=== PATIENT | male | born 1960 | race African-American/Black ===

== ENCOUNTER 2020-03-15 12:33 | Outpatient (REF) | payer MEDICARE, MEDICAID, SELFPAY ==
[2020-03-15 14:01] LABS: MANUAL DIFF FLAG NO
[2020-03-15 14:07] LABS: Basophils Percent Auto 0.8 % (0-2); Eosinophils Absolute Auto 0.1 X10*3/uL (0.0-0.4); Eosinophils Percent Auto 1.4 % (0-4); Hematocrit 38.9 % (42-52); Hemoglobin 12.8 g/dl (14.0-18.0); Lymphocytes Absolute Auto 2.2 X10*3/uL (1.2-4.9); Lymphocytes Percent Auto 43.3 % (20-40); Mean Corpuscular HGB Conc 32.9 g/dl (31.0-36.0); Mean Corpuscular Hemoglobin 31.9 pg (27.0-33.0); Mean Platelet Volume 11.4 fL (9.4-12.4); Monocytes Absolute Auto 0.6 X10*3/uL (0.1-1.2); Monocytes Percent Auto 11.4 % (2-11); Neutrophils Absolute Auto 2.2 X10*3/uL (2.0-8.3); Neutrophils Percent Auto 43.1 % (45-73); Platelet Count 235 X10*3/uL (160-400); Red Blood Count 4.01 X10*6/uL (4.60-5.80); Red Cell Distribution Width 13.7 % (11.0-16.0); White Blood Count 5.2 X10*3/uL (4.8-10.8)
[2020-03-15 14:49] LABS: Albumin Level 4.2 g/dL (3.5-5.0); Anion Gap 14 (12-20); Blood Urea Nitrogen 17 mg/dL (9-16); Calcium 8.8 mg/dL (8.4-10.2); Carbon Dioxide 27 mmol/L (22-29); Chloride 104 mmol/L (96-108); Estimated Glomerular Filt Rate > 60; Magnesium 1.9 mg/dL (1.6-2.6); Potassium 4.7 mmol/l (3.3-5.1); Sodium 140 mmol/L (135-145)
[2020-03-16 17:51] LABS: Calcium (PTHI) 9.7 mg/dL (8.6-10.3); PTHI 115 pg/mL (14-64)
== END 2020-03-15 12:34 | disposition home or self-care (01) ==
LOC: HO.HMGCLDS 12:33
PROVIDERS: PCP Internal Medicine; Visit Provider Internal Medicine Hypertension Specialist
DX: I12.9 Hypertensive chronic kidney disease with stage 1 through stage 4 chronic kidney disease, or unspecified chronic kidney disease (principal); N18.9 Chronic kidney disease, unspecified; E87.5 Hyperkalemia
CPT/HCPCS: 36415; 80051; 82040; 82310; 82565; 83735; 83970; 84100; 84520; 85025

== ENCOUNTER → 2020-03-16 10:02 | Outpatient (BNVA) | payer MEDICARE, MEDICAID, SELFPAY | PROVIDERS: PCP Internal Medicine; Referring Provider Internal Medicine; Visit Provider Internal Medicine Cardiovascular Disease | DX: I48.92 Unspecified atrial flutter (principal); Z86.79 Personal history of other diseases of the circulatory system; Z79.01 Long term (current) use of anticoagulants; Z79.899 Other long term (current) drug therapy | CPT/HCPCS: 93005; 99212 ==

== ENCOUNTER → 2020-04-12 08:36 | Outpatient (BNVA) | payer MEDICARE, MEDICAID, SELFPAY | PROVIDERS: PCP Internal Medicine; Visit Provider Physician Assistant | DX: Z01.818 Encounter for other preprocedural examination (principal) | CPT/HCPCS: Q3014 ==

== ENCOUNTER → 2020-07-03 13:46 | Outpatient (BNVA) | payer MEDICARE, MEDICAID, SELFPAY | PROVIDERS: PCP Internal Medicine; Visit Provider Physician Assistant | DX: Z76.89 Persons encountering health services in other specified circumstances (principal) | CPT/HCPCS: Q3014 ==

== ENCOUNTER 2020-07-05 10:02 | Outpatient (REF) | payer MEDICARE, MEDICAID, SELFPAY ==
[2020-07-05 10:49] LABS: MANUAL DIFF FLAG NO
[2020-07-05 10:54] LABS: Basophils Absolute Auto 0.1 X10*3/uL (0.0-0.2); Eosinophils Absolute Auto 0.1 X10*3/uL (0.0-0.4); Eosinophils Percent Auto 2.5 % (0-4); Hematocrit 38.5 % (42-52); Hemoglobin 12.6 g/dl (14.0-18.0); Imm Gran Abs Auto 0.01 X10*3/uL (0.00-0.03); Imm Gran Pct Auto 0.2 % (0.0-0.4); Lymphocytes Absolute Auto 2.4 X10*3/uL (1.2-4.9); Lymphocytes Percent Auto 46.9 % (20-40); Mean Corpuscular HGB Conc 32.7 g/dl (31.0-36.0); Mean Corpuscular Hemoglobin 31.8 pg (27.0-33.0); Mean Corpuscular Volume 97.2 fL (80-98); Mean Platelet Volume 11.1 fL (9.4-12.4); Monocytes Absolute Auto 0.6 X10*3/uL (0.1-1.2); Monocytes Percent Auto 12.3 % (2-11); Neutrophils Absolute Auto 1.9 X10*3/uL (2.0-8.3); Neutrophils Percent Auto 37.1 % (45-73); Platelet Count 256 X10*3/uL (160-400); Red Blood Count 3.96 X10*6/uL (4.60-5.80); Red Cell Distribution Width 13.7 % (11.0-16.0); White Blood Count 5.1 X10*3/uL (4.8-10.8)
[2020-07-05 11:05] LABS: Glucose Urine UA NEG (NEG); Leukocyte Esterase Urine NEG (NEG); Nitrite Urine NEG (NEG); PH 7.5 (5.0-8.0); Specific Gravity - Urine 1.015 (1.005-1.025); Urine Blood NEG (NEG); Urine Ketones NEG (NEG); Urine Protein NEG (NEG-TRACE)
[2020-07-05 11:06] LABS: Appearance Urine CLEAR; Color Urine YELLOW
[2020-07-05 11:26] LABS: Alanine Aminotransferase 11 U/L (0-40); Alkaline Phosphatase 61 U/L (39-117); Anion Gap 12 (12-20); Aspartate Amino Transferase 15 U/L (5-37); Bilirubin Total 0.5 mg/dL (0.0-1.0); Blood Urea Nitrogen 12 mg/dL (9-16); Calcium 9.4 mg/dL (8.4-10.2); Carbon Dioxide 30 mmol/L (22-29); Chloride 101 mmol/L (96-108); Cholesterol 169 mg/dL; Estimated Glomerular Filt Rate 59; Glucose Fasting 95 mg/dL (60-99); HDL Cholesterol 52 mg/dL; LDL Cholesterol Calculated 101 mg/dl; Potassium 5.4 mmol/L (3.3-5.1); Sodium 138 mmol/L (135-145); Total Protein 7.7 g/dL (6.5-8.0); Triglycerides 83 mg/dL
[2020-07-05 11:48] LABS: TSH reflex Free T4 2.58 uIU/mL (0.32-4.0)
== END 2020-07-05 10:03 | disposition home or self-care (01) ==
LOC: HO.LAB 10:02
PROVIDERS: PCP Internal Medicine; Visit Provider Internal Medicine
DX: I10 Essential (primary) hypertension (principal); E78.00 Pure hypercholesterolemia, unspecified; M51.36 Other intervertebral disc degeneration, lumbar region; Z86.79 Personal history of other diseases of the circulatory system
CPT/HCPCS: 36415; 80053; 80061; 81003; 84443; 85025

== ENCOUNTER 2020-08-10 11:29 | Outpatient (REF) | payer MEDICARE, MEDICAID, SELFPAY ==
[2020-08-10 14:12] LABS: Alanine Aminotransferase 14 U/L (0-40); Albumin Level 3.9 g/dL (3.5-5.0); Alkaline Phosphatase 57 U/L (39-117); Anion Gap 11 (12-20); Aspartate Amino Transferase 20 U/L (5-37); Bilirubin Total 0.5 mg/dL (0.0-1.0); Blood Urea Nitrogen 13 mg/dL (9-16); Calcium 8.8 mg/dL (8.4-10.2); Carbon Dioxide 29 mmol/L (22-29); Chloride 104 mmol/L (96-108); Estimated Glomerular Filt Rate > 60; Glucose Fasting 88 mg/dL (60-99); Potassium 4.7 mmol/L (3.3-5.1); Sodium 139 mmol/L (135-145); Total Protein 7.5 g/dL (6.5-8.0); Valproate 69.1 mcg/mL (50.0-100.0)
== END 2020-08-10 11:30 | disposition home or self-care (01) ==
LOC: HO.10HDL 11:29
PROVIDERS: Visit Provider Clinical Nurse Specialist Psychiatric/Mental Health, Adult
DX: Z79.899 Other long term (current) drug therapy (principal)
CPT/HCPCS: 36415; 80053; 80164

== ENCOUNTER → 2020-09-11 13:53 | Outpatient (REF) | payer MEDICARE, MEDICAID, SELFPAY ==
--- NOTE | 2020-09-11 13:57 | CA_ITS ---
Transthoracic Echocardiogram Patient (Last, First, Middle): Pool Perez F Gender: Male Date of : 1960 Age: 60 Procedure Date: 09/11/2020 Procedure Type: Transthoracic Echocardiogram Location: OP Height: 180.34 cm Weight: 126.1 kg BSA: 2.43 m2 Heart Rate: bpm BP: 120 / 80 mmHg Sulky Driver: WILY Referring MD: John Bautista MD Symptoms: I48.92 - Unspecified atrial flutter Study Quality: Fair ECG Rhythm: Sinus Conclusions: - The left ventricular systolic function is normal. The visually estimated ejection fraction is between 55-60%. - Mildly increased right ventricular cavity size. - The left atrium is moderately dilated. - There is mild mitral valve regurgitation. - There is mild tricuspid valve regurgitation. Findings Left Ventricle Normal left ventricular cavity size. There is mildly increased left ventricular wall thickness. The left ventricular systolic function is normal. The visually estimated ejection fraction is between 55-60%. There is no evidence of regional wall motion abnormalities. Diastolic function is normal for age. Right Ventricle Mildly increased right ventricular cavity size. There is normal right ventricular systolic function. Atria The left atrium is moderately dilated. The right atrium is normal in size. Aortic Valve There is a normal trileaflet aortic valve. There is no aortic valve stenosis. There is no aortic valve regurgitation. Mitral Valve The mitral valve appears normal. There is mild mitral valve regurgitation. There is no mitral valve stenosis. Pulmonic Valve The pulmonic valve was not well visualized. Tricuspid Valve Normal tricuspid valve structure. There is mild tricuspid valve regurgitation. The pulmonary artery systolic pressure is normal. Great Vessels The asc aorta is normal in size. Venous The inferior vena cava is normal in size and collapses greater than 50% with inspiration. Pericardium/Pleural There is no evidence of pericardial effusion. Prior Study Comparison No significant change compared to prior study dated: 09/28/2019. Measurements 2D Linear Measurements IVSd: 1.22 0.6-0.9/0.6-1.0 cm LVIDd: 4.55 3.9-5.3/4.2-5.9 cm LVIDd Index: 1.87 2.4-3.2/2.2-3.1 cm/m2 LVIDs: 2.95 2.0-3.6 cm LVPWd: 1.21 0.7-1.1 cm Ao Root: 4.20 2.1-3.5 cm LA Diam: 3.20 2.7-3.8/3.0-4.0 cm LAIDs Index: 1.32 1.5-2.3 cm/m2 LV Mass: 255.71 67-162/88-224 g LV Mass Index: 105.23 43-95/49-115 g/m2 LVOT Diam: 2.40 3.0+(-)1.3 cm 2D Systolic Function EF 4C: 54.60 >55% EF 2C: 54.20 >55% EF BiP: 53.90 >55% Mitral Valve MV Pk E: 0.87 MV PK A: 0.54 MV Decel Time: 257.00 E/A: 1.60 E'Lateral: 11.70 E'Medial: 9.96 E/E' Med: 8.70 E/E' Lat: 7.40 PHT: 75.00 MVA PHT: 2.93 Decel [place]: 3.37 Aortic Valve AoV Pk Ganga: 1.61 AoV Mn Ganga: 1.16 AoV VTI: 0.36 AoV Pk Grad: 10.00 Aov Mn Grad: 6.00 IMAN Cont.VTI: 2.67 LVOT LVOT Pk Ganga: 0.93 LVOT Mn Ganga: 0.62 LVOT VTI: 0.21 LVOT Pk Grad: 3.00 LVOT Mn Grad: 2.00 LVOT Diam: 2.40 LVOT Area: 4.52 Diastolic Function MV Pk E: 0.87 MV Pk A: 0.54 E/A: 1.60 E'Medial: 9.96 E/E' Med: 8.70 E' Laterial: 11.70 E/E' Lat: 7.40 Tricuspid Valve TR Pk Ganga: 2.64 TR Pk Grad: 28.00 RA Press: 3.00 RVSP: 31.00 Great Vessels Aorta Ao Root-2D: 4.20 2.0-3.7 cm Ao Asc: 3.70 2.1-3.4 cm Ao Arch: 3.50 Updated in Other Vendor System with Status of Final Luca Jarrett MD electronically signed on 09/12/2020 4:35:03 PM with status of Final
== END ==
LOC: HO.CARD 13:53
PROVIDERS: PCP Internal Medicine; Visit Provider Internal Medicine Cardiovascular Disease
DX: I10 Essential (primary) hypertension (principal); I48.92 Unspecified atrial flutter; Z86.79 Personal history of other diseases of the circulatory system
CPT/HCPCS: 93306

== ENCOUNTER → 2020-09-12 13:50 | Outpatient (REF) | payer MEDICARE, MEDICAID, SELFPAY ==
--- NOTE | 2020-09-12 14:05 | ECG_ITS ---
Hook-up date: 2020-09-12 14:04:00 Duration: 25:22:00 Test Indications: UNSPEC. ATRIAL FLUTTER Medications: 83327 QRS complexes 1 Ventricular ectopics which represent <1 % of total QRS comp. 28 Supraventricular ectopics which represent <1 % of total QRS comp. * Paced QRS complexs which represent % of total QRS comp. VENTRICULAR ECTOPY 1 Isolated 0 Bigeminal Cycles 0 Couplets 0 Runs 0 Beats in Runs * Beats LONGEST at * BPM at :: -- * Beats FASTEST at * BPM at :: -- SUPRAVENTRICULAR ECTOPY 12 Isolated 1 Couplets 3 Runs 14 Beats in Runs 6 Beats LONGEST at 122 BPM at 23:37:24 2020-09-12 3 Beats FASTEST at 147 BPM at 10:11:25 2020-09-13 HEART RATES 45 MIN at 00:36:34 2020-09-13 68 AVG 111 MAX at 08:32:15 2020-09-13 LONGEST RR 1.4240 secs at 00:36:29 2020-09-13 S-T LEVELS Channel 1 - 128 mm at 14:04:00 2020-09-12 - 128 mm at 14:04:00 2020-09-12 Channel 2 - 128 mm at 14:04:00 2020-09-12 - 128 mm at 14:04:00 2020-09-12 Channel 3 - 128 mm at 03:32:31 -- - 128 mm at 03:32:31 Underlying rhythm is probably sinus but P waves are difficult to see; Average ventricular rate 68/min; Rare supraventricular ectopy; No sustained arrhythmias; Symptoms of chest pain, heart racing, correlate with sinus rhythm. Referred By: John Bautista Overread By: GLENN DAILEY
== END ==
LOC: HO.CARD 13:50
PROVIDERS: PCP Internal Medicine; Visit Provider Internal Medicine Cardiovascular Disease
DX: I48.92 Unspecified atrial flutter (principal)
CPT/HCPCS: 93226

== ENCOUNTER → 2020-11-02 12:29 | Outpatient (BNVA) | payer MEDICARE, MEDICAID, SELFPAY | PROVIDERS: PCP Internal Medicine; Referring Provider Internal Medicine; Visit Provider Internal Medicine Cardiovascular Disease | DX: I48.92 Unspecified atrial flutter (principal); I10 Essential (primary) hypertension; I50.9 Heart failure, unspecified; E87.5 Hyperkalemia; E78.00 Pure hypercholesterolemia, unspecified; E66.9 Obesity, unspecified; M16.0 Bilateral primary osteoarthritis of hip; F17.210 Nicotine dependence, cigarettes, uncomplicated; Z68.34 Body mass index [BMI] 34.0-34.9, adult; Z86.79 Personal history of other diseases of the circulatory system; Z88.0 Allergy status to penicillin; Z88.8 Allergy status to other drugs, medicaments and biological substances; Z79.01 Long term (current) use of anticoagulants; Z79.899 Other long term (current) drug therapy | CPT/HCPCS: 93005; 99212 ==

== ENCOUNTER 2021-02-28 09:49 | Outpatient (REF) | payer MEDICARE, MEDICAID, SELFPAY ==
[2021-02-28 10:05] LABS: MANUAL DIFF FLAG NO
[2021-02-28 10:45] LABS: Basophils Percent Auto 0.7 % (0-2); Eosinophils Absolute Auto 0.1 X10*3/uL (0.0-0.4); Eosinophils Percent Auto 2.2 % (0-4); Hematocrit 37.8 % (42-52); Hemoglobin 12.8 g/dl (14.0-18.0); Imm Gran Abs Auto 0.01 X10*3/uL (0.00-0.03); Imm Gran Pct Auto 0.2 % (0.0-0.4); Lymphocytes Absolute Auto 1.9 X10*3/uL (1.2-4.9); Lymphocytes Percent Auto 42.4 % (20-40); Mean Corpuscular HGB Conc 33.9 g/dl (31.0-36.0); Mean Corpuscular Hemoglobin 32.2 pg (27.0-33.0); Mean Corpuscular Volume 95.2 fL (80-98); Mean Platelet Volume 10.9 fL (9.4-12.4); Monocytes Absolute Auto 0.6 X10*3/uL (0.1-1.2); Monocytes Percent Auto 12.4 % (2-11); Neutrophils Absolute Auto 1.9 X10*3/uL (2.0-8.3); Neutrophils Percent Auto 42.1 % (45-73); Platelet Count 206 X10*3/uL (160-400); Red Blood Count 3.97 X10*6/uL (4.60-5.80); Red Cell Distribution Width 13.3 % (11.0-16.0); White Blood Count 4.6 X10*3/uL (4.8-10.8)
[2021-02-28 10:58] LABS: Alanine Aminotransferase 13 U/L (0-40); Albumin Level 4.1 g/dL (3.5-5.0); Alkaline Phosphatase 58 U/L (39-117); Anion Gap 14 (12-20); Aspartate Amino Transferase 20 U/L (5-37); Blood Urea Nitrogen 14 mg/dL (9-16); Calcium 9.4 mg/dL (8.4-10.2); Carbon Dioxide 24 mmol/L (22-29); Chloride 102 mmol/L (96-108); Cholesterol 177 mg/dL; Estimated Glomerular Filt Rate > 60; Glucose Fasting 96 mg/dL (60-99); HDL Cholesterol 49 mg/dL; LDL Cholesterol Calculated 114 mg/dl; Potassium 4.6 mmol/L (3.3-5.1); Sodium 135 mmol/L (135-145); Total Protein 7.7 g/dL (6.5-8.0); Triglycerides 72 mg/dL
[2021-02-28 11:11] LABS: Valproate 82.7 mcg/mL (50.0-100.0)
== END 2021-02-28 09:50 | disposition home or self-care (01) ==
LOC: HO.LAB 09:49
PROVIDERS: Absent Provider Clinical Nurse Specialist Psychiatric/Mental Health, Adult; PCP Internal Medicine; Visit Provider Nurse Practitioner Family
DX: Z79.899 Other long term (current) drug therapy (principal); E66.9 Obesity, unspecified; E78.00 Pure hypercholesterolemia, unspecified; I10 Essential (primary) hypertension
CPT/HCPCS: 36415; 80053; 80061; 80164; 85025

== ENCOUNTER → 2021-06-20 10:30 | Outpatient (BNVA) | payer MEDICARE, MEDICAID, SELFPAY | PROVIDERS: PCP Internal Medicine; Referring Provider Internal Medicine; Visit Provider Internal Medicine Cardiovascular Disease | DX: I48.92 Unspecified atrial flutter (principal); Z86.79 Personal history of other diseases of the circulatory system | CPT/HCPCS: 93005; 99212 ==

== ENCOUNTER 2021-08-28 09:57 | Outpatient (REF) | payer MEDICARE, MEDICAID, SELFPAY ==
[2021-08-28 10:18] LABS: MANUAL DIFF FLAG NO
[2021-08-28 10:55] LABS: Basophils Percent Auto 0.7 % (0-2); Eosinophils Absolute Auto 0.2 X10*3/uL (0.0-0.4); Eosinophils Percent Auto 3.5 % (0-4); Hematocrit 39.4 % (42.0-52.0); Hemoglobin 12.8 g/dl (14.0-18.0); Lymphocytes Absolute Auto 2.1 X10*3/uL (1.2-4.9); Lymphocytes Percent Auto 49.8 % (20-40); Mean Corpuscular HGB Conc 32.5 g/dl (31.0-36.0); Mean Corpuscular Hemoglobin 31.8 pg (27.0-33.0); Mean Platelet Volume 10.5 fL (9.4-12.4); Monocytes Absolute Auto 0.5 X10*3/uL (0.1-1.2); Monocytes Percent Auto 12.6 % (2-11); Neutrophils Absolute Auto 1.4 x10*3/uL (2.0-8.3); Neutrophils Percent Auto 33.4 % (45-73); Platelet Count 224 X10*3/uL (160-400); Red Blood Count 4.02 X10*6/uL (4.60-5.80); Red Cell Distribution Width 13.2 % (11.0-16.0); White Blood Count 4.3 X10*3/uL (4.8-10.8)
[2021-08-28 11:30] LABS: Alanine Aminotransferase 12 U/L (0-40); Albumin Level 3.8 g/dL (3.5-5.0); Alkaline Phosphatase 51 U/L (39-117); Anion Gap 10 (12-20); Aspartate Amino Transferase 16 U/L (5-37); Bilirubin Total 0.9 mg/dL (0.0-1.0); Blood Urea Nitrogen 11 mg/dL (9-16); Calcium 9.6 mg/dL (8.4-10.2); Carbon Dioxide 28 mmol/L (22-29); Chloride 103 mmol/L (96-108); Cholesterol 163 mg/dL; Estimated Glomerular Filt Rate > 60; Glucose Fasting 81 mg/dL (60-99); HDL Cholesterol 47 mg/dL; LDL Cholesterol Calculated 104 mg/dl; Potassium 5.2 mmol/L (3.3-5.1); Sodium 136 mmol/L (135-145); Total Protein 7.3 g/dL (6.5-8.0); Triglycerides 62 mg/dL
[2021-08-28 11:38] LABS: TSH reflex Free T4 0.85 uIU/mL (0.32-4.0); Vitamin D 25-OH Total 35.8 ng/mL (>30)
[2021-08-28 12:11] LABS: Appearance Urine CLEAR; Color Urine YELLOW; Glucose Urine UA NEG (NEG); Leukocyte Esterase Urine NEG (NEG); Nitrite Urine NEG (NEG); Specific Gravity - Urine <= 1.005 (1.005-1.025); Urine Blood NEG (NEG); Urine Ketones NEG (NEG); Urine Protein NEG (NEG-TRACE)
== END 2021-08-28 09:58 | disposition home or self-care (01) ==
LOC: HO.LAB 09:57
PROVIDERS: PCP Internal Medicine; Visit Provider Internal Medicine
DX: I10 Essential (primary) hypertension (principal); E78.00 Pure hypercholesterolemia, unspecified; E55.9 Vitamin D deficiency, unspecified
CPT/HCPCS: 36415; 80053; 80061; 81003; 82306; 84443; 85025

== ENCOUNTER → 2021-09-03 11:05 | Outpatient (REF) | payer MEDICARE, MEDICAID, SELFPAY ==
--- NOTE | ~2021-09-03 | NM_ITS ---
TC-PYP Cardiac Study INDICATION: Evaluation for Cardiac Amyloidosis CLINICAL HISTORY: 61 years old Male with atrial flutter to evaluate for cardiac amyloidosis TECHNIQUE: 25 mCi of Tc-99m pyrophosphate was injected intravenously. Planar images of the chest were obtained in the anterior and left lateral views at 3 hours.. SPECT-CT images of the chest were also obtained. Total DLP 111 mGy-cm. COMPARISON: None FINDINGS: 1. Image Quality: Good 2. Semi-quantitative visual scoring of the cardiac uptake is performed as follows: 0 = absent cardiac uptake and intense bone uptake 3. H-CL Ratio if Applicable: Not applicable 4. Ancillary Finds: NM/NM TC PYP cardiac amyloidosis IMPRESSION: 1. This study is negative for ATTR type cardiac amyloidosis 2. Please note that the Tc 99m PYP is more sensitive in detecting transthyretin-related cardiac amyloidosis than that of light-chain cardiac amyloidosis.
== END ==
LOC: HO.NUCMED 11:05
PROVIDERS: PCP Internal Medicine; Visit Provider Internal Medicine Cardiovascular Disease
DX: I48.92 Unspecified atrial flutter (principal); Z86.79 Personal history of other diseases of the circulatory system
CPT/HCPCS: 78803; A9538

== ENCOUNTER 2021-11-15 21:16 | Emergency (ER) | payer MEDICARE, MEDICAID, SELFPAY ==
--- NOTE | ~2021-11-15 | XR_ITS ---
EXAMINATION: XR HIP, LEFT CLINICAL INFORMATION: Fall with hip pain COMPARISON: 02/21/2012 TECHNIQUE: Single view pelvis with 2 additional views left hip of the left hip. FINDINGS: Severe degenerative changes are present in the right with complete loss of joint space with sclerosis and osteophytes. A left total hip prosthesis is present. The prosthesis appears intact without evidence of loosening or associated fracture. Distal aspect of the intramedullary component is not included on the radiograph. XR/XR hip LT w PEL1V IMPRESSION: No hip fracture is seen. Severe degenerative changes right hip with intact prosthesis left hip
--- NOTE | ~2021-11-15 | CT_ITS ---
EXAMINATION: CT SOFT TISSUE NECK WITHOUT CONTRAST CLINICAL INFORMATION: Trauma pain in the throat. COMPARISON: None TECHNIQUE: Helical imaging was performed in the axial plane with generation of coronal and sagittal reformatted images. This CT examination was performed using dose optimization techniques as appropriate, variously including the following: *Automated exposure control *Adjustment of mA and/or kV according to patient size (this includes techniques or standardized protocols for targeted exams where dose is matched to indication/reason for exam; i.e. extremities or head) *Use of iterative reconstruction technique DLP: 999.99 mGy-cm FINDINGS: No fluid collections. No edema. The laryngeal structures are normal. The parapharyngeal fat is preserved. No extra mucosal soft tissue mass or fluid collection is seen. No retropharyngeal fluid collection is seen. No cervical adenopathy is identified. The parotid glands are homogeneous in attenuation. The submandibular glands are normal. Thyroid is mildly heterogeneous. The superior mediastinum is unremarkable. The lung apices are clear. The mastoid air cells and visualized portions of the paranasal sinuses are well-aerated. The temporomandibular joints are normal. No acute osseous abnormality. Multilevel degenerative spondylosis of the cervical. The imaged portions of the brain parenchyma are unremarkable. CT/CT soft tissue neck wo con IMPRESSION: No acute abnormality CT of the neck.
--- NOTE | ~2021-11-15 | CT_ITS ---
EXAMINATION: CT HEAD WITHOUT CONTRAST CT CERVICAL SPINE WITHOUT CONTRAST CLINICAL INFORMATION: Fall. On Xarelto COMPARISON: None. TECHNIQUE: Imaging was performed from the skull base to vertex without intravenous administration of contrast. In addition, helical noncontrast CT imaging was acquired through the cervical spine and source images were reviewed along with axial reconstructions and sagittal and coronal MPRs. [This CT examination was performed using dose optimization techniques as appropriate, variously including the following: *Automated exposure control *Adjustment of mA and/or kV according to patient size (this includes techniques or standardized protocols for targeted exams where dose is matched to indication/reason for exam; i.e. extremities or head) *Use of iterative reconstruction technique] DLP: 10.25+8.7826+727.06 mGy-cm FINDINGS: HEAD: No intracranial mass, hemorrhage, or midline shift is visualized. The ventricles and sulci are proportional. No extra-axial collections are identified. The paranasal sinuses and mastoid air cells are well aerated. CERVICAL SPINE: There is no evidence of acute cervical spine fracture. Vertebral bodies remain normal in height. Cervical vertebrae have normal alignment. There is multilevel degenerative spondylosis of the cervical spine with disc height narrowing and endplate spurs and facet joint arthrosis No pre- or paravertebral soft tissue abnormality is identified. Limited assessment of the lung apices is unremarkable. CT/CT head/brain wo con IMPRESSION: 1. No acute intracranial pathology. 2. No CT evidence of acute cervical spine fracture or traumatic subluxation
--- NOTE | ~2021-11-15 | CT_ITS ---
EXAMINATION: CT HEAD WITHOUT CONTRAST CT CERVICAL SPINE WITHOUT CONTRAST CLINICAL INFORMATION: Fall. On Xarelto COMPARISON: None. TECHNIQUE: Imaging was performed from the skull base to vertex without intravenous administration of contrast. In addition, helical noncontrast CT imaging was acquired through the cervical spine and source images were reviewed along with axial reconstructions and sagittal and coronal MPRs. [This CT examination was performed using dose optimization techniques as appropriate, variously including the following: *Automated exposure control *Adjustment of mA and/or kV according to patient size (this includes techniques or standardized protocols for targeted exams where dose is matched to indication/reason for exam; i.e. extremities or head) *Use of iterative reconstruction technique] DLP: 10.25+8.7826+727.06 mGy-cm FINDINGS: HEAD: No intracranial mass, hemorrhage, or midline shift is visualized. The ventricles and sulci are proportional. No extra-axial collections are identified. The paranasal sinuses and mastoid air cells are well aerated. CERVICAL SPINE: There is no evidence of acute cervical spine fracture. Vertebral bodies remain normal in height. Cervical vertebrae have normal alignment. There is multilevel degenerative spondylosis of the cervical spine with disc height narrowing and endplate spurs and facet joint arthrosis No pre- or paravertebral soft tissue abnormality is identified. Limited assessment of the lung apices is unremarkable. CT/CT cervical spine wo con IMPRESSION: 1. No acute intracranial pathology. 2. No CT evidence of acute cervical spine fracture or traumatic subluxation
--- NOTE | 2021-11-15 21:27 | ECG_ITS ---
Test Reason : FALL Blood Pressure : / mmHG Vent. Rate : 070 BPM Atrial Rate : 070 BPM P-R Int : 148 ms QRS Dur : 092 ms QT Int : 408 ms P-R-T Axes : 051 045 033 degrees QTc Int : 440 ms Normal sinus rhythm Nonspecific T wave abnormality Abnormal ECG When compared with ECG of 12-AUG-2019 12:01, Nonspecific T wave abnormality, improved in Inferior leads T wave inversion no longer evident in Lateral leads Referred By: Clover Peterson Electronically Signed By:Puneet Boland
[2021-11-15 21:30] VITALS: BP 122/69; BP 140/84; PULSE 75; PULSE 78; RESP 16; TEMP 36.7; O2SAT 96; O2SAT 97; BMI 35.5
--- NOTE | 2021-11-15 21:56 | ED_ITS ---
HPI - Fall General Chief Complaint: Fall Stated Complaint: fall Time Seen by Provider: 11/15/21 21:27 Source: patient and EMS Mode of arrival: EMS History of Present Illness HPI Narrative: 61-year-old male with history schizoaffective disorder, who states that he lives at home by himself and has a history of hypertension, lower leg swelling and he denies being on any diuretics for this as well as stating that he has atrial flutter and is currently on Xarelto. Patient states that he was walking up stairs when he lost his footing on the approximate 4/5 stair and states that he fell backwards while trying to catch himself with his left arm and then states that he hit the left forehead as well as his throat, denies loss of consciousn ess but states that he is worried about his left hip. He denies any recent fever, chills, shortness of breath or chest pain/palpitations. Related Data Home Medications Medication Instructions Recorded Confirmed ascorbic acid (vitamin C) 500 mg 500 mg PO DAILY 03/13/20 08/31/21 capsule benztropine 0.5 mg tablet 0.5 mg PO BID 03/13/20 08/31/21 divalproex 500 mg tablet,extended 1,500 mg PO BEDTIME 03/13/20 08/31/21 release 24 hr (Depakote ER) fluphenazine decanoate 25 mg/mL 37.5 mg IM Q2W 03/13/20 08/31/21 injection solution loratadine 10 mg tablet (Allergy 10 mg PO DAILY 03/13/20 08/31/21 Relief (loratadine)) lorazepam 0.5 mg tablet 0.5 mg PO BID PRN 03/13/20 08/31/21 cholecalciferol (vitamin D3) 25 25 mcg PO DAILY 03/16/20 08/31/21 mcg (1,000 unit) capsule furosemide 40 mg tablet 40 mg PO QAM 10/17/20 08/31/21 olanzapine 20 mg tablet 20 mg PO BEDTIME 11/06/20 08/31/21 olanzapine 5 mg tablet 5 mg PO BEDTIME 11/06/20 08/31/21 Previous Rx's Medication Instructions Recorded amiodarone 100 mg tablet 100 mg PO DAILY #30 tabs 05/15/21 metoprolol succinate 25 mg 25 mg PO DAILY #30 tabs 06/13/21 tablet,extended release 24 hr docusate sodium 100 mg capsule 100 mg PO BID PRN for constipation 06/28/21 (DOK) #60 caps miscellaneous medical supply 1 ea miscellaneous DAILY #1 ea 07/19/21 albuterol sulfate 90 mcg/actuation 2 puff PO QID PRN shortness of 08/31/21 aerosol inhaler (Ventolin HFA) breath or wheezing #18 grams fluticasone propionate 50 1 spray intranasal DAILY PRN 08/31/21 mcg/actuation nasal allergy symptoms 30 days #16 grams spray,suspension nicotine 7 mg/24 hr daily 1 patch transdermal Q24H 28 days 08/31/21 transdermal patch #28 ea ergocalciferol (vitamin D2) 1,250 1,250 mcg PO QWEEK #4 caps 09/07/21 mcg (50,000 unit) capsule rivaroxaban 20 mg tablet (Xarelto) 20 mg PO QPM 90 days #90 tabs 09/21/21 acetaminophen 500 mg tablet 500 mg PO Q8H PRN for pain #90 tabs 10/30/21 melatonin 5 mg capsule 5 mg PO .QHS PRN insomnia 30 days 10/30/21 #30 caps omeprazole 20 mg capsule,delayed 20 mg PO DAILY #30 caps 11/08/21 release tamsulosin 0.4 mg capsule 0.4 mg PO DAILY #30 caps 11/15/21 Allergies Allergy/AdvReac Type Severity Reaction Status Date / Time Penicillins [PENICILLINS] Allergy Intermediate RASH Verified 11/15/21 21:30 haloperidol [Haldol] Allergy Unknown Unknown Verified 11/15/21 21:30 mirtazapine [Remeron] Allergy Unknown Unknown Verified 11/15/21 21:30 trazodone Allergy Unknown Unknown Verified 11/15/21 21:30 verapamil [Verelan] Allergy Unknown Unknown Verified 11/15/21 21:30 risperidone [From RISPERDAL] AdvReac Severe SEIZURE Verified 11/15/21 21:30 lithium [LITHIUM] AdvReac Intermediate LETHARGY, Verified 11/15/21 21:30 AKATHISIA, TD Review of Systems Review of Systems: Pertinent positives and negatives as stated in HPI 10 point review of systems is otherwise negative. [facility] Past Medical History Source: nursing notes reviewed Medical History Allergic rhinitis Anal irritation Benign essential hypertension Cardiomyopathy History of acute heart failure History of atrial flutter History of cardiomyopathy History of congestive heart failure HTN (hypertension) Hyperkalemia Insomnia Lumbar degenerative disc disease Obesity (BMI 30-39.9) Osteoarthritis of hips, bilateral Paroxysmal atrial flutter Pure hypercholesterolemia Schizoaffective disorder, bipolar type Smoker Substance abuse in remission Surgical History History of total hip replacement Family History Family History Father Hypertension CVD (cardiovascular disease) Mother Hypertension Diabetes Brother Mental health disorder Social History Social History Household Members: None Housing: Apartment Alcohol intake: former Patient Tobacco Use Status: Current everyday Tobacco user Tobacco use type: Cigarette Cigarettes Per Day: 6 Second Hand Smoke Exposure: Yes Use of substances other than those prescribed or required for medical reasons: No Substance Use Type: Former Substance User Advance Directives: No Advance Directives Information Provided: Yes service: No Current occupational status: retired Cognitive needs: No Hearing needs: No Vision needs: Yes Physical Exam Vital Signs: Vital Signs: Last Vital Signs Temp 98.0 F 11/15/21 21:30 Pulse 82 11/16/21 00:35 Resp 16 11/16/21 00:35 BP 122/69 11/15/21 21:30 Pulse Ox 97 11/15/21 21:30 O2 Del Method 11/15/21 21:30 BMI result Body Mass Index 35.5 VITAL SIGNS: Reviewed. GENERAL: Well developed, well nourished, in no acute distress. HEAD: Normocephalic/atraumatic EYES: PERRLA, EOMI EARS: Ext canals without abnormality NOSE: Nares patent bilateral OROPHARYNX: no oral lesions noted, posterior pharynx clear and non-erythematous without noted tonsillar enlargement/erythema/exudates NECK: Supple, no adenopathy, no midline cervical spine tenderness, no tracheal deviation, minimal pain on palpation over anterior neck/trachea LUNGS: Normal breath sounds. No adventitious sounds or accessory muscle use. SpO2<97> CARDIOVASCULAR: Regular rate and rhythm without noted murmurs, no JVD but 2 to 3+ bilateral pitting edema PELVIS: Stable, nontender ABDOMEN: Soft, non-tender, non-distended with bowel sounds. MUSCULOSKELETAL: No tenderness, deformities, or effusions noted on gross inspection. EXTREMITIES: No cyanosis, clubbing or edema; RIGHT KNEE: Minor, superficial abrasion to the lateral aspect otherwise no erythema/ deformity/induration/swelling. SKIN: Inspection of the skin reveals no rashes, ulcerations, jaundice, pallor, or petechiae. NEUROLOGIC: Alert and oriented x 4. Strength and sensation to light touch were grossly intact x 4, cranial nerves 2-12 are grossly intact.. Course Course Course Narrative: 61-year-old male with history and clinical presentation consistent with mechanical fall but will rule out infection or cardiac etiology. In addition, due to patient being on anticoagulation will evaluate for possible head/cervical spine/tracheal injury as well as evaluating pelvis due to patient's concern about the pain that he reports that his left hip. Review of all investigations negative for acute findings to suggest fracture, dislocation, infection, arrhythmia. Patient on re-evaluation is otherwise feeling better and he is stable for discharge to home. MDM - Fall Lab Data Result diagrams: 11/15/21 22:52 11/15/21 22:52 Labs: Lab Results 11/15/21 11/15/21 11/15/21 Range/Units 22:52 22:52 22:52 WBC 4.5 L (4.8-10.8) X10*3/uL RBC 3.42 L (4.60-5.80) X10*6/uL Hgb 10.8 L (14.0-18.0) g/dl Hct 32.9 L (42.0-52.0) % MCV 96.2 (80.0-98.0) fL MCH 31.6 (27.0-33.0) pg MCHC 32.8 (31.0-36.0) g/dl RDW 12.9 (11.0-16.0) % Plt Count 220 (160-400) X10*3/uL MPV 10.1 (9.4-12.4) fL Immature Gran % (Auto) 0.0 (0.0-0.4) % Neut % (Auto) 31.8 L (45-73) % Lymph % (Auto) 51.7 H (20-40) % [place] % (Auto) 13.1 H (2-11) % Eos % (Auto) 2.7 (0-4) % Baso % (Auto) 0.7 (0-2) % Lymph # (Auto) 2.3 (1.2-4.9) X10*3/uL [place] # (Auto) 0.6 (0.1-1.2) X10*3/uL Eos # (Auto) 0.1 (0.0-0.4) X10*3/uL Baso # (Auto) 0.0 (0.0-0.2) X10*3/uL Abs Immat Gran (auto) 0.00 (0.00-0.03) X10*3/uL Absolute Neuts (auto) 1.4 L (2.0-8.3) x10*3/uL Absolute Nucleated RBC 0.000 (0.0-0.012) X10*3/uL Nucleated RBC % (auto) 0.0 (0.0-0.2) /100WBC PT 13.0 (10.0-13.1) SEC INR 1.1 (0.9-1.1) APTT 35.0 (24.1-38.0) SEC Sodium 137 (135-145) mmol/L Potassium 4.6 (3.3-5.1) mmol/L Chloride 103 (96-108) mmol/L Carbon Dioxide 29 (22-29) mmol/L Anion Gap 10 L (12-20) BUN 12 (9-16) mg/dL Creatinine 0.94 (0.5-1.4) mg/dL Estim Creat Clear Calc 104.0 Estimated GFR > 60 Random Glucose 82 (60-115) mg/dL Calcium 8.8 D (8.4-10.2) mg/dL Total Bilirubin 0.5 (0.0-1.0) mg/dL AST 15 (5-37) U/L ALT 11 (0-40) U/L Alkaline Phosphatase 56 (39-117) U/L Troponin I High Sens (<3.5-35.0) ng/L B-Natriuretic Peptide (<100) pg/mL Total Protein 6.6 (6.5-8.0) g/dL Albumin 3.5 (3.5-5.0) g/dL Urine Color Urine Appearance Urine pH (5.0-8.0) Ur Specific [place] (1.005-1.025) Urine Protein (NEG-TRACE) MG/DL Urine Glucose (UA) (NEG) MG/DL Urine Ketones (NEG) MG/DL Urine Blood (NEG) Urine Nitrite (NEG) Ur Leukocyte Esterase (NEG) 11/15/21 11/15/21 11/16/21 Range/Units 22:52 22:52 00:32 WBC (4.8-10.8) X10*3/uL RBC (4.60-5.80) X10*6/uL Hgb (14.0-18.0) g/dl Hct (42.0-52.0) % MCV (80.0-98.0) fL MCH (27.0-33.0) pg MCHC (31.0-36.0) g/dl RDW (11.0-16.0) % Plt Count (160-400) X10*3/uL MPV (9.4-12.4) fL Immature Gran % (Auto) (0.0-0.4) % Neut % (Auto) (45-73) % Lymph % (Auto) (20-40) % [place] % (Auto) (2-11) % Eos % (Auto) (0-4) % Baso % (Auto) (0-2) % Lymph # (Auto) (1.2-4.9) X10*3/uL [place] # (Auto) (0.1-1.2) X10*3/uL Eos # (Auto) (0.0-0.4) X10*3/uL Baso # (Auto) (0.0-0.2) X10*3/uL Abs Immat Gran (auto) (0.00-0.03) X10*3/uL Absolute Neuts (auto) (2.0-8.3) x10*3/uL Absolute Nucleated RBC (0.0-0.012) X10*3/uL Nucleated RBC % (auto) (0.0-0.2) /100WBC PT (10.0-13.1) SEC INR (0.9-1.1) APTT (24.1-38.0) SEC Sodium (135-145) mmol/L Potassium (3.3-5.1) mmol/L Chloride (96-108) mmol/L Carbon Dioxide (22-29) mmol/L Anion Gap (12-20) BUN (9-16) mg/dL Creatinine (0.5-1.4) mg/dL Estim Creat Clear Calc Estimated GFR Random Glucose (60-115) mg/dL Calcium (8.4-10.2) mg/dL Total Bilirubin (0.0-1.0) mg/dL AST (5-37) U/L ALT (0-40) U/L Alkaline Phosphatase (39-117) U/L Troponin I High Sens 9.1 (<3.5-35.0) ng/L B-Natriuretic Peptide 11 (<100) pg/mL Total Protein (6.5-8.0) g/dL Albumin (3.5-5.0) g/dL Urine Color YELLOW Urine Appearance CLEAR Urine pH 7.5 (5.0-8.0) Ur Specific [place] 1.010 (1.005-1.025) Urine Protein NEG (NEG-TRACE) MG/DL Urine Glucose (UA) NEG (NEG) MG/DL Urine Ketones NEG (NEG) MG/DL Urine Blood NEG (NEG) Urine Nitrite NEG (NEG) Ur Leukocyte Esterase NEG (NEG) ECG Data Attestation: I personally reviewed and interpreted this ECG as follows: Prior ECG tracings: available for review Interpretation: Normal sinus rhythm, HR-70, no STEMI, KS/QRS/QTC are within normal limits. Discharge Plan Discharge Clinical Impression: Accident due to mechanical fall without injury, Osteoarthritis of hips, bilateral, Schizoaffective disorder, bipolar type, Paroxysmal atrial flutter, History of cardiomyopathy Patient Disposition: Home, Self-Care Instructions: Fall Prevention for Older Adults (ED) Additional Instructions: 1. Resume all home medications as prescribed. 2. Recommend follow-up with your primary care provider by calling the office in the morning and setting up an appointment for re-evaluation. Return to the ER for worsening symptoms. Prescriptions: No Action amiodarone 100 mg tablet 100 mg PO DAILY Qty: 30 5RF metoprolol succinate 25 mg tablet extended release 24 hr 25 mg PO DAILY Qty: 30 5RF docusate sodium [DOK] 100 mg capsule 100 mg PO BID PRN (Reason: for constipation) Qty: 60 6RF miscellaneous medical supply Misc 1 ea miscellaneous DAILY Qty: 1 0RF Rx Instructions: [facility] ergocalciferol (vitamin D2) 1,250 mcg (50,000 unit) capsule 1,250 mcg PO QWEEK Qty: 4 2RF Xarelto 20 mg tablet 20 mg PO QPM 90 Days Qty: 90 3RF Rx Instructions: must administer with evening meal acetaminophen 500 mg tablet 500 mg PO Q8H PRN (Reason: for pain) Qty: 90 2RF omeprazole 20 mg capsule,delayed release(DR/EC) 20 mg PO DAILY Qty: 30 0RF tamsulosin 0.4 mg capsule 0.4 mg PO DAILY Qty: 30 2RF loratadine [Allergy Relief (loratadine)] 10 mg tablet 10 mg PO DAILY lorazepam 0.5 mg tablet 0.5 mg PO BID PRN ascorbic acid (vitamin C) 500 mg capsule 500 mg PO DAILY benztropine 0.5 mg tablet 0.5 mg PO BID Rx Instructions: Cogentin divalproex [Depakote ER] 500 mg tablet extended release 24 hr 1,500 mg PO BEDTIME Rx Instructions: mood stabilizer fluphenazine decanoate 25 mg/mL solution 37.5 mg IM Q2W Rx Instructions: for thought disorder olanzapine 20 mg tablet 20 mg PO BEDTIME Rx Instructions: thought disorders olanzapine 5 mg tablet 5 mg PO BEDTIME Rx Instructions: thought disorders furosemide 40 mg tablet 40 mg PO QAM melatonin 5 mg capsule 5 mg PO .QHS PRN (Reason: insomnia) 30 Days Qty: 30 3RF albuterol sulfate [Ventolin HFA] 90 mcg/actuation HFA aerosol inhaler 2 puff PO QID PRN (Reason: shortness of breath or wheezing) Qty: 18 1RF fluticasone propionate 50 mcg/actuation spray,suspension 1 spray intranasal DAILY PRN (Reason: allergy symptoms) 30 Days Qty: 16 5RF Rx Instructions: administer into each nostril nicotine 7 mg/24 hr patch 24 hour 1 patch transdermal Q24H 28 Days Qty: 28 5RF cholecalciferol (vitamin D3) 25 mcg (1,000 unit) capsule 25 mcg PO DAILY
[2021-11-15 22:57] LABS: MANUAL DIFF FLAG NO
[2021-11-15 22:59] LABS: Basophils Percent Auto 0.7 % (0-2); Eosinophils Absolute Auto 0.1 X10*3/uL (0.0-0.4); Eosinophils Percent Auto 2.7 % (0-4); Hematocrit 32.9 % (42.0-52.0); Hemoglobin 10.8 g/dl (14.0-18.0); Lymphocytes Absolute Auto 2.3 X10*3/uL (1.2-4.9); Lymphocytes Percent Auto 51.7 % (20-40); Mean Corpuscular HGB Conc 32.8 g/dl (31.0-36.0); Mean Corpuscular Hemoglobin 31.6 pg (27.0-33.0); Mean Corpuscular Volume 96.2 fL (80.0-98.0); Mean Platelet Volume 10.1 fL (9.4-12.4); Monocytes Absolute Auto 0.6 X10*3/uL (0.1-1.2); Monocytes Percent Auto 13.1 % (2-11); Neutrophils Absolute Auto 1.4 x10*3/uL (2.0-8.3); Neutrophils Percent Auto 31.8 % (45-73); Platelet Count 220 X10*3/uL (160-400); Red Blood Count 3.42 X10*6/uL (4.60-5.80); Red Cell Distribution Width 12.9 % (11.0-16.0); White Blood Count 4.5 X10*3/uL (4.8-10.8)
[2021-11-15 23:05] LABS: INTERNATIONAL NORM RATIO 1.1 (0.9-1.1)
[2021-11-15 23:14] LABS: Alanine Aminotransferase 11 U/L (0-40); Albumin Level 3.5 g/dL (3.5-5.0); Alkaline Phosphatase 56 U/L (39-117); Anion Gap 10 (12-20); Aspartate Amino Transferase 15 U/L (5-37); Bilirubin Total 0.5 mg/dL (0.0-1.0); Blood Urea Nitrogen 12 mg/dL (9-16); Calcium 8.8 mg/dL (8.4-10.2); Carbon Dioxide 29 mmol/L (22-29); Chloride 103 mmol/L (96-108); Estimated Glomerular Filt Rate > 60; Glucose Random 82 mg/dL (60-115); Potassium 4.6 mmol/L (3.3-5.1); Sodium 137 mmol/L (135-145); Total Protein 6.6 g/dL (6.5-8.0)
[2021-11-15 23:20] LABS: B Type Natriuretic Peptide 11 pg/mL (<100); Troponin-I High Sensitivity 9.1 ng/L (<3.5-35.0)
[2021-11-15 23:52] VITALS: PULSE 74; RESP 16
[2021-11-16 00:35] VITALS: PULSE 82; RESP 16
[2021-11-16 00:38] LABS: Appearance Urine CLEAR; Color Urine YELLOW; Glucose Urine UA NEG (NEG); Leukocyte Esterase Urine NEG (NEG); Nitrite Urine NEG (NEG); PH 7.5 (5.0-8.0); Urine Blood NEG (NEG); Urine Ketones NEG (NEG); Urine Protein NEG (NEG-TRACE)
--- NOTE | 2021-11-16 01:44 | PC.NURSE ---
pt given sandwich, gingerale and crackers. pt states that he does not have a ride but doesnt want to wait in hospital room as it was offered. pt waiting in [facility] at this time. DC
== END 2021-11-16 01:44 | disposition home or self-care (01) ==
PROVIDERS: Emergency Provider Student in an Organized Health Care Education/Training Program
DX: M16.0 Bilateral primary osteoarthritis of hip (principal); I48.92 Unspecified atrial flutter; M54.2 Cervicalgia; F20.9 Schizophrenia, unspecified; R51.9 Headache, unspecified; R06.02 Shortness of breath; F31.9 Bipolar disorder, unspecified; F17.210 Nicotine dependence, cigarettes, uncomplicated; Z71.3 Dietary counseling and surveillance; Z79.899 Other long term (current) drug therapy
CPT/HCPCS: 36415; 70450; 70490; 72125; 73502; 80053; 81003; 83880; 84484; 85025; 85610; 85730; 93005; 99284

== ENCOUNTER → 2021-12-11 13:10 | Outpatient (REF) | payer MEDICARE, MEDICAID, SELFPAY ==
--- NOTE | 2021-12-11 13:13 | CA_ITS ---
Transthoracic Echocardiogram Patient (Last, First, Middle): Pool Perez F Gender: Male Date of : 1960 Age: 61 Procedure Date: 12/11/2021 Procedure Type: Transthoracic Echocardiogram Location: OP Height: 180.34 cm Weight: 117.48 kg BSA: 2.35 m2 Heart Rate: bpm BP: 122 / 70 mmHg Pens And Pencils Dipper: CHEMO Referring MD: John Bautista MD Ob Scrub Tech: John Bautista MD Symptoms: I48.92 - Unspecified atrial flutter Study Quality: Adequate ECG Rhythm: Sinus Conclusions: - 1. Normal LV systolic function with mild LVH 2. Moderately dilated left atrium next 3. Mild mitral regurgitation 4. Normal RV systolic pressure 5. Mildly dilated ascending aorta at 4 cm 6. No pericardial effusion Findings Left Ventricle Normal left ventricular size and systolic function. There is mildly increased left ventricular wall thickness. The visually estimated ejection fraction is between 60-65%. Spectral Doppler is indicative of a normal filling pattern. Right Ventricle Normal right ventricular cavity size and systolic function. Atria The left atrium is moderately dilated. There is lipomatous hypertrophy of the interatrial septum. There is no evidence of interatrial shunt. The right atrium is likely dilated. Aortic Valve The aortic valve structure and function is likely normal. There is no aortic valve stenosis. There is no aortic valve regurgitation. Mitral Valve The mitral valve was not well visualized. There is mild mitral valve regurgitation. There is no mitral valve stenosis. Pulmonic Valve The pulmonic valve was not well visualized. Tricuspid Valve There is mild tricuspid valve regurgitation. Normal right atrial pressure. There is no evidence of pulmonary hypertension. Great Vessels The pulmonary artery was not well visualized. There is mild dilatation of the ascending aorta measuring 4.00 cm. Venous The inferior vena cava is mildly dilated and collapses greater than 50% with inspiration. Pericardium/Pleural There is no evidence of pericardial effusion. Prior Study Comparison Changes noted compared to prior study dated: 09/11/2020. ascending aorta is mildly dilated Measurements 2D Linear Measurements IVSd: 1.20 0.6-0.9/0.6-1.0 cm LVIDd: 4.82 3.9-5.3/4.2-5.9 cm LVIDd Index: 2.05 2.4-3.2/2.2-3.1 cm/m2 LVIDs: 3.18 2.0-3.6 cm LVPWd: 1.16 0.7-1.1 cm LA Diam: 3.30 2.7-3.8/3.0-4.0 cm LAIDs Index: 1.40 1.5-2.3 cm/m2 LV Mass: 268.49 67-162/88-224 g LV Mass Index: 114.25 43-95/49-115 g/m2 LVOT Diam: 2.40 3.0+(-)1.3 cm 2D Systolic Function EF 4C: 62.20 >55% EF 2C: 60.30 >55% EF BiP: 62.80 >55% Mitral Valve MV Pk E: 0.80 MV PK A: 0.54 MV Decel Time: 239.00 E/A: 1.50 E'Lateral: 11.00 E'Medial: 9.36 E/E' Med: 8.50 E/E' Lat: 7.20 PHT: 70.00 MVA PHT: 3.14 Decel [place]: 3.33 Aortic Valve AoV Pk Ganga: 1.71 AoV Mn Ganga: 1.34 AoV VTI: 0.33 AoV Pk Grad: 12.00 Aov Mn Grad: 8.00 IMAN Cont.VTI: 3.33 LVOT LVOT Pk Ganga: 1.33 LVOT Mn Ganga: 0.84 LVOT VTI: 0.24 LVOT Pk Grad: 7.00 LVOT Mn Grad: 3.00 LVOT Diam: 2.40 LVOT Area: 4.52 Diastolic Function MV Pk E: 0.80 MV Pk A: 0.54 E/A: 1.50 E'Medial: 9.36 E/E' Med: 8.50 E' Laterial: 11.00 E/E' Lat: 7.20 Right Ventricle TAPSE (mm): 22.60 TVS' Ganga: 14.00 Tricuspid Valve TR Pk Ganga: 2.86 TR Pk Grad: 33.00 RA Press: 3.00 RVSP: 36.00 Great Vessels Aorta Sinus of Valsalva: 4.06 2.0-3.[address] [place]: 3.22 1.7-3.4 cm Ao Asc: 4.00 2.1-3.4 cm Updated in Other Vendor System with Status of Final John Bautista MD electronically signed on 12/12/2021 3:35:53 PM with status of Final
== END ==
LOC: HO.CARD 13:10
PROVIDERS: Visit Provider Internal Medicine Cardiovascular Disease
DX: I48.92 Unspecified atrial flutter (principal)
CPT/HCPCS: 93306

== ENCOUNTER 2022-01-03 12:53 | Emergency (ER) | payer MEDICARE, MEDICAID, SELFPAY ==
--- NOTE | ~2022-01-03 | XR_ITS ---
EXAMINATION: XR CHEST CLINICAL INFORMATION: Question CHF COMPARISON: 08/09/2019 TECHNIQUE: Frontal view of the chest was obtained. FINDINGS: Lung volumes are symmetric. No focal consolidation is seen. No evidence of pneumothorax, significant pleural effusion, or overt pulmonary edema. The cardiomediastinal contour is unremarkable. No acute osseous findings are seen. XR/XR chest 1V IMPRESSION: No overt pulmonary edema or other acute findings.
--- NOTE | ~2022-01-03 | US_ITS ---
EXAMINATION: US VENOUS ULTRASOUND WITH DOPPLER LOWER EXTREMITY, BILATERAL CLINICAL INFORMATION: Leg swelling COMPARISON: None TECHNIQUE: Ultrasound of the deep veins is performed from the hip to the calf with compression sonography and color and pulse Doppler assessment. Spectral analysis with color-flow imaging is performed. FINDINGS: RIGHT: There is normal venous compression and respiratory variation and augmented flow. The visualized common femoral vein, superficial femoral vein, profunda femoral vein, popliteal vein, and the trifurcation region shows no evidence of deep venous thrombosis. Bilateral popliteal veins and peroneal veins not seen due to edema. There is no significant popliteal fossa cyst. LEFT: There is normal venous compression and respiratory variation and augmented flow. The visualized common femoral vein, superficial femoral vein, profunda femoral vein, popliteal vein, and the trifurcation region shows no evidence of deep venous thrombosis. There is no significant popliteal fossa cyst. If the patient's symptoms persist, followup ultrasound in 5 days 7 days might be of value to exclude proximal propagation from a non-visualized calf vein. US/US venous duplex LE BI IMPRESSION: No DVT demonstrated in the bilateral lower extremity.
[2022-01-03 13:27] VITALS: BMI 34.9
--- NOTE | 2022-01-03 13:34 | ECG_ITS ---
Test Reason : dizziness Blood Pressure : / mmHG Vent. Rate : 077 BPM Atrial Rate : 077 BPM P-R Int : 132 ms QRS Dur : 090 ms QT Int : 378 ms P-R-T Axes : 077 051 021 degrees QTc Int : 427 ms Normal sinus rhythm Minimal voltage criteria for LVH, may be normal variant ( Sokolow-Wells ) Borderline ECG When compared with ECG of 15-NOV-2021 21:50, No significant change was found Referred By: Generic ED Physician Electronically Signed By:DELFINO POSADAS
[2022-01-03 14:00] LABS: MANUAL DIFF FLAG NO
[2022-01-03 14:05] LABS: Basophils Percent Auto 0.3 % (0-2); Eosinophils Absolute Auto 0.1 X10*3/uL (0.0-0.4); Eosinophils Percent Auto 1.4 % (0-4); Hematocrit 30.4 % (42.0-52.0); Hemoglobin 9.9 g/dl (14.0-18.0); Imm Gran Abs Auto 0.01 X10*3/uL (0.00-0.03); Imm Gran Pct Auto 0.3 % (0.0-0.4); Lymphocytes Absolute Auto 1.5 X10*3/uL (1.2-4.9); Mean Corpuscular HGB Conc 32.6 g/dl (31.0-36.0); Mean Corpuscular Volume 95.3 fL (80.0-98.0); Mean Platelet Volume 10.7 fL (9.4-12.4); Monocytes Absolute Auto 0.7 X10*3/uL (0.1-1.2); Monocytes Percent Auto 18.2 % (2-11); Neutrophils Absolute Auto 1.4 x10*3/uL (2.0-8.3); Neutrophils Percent Auto 38.8 % (45-73); Platelet Count 211 X10*3/uL (160-400); Red Blood Count 3.19 X10*6/uL (4.60-5.80); Red Cell Distribution Width 12.1 % (11.0-16.0); White Blood Count 3.6 X10*3/uL (4.8-10.8)
[2022-01-03 14:18] LABS: Anion Gap 12 (12-20); Blood Urea Nitrogen 17 mg/dL (9-16); Calcium 9.2 mg/dL (8.4-10.2); Carbon Dioxide 28 mmol/L (22-29); Chloride 107 mmol/L (96-108); Creatinine Clr Calc Pharmacy 111.4; Estimated Glomerular Filt Rate > 60; Glucose Random 97 mg/dL (60-115); Potassium 4.3 mmol/L (3.3-5.1); Sodium 143 mmol/L (135-145)
[2022-01-03 14:21] LABS: COVID-19 Test Negative (Negative)
[2022-01-03 18:29] VITALS: BP 167/82; PULSE 80; RESP 18; O2SAT 99
--- NOTE | 2022-01-03 21:49 | ED.GENADULT ---
HPI - General Adult General Chief complaint: General Medical Stated complaint: both legs swelling pain Time Seen by Provider: 01/03/22 21:49 Source: patient Limitations: no limitations History of Present Illness HPI narrative: Patient is 61 years old with history of schizoaffective bipolar disorder, cardiomyopathy, CHF, hypertension, paroxysmal atrial flutter on Xarelto comes here for increased leg swelling for last few months. Patient used to be on furosemide 40 mg daily which was stopped 3 months ago by his PCP since then noticed increased swelling of the legs patient denies any chest pain or shortness of breath. Was the patient complaining of calf pain bilateral sent by PCP to rule out DVT Related Data Home Medications Medication Instructions Recorded Confirmed ascorbic acid (vitamin C) 500 mg 500 mg PO DAILY 03/13/20 08/31/21 capsule benztropine 0.5 mg tablet 0.5 mg PO BID 03/13/20 08/31/21 divalproex 500 mg tablet,extended 1,500 mg PO BEDTIME 03/13/20 08/31/21 release 24 hr (Depakote ER) fluphenazine decanoate 25 mg/mL 37.5 mg IM Q2W 03/13/20 08/31/21 injection solution loratadine 10 mg tablet (Allergy 10 mg PO DAILY 03/13/20 08/31/21 Relief (loratadine)) lorazepam 0.5 mg tablet 0.5 mg PO BID PRN 03/13/20 08/31/21 cholecalciferol (vitamin D3) 25 25 mcg PO DAILY 03/16/20 08/31/21 mcg (1,000 unit) capsule furosemide 40 mg tablet 40 mg PO QAM 10/17/20 08/31/21 olanzapine 20 mg tablet 20 mg PO BEDTIME 11/06/20 08/31/21 olanzapine 5 mg tablet 5 mg PO BEDTIME 11/06/20 08/31/21 Previous Rx's Medication Instructions Recorded docusate sodium 100 mg capsule 100 mg PO BID PRN for constipation 06/28/21 (DOK) #60 caps miscellaneous medical supply 1 ea miscellaneous DAILY #1 ea 07/19/21 albuterol sulfate 90 mcg/actuation 2 puff PO QID PRN shortness of 08/31/21 aerosol inhaler (Ventolin HFA) breath or wheezing #18 grams fluticasone propionate 50 1 spray intranasal DAILY PRN 08/31/21 mcg/actuation nasal allergy symptoms 30 days #16 grams spray,suspension nicotine 7 mg/24 hr daily 1 patch transdermal Q24H 28 days 08/31/21 transdermal patch #28 ea rivaroxaban 20 mg tablet (Xarelto) 20 mg PO QPM 90 days #90 tabs 09/21/21 acetaminophen 500 mg tablet 500 mg PO Q8H PRN for pain #90 tabs 10/30/21 melatonin 5 mg capsule 5 mg PO .QHS PRN insomnia 30 days 10/30/21 #30 caps tamsulosin 0.4 mg capsule 0.4 mg PO DAILY #30 caps 11/15/21 walker (Ultra-Light Rollator misc) #1 ea 12/03/21 omeprazole 20 mg capsule,delayed 20 mg PO DAILY #30 caps 12/05/21 release ergocalciferol (vitamin D2) 1,250 1,250 mcg PO QWEEK #4 caps 12/12/21 mcg (50,000 unit) capsule amiodarone 100 mg tablet 100 mg PO DAILY #30 tabs 12/25/21 metoprolol succinate 25 mg 25 mg PO DAILY #30 tabs 12/25/21 tablet,extended release 24 hr furosemide 40 mg tablet 40 mg PO QAM #30 tabs 01/03/22 Allergies Allergy/AdvReac Type Severity Reaction Status Date / Time Penicillins [PENICILLINS] Allergy Intermediate RASH Verified 11/15/21 21:30 haloperidol [Haldol] Allergy Unknown Unknown Verified 11/15/21 21:30 mirtazapine [Remeron] Allergy Unknown Unknown Verified 11/15/21 21:30 trazodone Allergy Unknown Unknown Verified 11/15/21 21:30 verapamil [Verelan] Allergy Unknown Unknown Verified 11/15/21 21:30 risperidone [From RISPERDAL] AdvReac Severe SEIZURE Verified 11/15/21 21:30 lithium [LITHIUM] AdvReac Intermediate LETHARGY, Verified 11/15/21 21:30 AKATHISIA, TD Review of Systems Review of Systems: Yes all other systems are reviewed and are negative [facility] Past Medical History Medical History Allergic rhinitis Anal irritation Benign essential hypertension Cardiomyopathy History of acute heart failure History of atrial flutter History of cardiomyopathy History of congestive heart failure HTN (hypertension) Hyperkalemia Insomnia Lumbar degenerative disc disease Obesity (BMI 30-39.9) Osteoarthritis of hips, bilateral Paroxysmal atrial flutter Pure hypercholesterolemia Schizoaffective disorder, bipolar type Smoker Substance abuse in remission Surgical History History of total hip replacement Family History Family History Father Hypertension CVD (cardiovascular disease) Mother Hypertension Diabetes Brother Mental health disorder Social History Social History Household Members: None Housing: Apartment Alcohol intake: former Patient Tobacco Use Status: Current everyday Tobacco user Tobacco use type: Cigarette Cigarettes Per Day: 6 Second Hand Smoke Exposure: Yes Substance Use Type: Former Substance User Advance Directives: No Advance Directives Information Provided: No service: No Current occupational status: retired Cognitive needs: No Hearing needs: No Vision needs: Yes Physical Exam ED Vital Signs: Vital Signs - 24 hr 01/03/22 18:29 01/03/22 21:53 Temperature 98.3 F Pulse Rate 80 87 Respiratory Rate 18 18 Blood Pressure 167/82 H 152/73 H Pulse Oximetry 99 99 Oxygen Delivery Method Room Air Room Air BMI result Body Mass Index 34.9 Appearance: Alert. Oriented X3. No acute distress. Eyes: No pallor or icterus ENT: Pharynx normal. Oral Mucosa moist Neck: Normal inspection. Neck supple. CVS: Normal heart rate and rhythm. Pulses normal. Respiratory: No respiratory distress. Equal air entry bilateral, no wheezing/rales/rhonchi Abdomen: Soft and nontender. Bowel sounds are present, no mass palpable, no CVA tenderness Skin: Skin warm and dry. Normal skin color. Normal skin turgor. Extremities: 4+ lower extremity edema. No calf tenderness Neuro: Oriented X 3. No motor deficit. Medical Decision Making MDM Narrative Medical decision making narrative: Venous Doppler negative for DVT blood workup stable patient has dependent leg edema will discharge patient home on furosemide Lab Data Result diagrams: 01/03/22 13:53 01/03/22 13:53 Labs: Lab Results 01/03/22 01/03/22 01/03/22 Range/Units 13:53 13:53 13:53 WBC 3.6 L (4.8-10.8) X10*3/uL RBC 3.19 L (4.60-5.80) X10*6/uL Hgb 9.9 L (14.0-18.0) g/dl Hct 30.4 L (42.0-52.0) % MCV 95.3 (80.0-98.0) fL MCH 31.0 (27.0-33.0) pg MCHC 32.6 (31.0-36.0) g/dl RDW 12.1 (11.0-16.0) % Plt Count 211 (160-400) X10*3/uL MPV 10.7 (9.4-12.4) fL Immature Gran % (Auto) 0.3 (0.0-0.4) % Neut % (Auto) 38.8 L (45-73) % Lymph % (Auto) 41.0 H (20-40) % [place] % (Auto) 18.2 H (2-11) % Eos % (Auto) 1.4 (0-4) % Baso % (Auto) 0.3 (0-2) % Lymph # (Auto) 1.5 (1.2-4.9) X10*3/uL [place] # (Auto) 0.7 (0.1-1.2) X10*3/uL Eos # (Auto) 0.1 (0.0-0.4) X10*3/uL Baso # (Auto) 0.0 (0.0-0.2) X10*3/uL Abs Immat Gran (auto) 0.01 (0.00-0.03) X10*3/uL Absolute Neuts (auto) 1.4 L (2.0-8.3) x10*3/uL Absolute Nucleated RBC 0.000 (0.0-0.012) X10*3/uL Nucleated RBC % (auto) 0.0 (0.0-0.2) /100WBC PT (10.0-13.1) SEC INR (0.9-1.1) D-Dimer High Sensitivty NG/ML Sodium 143 (135-145) mmol/L Potassium 4.3 (3.3-5.1) mmol/L Chloride 107 (96-108) mmol/L Carbon Dioxide 28 (22-29) mmol/L Anion Gap 12 (12-20) BUN 17 H (9-16) mg/dL Creatinine 0.82 (0.5-1.4) mg/dL Estim Creat Clear Calc 111.4 Estimated GFR > 60 Random Glucose 97 (60-115) mg/dL Calcium 9.2 (8.4-10.2) mg/dL Total Bilirubin (0.0-1.0) mg/dL Direct Bilirubin (0.0-0.5) mg/dL AST (5-37) U/L ALT (0-40) U/L Alkaline Phosphatase (39-117) U/L B-Natriuretic Peptide (<100) pg/mL Total Protein (6.5-8.0) g/dL Albumin (3.5-5.0) g/dL COVID-19 (FAVIAN) Negative (Negative) COVID-19 Clin Com See Note 01/03/22 01/03/22 01/03/22 Range/Units 22:55 22:55 22:55 WBC (4.8-10.8) X10*3/uL RBC (4.60-5.80) X10*6/uL Hgb (14.0-18.0) g/dl Hct (42.0-52.0) % MCV (80.0-98.0) fL MCH (27.0-33.0) pg MCHC (31.0-36.0) g/dl RDW (11.0-16.0) % Plt Count (160-400) X10*3/uL MPV (9.4-12.4) fL Immature Gran % (Auto) (0.0-0.4) % Neut % (Auto) (45-73) % Lymph % (Auto) (20-40) % [place] % (Auto) (2-11) % Eos % (Auto) (0-4) % Baso % (Auto) (0-2) % Lymph # (Auto) (1.2-4.9) X10*3/uL [place] # (Auto) (0.1-1.2) X10*3/uL Eos # (Auto) (0.0-0.4) X10*3/uL Baso # (Auto) (0.0-0.2) X10*3/uL Abs Immat Gran (auto) (0.00-0.03) X10*3/uL Absolute Neuts (auto) (2.0-8.3) x10*3/uL Absolute Nucleated RBC (0.0-0.012) X10*3/uL Nucleated RBC % (auto) (0.0-0.2) /100WBC PT 14.3 H (10.0-13.1) SEC INR 1.2 H (0.9-1.1) D-Dimer High Sensitivty 359 NG/ML Sodium (135-145) mmol/L Potassium (3.3-5.1) mmol/L Chloride (96-108) mmol/L Carbon Dioxide (22-29) mmol/L Anion Gap (12-20) BUN (9-16) mg/dL Creatinine (0.5-1.4) mg/dL Estim Creat Clear Calc Estimated GFR Random Glucose (60-115) mg/dL Calcium (8.4-10.2) mg/dL Total Bilirubin (0.0-1.0) mg/dL Direct Bilirubin (0.0-0.5) mg/dL AST (5-37) U/L ALT (0-40) U/L Alkaline Phosphatase (39-117) U/L B-Natriuretic Peptide 29 (<100) pg/mL Total Protein (6.5-8.0) g/dL Albumin (3.5-5.0) g/dL COVID-19 (FAVIAN) (Negative) COVID-19 Clin Com 01/03/22 Range/Units 22:55 WBC (4.8-10.8) X10*3/uL RBC (4.60-5.80) X10*6/uL Hgb (14.0-18.0) g/dl Hct (42.0-52.0) % MCV (80.0-98.0) fL MCH (27.0-33.0) pg MCHC (31.0-36.0) g/dl RDW (11.0-16.0) % Plt Count (160-400) X10*3/uL MPV (9.4-12.4) fL Immature Gran % (Auto) (0.0-0.4) % Neut % (Auto) (45-73) % Lymph % (Auto) (20-40) % [place] % (Auto) (2-11) % Eos % (Auto) (0-4) % Baso % (Auto) (0-2) % Lymph # (Auto) (1.2-4.9) X10*3/uL [place] # (Auto) (0.1-1.2) X10*3/uL Eos # (Auto) (0.0-0.4) X10*3/uL Baso # (Auto) (0.0-0.2) X10*3/uL Abs Immat Gran (auto) (0.00-0.03) X10*3/uL Absolute Neuts (auto) (2.0-8.3) x10*3/uL Absolute Nucleated RBC (0.0-0.012) X10*3/uL Nucleated RBC % (auto) (0.0-0.2) /100WBC PT (10.0-13.1) SEC INR (0.9-1.1) D-Dimer High Sensitivty NG/ML Sodium (135-145) mmol/L Potassium (3.3-5.1) mmol/L Chloride (96-108) mmol/L Carbon Dioxide (22-29) mmol/L Anion Gap (12-20) BUN (9-16) mg/dL Creatinine (0.5-1.4) mg/dL Estim Creat Clear Calc Estimated GFR Random Glucose (60-115) mg/dL Calcium (8.4-10.2) mg/dL Total Bilirubin 0.5 (0.0-1.0) mg/dL Direct Bilirubin 0.2 (0.0-0.5) mg/dL AST 15 (5-37) U/L ALT 10 (0-40) U/L Alkaline Phosphatase 58 (39-117) U/L B-Natriuretic Peptide (<100) pg/mL Total Protein 6.2 L (6.5-8.0) g/dL Albumin 3.3 L (3.5-5.0) g/dL COVID-19 (FAVIAN) (Negative) COVID-19 Clin Com ECG Data Attestation: I personally reviewed and interpreted this ECG as follows: Interpretation: Normal sinus rhythm with heart rate 70 beats per LVH no acute ST wave changes no acute ischemia Discharge Plan Discharge Clinical Impression: Leg edema Patient Disposition: Home, Self-Care Instructions: Leg Edema (ED) Additional Instructions: Keep your leg elevated Take water pill as prescribed daily in the morning Check your weight And follow with PCP Prescriptions: New furosemide 40 mg tablet 40 mg PO QAM Qty: 30 1RF No Action docusate sodium [DOK] 100 mg capsule 100 mg PO BID PRN (Reason: for constipation) Qty: 60 6RF miscellaneous medical supply Misc 1 ea miscellaneous DAILY Qty: 1 0RF Rx Instructions: [facility] Bed Mattress Xarelto 20 mg tablet 20 mg PO QPM 90 Days Qty: 90 3RF Rx Instructions: must administer with evening meal acetaminophen 500 mg tablet 500 mg PO Q8H PRN (Reason: for pain) Qty: 90 2RF tamsulosin 0.4 mg capsule 0.4 mg PO DAILY Qty: 30 2RF (DME) Ultra-Light Rollator Misc See Rx Instructions .Route Qty: 1 0RF Rx Instructions: As directed omeprazole 20 mg capsule,delayed release(DR/EC) 20 mg PO DAILY Qty: 30 0RF ergocalciferol (vitamin D2) 1,250 mcg (50,000 unit) capsule 1,250 mcg PO QWEEK Qty: 4 2RF metoprolol succinate 25 mg tablet extended release 24 hr 25 mg PO DAILY Qty: 30 5RF amiodarone 100 mg tablet 100 mg PO DAILY Qty: 30 5RF loratadine [Allergy Relief (loratadine)] 10 mg tablet 10 mg PO DAILY lorazepam 0.5 mg tablet 0.5 mg PO BID PRN ascorbic acid (vitamin C) 500 mg capsule 500 mg PO DAILY benztropine 0.5 mg tablet 0.5 mg PO BID Rx Instructions: Cogentin divalproex [Depakote ER] 500 mg tablet extended release 24 hr 1,500 mg PO BEDTIME Rx Instructions: mood stabilizer fluphenazine decanoate 25 mg/mL solution 37.5 mg IM Q2W Rx Instructions: for thought disorder olanzapine 20 mg tablet 20 mg PO BEDTIME Rx Instructions: thought disorders olanzapine 5 mg tablet 5 mg PO BEDTIME Rx Instructions: thought disorders furosemide 40 mg tablet 40 mg PO QAM melatonin 5 mg capsule 5 mg PO .QHS PRN (Reason: insomnia) 30 Days Qty: 30 3RF albuterol sulfate [Ventolin HFA] 90 mcg/actuation HFA aerosol inhaler 2 puff PO QID PRN (Reason: shortness of breath or wheezing) Qty: 18 1RF fluticasone propionate 50 mcg/actuation spray,suspension 1 spray intranasal DAILY PRN (Reason: allergy symptoms) 30 Days Qty: 16 5RF Rx Instructions: administer into each nostril nicotine 7 mg/24 hr patch 24 hour 1 patch transdermal Q24H 28 Days Qty: 28 5RF cholecalciferol (vitamin D3) 25 mcg (1,000 unit) capsule 25 mcg PO DAILY
[2022-01-03 21:53] VITALS: BP 152/73; PULSE 87; RESP 18; TEMP 36.8; O2SAT 99
[2022-01-03 23:08] LABS: INTERNATIONAL NORM RATIO 1.2 (0.9-1.1); Prothrombin Time 14.3 SEC (10.0-13.1)
[2022-01-03 23:10] LABS: D Dimer High Sensitivity 359 NG/ML
[2022-01-03 23:19] LABS: Alanine Aminotransferase 10 U/L (0-40); Albumin Level 3.3 g/dL (3.5-5.0); Alkaline Phosphatase 58 U/L (39-117); Aspartate Amino Transferase 15 U/L (5-37); Bilirubin Direct 0.2 mg/dL (0.0-0.5); Bilirubin Total 0.5 mg/dL (0.0-1.0); Total Protein 6.2 g/dL (6.5-8.0)
[2022-01-03 23:22] LABS: B Type Natriuretic Peptide 29 pg/mL (<100)
== END 2022-01-04 00:10 | disposition home or self-care (01) ==
PROVIDERS: Emergency Provider Internal Medicine; PCP Internal Medicine
DX: R60.0 Localized edema (principal); M79.662 Pain in left lower leg; M79.661 Pain in right lower leg; Z20.822 Contact with and (suspected) exposure to COVID-19; I11.0 Hypertensive heart disease with heart failure; I50.9 Heart failure, unspecified; I48.0 Paroxysmal atrial fibrillation; E78.00 Pure hypercholesterolemia, unspecified; E66.9 Obesity, unspecified; Z68.34 Body mass index [BMI] 34.0-34.9, adult; Z79.899 Other long term (current) drug therapy; Z79.01 Long term (current) use of anticoagulants; F17.210 Nicotine dependence, cigarettes, uncomplicated
CPT/HCPCS: 36415; 71045; 80048; 80076; 83880; 85025; 85379; 85610; 87635; 93005; 93970; 99283; 99284

== ENCOUNTER → 2022-01-04 10:54 | Outpatient (BNVA) | payer MEDICARE, MEDICAID, SELFPAY | PROVIDERS: PCP Internal Medicine; Referring Provider Internal Medicine; Visit Provider Internal Medicine Cardiovascular Disease | DX: R60.0 Localized edema (principal); I48.92 Unspecified atrial flutter; I10 Essential (primary) hypertension; Z79.01 Long term (current) use of anticoagulants | CPT/HCPCS: 99212 ==

== ENCOUNTER 2022-01-29 10:05 | Outpatient (REF) | payer MEDICARE, MEDICAID, SELFPAY ==
[2022-01-29 11:02] LABS: MANUAL DIFF FLAG NO
[2022-01-29 11:14] LABS: Basophils Percent Auto 0.2 % (0-2); Eosinophils Absolute Auto 0.1 X10*3/uL (0.0-0.4); Eosinophils Percent Auto 1.9 % (0-4); Hemoglobin 9.8 g/dl (14.0-18.0); Imm Gran Abs Auto 0.01 X10*3/uL (0.00-0.03); Imm Gran Pct Auto 0.2 % (0.0-0.4); Lymphocytes Absolute Auto 1.6 X10*3/uL (1.2-4.9); Lymphocytes Percent Auto 37.6 % (20-40); Mean Corpuscular HGB Conc 32.7 g/dl (31.0-36.0); Mean Corpuscular Hemoglobin 30.5 pg (27.0-33.0); Mean Corpuscular Volume 93.5 fL (80.0-98.0); Mean Platelet Volume 10.8 fL (9.4-12.4); Monocytes Absolute Auto 0.6 X10*3/uL (0.1-1.2); Monocytes Percent Auto 14.9 % (2-11); Neutrophils Absolute Auto 1.9 x10*3/uL (2.0-8.3); Neutrophils Percent Auto 45.2 % (45-73); Platelet Count 224 X10*3/uL (160-400); Red Blood Count 3.21 X10*6/uL (4.60-5.80); Red Cell Distribution Width 12.4 % (11.0-16.0); White Blood Count 4.2 X10*3/uL (4.8-10.8)
[2022-01-29 11:39] LABS: Alanine Aminotransferase 9 U/L (0-40); Albumin Level 3.7 g/dL (3.5-5.0); Alkaline Phosphatase 57 U/L (39-117); Anion Gap 14 (12-20); Aspartate Amino Transferase 15 U/L (5-37); Bilirubin Total 0.7 mg/dL (0.0-1.0); Blood Urea Nitrogen 16 mg/dL (9-16); Calcium 10.1 mg/dL (8.4-10.2); Carbon Dioxide 27 mmol/L (22-29); Chloride 108 mmol/L (96-108); Estimated Glomerular Filt Rate > 60; Glucose Fasting 87 mg/dL (60-99); Potassium 4.9 mmol/L (3.3-5.1); Sodium 144 mmol/L (135-145); Total Protein 6.8 g/dL (6.5-8.0)
[2022-01-29 12:03] LABS: Valproate 57.7 mcg/mL (50.0-100.0)
== END 2022-01-29 10:06 | disposition home or self-care (01) ==
LOC: HO.10HDL 10:05
PROVIDERS: Visit Provider Clinical Nurse Specialist Psychiatric/Mental Health, Adult
DX: Z79.899 Other long term (current) drug therapy (principal)
CPT/HCPCS: 36415; 80053; 80164; 85025

== ENCOUNTER 2022-03-26 14:33 | Outpatient (REF) | payer MEDICARE, MEDICAID, SELFPAY ==
[2022-03-26 16:10] LABS: Anion Gap 13 (12-20); Blood Urea Nitrogen 15 mg/dL (9-16); Calcium 9.5 mg/dL (8.4-10.2); Carbon Dioxide 30 mmol/L (22-29); Chloride 103 mmol/L (96-108); Estimated Glomerular Filt Rate 54; Glucose Random 89 mg/dL (60-115); Potassium 5.1 mmol/L (3.3-5.1); Sodium 141 mmol/L (135-145)
[2022-03-26 16:33] LABS: Prostate Specific Antigen 0.53 ng/mL (<0.05-4.0)
== END 2022-03-26 14:34 | disposition home or self-care (01) ==
LOC: HO.LAB 14:33
PROVIDERS: Nurse Practitioner Family; PCP Internal Medicine; Referring Provider Internal Medicine; Visit Provider Internal Medicine Cardiovascular Disease
DX: I48.92 Unspecified atrial flutter (principal); R60.0 Localized edema; Z79.899 Other long term (current) drug therapy; Z86.79 Personal history of other diseases of the circulatory system; Z12.5 Encounter for screening for malignant neoplasm of prostate
CPT/HCPCS: 36415; 80048; 84153; 93005; 99212

== ENCOUNTER 2022-07-09 10:18 | Outpatient (REF) | payer MEDICARE, MEDICAID, SELFPAY ==
[2022-07-09 10:47] LABS: MANUAL DIFF FLAG NO
[2022-07-09 11:22] LABS: Basophils Percent Auto 0.7 % (0-2); Eosinophils Absolute Auto 0.1 X10*3/uL (0.0-0.4); Eosinophils Percent Auto 2.6 % (0-4); Hematocrit 37.1 % (42.0-52.0); Hemoglobin 12.5 g/dl (14.0-18.0); Imm Gran Abs Auto 0.01 X10*3/uL (0.00-0.03); Imm Gran Pct Auto 0.2 % (0.0-0.4); Lymphocytes Absolute Auto 1.9 X10*3/uL (1.2-4.9); Lymphocytes Percent Auto 44.8 % (20-40); Mean Corpuscular HGB Conc 33.7 g/dl (31.0-36.0); Mean Corpuscular Hemoglobin 31.8 pg (27.0-33.0); Mean Corpuscular Volume 94.4 fL (80.0-98.0); Mean Platelet Volume 10.3 fL (9.4-12.4); Monocytes Absolute Auto 0.5 X10*3/uL (0.1-1.2); Monocytes Percent Auto 12.6 % (2-11); Neutrophils Absolute Auto 1.6 x10*3/uL (2.0-8.3); Neutrophils Percent Auto 39.1 % (45-73); Platelet Count 226 X10*3/uL (160-400); Red Blood Count 3.93 X10*6/uL (4.60-5.80); Red Cell Distribution Width 13.2 % (11.0-16.0); White Blood Count 4.2 X10*3/uL (4.8-10.8)
[2022-07-09 11:24] LABS: Appearance Urine Clear; Color Urine Yellow; Glucose Urine UA Negative (Negative); Leukocyte Esterase Urine Negative (Negative); Nitrite Urine Negative (Negative); Specific Gravity - Urine <= 1.005 (1.005-1.025); Urine Blood Negative (Negative); Urine Ketones Negative (Negative); Urine Protein Negative (Neg-Trace)
[2022-07-09 11:49] LABS: Alanine Aminotransferase 10 U/L (0-40); Albumin Level 3.9 g/dL (3.5-5.0); Alkaline Phosphatase 65 U/L (39-117); Anion Gap 12 (12-20); Aspartate Amino Transferase 21 U/L (5-37); Bilirubin Total 0.8 mg/dL (0.0-1.0); Blood Urea Nitrogen 17 mg/dL (9-16); Calcium 9.3 mg/dL (8.4-10.2); Carbon Dioxide 31 mmol/L (22-29); Chloride 98 mmol/L (96-108); Cholesterol 183 mg/dL; Estimated Glomerular Filt Rate 50; Glucose Fasting 87 mg/dL (60-99); HDL Cholesterol 49 mg/dL; LDL Cholesterol Calculated 123 mg/dl; Potassium 5.3 mmol/L (3.3-5.1); Sodium 136 mmol/L (135-145); Total Protein 7.8 g/dL (6.5-8.0); Triglycerides 56 mg/dL
[2022-07-09 12:06] LABS: TSH reflex Free T4 5.37 uIU/mL (0.32-4.0); Vitamin D 25-OH Total 35.9 ng/mL (>30)
[2022-07-09 12:57] LABS: Free T4 (Free Thyroxine) 1.44 ng/dL (0.71-1.85)
== END 2022-07-09 10:19 | disposition home or self-care (01) ==
LOC: HO.LAB 10:18
PROVIDERS: PCP Internal Medicine; Visit Provider Internal Medicine
DX: I10 Essential (primary) hypertension (principal); E55.9 Vitamin D deficiency, unspecified; R30.0 Dysuria; E78.00 Pure hypercholesterolemia, unspecified
CPT/HCPCS: 36415; 80053; 80061; 81003; 82306; 84439; 84443; 85025

== ENCOUNTER → 2022-10-14 10:10 | Outpatient (BNVA) | payer MEDICARE, MEDICAID, SELFPAY | PROVIDERS: PCP Internal Medicine; Referring Provider Internal Medicine; Visit Provider Internal Medicine Cardiovascular Disease | DX: I48.92 Unspecified atrial flutter (principal); I71.20 Thoracic aortic aneurysm, without rupture, unspecified; Z86.79 Personal history of other diseases of the circulatory system | CPT/HCPCS: 93005; 99212 ==

== ENCOUNTER 2022-11-27 10:39 | Outpatient (REF) | payer MEDICARE, MEDICAID, SELFPAY ==
[2022-11-27 11:00] LABS: MANUAL DIFF FLAG NO
[2022-11-27 11:39] LABS: Basophils Percent Auto 0.9 % (0-2); Eosinophils Absolute Auto 0.1 X10*3/uL (0.0-0.4); Eosinophils Percent Auto 2.9 % (0-4); Hematocrit 34.8 % (42.0-52.0); Hemoglobin 11.9 g/dl (14.0-18.0); Lymphocytes Absolute Auto 1.3 X10*3/uL (1.2-4.9); Lymphocytes Percent Auto 39.1 % (20-40); Mean Corpuscular HGB Conc 34.2 g/dl (31.0-36.0); Mean Corpuscular Hemoglobin 32.1 pg (27.0-33.0); Mean Corpuscular Volume 93.8 fL (80.0-98.0); Mean Platelet Volume 9.9 fL (9.4-12.4); Monocytes Absolute Auto 0.6 X10*3/uL (0.1-1.2); Monocytes Percent Auto 18.7 % (2-11); Neutrophils Absolute Auto 1.3 x10*3/uL (2.0-8.3); Neutrophils Percent Auto 38.4 % (45-73); Platelet Count 253 X10*3/uL (160-400); Red Blood Count 3.71 X10*6/uL (4.60-5.80); Red Cell Distribution Width 12.6 % (11.0-16.0); White Blood Count 3.4 X10*3/uL (4.8-10.8)
[2022-11-27 12:33] LABS: Valproate 87.3 mcg/mL (50.0-100.0)
[2022-11-27 18:22] LABS: Basophils Percent Auto 0.7 % (0-2); Eosinophils Absolute Auto 0.1 X10*3/uL (0.0-0.4); Eosinophils Percent Auto 2.5 % (0-4); Hematocrit 33.8 % (42.0-52.0); Hemoglobin 11.7 g/dl (14.0-18.0); Lymphocytes Absolute Auto 1.9 X10*3/uL (1.2-4.9); Lymphocytes Percent Auto 43.5 % (20-40); MANUAL DIFF FLAG NO; Mean Corpuscular HGB Conc 34.6 g/dl (31.0-36.0); Mean Corpuscular Hemoglobin 32.1 pg (27.0-33.0); Mean Corpuscular Volume 92.9 fL (80.0-98.0); Mean Platelet Volume 10.7 fL (9.4-12.4); Monocytes Absolute Auto 0.7 X10*3/uL (0.1-1.2); Monocytes Percent Auto 16.7 % (2-11); Neutrophils Absolute Auto 1.6 x10*3/uL (2.0-8.3); Neutrophils Percent Auto 36.6 % (45-73); Platelet Count 247 X10*3/uL (160-400); Red Blood Count 3.64 X10*6/uL (4.60-5.80); Red Cell Distribution Width 12.5 % (11.0-16.0); White Blood Count 4.4 X10*3/uL (4.8-10.8)
[2022-11-27 21:54] LABS: Alanine Aminotransferase 7 U/L (0-40); Albumin Level 3.9 g/dL (3.5-5.0); Alkaline Phosphatase 59 U/L (39-117); Anion Gap 12 (12-20); Aspartate Amino Transferase 15 U/L (5-37); Bilirubin Total 0.6 mg/dL (0.0-1.0); Blood Urea Nitrogen 11 mg/dL (9-16); Calcium 9.2 mg/dL (8.4-10.2); Carbon Dioxide 25 mmol/L (22-29); Chloride 91 mmol/L (96-108); Cholesterol 161 mg/dL; Estimated Glomerular Filt Rate > 60; Glucose Fasting 86 mg/dL (60-99); HDL Cholesterol 51 mg/dL; LDL Cholesterol Calculated 97 mg/dl; Potassium 4.4 mmol/L (3.3-5.1); Sodium 124 mmol/L (135-145); Total Protein 7.6 g/dL (6.5-8.0); Triglycerides 68 mg/dL
[2022-11-27 22:10] LABS: TSH reflex Free T4 3.98 uIU/mL (0.32-4.0); Vitamin D 25-OH Total 34.5 ng/mL (>30)
[2022-11-27 22:24] LABS: Anion Gap 14 (12-20); Blood Urea Nitrogen 11 mg/dL (9-16); Calcium 9.3 mg/dL (8.4-10.2); Carbon Dioxide 23 mmol/L (22-29); Chloride 92 mmol/L (96-108); Estimated Glomerular Filt Rate > 60; Glucose Random 83 mg/dL (60-115); Potassium 4.5 mmol/L (3.3-5.1); Sodium 124 mmol/L (135-145)
[2022-11-27 22:25] LABS: Alanine Aminotransferase 7 U/L (0-40); Albumin Level 3.8 g/dL (3.5-5.0); Alkaline Phosphatase 60 U/L (39-117); Anion Gap 14 (12-20); Aspartate Amino Transferase 15 U/L (5-37); Bilirubin Total 0.6 mg/dL (0.0-1.0); Blood Urea Nitrogen 11 mg/dL (9-16); Calcium 9.2 mg/dL (8.4-10.2); Carbon Dioxide 23 mmol/L (22-29); Chloride 93 mmol/L (96-108); Estimated Glomerular Filt Rate > 60; Glucose Random 85 mg/dL (60-115); Potassium 4.5 mmol/L (3.3-5.1); Sodium 125 mmol/L (135-145); Total Protein 7.6 g/dL (6.5-8.0)
[2022-12-01 00:44] LABS: TS Negative Control Passed; TS Panel A 0; TS Panel B 0; TS Positive Control Passed; TSpotTB Negative (Negative)
== END 2022-11-27 10:40 | disposition home or self-care (01) ==
LOC: HO.LAB 10:39
PROVIDERS: Clinical Nurse Specialist Psychiatric/Mental Health, Adult; Absent Provider Internal Medicine; PCP Internal Medicine; Referring Provider Nurse Practitioner Family; Visit Provider Internal Medicine Cardiovascular Disease
DX: E55.9 Vitamin D deficiency, unspecified (principal); I42.9 Cardiomyopathy, unspecified; E78.00 Pure hypercholesterolemia, unspecified; I10 Essential (primary) hypertension; Z11.1 Encounter for screening for respiratory tuberculosis; Z79.899 Other long term (current) drug therapy
CPT/HCPCS: 36415; 80048; 80053; 80061; 80164; 82306; 84443; 85025; 86481

== ENCOUNTER 2022-11-28 | Outpatient (REF) | payer MEDICARE, MEDICAID, SELFPAY ==
[2022-11-28 12:18] LABS: Appearance Urine Clear; Color Urine Yellow; Glucose Urine UA Negative (Negative); Leukocyte Esterase Urine Negative (Negative); Nitrite Urine Negative (Negative); Specific Gravity - Urine <= 1.005 (1.005-1.025); Urine Blood Negative (Negative); Urine Ketones Negative (Negative); Urine Protein Negative (Neg-Trace)
== END 2022-11-28 00:01 | disposition home or self-care (01) ==
LOC: HO.LNP
PROVIDERS: Visit Provider Internal Medicine
DX: Z79.899 Other long term (current) drug therapy (principal)
CPT/HCPCS: 81003

== ENCOUNTER 2022-12-05 15:31 | Outpatient (REF) | payer MEDICARE, MEDICAID, SELFPAY ==
[2022-12-05 18:32] LABS: Anion Gap 16 (12-20); Blood Urea Nitrogen 9 mg/dL (9-16); Calcium 9.1 mg/dL (8.4-10.2); Carbon Dioxide 22 mmol/L (22-29); Chloride 96 mmol/L (96-108); Estimated Glomerular Filt Rate > 60; Glucose Random 94 mg/dL (60-115); Potassium 4.4 mmol/L (3.3-5.1); Sodium 130 mmol/L (135-145)
== END 2022-12-05 15:32 | disposition home or self-care (01) ==
LOC: HO.LAB 15:31
PROVIDERS: PCP Internal Medicine; Visit Provider Clinical Nurse Specialist Psychiatric/Mental Health, Adult
DX: Z79.899 Other long term (current) drug therapy (principal)
CPT/HCPCS: 36415; 80048

== ENCOUNTER 2023-02-13 09:24 | Outpatient (REF) | payer MEDICARE, MEDICAID, SELFPAY | END 2023-02-13 09:25 | disposition home or self-care (01) | LOC: HO.LAB 09:24 | PROVIDERS: PCP Internal Medicine; Visit Provider Internal Medicine Hypertension Specialist | DX: N18.2 Chronic kidney disease, stage 2 (mild) (principal) | CPT/HCPCS: 36415; 80048; 85027 ==

== ENCOUNTER 2023-02-18 14:57 | Outpatient (AMB) | payer MEDICARE, MEDICAID, SELFPAY ==
[2023-02-18 15:12] VITALS: BP 140/88; PULSE 69; O2SAT 97; BMI 35.7
--- NOTE | 2023-02-18 15:12 | AM.OFFVISMDC ---
Intake Vital Signs 02/18/23 15:12 Height 5 ft 9 in Weight 242 lb BMI 35.7 BP 140/88 H Blood Pressure Location Lt brachial Position Sitting Pulse 69 Pulse Source Pulse Oximeter Temp Source Skin Pulse Oximetry (%) 97 Oxygen Delivery Method Room Air Intake Visit Reasons: SWV G0439 Discuss ACP Allergies Penicillins [PENICILLINS] Allergy (Intermediate, Verified 02/18/23 15:19) RASH haloperidol [Haldol] Allergy (Unknown, Verified 02/18/23 15:19) Unknown mirtazapine [Remeron] Allergy (Unknown, Verified 02/18/23 15:19) Unknown trazodone Allergy (Unknown, Verified 02/18/23 15:19) Unknown verapamil [Verelan] Allergy (Unknown, Verified 02/18/23 15:19) Unknown risperidone [From RISPERDAL] Adverse Reaction (Severe, Verified 02/18/23 15:19) SEIZURE lithium [LITHIUM] Adverse Reaction (Intermediate, Verified 02/18/23 15:19) LETHARGY, AKATHISIA, TD Medication List - Last Reconciled 02/18/23 by RADHA Alex acetaminophen 500 mg PO Q8H PRN albuterol sulfate 90 mcg/actuation (Ventolin HFA) 2 puffs PO QID PRN amiodarone 100 mg PO DAILY ascorbic acid (vitamin C) 500 mg PO DAILY benztropine 0.5 mg PO BID cholecalciferol (vitamin D3) 25 mcg PO DAILY divalproex ER (Depakote ER) 1,500 mg PO BEDTIME docusate sodium (DOK) 100 mg PO BID PRN ergocalciferol (vitamin D2) 1,250 mcg PO QWEEK 3 months fluphenazine decanoate 37.5 mg IM Q2W fluticasone propionate 50 mcg/actuation 1 spray intranasal DAILY PRN 30 days furosemide 40 mg PO QAM [HOSPITAL BED As directed] loratadine (Allergy Relief (loratadine)) 10 mg PO DAILY PRN 90 days lorazepam 0.5 mg PO BID PRN melatonin 5 mg PO .QHS PRN 30 days metoprolol succinate ER 25 mg PO DAILY miscellaneous medical supply 1 ea miscellaneous DAILY nicotine 1 patch transdermal Q24H 28 days olanzapine 20 mg PO BEDTIME olanzapine 5 mg PO BEDTIME olanzapine (Zyprexa) 5 mg PO BEDTIME olanzapine (Zyprexa) 20 mg PO BEDTIME omeprazole 20 mg PO DAILY rivaroxaban (Xarelto) 20 mg PO QPM 90 days tamsulosin 0.4 mg PO DAILY walker (Ultra-Light Rollator misc) As directed HPI SWV G0439 Discuss ACP HPI Details Patient is a 62-year-old male presents today for subsequent wellness visit. Patient of Dr. Watts. Medical history significant for constipation, smoker, obesity, schizoaffective disorder-followed by Psychiatry, insomnia, hypercholesterolemia, hypertension, and hypertension among others. Today we discussed patient's need for prostate cancer screening and tetanus vaccine. Patient did have a negative Cologuard 05/2020. Patient would like to receive flu vaccine today. [place] of care was reviewed with the patient and he was provided with a screening schedule. Patient reports that he has a healthcare proxy and he was encouraged to bring a healthcare proxy copy at the next office visit. MOLST form is on file. [facility] Medical History (Updated 02/18/23 @ 16:00 by RADHA Alex) Hyperkalemia Screening for malignant neoplasm of colon performed Encounter for screening colonoscopy Screening for tuberculosis Substance abuse in remission Smoker Anal irritation Allergic rhinitis Cardiomyopathy Obesity (BMI 30-39.9) Schizoaffective disorder, bipolar type Insomnia Lumbar degenerative disc disease Osteoarthritis of hips, bilateral Hyperkalemia Pure hypercholesterolemia Benign essential hypertension History of acute heart failure History of atrial flutter History of congestive heart failure History of cardiomyopathy HTN (hypertension) Paroxysmal atrial flutter Surgical History History of total hip replacement Family History Father Hypertension CVD (cardiovascular disease) Mother Hypertension Diabetes Brother Mental health disorder Social History Household Members: None Housing: Apartment Alcohol intake: former Patient Tobacco Use Status: Current everyday Tobacco user Tobacco use type: Cigarette Cigarettes Per Day: 6 e-Cigarette/Vaping Use: Never Used Second Hand Smoke Exposure: Yes Substance Use Type: Former Substance User service: No Current occupational status: retired Cognitive needs: No Hearing needs: No Vision needs: Yes Questionnaire Medicare Wellness Checkup What [age] your age?: 65-69 (61) What gender do you identify with?: male During the past 4 weeks, how much have you been bothered by emotional problems such as feeling anxious, depressed, irritable, sad or downhearted, and blue?: moderately During the past 4 weeks, has your physical & emotional health limited your social activities with family, friends, neighbors, or groups?: not at all During the past 4 weeks, how much bodily pain have you generally had?: very mild pain During the past 4 weeks, was someone available to help you if you needed & wanted help?: no, not at all During the past 4 weeks, what was the hardest physical activity you could do for at least 2 minutes?: moderate Can you get to places out of walking distance without help? (For eg., can you travel alone on buses, taxis or drive your car?): No Can you go shopping for groceries or clothes without someone's help?: Yes Can you prepare your own meals?: Yes Can you do your housework without help?: Yes Because of any health problems, do you need the help of another person with your personal care needs such as eating, bathing, dressing or getting around the house?: No Can you handle your own money without help?: No During the past 4 weeks, how would you rate your health in general?: good During the past 4 weeks how have things been going for you?: good & bad parts about equal Are you having difficulties driving your car?: no Do you always fasten your seat belt when you are in a car?: yes, usually During past 4 weeks, have you been bothered by the following: never: Falling or dizzy when standing up, Sexual problems?, Trouble eating well?, Teeth or denture problems? and Problems using the telephone? and seldom: Tiredness or fatigue? Have you fallen 2 or more times in the past year?: Yes Are you afraid of falling?: No Are you a smoker?: yes, but I'm not ready to quit During the past 4 weeks, how many drinks of wine, beer, or other alcoholic beverages did you have?: no alcohol at all Do you exercise for about 20 minutes 3 or more times a week?: yes, most of the time Have you been given information to help with the following?: no: Hazards in your house that might hurt you? and no: Keeping track of your medications? How often do you have trouble taking medicines the way you have been told to take them?: I always take medicine as prescribed How confident are you that you can control & manage most of your health problems?: somewhat confident What is your race?: or origin or descent Mini Mental State Exam (MMSE) Orientation What is the (year) (season) (date) (day) (month)?: year, season, date, day and month Score Score: 5 Activity of Daily Living Bathing - sponge bath, tub bath or shower: receives no assistance (gets in/out by self, if usual bathing means Dressing - getting clothes from closets & drawers, including inner/outer garments & fasteners.: gets clothes & gets completely dressed without help Toileting - going to the 'toilet room' for urine/bowel elimination & cleaning self/arranging clothes: goes to toilet room, cleans self, arranges clothes without help Transfer: moves in & out of bed and chair without help (may use support object) Continence: controls urination/bowel movements completely by self Feeding: feeds self without help Total Score: 0 Information obtained from: patient Using telephone: independent Traveling: dependent Shopping: needs assistance Preparing meals: needs assistance Housework: needs assistance Taking medicine: needs assistance Managing money: dependent PHQ-9 Over the last 2 weeks, how often have you been bothered by any of the following problems? 1. Little interest or pleasure in doing things: nearly every day 2. Feeling down, depressed, or hopeless: not at all 3. Trouble falling or staying asleep, or sleeping too much: not at all 4. Feeling tired or having little energy: not at all 5. Poor appetite or overeating: not at all 6. Feeling bad about yourself - or that you are a failure or have let yourself or your family down: more than half the days 7. Trouble concentrating on things, such as reading the newspaper or watching television: not at all 8. Moving or speaking so slowly that other people could have noticed. Or the opposite - being so fidgety or restless that you have been moving around a lot more than usual: more than half the days 9. Thoughts that you would be better off or of hurting yourself in some way: not at all Total score: 7 Depression Screening Interpretation: Negative Depression Screening Done: Yes [id number] - PHQ-9 Billing: Yes Source: Developed by Drs. Bimal Barrow, Melvi Padilla, Alexys Walls and colleagues, with an educational lynda from [employer]. Physical Exam Vital Signs: Last Vital Signs Pulse 69 02/18/23 15:12 BP 140/88 H 02/18/23 15:12 Pulse Ox 97 02/18/23 15:12 Oxygen Delivery Method Room Air 02/18/23 15:12 BMI result Body Mass Index 35.7 Const General: cooperative and no acute distress Orientation/consciousness: patient oriented x3 HEENT Other: Whisper test: pass Neuro Other: Balance: Normal - pt ambulates with a cane Get up and walk: unable to Romberg: negative Tandem gait: unable to General: patient oriented x3 Office Procedures Flu Questionnaire Does the patient have a severe egg allergy?: No Does the patient have severe life threatening allergies?: No Does the patient have a fever or illness today?: No Has the patient ever had Guillain-[place] Syndrome?: No Has the patient ever had any past reaction to a flu shot?: No Immunizations flu vacc [id number] 6mos up(PF) 60 mcg(15 mcgx4)/0.5 mL IM syringe Performing Provider: RADHA Alex Performing Location: [facility] Administered by: JULIETA Ortega on 02/18/23 15:26 Dose Route Admin Location Dispensed Lot Number Expiration Date [facility] Psychological Examiner 0.5 mL IM Left Deltoid 0.5 mL [id number] 11/09/23 26527-330-20 [employer] VIS Given Date VIS Provided VIS Publication Date 02/18/23 Single Vaccine 20 Eligibility Eligibility Date Funding Source Not [facility] Eligible 02/18/23 Private tetanus-diphtheria toxoids-Td 2 Lf unit-2 Lf unit/0.5 mL IM suspension Performing Provider: RADHA Alex Performing Location: [facility] Administered by: JULIETA Ortega on 02/18/23 15:30 Dose Route Admin Location Dispensed Lot Number Expiration Date [facility] Psychological Examiner 0.5 mL IM Right Deltoid 0.5 mL [id number] 09/15/23 [address]-2 [employer] VIS Given Date VIS Provided VIS Publication Date 02/18/23 Single Vaccine 20 Eligibility Eligibility Date Funding Source Not [facility] Eligible 02/18/23 State funds Assessment & Plan Assessment & Plan (1) Screening for prostate cancer: Code(s): Z12.5 - Encounter for screening for malignant neoplasm of prostate (2) Obesity (BMI 30-39.9): Code(s): E66.9 - Obesity, unspecified Plan: Healthy food choices and exercise as tolerated (3) Schizoaffective disorder, bipolar type: Code(s): F25.0 - Schizoaffective disorder, bipolar type Plan: Continue to follow-up with psychiatry Dr. Herzog (4) Insomnia: Code(s): G47.00 - Insomnia, unspecified Qualifiers: Insomnia type: unspecified Qualified Code(s): G47.00 - Insomnia, unspecified Plan: Continue to follow-up with psychiatry (5) Pure hypercholesterolemia: Code(s): E78.00 - Pure hypercholesterolemia, unspecified Plan: Low-cholesterol diet (6) Benign essential hypertension: Code(s): I10 - Essential (primary) hypertension Plan: Continue current treatment Low-sodium diet Goal BP equal or less than 140/90 Continue to follow-up with [place] [facility] (7) Adult general medical exam: Code(s): Z00.00 - Encounter for general adult medical examination without abnormal findings (8) Thoracic aortic aneurysm: Code(s): I71.20 - Thoracic aortic aneurysm, without rupture, unspecified Plan: Continue to follow-up with cardiology Dr. Bautista (9) Smoker: Code(s): F17.200 - Nicotine dependence, unspecified, uncomplicated Plan: Encouraged smoking cessation (10) Paroxysmal atrial flutter: Code(s): I48.92 - Unspecified atrial flutter Plan: Continue Xarelto Continue to follow-up with Dr. Bautista Orders: Orders Td State Immunization Today Z23 - Encounter for immunization Influenza [id number] Immunization Today Z23 - Encounter for immunization Prostate Specific Antigen Today Z12.5 - Encounter for screening for malignant neoplasm of prostate Quality Reporting (2019) Depression/Bipolar (159/160/161/177) PHQ-9: Total score: 7 Coding Level of Care Code Medicare Subsequent (G0439) Diagnoses Screening for prostate cancer Z12.5 Obesity (BMI 30-39.9) E66.9 Schizoaffective disorder, bipolar type F25.0 Insomnia, unspecified type G47.00 Insomnia type: unspecified Pure hypercholesterolemia E78.00 Benign essential hypertension I10 Adult general medical exam Z00.00 Thoracic aortic aneurysm I71.20 Smoker F17.200 Paroxysmal atrial flutter I48.92 CPT Codes Advance Care Planning - Advance Care Planning discussion: On file, no changes ([id number]) Advance Care Planning - Time spent: 1-15 minutes, on File ([id number]) Advance Care Planning Advance Care Planning discussion: On file, no changes Date of discussion: 02/18/23 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
== END 2023-02-18 15:45 | disposition home or self-care (01) ==
PROVIDERS: Visit Provider Nurse Practitioner Family
DX: Z00.00 Encounter for general adult medical examination without abnormal findings (principal); F25.0 Schizoaffective disorder, bipolar type; I71.20 Thoracic aortic aneurysm, without rupture, unspecified; I48.92 Unspecified atrial flutter; Z23 Encounter for immunization; Z12.5 Encounter for screening for malignant neoplasm of prostate; E66.9 Obesity, unspecified; G47.00 Insomnia, unspecified; E78.00 Pure hypercholesterolemia, unspecified; I10 Essential (primary) hypertension; F17.210 Nicotine dependence, cigarettes, uncomplicated
CPT/HCPCS: 1123F; 90471; 90686; 90714; G0439

== ENCOUNTER → 2023-04-21 09:48 | Outpatient (REF) | payer MEDICARE, MEDICAID, SELFPAY ==
--- NOTE | 2023-04-21 09:57 | HM_ITS ---
Conclusion: 1. Patient was monitored for total period of 3 days 2. Baseline was normal sinus rhythm with average heart of 78 beats per minute 3. No significant pauses noted 4. Frequent PACs noted with total burden of 8% 5. Frequent episodes of short runs of SVT with longest episode lasting 9 beats and the fastest 178 beats per minute 6. Patient reported 3 events that correlated with PACs MTDD
--- NOTE | 2023-04-21 09:57 | CA_ITS ---
Transthoracic Echocardiogram Patient (Last, First, Middle): Pool Perez F Gender: Male Date of : 1960 Age: 62 Procedure Date: 04/21/2023 Procedure Type: Transthoracic Echocardiogram Location: OP Height: 180.34 cm Weight: 107.05 kg BSA: 2.26 m2 Heart Rate: bpm BP: 110 / 50 mmHg Liquor Tester: CHEMO Referring MD: John Bautista MD Symptoms: I71.20 - Thoracic aortic aneurysm, without rupture, unspecified Study Quality: Fair ECG Rhythm: Sinus Conclusions: - The calculated ejection fraction is 54% by biplane method. There is no evidence of regional wall motion abnormalities. - There is mildly decreased right ventricular systolic function. - No obvious valvular pathology seen on this study. - There is mild dilatation of the sinuses of Valsalva measuring 4.27 cm and mild dilatation of the ascending aorta measuring 3.90 cm. Findings Left Ventricle Normal left ventricular cavity size. The left ventricular systolic function is low normal. The calculated ejection fraction is 54% by biplane method. There is no evidence of regional wall motion abnormalities. Diastolic function is normal for age. There is mild septal asymmetric hypertrophy. Right Ventricle Normal right ventricular cavity size. There is mildly decreased right ventricular systolic function. Atria The left atrium is mildly dilated. The right atrium is normal in size. Aortic Valve There is a normal trileaflet aortic valve. There is no aortic valve stenosis. There is no aortic valve regurgitation. Mitral Valve The mitral valve appears normal. There is trace mitral valve regurgitation. There is no mitral valve stenosis. Pulmonic Valve The pulmonic valve is likely normal. Tricuspid Valve There is mild tricuspid valve regurgitation. There is no evidence of pulmonary hypertension. Great Vessels There is mild dilatation of the sinuses of Valsalva measuring 4.27 cm and mild dilatation of the ascending aorta measuring 3.90 cm. Venous The inferior vena cava is normal in size and collapses greater than 50% with inspiration. Pericardium/Pleural There is a trivial pericardial effusion. Prior Study Comparison Changes noted compared to prior study dated: 12/11/2021. RV TAPSE and annular doppler reduced. Recommendations, Care & Conclusions No obvious valvular pathology seen on this study. Measurements 2D Linear Measurements IVSd: 1.06 0.6-0.9/0.6-1.0 cm LVIDd: 4.37 3.9-5.3/4.2-5.9 cm LVIDd Index: 1.93 2.4-3.2/2.2-3.1 cm/m2 LVIDs: 2.81 2.0-3.6 cm LVPWd: 0.94 0.7-1.1 cm LA Diam: 3.10 2.7-3.8/3.0-4.0 cm LAIDs Index: 1.37 1.5-2.3 cm/m2 LV Mass: 181.39 67-162/88-224 g LV Mass Index: 80.26 43-95/49-115 g/m2 LVOT Diam: 2.30 3.0+(-)1.3 cm 2D Systolic Function EF 4C: 51.10 >55% EF 2C: 55.80 >55% EF BiP: 53.90 >55% Mitral Valve MV Pk E: 0.59 MV PK A: 0.51 MV Decel Time: 336.00 E/A: 1.20 E'Lateral: 9.36 E'Medial: 7.07 E/E' Med: 8.30 E/E' Lat: 6.30 PHT: 98.00 MVA PHT: 2.24 Decel Wetzel: 1.75 Aortic Valve AoV Pk Ganga: 1.17 AoV Mn Ganga: 0.81 AoV VTI: 0.25 AoV Pk Grad: 5.00 Aov Mn Grad: 3.00 IMAN Cont.VTI: 3.06 LVOT LVOT Pk Ganga: 0.85 LVOT Mn Ganga: 0.56 LVOT VTI: 0.19 LVOT Pk Grad: 3.00 LVOT Mn Grad: 2.00 LVOT Diam: 2.30 LVOT Area: 4.15 Diastolic Function MV Pk E: 0.59 MV Pk A: 0.51 E/A: 1.20 E'Medial: 7.07 E/E' Med: 8.30 E' Laterial: 9.36 E/E' Lat: 6.30 Right Ventricle TAPSE (mm): 17.90 TVS' Ganga: 9.68 Tricuspid Valve TR Pk Ganga: 2.23 TR Pk Grad: 20.00 RA Press: 3.00 RVSP: 23.00 Great Vessels Aorta Sinus of Valsalva: 4.27 2.0-3.[address] [place]: 3.02 1.7-3.4 cm Ao Asc: 3.90 2.1-3.4 cm Updated in Other Vendor System with Status of Final Luca Jarrett MD electronically signed on 04/21/2023 11:37:35 AM with status of Final
== END ==
LOC: HO.CARD 09:48
PROVIDERS: PCP Internal Medicine; Visit Provider Internal Medicine Cardiovascular Disease
DX: I71.20 Thoracic aortic aneurysm, without rupture, unspecified (principal); I48.92 Unspecified atrial flutter
CPT/HCPCS: 93242; 93306

== ENCOUNTER → 2023-04-21 09:57 | Outpatient (BNV) | payer MEDICARE, MEDICAID, SELFPAY | PROVIDERS: PCP Internal Medicine; Visit Provider Internal Medicine | DX: I47.10 Supraventricular tachycardia, unspecified (principal) | CPT/HCPCS: 93244; 93306 ==

== ENCOUNTER 2023-06-25 14:07 | Outpatient (AMB) | payer MEDICARE, MEDICAID, SELFPAY ==
[2023-06-25 14:10] VITALS: BP 124/82; PULSE 82; O2SAT 97; BMI 34.2
--- NOTE | 2023-06-25 14:10 | A.OFFPC_ITS ---
Vital Signs 06/25/23 14:10 Height 5 ft 9 in Weight 231 lb 8 oz BMI 34.2 BP 124/82 Blood Pressure Location Lt brachial Position Sitting Pulse 82 Pulse Source Pulse Oximeter Pulse Oximetry (%) 97 Oxygen Delivery Method Room Air Intake Visit Reasons: HTN Allergies Penicillins [PENICILLINS] Allergy (Intermediate, Verified 06/25/23 14:41) RASH haloperidol [Haldol] Allergy (Unknown, Verified 06/25/23 14:41) Unknown mirtazapine [Remeron] Allergy (Unknown, Verified 06/25/23 14:41) Unknown trazodone Allergy (Unknown, Verified 06/25/23 14:41) Unknown verapamil [Verelan] Allergy (Unknown, Verified 06/25/23 14:41) Unknown risperidone [From RISPERDAL] Adverse Reaction (Severe, Verified 06/25/23 14:41) SEIZURE lithium [LITHIUM] Adverse Reaction (Intermediate, Verified 06/25/23 14:41) LETHARGY, AKATHISIA, TD Medication List - Last Reconciled 06/25/23 by Rajesh Watts MD acetaminophen 500 mg PO Q8H PRN albuterol sulfate 90 mcg/actuation (Ventolin HFA) 2 puffs PO QID PRN amiodarone 100 mg PO DAILY ascorbic acid (vitamin C) 500 mg PO DAILY benztropine 0.5 mg PO BID cholecalciferol (vitamin D3) 25 mcg PO DAILY divalproex ER (Depakote ER) 1,500 mg PO BEDTIME docusate sodium (DOK) 100 mg PO BID PRN ergocalciferol (vitamin D2) 1,250 mcg PO QWEEK 3 months fluphenazine decanoate 37.5 mg IM Q2W fluticasone propionate 50 mcg/actuation 1 spray intranasal DAILY PRN 30 days furosemide 40 mg PO QAM [HOSPITAL BED As directed] loratadine (Allergy Relief (loratadine)) 10 mg PO DAILY PRN 90 days lorazepam 0.5 mg PO BID PRN melatonin 5 mg PO .QHS PRN 30 days metoprolol succinate ER 25 mg PO DAILY miscellaneous medical supply 1 ea miscellaneous DAILY nicotine 1 patch transdermal Q24H 28 days olanzapine 20 mg PO BEDTIME olanzapine 5 mg PO BEDTIME olanzapine (Zyprexa) 5 mg PO BEDTIME olanzapine (Zyprexa) 20 mg PO BEDTIME omeprazole 20 mg PO DAILY rivaroxaban (Xarelto) 20 mg PO QPM 90 days tamsulosin 0.4 mg PO DAILY walker (Ultra-Light Rollator misc) As directed Tobacco use date assessed: 06/25/23 Fall risk assessment: No Falls in past year Last assessed Fall Risk: 06/25/23 Dental Screening Dental Screen Date: 06/25/23 Did you have a dental visit in the last 12 months?: Yes Did you have a dental problem in the last 6 months where you did not have access to dental care?: No Was dental information given to patient?: Patient has dentist HPI HTN HPI Details Patient comes in today for his follow up visit States that he feels okay He denies any headaches or dizziness Denies any chest pains, no SOB No nausea/vomiting, no abdominal pain No change in bowel habits noted Patient tested positive on his Cologuard recently and a referral was made out to GI for him a couple of weeks ago for a regular colonoscopy but patient states that he has not been seen or contacted by GI yet [facility] Medical History Hyperkalemia Screening for malignant neoplasm of colon performed Encounter for screening colonoscopy Screening for tuberculosis Substance abuse in remission Smoker Anal irritation Allergic rhinitis Cardiomyopathy Obesity (BMI 30-39.9) Schizoaffective disorder, bipolar type Insomnia Lumbar degenerative disc disease Osteoarthritis of hips, bilateral Hyperkalemia Pure hypercholesterolemia Benign essential hypertension History of acute heart failure History of atrial flutter History of congestive heart failure History of cardiomyopathy HTN (hypertension) Paroxysmal atrial flutter Surgical History History of total hip replacement Family History Father Hypertension CVD (cardiovascular disease) Mother Hypertension Diabetes Brother Mental health disorder Social History Household Members: None Housing: Apartment Alcohol intake: former Patient Tobacco Use Status: Current everyday Tobacco user Tobacco use type: Cigarette Cigarettes Per Day: 6 e-Cigarette/Vaping Use: Never Used Second Hand Smoke Exposure: Yes Substance Use Type: Former Substance User service: No Current occupational status: retired Cognitive needs: No Hearing needs: No Vision needs: Yes Questionnaire PHQ-9 Over the last 2 weeks, how often have you been bothered by any of the following problems? 1. Little interest or pleasure in doing things: nearly every day 2. Feeling down, depressed, or hopeless: not at all 3. Trouble falling or staying asleep, or sleeping too much: not at all 4. Feeling tired or having little energy: not at all 5. Poor appetite or overeating: not at all 6. Feeling bad about yourself - or that you are a failure or have let yourself or your family down: more than half the days 7. Trouble concentrating on things, such as reading the newspaper or watching television: not at all 8. Moving or speaking so slowly that other people could have noticed. Or the opposite - being so fidgety or restless that you have been moving around a lot more than usual: more than half the days 9. Thoughts that you would be better off or of hurting yourself in some way: not at all Total score: 7 Depression Screening Interpretation: Positive Depression Screening Follow-up: Existing condition and In treatment Depression Screening Done: Yes 53052 - PHQ-9 Billing: Yes Source: Developed by Drs. Bimal Barrow, Melvi Padilla, Alexys Walls and colleagues, with an educational lynda from [employer]. Thrive Questionnaire Date Thrive assessed: 06/25/23 I am a: Patient What is your living situation today?: I have a steady place to live Within the past 12 months, did the food you bought not last and you didn't have the money to get more?: Never true Within the past 12 months, did you worry whether your food would run out before you got money to buy more?: Never true Do you have trouble paying for medicines?: No Do you have trouble getting transportation to medical appointments?: No Do you have trouble paying your heating and electricity bill?: No Do you have trouble taking care of your child, family member or friend?: No Do you have trouble with day-to-day activities such as bathing, preparing meals, shopping, managing finances, etc.?: No Are you currently unemployed and looking for a job?: No Are you interested in more education?: No Please select the resources that you would like help with: None Currently or been in a relationship where the following occur: no concerns reported THRIVE Score: 0 AUDIT C Alcohol Use Questionnaire (AUDIT-C) 1. How often do you have a drink containing alcohol?: Never 3. How often do you have six or more drinks on one occasion?: Never Total Score: 0 Score Reviewed/Action Taken: Yes IMELDA-7 AMB Questionnaire IMELDA-7 Date IMELDA - 7 assessed: 06/25/23 Feeling nervous, anxious, or on edge: 0 = Not at all Not being able to stop or control worryin = Not at all Worrying too much about different things: 0 = Not at all Trouble relaxin = Not at all Being so restless that it is hard to sit still: 0 = Not at all Becoming easily annoyed or irritable: 0 = Not at all Feeling afraid as if something awful might happen: 0 = Not at all Total IMELDA-7 score (0-4 normal; 5-9 mild; 10-14 moderate; 15-21 severe): 0 Source: Developed by Drs. Bimal Barrow, Melvi Padilla, Alexys Walls and colleagues, with an educational lynda from [employer]. Review of Systems Const Denies chills, Reports fatigue, Denies fever(s) and Denies headache(s) ENT Denies dysphagia, Denies dizziness, Denies otalgia, Denies headache(s), Denies neck pain, Denies odynophagia and Denies sore throat Card Denies chest pain, Denies palpitations and Denies dyspnea Resp Denies cough and Denies dyspnea GI Denies abdominal pain, Denies constipation, Denies dysphagia, Denies heartburn, Denies diarrhea, Denies nausea, Denies odynophagia and Denies vomiting Denies dysuria, Denies nocturia and Denies urinary frequency Musc Reports back pain (over the lower back), Reports arthralgias (right hip) and Denies neck pain Skin/Breast Denies rash Neuro Denies dizziness and Denies headache(s) Psych Reports anxiety and Reports depression Endo Reports fatigue and Denies palpitations Physical exam (Primary Care) Vital Signs: Last Vital Signs Pulse 82 06/25/23 14:10 BP 124/82 06/25/23 14:10 Pulse Ox 97 02/14/24 14:10 Oxygen Delivery Method Room Air 06/25/23 14:10 BMI result Body Mass Index 34.2 Tobacco/Smoking Status: Tobacco use Status Tobacco use date assessed 06/25/23 06/25/23 14:13 Patient Tobacco Use Status Current everyday Tobacco 06/25/23 14:13 Tobacco use type Cigarette 06/25/23 14:13 e-Cigarette/Vaping Use Never Used 06/25/23 14:13 PHQ-9: PHQ-9 Score PHQ-9: Total score 7 06/25/23 14:26 Depression Screening Interpretation: Positive Depression Screening Follow-up: Existing condition and In treatment Thrive Assessment: Date of Thrive Assessment Date Thrive assessed 06/25/23 06/25/23 14:13 Currently or been in a relationship where the following occur: no concerns reported Const General: no acute distress and alert HENMT Ears: TM's normal bilaterally and EAC's normal Throat: Yes posterior oropharynx normal and Yes tonsils normal (no TP congestion noted) Neck Neck: Yes no lymphadenopathy and Yes supple Resp Auscultation: clear to auscultation bilaterally, no rales and no wheezes Cardio Rate: regular rate Rhythm: regular rhythm Heart sounds: no murmurs GI Palpation (GI): Soft to palpation and nontender Auscultation: normal bowel sounds Back/Spine/Pelvis Thoracic/Lumbar Spine: lumbar spinal tenderness Extrem General: Yes no clubbing, cyanosis or edema Right lower extremity: hip/thigh Details: tenderness Location: of the hip Assessment and Plan Assessment & Plan (1) Pure hypercholesterolemia: Code(s): E78.00 - Pure hypercholesterolemia, unspecified Plan: Patient has not had any follow up labs done or ordered recently; advised that his cholesterol levels back in November 2022 (when they were last checked) were all okay Reinforced low cholesterol diet Will recheck his labs and fasting lipids in 3 months for follow up (2) Benign essential hypertension: Code(s): I10 - Essential (primary) hypertension Plan: Reinforced low sodium diet - goal is systolic BP of at least 120 to 130 mm or less Continue Metoprolol ER 25 mg QD (3) History of cardiomyopathy: Comment: LVEF of 25% time of presentation with heart failure and atrial flutter, suspected to be tachycardia mediated. Normalized after maintaining sinus rhythm to 55-60% Code(s): Z86.79 - Personal history of other diseases of the circulatory system Plan: Resolved Follow up echocardiogram showed a near normal EF of 55 to 60%; most recent echo done on 12/11/21 revealed (+) normal LV systolic function with mild LVH, moderately dilated left atrium, mild mitral regurgitation, normal RV systolic pressure, mildly dilated ascending aorta at 4 cm and no pericardial effusion noted Follow up with cardiology as scheduled - was just seen last week and will have repeat echo and Holter done every 6 months (4) History of atrial flutter: Comment: S/P DC cardioversion Code(s): Z86.79 - Personal history of other diseases of the circulatory system Plan: S/P DC cardioversion; is currently maintained on Amiodarone 100 mg QD Continue Xarelto 20 mg QD for thromboembolism prophylaxis Patient states that he's had no recurrence of symptoms over the past few months Follow-up with cardiology as scheduled (5) Hyperkalemia: Code(s): E87.5 - Hyperkalemia Plan: Resolved - his serum potassium was normal at 4.5 on his most recent labs done back in February 2023 Reinforced again to avoid foods high in potassium content Will continue to monitor his serum potassium level regularly (6) Renal function impairment: Code(s): N28.9 - Disorder of kidney and ureter, unspecified Plan: Advised that his renal function appears to have declined on his labs early last year, with serum creatinine rising to 1.42 and GFR dropping to 50, although his numbers appear to have corrected and improved when they were last checked in February 2023 Have encouraged patient to increase his oral fluid intake regularly He was seen by nephrology back in February 2023 and was reassured that his renal function was stable and will see him again in 1 year for follow up (7) Osteoarthritis of hips, bilateral: Comment: S/P total left hip arthroplasty in 2016 Code(s): M16.0 - Bilateral primary osteoarthritis of hip Qualifiers: Osteoarthritis type: primary Qualified Code(s): M16.0 - Bilateral primary osteoarthritis of hip Plan: S/P total left hip arthroplasty in 2016 with (+) significant improvement of his hip pain States that his right hip pain has been progressively getting worse lately and he is now considering having a right hip arthroplasty done soon S/P physical therapy with some relief of his symptoms Follow-up with Orthopedics (Dr. Banda) as scheduled Continue Acetaminophen 500 mg every 8 hours as needed for pain (8) Lumbar degenerative disc disease: Code(s): M51.36 - Other intervertebral disc degeneration, lumbar region Plan: Reinforced and weight lifting restrictions to help minimize the risks of aggravating his back symptoms (9) Insomnia: Code(s): G47.00 - Insomnia, unspecified Qualifiers: Insomnia type: unspecified Qualified Code(s): G47.00 - Insomnia, unspecified Plan: Sleep hygiene reinforced Continue OTC Melatonin 5 mg once a day at bedtime as needed (10) Schizoaffective disorder, bipolar type: Code(s): F25.0 - Schizoaffective disorder, bipolar type Plan: Continue Depakote ER 500 mg 3 tablets once a day at bedtime (mood stabilizer), ? Fluphenazine Decanoate solution (Prolixin) 25 milligram/mL? 1.5 mL (37.5 mg) IM injection every 2 weeks (thought disorder), ? Olanzapine tablet (Zyprexa) 10 mg 2.5 tablets (25 mg) once a day at bedtime (thought disorder), ? Benztropine Mesylate? (Cogentin) 0.5 mg? 1 tablet twice a day, and ? Lorazepam 0.5 mg 1 tablet twice a day as needed Follow up with psychiatry as scheduled (11) Smoker: Code(s): F17.200 - Nicotine dependence, unspecified, uncomplicated Plan: Counseled again on smoking cessation Continue Nicotine 7 mg patches QD (12) Obesity (BMI 30-39.9): Code(s): E66.9 - Obesity, unspecified Plan: Reinforced diet/exercise as tolearted/lose weight (13) Positive colorectal cancer screening using Cologuard test: Code(s): R19.5 - Other fecal abnormalities Plan: Patient recently tested positive on his Cologuard exam and has been referred to GI for colonoscopy for further evaluation Is presently still waiting for GI to schedule and see him Plan Follow up in 3 months Orders: Orders Complete Blood Count Auto Diff 3 Months D64.9 - Anemia, unspecified Comprehensive [place]. Panel Fast 3 Months E78.00 - Pure hypercholesterolemia, unspecified UA CC w/rflx Micro + Cult 3 Months R30.0 - Dysuria Vitamin D 25-OH Total 3 Months E55.9 - Vitamin D deficiency, unspecified Lipid Panel 3 Months E78.00 - Pure hypercholesterolemia, unspecified TSH reflex Free T4 3 Months E78.00 - Pure hypercholesterolemia, unspecified Coding Level of Care Code Est Pt Level 4 (22485) Diagnoses Pure hypercholesterolemia E78.00 Benign essential hypertension I10 History of cardiomyopathy Z86.79 History of atrial flutter Z86.79 Hyperkalemia E87.5 Renal function impairment N28.9 Primary osteoarthritis of both hips M16.0 Osteoarthritis type: primary Lumbar degenerative disc disease M51.36 Insomnia, unspecified type G47.00 Insomnia type: unspecified Schizoaffective disorder, bipolar type F25.0 Smoker F17.200 Obesity (BMI 30-39.9) E66.9 Positive colorectal cancer screening using Cologuard test R19.5
== END 2023-06-25 15:06 | disposition home or self-care (01) ==
PROVIDERS: PCP Internal Medicine; Visit Provider Internal Medicine
DX: E78.00 Pure hypercholesterolemia, unspecified (principal); I10 Essential (primary) hypertension; Z86.79 Personal history of other diseases of the circulatory system; F25.0 Schizoaffective disorder, bipolar type; E87.5 Hyperkalemia; N28.9 Disorder of kidney and ureter, unspecified; M16.0 Bilateral primary osteoarthritis of hip; M51.36 Other intervertebral disc degeneration, lumbar region; G47.00 Insomnia, unspecified; F17.200 Nicotine dependence, unspecified, uncomplicated; E66.9 Obesity, unspecified; R19.5 Other fecal abnormalities
CPT/HCPCS: 99214

== ENCOUNTER 2023-07-30 10:54 | Outpatient (AMB) | payer MEDICARE, MEDICAID, SELFPAY ==
--- NOTE | 2023-07-30 11:12 | MHC.OFFVIS ---
Intake Vital Signs 07/30/23 11:16 Height 5 ft 9 in Weight 231 lb BMI 34.1 BP 99/60 Blood Pressure Location Lt brachial Position Sitting Pulse 101 H Intake Visit Reasons: Colonoscopy Screening Intake Note: Patient new consult for 3rd Colonoscopy screening. Patient cc: hemorrhoids on and off, denies any other GI issues. 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 Required: No Accompanied by: Employee Allergies Penicillins [PENICILLINS] Allergy (Intermediate, Verified 07/30/23 11:12) RASH haloperidol [Haldol] Allergy (Unknown, Verified 07/30/23 11:12) Unknown mirtazapine [Remeron] Allergy (Unknown, Verified 07/30/23 11:12) Unknown trazodone Allergy (Unknown, Verified 07/30/23 11:12) Unknown verapamil [Verelan] Allergy (Unknown, Verified 07/30/23 11:12) Unknown risperidone [From RISPERDAL] Adverse Reaction (Severe, Verified 07/30/23 11:12) SEIZURE lithium [LITHIUM] Adverse Reaction (Intermediate, Verified 07/30/23 11:12) LETHARGY, AKATHISIA, TD Medication List - Last Reconciled 07/30/23 by Maggie Aclaraz PA-C acetaminophen 500 mg PO Q8H PRN albuterol sulfate 90 mcg/actuation (Ventolin HFA) 2 puffs PO QID PRN amiodarone 100 mg PO DAILY ascorbic acid (vitamin C) 500 mg PO DAILY benztropine 0.5 mg PO BID cholecalciferol (vitamin D3) 25 mcg PO DAILY divalproex ER (Depakote ER) 1,500 mg PO BEDTIME docusate sodium (DOK) 100 mg PO BID PRN ergocalciferol (vitamin D2) 1,250 mcg PO QWEEK 3 months fluphenazine decanoate 37.5 mg IM Q2W fluticasone propionate 50 mcg/actuation 1 spray intranasal DAILY PRN 30 days furosemide 40 mg PO QAM [HOSPITAL BED As directed] loratadine (Allergy Relief (loratadine)) 10 mg PO DAILY PRN 90 days lorazepam 0.5 mg PO BID PRN melatonin 5 mg PO .QHS PRN 30 days metoprolol succinate ER 25 mg PO DAILY miscellaneous medical supply 1 ea miscellaneous DAILY nicotine 1 patch transdermal Q24H 28 days olanzapine 20 mg PO BEDTIME olanzapine 5 mg PO BEDTIME olanzapine (Zyprexa) 5 mg PO BEDTIME olanzapine (Zyprexa) 20 mg PO BEDTIME omeprazole 20 mg PO DAILY rivaroxaban (Xarelto) 20 mg PO QPM 90 days tamsulosin 0.4 mg PO DAILY walker (Ultra-Light Rollator misc) As directed HPI HPI Comments History of Present Illness Details Here with patient had- 62-year-old male anticoagulation, history of hemorrhoid referred for screening colon-after positive Cologuard-he expresses concerns He apparently had issue with his hemorrhoids that seemed to have bowel cleared up and resolved He has no GI complaint Appetite is good bowels are normal-hemorrhoids flare every once in awhile- He is awaiting right hip surgery he ambulates with a cane He lives independently He is able to recite lengthy medication list No nausea, vomiting hematemesis, hematochezia fever chills PFSH Medical History Hyperkalemia Screening for malignant neoplasm of colon performed Encounter for screening colonoscopy Screening for tuberculosis Substance abuse in remission Smoker Anal irritation Allergic rhinitis Cardiomyopathy Obesity (BMI 30-39.9) Schizoaffective disorder, bipolar type Insomnia Lumbar degenerative disc disease Osteoarthritis of hips, bilateral Hyperkalemia Pure hypercholesterolemia Benign essential hypertension History of acute heart failure History of atrial flutter History of congestive heart failure History of cardiomyopathy HTN (hypertension) Paroxysmal atrial flutter Surgical History History of total hip replacement Family History Father Hypertension CVD (cardiovascular disease) Mother Hypertension Diabetes Brother Mental health disorder Social History Household Members: None Housing: Apartment Alcohol intake: former Patient Tobacco Use Status: Current everyday Tobacco user Tobacco use type: Cigarette Cigarettes Per Day: 6 e-Cigarette/Vaping Use: Never Used Second Hand Smoke Exposure: Yes Substance Use Type: Former Substance User service: No Current occupational status: retired Cognitive needs: No Hearing needs: No Vision needs: Yes Review of Systems Const All systems reviewed & are unremarkable except as noted in HPI and below Card Denies chest pain and Denies dyspnea Resp Denies dyspnea GI Denies abdominal pain, Denies hematochezia, Denies change in bowel habits, Denies nausea and Denies vomiting Musc Reports abnormal gait Neuro Reports abnormal gait Psych Reports anxiety Physical Exam Vital Signs: Last Vital Signs Pulse 101 H 07/30/23 11:16 BP 99/60 07/30/23 11:16 BMI result Body Mass Index 34.1 Const General: healthy appearing, comfortable and no acute distress Nutritional Appearance: overweight Limitations: ambulation with cane Resp Effort & Inspection: normal respiratory effort and able to speak in complete sentences Auscultation: no rales, rhonchi (clears with cough) and no wheezes Cardio Rate: regular rate (Aug) Rhythm: regular rhythm Heart sounds: S1 normal heart sound present and S2 normal heart sound present GI Palpation (GI): Soft to palpation and nontender Auscultation: normal bowel sounds Skin General skin exam: no rashes or lesions noted Extrem Other: ankle / leg edema bilat-cane Right lower extremity: lower leg Assessment & Plan Assessment & Plan (1) Positive colorectal cancer screening using Cologuard test: Comment: History hemorrhoids Code(s): R19.5 - Other fecal abnormalities Plan: colonoscopy recommended-needs anesthes /cardiac clearance- (2) Hemorrhoids: Code(s): K64.9 - Unspecified hemorrhoids Plan: Hemorrhoids Avoid straining High-fiber diet Plan Colonoscopy MG prep Xarelto- d/c x 2 days-if authorized- need cardiac clearance- last seen 10/2022 anesthesia consult Orders: Orders Colonoscopy - GI Use Only Today K64.9 - Unspecified hemorrhoids, R19.5 - Other fecal abnormalities Medications: New bisacodyl (Dulcolax (bisacodyl)) Day before procedure @ 12 noon Take 4 tablets by mouth followed by large glass of water 20 mg (4 x 5 mg) PO ONCE 1 day PRN 4 tabs 0RF colonoscopy prep Z12.11 - Encounter for screening for malignant neoplasm of colon polyethylene glycol 3350 (Miralax) Take as directed by mouth the day before your procedure. 238 grams PO ONCE 1 day PRN 238 grams 0RF laxative effect hydrocortisone 2.5% (Proctosol HC) 1 appl [place] BEDTIME PRN 30 grams 3RF hemorrhoids Patient Instructions: 62-year-old male multiple comorbidities, positive Cologuard Recommend colonoscopy for further eval if cleared cardiology and anesthesia Discussed medications changes with patient and advocate-hold Xarelto for 2 days if authorized by prescribed Patient opportunity for questions, he asked many answered to his satisfaction Discussed procedure, rare risks need for escort Discussed prep in detail, review and literature given Coding Level of Care Code Est Pt Level 3 (73711) Diagnoses Positive colorectal cancer screening using Cologuard test R19.5 Hemorrhoids K64.9 Time Spent (min) 30 Comment pt advocate present
[2023-07-30 11:16] VITALS: BP 99/60; PULSE 101; BMI 34.1
== END 2023-07-30 12:22 | disposition home or self-care (01) ==
PROVIDERS: PCP Internal Medicine; Visit Provider Physician Assistant
DX: R19.5 Other fecal abnormalities (principal); K64.9 Unspecified hemorrhoids
CPT/HCPCS: 99213

== ENCOUNTER → 2023-07-30 10:54 | Outpatient (BNVA) | payer MEDICARE, MEDICAID, SELFPAY | PROVIDERS: PCP Internal Medicine; Visit Provider Physician Assistant | DX: R19.5 Other fecal abnormalities (principal); K64.9 Unspecified hemorrhoids | CPT/HCPCS: 99212 ==

== ENCOUNTER 2023-09-23 14:20 | Outpatient (AMB) | payer MEDICARE, MEDICAID, SELFPAY ==
--- NOTE | 2023-09-23 14:23 | MHC.PC.OV ---
Vital Signs 09/23/23 14:24 Height 5 ft 9 in Weight 226 lb BMI 33.4 BP 138/82 Blood Pressure Location Lt brachial Position Sitting Pulse 80 Pulse Source Pulse Oximeter Pulse Oximetry (%) 98 Oxygen Delivery Method Room Air Intake Visit Reasons: 3mth f/u Collection Support Specialist Required: No Detail Maker And Fitter: Not Required per policy Accompanied by: Self / Same As Patient Allergies Penicillins [PENICILLINS] Allergy (Intermediate, Verified 01/28/24 23:17) RASH haloperidol [Haldol] Allergy (Unknown, Verified 01/28/24 23:17) Unknown mirtazapine [Remeron] Allergy (Unknown, Verified 01/28/24 23:17) Unknown trazodone Allergy (Unknown, Verified 01/28/24 23:17) Unknown verapamil [Verelan] Allergy (Unknown, Verified 01/28/24 23:17) Unknown risperidone [From RISPERDAL] Adverse Reaction (Severe, Verified 01/28/24 23:17) SEIZURE lithium [LITHIUM] Adverse Reaction (Intermediate, Verified 01/28/24 23:17) LETHARGY, AKATHISIA, TD Medication List - Last Reconciled 09/23/23 by Rajesh Watts MD acetaminophen 500 mg PO Q8H PRN albuterol sulfate 90 mcg/actuation (Ventolin HFA) 2 puffs PO QID PRN amiodarone 100 mg PO DAILY ascorbic acid (vitamin C) 500 mg PO DAILY benztropine 0.5 mg PO BID bisacodyl (Dulcolax (bisacodyl)) 20 mg (4 x 5 mg) PO ONCE PRN 1 day cholecalciferol (vitamin D3) 25 mcg PO DAILY divalproex ER (Depakote ER) 1,500 mg PO BEDTIME docusate sodium (DOK) 100 mg PO BID PRN ergocalciferol (vitamin D2) 1,250 mcg PO QWEEK 3 months fluphenazine decanoate 37.5 mg IM Q2W fluticasone propionate 50 mcg/actuation 1 spray intranasal DAILY PRN 30 days furosemide 40 mg PO QAM [HOSPITAL BED As directed] hydrocortisone 2.5% (Proctosol HC) 1 appl [place] BEDTIME PRN loratadine (Allergy Relief (loratadine)) 10 mg PO DAILY PRN 90 days lorazepam 0.5 mg PO BID PRN melatonin 5 mg PO .QHS PRN 30 days metoprolol succinate ER 25 mg PO DAILY miscellaneous medical supply 1 ea miscellaneous DAILY nicotine 1 patch transdermal Q24H 28 days olanzapine 20 mg PO BEDTIME olanzapine 5 mg PO BEDTIME olanzapine (Zyprexa) 5 mg PO BEDTIME olanzapine (Zyprexa) 20 mg PO BEDTIME omeprazole 20 mg PO DAILY polyethylene glycol 3350 (Miralax) 238 grams PO ONCE PRN 1 day rivaroxaban (Xarelto) 20 mg PO QPM 90 days tamsulosin 0.4 mg PO DAILY walker (Ultra-Light Rollator [facility] [place]) As directed Tobacco use date assessed: 06/25/23 Fall risk assessment: No Falls in past year Last assessed Fall Risk: 09/23/23 Dental Screening Dental Screen Date: 06/25/23 HPI 3mth f/u HPI Details Patient comes in today for his follow up visit States that he feels okay He denies any headaches or dizziness Denies any chest pains, no SOB No nausea/vomiting, no abdominal pain No change in bowel habits noted Patient;s Cologuard test came back positive recently and he was referred promptly to GI for colonoscopy for further evaluation He is now tentatively scheduled for his colonoscopy on 11/25/2023 He needs a couple of his Rx refilled today He has not yet been able to get his follow up labs done recently [facility] Medical History Hyperkalemia Screening for malignant neoplasm of colon performed Encounter for screening colonoscopy Screening for tuberculosis Substance abuse in remission Smoker Anal irritation Allergic rhinitis Cardiomyopathy Obesity (BMI 30-39.9) Schizoaffective disorder, bipolar type Insomnia Lumbar degenerative disc disease Osteoarthritis of hips, bilateral Hyperkalemia Pure hypercholesterolemia Benign essential hypertension History of acute heart failure History of atrial flutter History of congestive heart failure History of cardiomyopathy HTN (hypertension) Paroxysmal atrial flutter Surgical History History of total hip replacement Family History Father Hypertension CVD (cardiovascular disease) Mother Hypertension Diabetes Brother Mental health disorder Social History Household Members: None Housing: Apartment Alcohol intake: former Patient Tobacco Use Status: Current everyday Tobacco user Tobacco use type: Cigarette Cigarettes Per Day: 6 e-Cigarette/Vaping Use: Never Used Second Hand Smoke Exposure: Yes Substance Use Type: Former Substance User service: No Current occupational status: retired Cognitive needs: Yes (cane) Hearing needs: No Vision needs: Yes Questionnaire Thrive Questionnaire Date Thrive assessed: 06/25/23 IMELDA-7 AMB Questionnaire IMELDA-7 Date IMELDA - 7 assessed: 06/25/23 Feeling nervous, anxious, or on edge: 0 = Not at all Source: Developed by Drs. Bimal Barrow, Melvi Padilla, Alexys Walls and colleagues, with an educational lynda from [employer]. Review of Systems Const Denies chills, Denies fatigue, Denies fever(s) and Denies headache(s) ENT Denies dysphagia, Denies dizziness, Denies otalgia, Denies headache(s), Denies neck pain, Denies odynophagia and Denies sore throat Card Denies chest pain, Denies palpitations and Denies dyspnea Resp Denies chest congestion, Denies cough and Denies dyspnea GI Denies abdominal pain, Denies constipation, Denies dysphagia, Denies heartburn, Denies diarrhea, Denies nausea, Denies odynophagia and Denies vomiting Denies dysuria, Denies nocturia and Denies urinary frequency Musc Reports back pain (over the lower back), Reports arthralgias (right hip) and Denies neck pain Skin/Breast Denies rash Neuro Denies dizziness and Denies headache(s) Psych Reports anxiety and Reports depression Endo Denies fatigue and Denies palpitations Physical exam (Primary Care) Vital Signs: Last Vital Signs Pulse 80 09/23/23 14:24 BP 138/82 09/23/23 14:24 Pulse Ox 98 09/23/23 14:24 Oxygen Delivery Method Room Air 09/23/23 14:24 BMI result Body Mass Index 33.4 Tobacco/Smoking Status: Tobacco use Status Tobacco use date assessed 06/25/23 09/23/23 14:25 Patient Tobacco Use Status Current everyday Tobacco 09/23/23 14:25 Tobacco use type Cigarette 09/23/23 14:25 e-Cigarette/Vaping Use Never Used 09/23/23 14:25 Thrive Assessment: Date of Thrive Assessment Date Thrive assessed 06/25/23 09/23/23 14:25 Const General: no acute distress and alert HENMT Ears: TM's normal bilaterally and EAC's normal Throat: Yes posterior oropharynx normal and Yes tonsils normal (no TP congestion noted) Neck Neck: Yes no lymphadenopathy and Yes supple Thyroid: Thyroid normal Resp Auscultation: clear to auscultation bilaterally, no rales and no wheezes Cardio Rate: regular rate Rhythm: regular rhythm Heart sounds: no murmurs GI Palpation (GI): Soft to palpation and nontender Auscultation: normal bowel sounds Back/Spine/Pelvis Thoracic/Lumbar Spine: lumbar spinal tenderness Extrem General: Yes no clubbing, cyanosis or edema Right lower extremity: hip/thigh Details: tenderness Location: of the hip Assessment and Plan Assessment & Plan (1) Pure hypercholesterolemia: Code(s): E78.00 - Pure hypercholesterolemia, unspecified Plan: Patient was not able to get his follow up labs done prior to his appointment today and will try to get these done KG Reinforced low cholesterol diet (2) Benign essential hypertension: Code(s): I10 - Essential (primary) hypertension Plan: Reinforced low sodium diet - goal is systolic BP of at least 120 to 130 mm or less Continue Metoprolol ER 25 mg QD (3) History of cardiomyopathy: Comment: LVEF of 25% time of presentation with heart failure and atrial flutter, suspected to be tachycardia mediated. Normalized after maintaining sinus rhythm to 55-60% Code(s): Z86.79 - Personal history of other diseases of the circulatory system Plan: Echocardiogram in 09/2020 showed a near normal EF of 55 to 60%; repeat echo done on 12/11/21 revealed (+) normal LV systolic function with mild LVH, moderately dilated left atrium, mild mitral regurgitation, normal RV systolic pressure, mildly dilated ascending aorta at 4 cm and no pericardial effusion noted His most recent echocardiogram in April 2023 revealed that the calculated ejection fraction is 54% by biplane method, with no evidence of regional wall motion abnormalities. There is mildly decreased right ventricular systolic function but no obvious valvular pathology is seen on this study. There is mild dilatation of the sinuses of Valsalva measuring 4.27 cm and mild dilatation of the ascending aorta measuring 3.90 cm Follow up with cardiology as scheduled (4) History of atrial flutter: Comment: S/P DC cardioversion Code(s): Z86.79 - Personal history of other diseases of the circulatory system Plan: S/P DC cardioversion; he is currently still maintained on Amiodarone 100 mg QD Continue Xarelto 20 mg QD for thromboembolism prophylaxis Patient states that he's had no recurrence of symptoms since his cardioversion Follow-up with cardiology as scheduled (5) Hyperkalemia: Code(s): E87.5 - Hyperkalemia Plan: Resolved - his serum potassium was normal when most recently checked a few months ago Reinforced again to patient to avoid foods high in potassium content Will continue to monitor his serum potassium level regularly (6) Renal function impairment: Code(s): N28.9 - Disorder of kidney and ureter, unspecified Plan: This was likely due to some transient renal insufficiency Patient's renal function appeared to have declined on his labs early last year, with serum creatinine rising to 1.42 and GFR dropping to 50, although his numbers appear to have corrected and improved when they were rechecked in February 2023 His GFR and serum creatinine levels were normal when last checked a few months ago Have encouraged patient to continue to increase his oral fluid intake regularly He was seen by nephrology back in February 2023 and was reassured that his renal function was stable and will see him again in 1 year for follow up (7) Osteoarthritis of hips, bilateral: Comment: S/P total left hip arthroplasty in 2016 Code(s): M16.0 - Bilateral primary osteoarthritis of hip Qualifiers: Osteoarthritis type: primary Qualified Code(s): M16.0 - Bilateral primary osteoarthritis of hip Plan: S/P total left hip arthroplasty in 2016 with (+) significant improvement of his hip pain States that his right hip pain has been progressively getting worse lately and he is now considering having a right hip arthroplasty done soon S/P physical therapy with some relief of his symptoms Follow-up with Orthopedics (Dr. Banda) as scheduled Continue Acetaminophen 500 mg every 8 hours as needed for pain (8) Lumbar degenerative disc disease: Code(s): M51.36 - Other intervertebral disc degeneration, lumbar region Plan: Reinforced and weight lifting restrictions to help minimize the risks of aggravating his back symptoms (9) Insomnia: Code(s): G47.00 - Insomnia, unspecified Qualifiers: Insomnia type: unspecified Qualified Code(s): G47.00 - Insomnia, unspecified Plan: Sleep hygiene reinforced Continue OTC Melatonin 5 mg once a day at bedtime as needed (10) Schizoaffective disorder, bipolar type: Code(s): F25.0 - Schizoaffective disorder, bipolar type Plan: Continue Depakote ER 500 mg 3 tablets once a day at bedtime (mood stabilizer), ? Fluphenazine Decanoate solution (Prolixin) 25 milligram/mL? 1.5 mL (37.5 mg) IM injection every 2 weeks (thought disorder), ? Olanzapine tablet (Zyprexa) 10 mg 2.5 tablets (25 mg) once a day at bedtime (thought disorder), ? Benztropine Mesylate? (Cogentin) 0.5 mg? 1 tablet twice a day, and ? Lorazepam 0.5 mg 1 tablet twice a day as needed Follow up with psychiatry as scheduled (11) Smoker: Code(s): F17.200 - Nicotine dependence, unspecified, uncomplicated Plan: Counseled again on smoking cessation Continue Nicotine 7 mg patches QD (12) Obesity (BMI 30-39.9): Code(s): E66.9 - Obesity, unspecified Plan: Reinforced diet/exercise as tolearted/lose weight (13) Positive colorectal cancer screening using Cologuard test: Comment: History hemorrhoids Code(s): R19.5 - Other fecal abnormalities Plan: Patient tested positive on his Cologuard exam a few months ago and was referred to GI for colonoscopy for further evaluation He is presently scheduled for his colonoscopy for further evaluation in November 2023 Plan Follow up in 3 to 4 months Medications: Changed From albuterol sulfate 90 mcg/actuation 2 puffs PO QID PRN 18 grams 1RF shortness of breath or wheezing To Ventolin HFA 90 mcg/actuation (albuterol sulfate) 2 puffs PO QID PRN 18 grams 3RF shortness of breath or wheezing NS Refilled fluticasone propionate 50 mcg/actuation administer into each nostril 1 spray intranasal DAILY PRN 16 grams 11RF allergy symptoms 30 days Coding Level of Care Code Est Pt Level 4 (68828) Diagnoses Pure hypercholesterolemia E78.00 Benign essential hypertension I10 History of cardiomyopathy Z86.79 History of atrial flutter Z86.79 Hyperkalemia E87.5 Renal function impairment N28.9 Primary osteoarthritis of both hips M16.0 Osteoarthritis type: primary Lumbar degenerative disc disease M51.36 Insomnia, unspecified type G47.00 Insomnia type: unspecified Schizoaffective disorder, bipolar type F25.0 Smoker F17.200 Obesity (BMI 30-39.9) E66.9 Positive colorectal cancer screening using Cologuard test R19.5
[2023-09-23 14:24] VITALS: BP 138/82; PULSE 80; O2SAT 98; BMI 33.4
== END 2023-09-23 15:18 | disposition home or self-care (01) ==
PROVIDERS: PCP Internal Medicine; Visit Provider Internal Medicine
DX: E78.00 Pure hypercholesterolemia, unspecified (principal); I10 Essential (primary) hypertension; Z86.79 Personal history of other diseases of the circulatory system; E87.5 Hyperkalemia; N28.9 Disorder of kidney and ureter, unspecified; M16.0 Bilateral primary osteoarthritis of hip; M51.36 Other intervertebral disc degeneration, lumbar region; G47.00 Insomnia, unspecified; F17.200 Nicotine dependence, unspecified, uncomplicated; R19.5 Other fecal abnormalities
CPT/HCPCS: 99214

== ENCOUNTER 2023-09-23 15:28 | Outpatient (REF) | payer MEDICARE, MEDICAID, SELFPAY ==
[2023-09-23 15:45] LABS: MANUAL DIFF FLAG NO
[2023-09-23 16:14] LABS: Basophils Percent Auto 0.8 % (0-2); Eosinophils Absolute Auto 0.1 X10*3/uL (0.0-0.4); Eosinophils Percent Auto 1.1 % (0-4); Hematocrit 38.6 % (42.0-52.0); Hemoglobin 12.9 g/dl (14.0-18.0); Imm Gran Abs Auto 0.01 X10*3/uL (0.00-0.03); Imm Gran Pct Auto 0.2 % (0.0-0.4); Lymphocytes Absolute Auto 2.5 X10*3/uL (1.2-4.9); Lymphocytes Percent Auto 47.5 % (20-40); Mean Corpuscular HGB Conc 33.4 g/dl (31.0-36.0); Mean Corpuscular Hemoglobin 32.3 pg (27.0-33.0); Mean Corpuscular Volume 96.7 fL (80.0-98.0); Mean Platelet Volume 10.5 fL (9.4-12.4); Monocytes Absolute Auto 0.6 X10*3/uL (0.1-1.2); Monocytes Percent Auto 11.2 % (2-11); Neutrophils Absolute Auto 2.1 x10*3/uL (2.0-8.3); Neutrophils Percent Auto 39.2 % (45-73); Platelet Count 246 X10*3/uL (160-400); Red Blood Count 3.99 X10*6/uL (4.60-5.80); Red Cell Distribution Width 13.2 % (11.0-16.0); White Blood Count 5.3 X10*3/uL (4.8-10.8)
[2023-09-23 16:40] LABS: Alanine Aminotransferase 7 U/L (0-40); Albumin Level 3.9 g/dL (3.5-5.0); Alkaline Phosphatase 59 U/L (39-117); Anion Gap 15 (12-20); Aspartate Amino Transferase 15 U/L (5-37); Bilirubin Total 0.5 mg/dL (0.0-1.0); Blood Urea Nitrogen 12 mg/dL (9-16); Calcium 9.4 mg/dL (8.4-10.2); Carbon Dioxide 28 mmol/L (22-29); Chloride 104 mmol/L (96-108); Cholesterol 181 mg/dL (<200); Estimated Glomerular Filt Rate > 60; Glucose Fasting 94 mg/dL (60-99); HDL Cholesterol 48 mg/dL (>40); LDL Cholesterol Calculated 116 mg/dL (<100); Potassium 4.5 mmol/L (3.3-5.1); Sodium 142 mmol/L (135-145); Triglycerides 87 mg/dL (<150)
[2023-09-23 16:57] LABS: TSH reflex Free T4 1.55 uIU/mL (0.32-4.0); Vitamin D 25-OH Total 32.6 ng/mL (>30)
[2023-09-23 17:31] LABS: Appearance Urine Clear; Color Urine Yellow; Glucose Urine UA Negative (Negative); Leukocyte Esterase Urine Negative (Negative); Nitrite Urine Negative (Negative); Urine Blood Negative (Negative); Urine Ketones Negative (Negative); Urine Protein Negative (Neg-Trace)
== END 2023-09-23 15:29 | disposition home or self-care (01) ==
LOC: HO.LAB 15:28
PROVIDERS: PCP Internal Medicine; Visit Provider Internal Medicine
DX: D64.9 Anemia, unspecified (principal); E78.00 Pure hypercholesterolemia, unspecified; R30.0 Dysuria; E55.9 Vitamin D deficiency, unspecified
CPT/HCPCS: 36415; 80053; 80061; 81003; 82306; 84443; 85025

== ENCOUNTER 2023-11-12 15:26 | Outpatient (AMB) | payer MEDICARE, MEDICAID, SELFPAY ==
[2023-11-12 15:30] VITALS: BP 120/78; PULSE 79; BMI 34.1
--- NOTE | 2023-11-12 15:30 | A.OFFVIS_ITS ---
Vital Signs 11/12/23 15:30 Height 5 ft 9 in Weight 231 lb 0.711 oz BMI 34.1 BP 120/78 Blood Pressure Location Lt brachial Position Sitting Pulse 79 Intake Visit Reasons: Pre-op colonoscopy 11/24 Intake Note: Preop colonoscopy 11/24. Pt feeling is good. Marking Devices Assembler Required: No Accompanied by: Self / Same As Patient Allergies Penicillins [PENICILLINS] Allergy (Intermediate, Verified 09/23/23 15:10) RASH haloperidol [Haldol] Allergy (Unknown, Verified 09/23/23 15:10) Unknown mirtazapine [Remeron] Allergy (Unknown, Verified 09/23/23 15:10) Unknown trazodone Allergy (Unknown, Verified 09/23/23 15:10) Unknown verapamil [Verelan] Allergy (Unknown, Verified 09/23/23 15:10) Unknown risperidone [From RISPERDAL] Adverse Reaction (Severe, Verified 09/23/23 15:10) SEIZURE lithium [LITHIUM] Adverse Reaction (Intermediate, Verified 09/23/23 15:10) LETHARGY, AKATHISIA, TD HPI Comments Details: 63-year-old male presents today for a pre-operative clearance for a colonoscopy. He reports he is doing well without any chest pain. shortness of breath, or palpitations. He does Tramaine and tolerates it well. He reports he has been without his lasix. [facility] Medical History Hyperkalemia Screening for malignant neoplasm of colon performed Encounter for screening colonoscopy Screening for tuberculosis Substance abuse in remission Smoker Anal irritation Allergic rhinitis Cardiomyopathy Obesity (BMI 30-39.9) Schizoaffective disorder, bipolar type Insomnia Lumbar degenerative disc disease Osteoarthritis of hips, bilateral Hyperkalemia Pure hypercholesterolemia Benign essential hypertension History of acute heart failure History of atrial flutter History of congestive heart failure History of cardiomyopathy HTN (hypertension) Paroxysmal atrial flutter Surgical History History of total hip replacement Family History Father Hypertension CVD (cardiovascular disease) Mother Hypertension Diabetes Brother Mental health disorder Social History Household Members: None Housing: Apartment Alcohol intake: former Patient Tobacco Use Status: Current everyday Tobacco user Tobacco use type: Cigarette Cigarettes Per Day: 6 e-Cigarette/Vaping Use: Never Used Second Hand Smoke Exposure: Yes Substance Use Type: Former Substance User service: No Current occupational status: retired Cognitive needs: Yes (cane) Hearing needs: No Vision needs: Yes Review of Systems Const Denies chills, Denies fatigue, Denies fever(s), Denies weight gain and Denies weight loss Card Denies chest pain, Denies leg edema, Denies lightheadedness, Denies palpitations, Denies dyspnea on exertion and Denies orthopnea Resp Denies cough and Denies dyspnea on exertion GI Reports melena, Denies hematochezia and Denies change in stool character Musc Denies muscle weakness and Denies radiating pain into limb Endo Denies fatigue and Denies palpitations Physical Exam Vital Signs: Last Vital Signs Pulse 79 11/12/23 15:30 BP 120/78 11/12/23 15:30 BMI result Body Mass Index 34.1 Const General: healthy appearing and no acute distress Orientation/consciousness: patient oriented x3 HEENT Head: Yes normal to inspection Eyes General: appearance normal, both eyes and all related structures Neck Neck: Yes normal visual inspection Chest Chest palpation & inspection: normal inspection of the chest Resp Effort & Inspection: normal respiratory effort Auscultation: clear to auscultation bilaterally Cardio Jugular venous distension: no JVD Palpation: normal PMI Rate: regular rate Rhythm: regular rhythm Heart sounds: S1 normal heart sound present, S2 normal heart sound present, no click, no gallops, no murmurs and no rubs GI Inspection: Yes normal to inspection Palpation (GI): Soft to palpation Skin General skin exam: no rashes or lesions noted Neuro General: patient oriented x3 Extrem General: Yes normal to inspection Right lower extremity: edema Details: 2+ Left lower extremity: edema Details: 2+ Psych Appearance: grossly normal Office Procedures EKG Details: EKG today. Normal sinus rhythm with sinus arhtyhmia. Non specific ST and T wave abnormality. Rate 79 ms. QRS 84ms. QTc 415 ms. [id number], Complete Assessment & Plan Assessment & Plan (1) History of cardiomyopathy: Comment: LVEF of 25% time of presentation with heart failure and atrial flutter, suspe cted to be tachycardia mediated. Normalized after maintaining sinus rhythm to 55-60% Code(s): Z86.79 - Personal history of other diseases of the circulatory system Category: Medical (2) History of acute heart failure: Comment: Echocardiogram done on 08/06/2019 showed normal LV size with moderately diminished systolic function that was most likely due to atrial flutter and rapid ventricular rate at the time; previous echo back in 2016 (done at [facility]) was normal with EF of around 55 to 60% Code(s): Z86.79 - Personal history of other diseases of the circulatory system Category: Medical (3) History of atrial flutter: Comment: S/P DC cardioversion Code(s): Z86.79 - Personal history of other diseases of the circulatory system Category: Medical (4) Preoperative clearance: Code(s): Z01.818 - Encounter for other preprocedural examination Category: Medical Plan Currently in sinus rhythm per EKG. Will order stress test and echocardiogram to assess structure and for ischemia. Will send for lab work today. Swelling bilateral in legs which has been chronic. Orders: Orders Basic Metabolic Panel 11/12/23 Z86.79 - Personal history of other diseases of the circulatory system NM cardiolite stress test 1 Week I48.92 - Unspecified atrial flutter B Type Natriuretic Peptide 5 Days Z86.79 - Personal history of other diseases of the circulatory system CA echo transthoracic complete 11/12/23 Z86.79 - Personal history of other diseases of the circulatory system B Type Natriuretic Peptide 11/12/23 Z86.79 - Personal history of other diseases of the circulatory system CA lexiscan stress w aleida 1 Week Z01.818 - Encounter for other preprocedural examination, Z86.79 - Personal history of other diseases of the circulatory system Basic Metabolic Panel 5 Days Z86.79 - Personal history of other diseases of the circulatory system Medications: Changed From furosemide Overdue for appointment; Call [phone] to schedule appt so we can continue refilling this medication. 40 mg PO QAM 30 tabs 5RF To furosemide 40 mg PO QAM 30 tabs 5RF Coding Level of Care Code Est Pt Level 3 (26087) Diagnoses History of cardiomyopathy Z86.79 History of acute heart failure Z86.79 History of atrial flutter Z86.79 Preoperative clearance Z01.81 CPT Codes EKG - CPT: 63421-[id number], Complete ([id number])
== END 2023-11-12 16:18 | disposition home or self-care (01) ==
PROVIDERS: PCP Internal Medicine; Visit Provider Nurse Practitioner
DX: I48.92 Unspecified atrial flutter (principal)
CPT/HCPCS: 93010; 99213

== ENCOUNTER 2023-11-12 15:26 | Outpatient (REF) | payer MEDICARE, MEDICAID, SELFPAY ==
[2023-11-12 17:27] LABS: Anion Gap 12 (12-20); Blood Urea Nitrogen 12 mg/dL (9-16); Calcium 9.3 mg/dL (8.4-10.2); Carbon Dioxide 30 mmol/L (22-29); Chloride 99 mmol/L (96-108); Estimated Glomerular Filt Rate > 60; Glucose Random 82 mg/dL (60-115); Potassium 4.8 mmol/L (3.3-5.1); Sodium 136 mmol/L (135-145)
[2023-11-12 17:37] LABS: B Type Natriuretic Peptide < 10 pg/mL (<100)
== END 2023-11-12 15:27 | disposition home or self-care (01) ==
LOC: HO.LAB 15:26
PROVIDERS: PCP Internal Medicine; Visit Provider Nurse Practitioner
DX: Z01.818 Encounter for other preprocedural examination (principal); Z86.79 Personal history of other diseases of the circulatory system
CPT/HCPCS: 36415; 80048; 83880; 93005; 99212

== ENCOUNTER 2023-11-18 15:30 | Outpatient (REF) | payer MEDICARE, MEDICAID, SELFPAY ==
[2023-11-18 16:33] LABS: Anion Gap 11 (12-20); Blood Urea Nitrogen 12 mg/dL (9-16); Calcium 9.1 mg/dL (8.4-10.2); Carbon Dioxide 30 mmol/L (22-29); Chloride 100 mmol/L (96-108); Estimated Glomerular Filt Rate > 60; Glucose Random 91 mg/dL (60-115); Potassium 4.7 mmol/L (3.3-5.1); Sodium 136 mmol/L (135-145)
[2023-11-18 16:41] LABS: B Type Natriuretic Peptide < 10 pg/mL (<100)
== END 2023-11-18 15:31 | disposition home or self-care (01) ==
LOC: HO.LAB 15:30
PROVIDERS: PCP Internal Medicine; Visit Provider Nurse Practitioner
DX: Z86.79 Personal history of other diseases of the circulatory system (principal)
CPT/HCPCS: 36415; 80048; 83880

== ENCOUNTER → 2024-01-20 23:59 | Outpatient (BNV) | payer MEDICARE, MEDICAID, SELFPAY | PROVIDERS: PCP Internal Medicine; Visit Provider Internal Medicine | DX: F31.9 Bipolar disorder, unspecified (principal); I10 Essential (primary) hypertension | CPT/HCPCS: G0179 ==

== ENCOUNTER 2024-01-28 15:53 | Outpatient (AMB) | payer MEDICARE, MEDICAID, SELFPAY ==
[2024-01-28 15:54] VITALS: BP 134/80; PULSE 84; O2SAT 95; BMI 33.2
--- NOTE | 2024-01-28 15:54 | A.OFFPC_ITS ---
Vital Signs 01/28/24 15:54 Height 5 ft 9 in Weight 225 lb 2 oz BMI 33.2 BP 134/80 Blood Pressure Location Lt brachial Position Sitting Pulse 84 Pulse Source Pulse Oximeter Pulse Oximetry (%) 95 Oxygen Delivery Method Room Air Intake Visit Reasons: 4 month f/u Collator Operator Required: No Accompanied by: Self / Same As Patient Allergies Penicillins [PENICILLINS] Allergy (Intermediate, Verified 01/28/24 23:17) RASH haloperidol [Haldol] Allergy (Unknown, Verified 01/28/24 23:17) Unknown mirtazapine [Remeron] Allergy (Unknown, Verified 01/28/24 23:17) Unknown trazodone Allergy (Unknown, Verified 01/28/24 23:17) Unknown verapamil [Verelan] Allergy (Unknown, Verified 01/28/24 23:17) Unknown risperidone [From RISPERDAL] Adverse Reaction (Severe, Verified 01/28/24 23:17) SEIZURE lithium [LITHIUM] Adverse Reaction (Intermediate, Verified 01/28/24 23:17) LETHARGY, AKATHISIA, TD Medication List - Last Reconciled 01/28/24 by Rajesh Watts MD acetaminophen 500 mg PO Q8H PRN amiodarone 100 mg PO DAILY ascorbic acid (vitamin C) 500 mg PO DAILY benztropine 0.5 mg PO BID bisacodyl (Dulcolax (bisacodyl)) 20 mg (4 x 5 mg) PO ONCE PRN 1 day cholecalciferol (vitamin D3) 25 mcg PO DAILY divalproex ER (Depakote ER) 1,500 mg PO BEDTIME docusate sodium 100 mg PO BID PRN ergocalciferol (vitamin D2) 1,250 mcg PO QWEEK 3 months fluphenazine decanoate 37.5 mg IM Q2W fluticasone propionate 50 mcg/actuation 1 spray intranasal DAILY PRN 30 days furosemide 40 mg PO QAM [HOSPITAL BED As directed] hydrocortisone 2.5% (Proctosol HC) 1 appl MS BEDTIME PRN loratadine (Allergy Relief (loratadine)) 10 mg PO DAILY PRN 90 days lorazepam 0.5 mg PO BID PRN melatonin 5 mg PO .QHS PRN 30 days metoprolol succinate ER 25 mg PO DAILY miscellaneous medical supply 1 ea miscellaneous DAILY olanzapine (Zyprexa) 5 mg PO BEDTIME olanzapine (Zyprexa) 20 mg PO BEDTIME omeprazole 20 mg PO DAILY polyethylene glycol 3350 (Miralax) 238 grams PO ONCE PRN 1 day rivaroxaban (Xarelto) 20 mg PO QPM 90 days tamsulosin 0.4 mg PO DAILY Ventolin HFA 90 mcg/actuation (albuterol sulfate) 2 puffs PO QID PRN NS walker (Ultra-Light Rollator misc) As directed Tobacco use date assessed: 01/28/24 Fall risk assessment: No Falls in past year Last assessed Fall Risk: 01/28/24 Dental Screening Dental Screen Date: 01/28/24 Did you have a dental visit in the last 12 months?: Yes Did you have a dental problem in the last 6 months where you did not have access to dental care?: No Was dental information given to patient?: Patient has dentist HPI 4 month f/u HPI Details Patient comes in today for his follow up visit He is currently awaiting scheduling for nuclear stress testing in order for cardiology to clear him for a colonoscopy, which needs to be done to further evaluate patient's Cologuard test that came back positive earlier this year Patient admits to feeling somewhat nervous about this but states that he feels okay overall He denies any headaches or dizziness Denies any chest pains, no SOB No nausea/vomiting, no abdominal pain No change in bowel habits noted He has no follow up labs done recently COUNTS INCLUDE 234 BEDS AT [facility] Medical History Hyperkalemia Screening for malignant neoplasm of colon performed Encounter for screening colonoscopy Screening for tuberculosis Substance abuse in remission Smoker Anal irritation Allergic rhinitis Cardiomyopathy Obesity (BMI 30-39.9) Schizoaffective disorder, bipolar type Insomnia Lumbar degenerative disc disease Osteoarthritis of hips, bilateral Hyperkalemia Pure hypercholesterolemia Benign essential hypertension History of acute heart failure History of atrial flutter History of congestive heart failure History of cardiomyopathy HTN (hypertension) Paroxysmal atrial flutter Surgical History History of total hip replacement Family History Father Hypertension CVD (cardiovascular disease) Mother Hypertension Diabetes Brother Mental health disorder Social History Household Members: None Housing: Apartment Alcohol intake: former Patient Tobacco Use Status: Current everyday Tobacco user Tobacco use type: Cigarette Cigarettes Per Day: 6 e-Cigarette/Vaping Use: Never Used Second Hand Smoke Exposure: Yes Substance Use Type: Former Substance User service: No Current occupational status: retired Cognitive needs: Yes (cane) Hearing needs: No Vision needs: Yes Questionnaire PHQ-9 Over the last 2 weeks, how often have you been bothered by any of the following problems? 1. Little interest or pleasure in doing things: nearly every day 2. Feeling down, depressed, or hopeless: not at all 3. Trouble falling or staying asleep, or sleeping too much: not at all 4. Feeling tired or having little energy: not at all 5. Poor appetite or overeating: not at all 6. Feeling bad about yourself - or that you are a failure or have let yourself or your family down: more than half the days 7. Trouble concentrating on things, such as reading the newspaper or watching television: not at all 8. Moving or speaking so slowly that other people could have noticed. Or the opposite - being so fidgety or restless that you have been moving around a lot more than usual: more than half the days 9. Thoughts that you would be better off or of hurting yourself in some way: not at all Total score: 7 Depression Screening Interpretation: Positive Depression Screening Follow-up: Existing condition and In treatment Depression Screening Done: Yes 77142 - PHQ-9 Billing: Yes Source: Developed by Drs. Bimal Barrow, Melvi Padilla, Alexys Walls and colleagues, with an educational lynda from [employer]. Thrive Questionnaire Date Thrive assessed: 01/28/24 I am a: Patient What is your living situation today?: I have a steady place to live Within the past 12 months, did the food you bought not last and you didn't have the money to get more?: Never true Within the past 12 months, did you worry whether your food would run out before you got money to buy more?: Never true Do you have trouble paying for medicines?: No Do you have trouble getting transportation to medical appointments?: No Do you have trouble paying your heating and electricity bill?: No Do you have trouble taking care of your child, family member or friend?: No Do you have trouble with day-to-day activities such as bathing, preparing meals, shopping, managing finances, etc.?: No Are you currently unemployed and looking for a job?: I choose not to answer this question Are you interested in more education?: No Please select the resources that you would like help with: None Currently or been in a relationship where the following occur: No concerns reported THRIVE Score: 0 AUDIT C Alcohol Use Questionnaire (AUDIT-C) 1. How often do you have a drink containing alcohol?: Never 3. How often do you have six or more drinks on one occasion?: Never Total Score: 0 Score Reviewed/Action Taken: Yes IMELDA-7 AMB Questionnaire IMELDA-7 Date IMELDA - 7 assessed: 01/28/24 Feeling nervous, anxious, or on edge: 0 = Not at all Not being able to stop or control worryin = Not at all Worrying too much about different things: 0 = Not at all Trouble relaxin = Not at all Being so restless that it is hard to sit still: 0 = Not at all Becoming easily annoyed or irritable: 0 = Not at all Feeling afraid as if something awful might happen: 0 = Not at all Total IMELDA-7 score (0-4 normal; 5-9 mild; 10-14 moderate; 15-21 severe): 0 Source: Developed by Drs. Bimal Barrow, Melvi Padilla, Alexys Walls and colleagues, with an educational lynda from [employer]. Review of Systems Const Denies chills, Denies fatigue, Denies fever(s) and Denies headache(s) ENT Denies dysphagia, Denies dizziness, Denies otalgia, Denies headache(s), Denies neck pain, Denies odynophagia and Denies sore throat Card Denies chest pain, Denies palpitations and Denies dyspnea Resp Denies chest congestion, Denies cough and Denies dyspnea GI Denies abdominal pain, Denies constipation, Denies dysphagia, Denies heartburn, Denies diarrhea, Denies nausea, Denies odynophagia and Denies vomiting Denies dysuria, Denies nocturia and Denies urinary frequency Musc Reports back pain (over the lower back), Reports arthralgias (right hip) and Denies neck pain Skin/Breast Denies rash Neuro Denies dizziness and Denies headache(s) Psych Reports anxiety and Reports depression Endo Denies fatigue and Denies palpitations Physical exam (Primary Care) Vital Signs: Last Vital Signs Pulse 84 01/28/24 15:54 BP 134/80 01/28/24 15:54 Pulse Ox 95 01/28/24 15:54 Oxygen Delivery Method Room Air 01/28/24 15:54 BMI result Body Mass Index 33.2 Tobacco/Smoking Status: Tobacco use Status Tobacco use date assessed 01/28/24 01/28/24 16:01 Patient Tobacco Use Status Current everyday Tobacco 01/28/24 16:01 Tobacco use type Cigarette 01/28/24 16:01 e-Cigarette/Vaping Use Never Used 01/28/24 16:01 PHQ-9: PHQ-9 Score PHQ-9: Total score 7 01/28/24 23:38 Depression Screening Interpretation: Positive Depression Screening Follow-up: Existing condition and In treatment Thrive Assessment: Date of Thrive Assessment Date Thrive assessed 01/28/24 01/28/24 16:01 Currently or been in a relationship where the following occur: No concerns reported Const General: no acute distress and alert HENMT Ears: TM's normal bilaterally and EAC's normal Throat: Yes posterior oropharynx normal and Yes tonsils normal (no TP congestion noted) Neck Neck: Yes no lymphadenopathy and Yes supple Thyroid: Thyroid normal Resp Auscultation: clear to auscultation bilaterally, no rales and no wheezes Cardio Rate: regular rate Rhythm: regular rhythm Heart sounds: no murmurs GI Palpation (GI): Soft to palpation and nontender Auscultation: normal bowel sounds Back/Spine/Pelvis Thoracic/Lumbar Spine: lumbar spinal tenderness Extrem General: Yes no clubbing, cyanosis or edema Right lower extremity: hip/thigh Details: tenderness Location: of the hip Assessment and Plan Assessment & Plan (1) Pure hypercholesterolemia: Code(s): E78.00 - Pure hypercholesterolemia, unspecified Plan: Patient has not had any follow up labs done or ordered recently His total cholesterol level was at 181 mg/dl and LDL cholesterol was at 116 mg/dl when they were last checked back in September 2023 Reinforced low cholesterol diet Will recheck his labs and fasting lipids in 3 months for follow up (2) Benign essential hypertension: Code(s): I10 - Essential (primary) hypertension Plan: Reinforced low sodium diet - goal is systolic BP of at least 120 to 130 mm or less Continue Metoprolol ER 25 mg QD (3) History of cardiomyopathy: Comment: LVEF of 25% time of presentation with heart failure and atrial flutter, suspected to be tachycardia mediated. Normalized after maintaining sinus rhythm to 55-60% Code(s): Z86.79 - Personal history of other diseases of the circulatory system Plan: Echocardiogram in 09/2020 showed a near normal EF of 55 to 60%; repeat echo done on 12/11/21 revealed (+) normal LV systolic function with mild LVH, moderately d ilated left atrium, mild mitral regurgitation, normal RV systolic pressure, mildly dilated ascending aorta at 4 cm and no pericardial effusion noted His most recent echocardiogram in April 2023 revealed that the calculated ejection fraction is 54% by biplane method, with no evidence of regional wall motion abnormalities. There is mildly decreased right ventricular systolic function but no obvious valvular pathology is seen on this study. There is mild dilatation of the sinuses of Valsalva measuring 4.27 cm and mild dilatation of the ascending aorta measuring 3.90 cm Follow up with cardiology as scheduled (4) History of atrial flutter: Comment: S/P DC cardioversion Code(s): Z86.79 - Personal history of other diseases of the circulatory system Plan: S/P DC cardioversion; he is currently still maintained on Amiodarone 100 mg QD Continue Xarelto 20 mg QD for thromboembolism prophylaxis Patient states that he's had no recurrence of symptoms since his cardioversion Follow-up with cardiology as scheduled (5) Hyperkalemia: Code(s): E87.5 - Hyperkalemia Plan: Resolved - his serum potassium was normal at 4.7 on his most recent labs done back in November 2023 Reinforced again to avoid foods high in potassium content Will continue to monitor his serum potassium level regularly (6) Renal function impairment: Code(s): N28.9 - Disorder of kidney and ureter, unspecified Plan: This was likely due to some transient renal insufficiency Patient's renal function appeared to have declined on his labs early last year, with serum creatinine rising to 1.42 and GFR dropping to 50, although his numbers appear to have corrected and improved when they were rechecked in February 2023 His last GFR and serum creatinine levels in November 2023 were normal Have encouraged patient to continue to increase his oral fluid intake regularly He was seen by nephrology back in February 2023 and was reassured that his renal function was stable and will see him again in 1 year for follow up (7) Osteoarthritis of hips, bilateral: Comment: S/P total left hip arthroplasty in 2016 Code(s): M16.0 - Bilateral primary osteoarthritis of hip Qualifiers: Osteoarthritis type: primary Qualified Code(s): M16.0 - Bilateral primary osteoarthritis of hip Plan: S/P total left hip arthroplasty in 2016 with (+) significant improvement of his hip pain States that his right hip pain has been progressively getting worse lately and he is now considering having a right hip arthroplasty done soon S/P physical therapy with some relief of his symptoms Follow-up with Orthopedics (Dr. Banda) as scheduled Continue Acetaminophen 500 mg every 8 hours as needed for pain (8) Lumbar degenerative disc disease: Code(s): M51.36 - Other intervertebral disc degeneration, lumbar region Plan: Reinforced and weight lifting restrictions to help minimize the risks of aggr avating his back symptoms (9) Insomnia: Code(s): G47.00 - Insomnia, unspecified Qualifiers: Insomnia type: unspecified Qualified Code(s): G47.00 - Insomnia, unspecified Plan: Sleep hygiene reinforced Continue OTC Melatonin 5 mg once a day at bedtime as needed (10) Schizoaffective disorder, bipolar type: Code(s): F25.0 - Schizoaffective disorder, bipolar type Plan: Continue Depakote ER 500 mg 3 tablets once a day at bedtime (mood stabilizer), ? Fluphenazine Decanoate solution (Prolixin) 25 milligram/mL? 1.5 mL (37.5 mg) IM injection every 2 weeks (thought disorder), ? Olanzapine tablet (Zyprexa) 10 mg 2.5 tablets (25 mg) once a day at bedtime (thought disorder), ? Benztropine Mesylate? (Cogentin) 0.5 mg? 1 tablet twice a day, and ? Lorazepam 0.5 mg 1 tablet twice a day as needed Follow up with psychiatry as scheduled (11) Smoker: Code(s): F17.200 - Nicotine dependence, unspecified, uncomplicated Plan: Counseled again on smoking cessation Continue Nicotine 7 mg patches QD (12) Obesity (BMI 30-39.9): Code(s): E66.9 - Obesity, unspecified Plan: Reinforced diet/exercise as tolearted/lose weight (13) Positive colorectal cancer screening using Cologuard test: Comment: History hemorrhoids Code(s): R19.5 - Other fecal abnormalities Plan: Patient recently tested positive on his Cologuard exam and was referred to GI for colonoscopy for further evaluation Due to his cardiac history, he was advised to get cardiology clearance first He is presently awaiting scheduling for stress testing so he can be cleared by cardiology to undergo colonoscopy Plan Follow up in 3 months Orders: Orders B Type Natriuretic Peptide 3 Months I50.9 - Heart failure, unspecified Complete Blood Count Auto Diff 3 Months D64.9 - Anemia, unspecified Comprehensive [place]. Panel Fast 3 Months E78.00 - Pure hypercholesterolemia, unspecified Lipid Panel 3 Months E78.00 - Pure hypercholesterolemia, unspecified TSH reflex Free T4 3 Months E78.00 - Pure hypercholesterolemia, unspecified UA CC w/rflx Micro + Cult 3 Months R30.0 - Dysuria Vitamin D 25-OH Total 3 Months E55.9 - Vitamin D deficiency, unspecified Coding Level of Care Code Est Pt Level 4 (16091) Diagnoses Pure hypercholesterolemia E78.00 Benign essential hypertension I10 History of cardiomyopathy Z86.79 History of atrial flutter Z86.79 Hyperkalemia E87.5 Renal function impairment N28.9 Primary osteoarthritis of both hips M16.0 Osteoarthritis type: primary Lumbar degenerative disc disease M51.36 Insomnia, unspecified type G47.00 Insomnia type: unspecified Schizoaffective disorder, bipolar type F25.0 Smoker F17.200 Obesity (BMI 30-39.9) E66.9 Positive colorectal cancer screening using Cologuard test R19.5
== END 2024-01-28 16:31 | disposition home or self-care (01) ==
PROVIDERS: PCP Internal Medicine; Visit Provider Internal Medicine
DX: E78.00 Pure hypercholesterolemia, unspecified (principal); F25.0 Schizoaffective disorder, bipolar type; I10 Essential (primary) hypertension; Z86.79 Personal history of other diseases of the circulatory system; E87.5 Hyperkalemia; N28.9 Disorder of kidney and ureter, unspecified; M16.0 Bilateral primary osteoarthritis of hip; M51.36 Other intervertebral disc degeneration, lumbar region; G47.00 Insomnia, unspecified; F17.200 Nicotine dependence, unspecified, uncomplicated; E66.9 Obesity, unspecified; R19.5 Other fecal abnormalities

== ENCOUNTER → 2024-01-28 15:53 | Outpatient (BNVA) | payer MEDICARE, MEDICAID, SELFPAY | PROVIDERS: PCP Internal Medicine; Visit Provider Internal Medicine | DX: E78.00 Pure hypercholesterolemia, unspecified (principal); I10 Essential (primary) hypertension; E87.5 Hyperkalemia; N28.9 Disorder of kidney and ureter, unspecified; M16.0 Bilateral primary osteoarthritis of hip; M51.36 Other intervertebral disc degeneration, lumbar region; F25.0 Schizoaffective disorder, bipolar type; E66.9 Obesity, unspecified; R19.5 Other fecal abnormalities; F17.200 Nicotine dependence, unspecified, uncomplicated; Z71.6 Tobacco abuse counseling | CPT/HCPCS: 99212 ==

== ENCOUNTER 2024-02-26 11:11 | Outpatient (AMB) | payer MEDICARE, MEDICAID, SELFPAY ==
[2024-02-26 11:25] VITALS: BP 110/68; PULSE 71; O2SAT 98; BMI 33.2
--- NOTE | 2024-02-26 11:25 | A.OFFVIS_ITS ---
Intake Vital Signs 02/26/24 11:25 Height 5 ft 9 in Weight 225 lb 2 oz BMI 33.2 BP 110/68 Blood Pressure Location Lt brachial Position Sitting Pulse 71 Pulse Source Pulse Oximeter Pulse Oximetry (%) 98 Oxygen Delivery Method Room Air Intake Visit Reasons: SWV G0439 Top Flavor Attendant Required: No Accompanied by: Self / Same As Patient Allergies Penicillins [PENICILLINS] Allergy (Intermediate, Verified 02/26/24 19:36) RASH haloperidol [Haldol] Allergy (Unknown, Verified 02/26/24 19:36) Unknown mirtazapine [Remeron] Allergy (Unknown, Verified 02/26/24 19:36) Unknown trazodone Allergy (Unknown, Verified 02/26/24 19:36) Unknown verapamil [Verelan] Allergy (Unknown, Verified 02/26/24 19:36) Unknown risperidone [From RISPERDAL] Adverse Reaction (Severe, Verified 02/26/24 19:36) SEIZURE lithium [LITHIUM] Adverse Reaction (Intermediate, Verified 02/26/24 19:36) LETHARGY, AKATHISIA, TD Medication List - Last Reconciled 02/26/24 by Rajesh Watts MD acetaminophen 500 mg PO Q8H PRN amiodarone 100 mg PO DAILY ascorbic acid (vitamin C) 500 mg PO DAILY benztropine 0.5 mg PO BID bisacodyl (Dulcolax (bisacodyl)) 20 mg (4 x 5 mg) PO ONCE PRN 1 day cholecalciferol (vitamin D3) 25 mcg PO DAILY divalproex ER (Depakote ER) 1,500 mg PO BEDTIME docusate sodium 100 mg PO BID PRN ergocalciferol (vitamin D2) 1,250 mcg PO QWEEK 3 months fluphenazine decanoate 37.5 mg IM Q2W fluticasone propionate 50 mcg/actuation 1 spray intranasal DAILY PRN 30 days furosemide 40 mg PO QAM [HOSPITAL BED As directed] hydrocortisone 2.5% (Proctosol HC) 1 appl NH BEDTIME PRN loratadine (Allergy Relief (loratadine)) 10 mg PO DAILY PRN 90 days lorazepam 0.5 mg PO BID PRN melatonin 5 mg PO .QHS PRN 30 days metoprolol succinate ER 25 mg PO DAILY miscellaneous medical supply 1 ea miscellaneous DAILY olanzapine (Zyprexa) 5 mg PO BEDTIME olanzapine (Zyprexa) 20 mg PO BEDTIME omeprazole 20 mg PO DAILY polyethylene glycol 3350 (Miralax) 238 grams PO ONCE PRN 1 day rivaroxaban (Xarelto) 20 mg PO QPM 90 days tamsulosin 0.4 mg PO DAILY Ventolin HFA 90 mcg/actuation (albuterol sulfate) 2 puffs PO QID PRN NS walker (Ultra-Light Rollator misc) As directed Do you need a note to return to daycare/school/sports/work: No HPI SWV G0439 HPI Details Patient comes in today for his Annual Medicare Wellness Exam States that he is currently still experiencing some pain and discomfort in his groin area He is being scheduled for colonoscopy due to a positive Cologuard test but is waiting for cardiology to clear him for the procedure He is currently scheduled for echocardiogram, stress testing and myocardial perfusion scan next month Patient states that he feels okay otherwise He denies headaches or dizziness Denies any chest pains, no increased shortness of breath No nausea/vomiting, no abdominal pain No change in bowel habits noted He would also like to get his flu shot today [place] of care was reviewed and updated today Patient has a healthcare proxy in place and on file IPPE/AWV: c/o of Annual Wellness Visit, subsequent visit. Medical / Social History Reviewed Past Medical History Yes . [place] of Care / Care Team list updated Yes . Surgical/Hospitalization History Yes . Current Medications (including OTC and supplements) Yes . Family History Yes . Tobacco Control form Yes . AUDIT-C (Alcohol use) form Yes . Illicit drug use in Social History Yes . Current diagnosis of depression? No Appropriate PHQ2/PHQ9 completed Yes . Data entered by Senior Mobile Solutions Architect and reviewed by provider Home Safety Throw rugs? No Grab bars? No Raised toilet seats? No Working smoke detectors? Yes Working carbon monoxide detectors? Yes Data entered by Senior Mobile Solutions Architect and reviewed by provider Activities of Daily Living (ADLs) Difficulty bathing or showering? No Difficulty dressing? No Difficulty using the toilet? No Difficulty getting in and out of bed? No Difficulty walking? No Receives help from another person with any of the above tasks? No Instrumental Activities of Daily Living (IADLs) Uses the telephone without help Gets to places out of walking distance without help Goes shopping for groceries with help Prepares own meals with help Does own minor home maintenance with help Does own laundry with help Does own housework with help Manages own money with help Currently takes medications? Yes Takes medication with help End-of-Life Planning Discussed advance directive Yes Advance directive on file Discussed wishes expressed in advance directive agreed to following patient's wishes Fall Risk: Fall History Have you had any falls with injury in the past year? No . Have you had two or more falls in the past year? No . Fall Risk Assessment: No falls in the past year . HRA filled out by the patient, reviewed by Provider and scanned. [facility] Medical History Hyperkalemia Screening for malignant neoplasm of colon performed Encounter for screening colonoscopy Screening for tuberculosis Substance abuse in remission Smoker Anal irritation Allergic rhinitis Cardiomyopathy Obesity (BMI 30-39.9) Schizoaffective disorder, bipolar type Insomnia Lumbar degenerative disc disease Osteoarthritis of hips, bilateral Hyperkalemia Pure hypercholesterolemia Benign essential hypertension History of acute heart failure History of atrial flutter History of congestive heart failure History of cardiomyopathy HTN (hypertension) Paroxysmal atrial flutter Surgical History History of total hip replacement Family History Father Hypertension CVD (cardiovascular disease) Mother Hypertension Diabetes Brother Mental health disorder Social History Household Members: None Housing: Apartment Alcohol intake: former Patient Tobacco Use Status: Current everyday Tobacco user Tobacco use type: Cigarette Cigarettes Per Day: 6 e-Cigarette/Vaping Use: Never Used Second Hand Smoke Exposure: Yes Substance Use Type: Former Substance User service: No Current occupational status: retired Cognitive needs: Yes (cane) Hearing needs: No Vision needs: Yes Questionnaire Medicare Wellness Checkup What [age] What gender do you identify with?: male During the past 4 weeks, how much have you been bothered by emotional problems such as feeling anxious, depressed, irritable, sad or downhearted, and blue?: moderately During the past 4 weeks, has your physical & emotional health limited your social activities with family, friends, neighbors, or groups?: slightly During the past 4 weeks, how much bodily pain have you generally had?: moderate pain During the past 4 weeks, was someone available to help you if you needed & wanted help?: no, not at all During the past 4 weeks, what was the hardest physical activity you could do for at least 2 minutes?: very light Can you get to places out of walking distance without help? (For eg., can you travel alone on buses, taxis or drive your car?): No Can you go shopping for groceries or clothes without someone's help?: No Can you prepare your own meals?: Yes Can you do your housework without help?: No Because of any health problems, do you need the help of another person with your personal care needs such as eating, bathing, dressing or getting around the house?: No Can you handle your own money without help?: Yes During the past 4 weeks, how would you rate your health in general?: fair During the past 4 weeks how have things been going for you?: good & bad parts about equal Are you having difficulties driving your car?: not applicable, I don't use a car Do you always fasten your seat belt when you are in a car?: yes, usually During past 4 weeks, have you been bothered by the following: never: Sexual problems?, Trouble eating well?, Teeth or denture problems? and Problems using the telephone? and seldom: Falling or dizzy when standing up and Tiredness or fatigue? Have you fallen 2 or more times in the past year?: No Are you afraid of falling?: Yes Are you a smoker?: yes, but I'm not ready to quit During the past 4 weeks, how many drinks of wine, beer, or other alcoholic beverages did you have?: no alcohol at all Do you exercise for about 20 minutes 3 or more times a week?: yes, most of the time Have you been given information to help with the following?: yes: Hazards in your house that might hurt you? and yes: Keeping track of your medications? How often do you have trouble taking medicines the way you have been told to take them?: I always take medicine as prescribed How confident are you that you can control & manage most of your health problems?: somewhat confident What is your race?: or origin or descent Mini Mental State Exam (MMSE) Orientation What is the (year) (season) (date) (day) (month)?: year, season, date, day and month Where are we (state) (county) (town or city) (hospital) (floor)?: state, county, town or city, hospital/clinic and floor Score Score: 10 Activity of Daily Living Bathing - sponge bath, tub bath or shower: receives no assistance (gets in/out by self, if usual bathing means Dressing - getting clothes from closets & drawers, including inner/outer garments & fasteners.: gets clothes & gets completely dressed without help Toileting - going to the 'toilet room' for urine/bowel elimination & cleaning self/arranging clothes: goes to toilet room, cleans self, arranges clothes without help Transfer: moves in & out of bed and chair without help (may use support object) Continence: controls urination/bowel movements completely by self Feeding: feeds self without help Total Score: 0 Information obtained from: patient Using telephone: independent Traveling: dependent Shopping: needs assistance Preparing meals: needs assistance Housework: needs assistance Taking medicine: needs assistance Managing money: dependent PHQ-9 Over the last 2 weeks, how often have you been bothered by any of the following problems? 1. Little interest or pleasure in doing things: not at all 2. Feeling down, depressed, or hopeless: not at all 4. Feeling tired or having little energy: not at all 5. Poor appetite or overeating: several days 6. Feeling bad about yourself - or that you are a failure or have let yourself or your family down: several days 7. Trouble concentrating on things, such as reading the newspaper or watching television: not at all 8. Moving or speaking so slowly that other people could have noticed. Or the opposite - being so fidgety or restless that you have been moving around a lot more than usual: not at all 9. Thoughts that you would be better off or of hurting yourself in some way: not at all Depression Screening Interpretation: Positive Depression Screening Follow-up: E xisting condition and In treatment Depression Screening Done: Yes 07459 - PHQ-9 Billing: Yes Source: Developed by Drs. Bimal Barrow, Melvi Padilla, Alexys Walls and colleagues, with an educational lynda from [employer] ([employer]). PHQ-2/PHQ-9 PHQ-2 Over the last 2 weeks, how often have you been bothered by any of the following problems? 1. Little interest or pleasure in doing things: not at all 2. Feeling down, depressed, or hopeless: not at all Total score: 0 If score is 3 or greater, continue 4. Feeling tired or having little energy: not at all 5. Poor appetite or overeating: several days 6. Feeling bad about yourself - or that you are a failure or have let yourself or your family down: several days 7. Trouble concentrating on things, such as reading the newspaper or watching television: not at all 8. Moving or speaking so slowly that other people could have noticed. Or the opposite - being so fidgety or restless that you have been moving around a lot more than usual: not at all 9. Thoughts that you would be better off or of hurting yourself in some way: not at all 0-4 None-Minimal, 5-9 Mild, 10-14 Moderate, 15-19 Moderately Severe, 20-27 Severe Source: Developed by Drs. Bimal Barrow, Melvi Padilla, Alexys Walls and colleagues, with an educational lynda from [employer] ([employer]). Thrive Questionnaire Date Thrive assessed: 02/26/24 I am a: Patient What is your living situation today?: I have a steady place to live Within the past 12 months, did the food you bought not last and you didn't have the money to get more?: Never true Within the past 12 months, did you worry whether your food would run out before you got money to buy more?: Never true Do you have trouble paying for medicines?: No Do you have trouble getting transportation to medical appointments?: No Do you have trouble paying your heating and electricity bill?: No Do you have trouble taking care of your child, family member or friend?: No Do you have trouble with day-to-day activities such as bathing, preparing meals, shopping, managing finances, etc.?: No Are you currently unemployed and looking for a job?: I choose not to answer this question Are you interested in more education?: No Please select the resources that you would like help with: None Currently or been in a relationship where the following occur: No concerns reported THRIVE Score: 0 IMELDA-7 AMB Questionnaire IMELDA-7 Date IMELDA - 7 assessed: 02/26/24 Feeling nervous, anxious, or on edge: 0 = Not at all Not being able to stop or control worryin = Not at all Worrying too much about different things: 0 = Not at all Trouble relaxin = Not at all Being so restless that it is hard to sit still: 0 = Not at all Becoming easily annoyed or irritable: 0 = Not at all Feeling afraid as if something awful might happen: 0 = Not at all Total IMELDA-7 score (0-4 normal; 5-9 mild; 10-14 moderate; 15-21 severe): 0 Source: Developed by Drs. Bimal Barrow, Melvi Padilla, Alexys Walls and colleagues, with an educational lynda from [employer] ([employer]). Review of Systems Const Denies chills, Denies fatigue, Denies fever(s) and Denies headache(s) ENT Denies dysphagia, Denies dizziness, Denies otalgia, Denies headache(s), Denies neck pain, Denies odynophagia and Denies sore throat Card Denies chest pain, Denies palpitations and Denies dyspnea Resp Denies chest congestion, Denies cough and Denies dyspnea GI Denies abdominal pain, Denies constipation, Denies dysphagia, Denies heartburn, Denies diarrhea, Denies nausea, Denies odynophagia and Denies vomiting Denies dysuria, Denies nocturia and Denies urinary frequency Musc Reports back pain (over the lower back), Reports arthralgias (right hip) and Denies neck pain Skin/Breast Denies rash Neuro Denies dizziness and Denies headache(s) Psych Reports anxiety and Reports depression Endo Denies fatigue and Denies palpitations Physical Exam Vital Signs: Last Vital Signs Pulse 71 02/26/24 11:25 BP 110/68 02/26/24 11:25 Pulse Ox 98 02/26/24 11:25 Oxygen Delivery Method Room Air 02/26/24 11:25 BMI result Body Mass Index 33.2 IPPE/AWV: Balance Romberg Yes . Tandem walk Yes . Walk and Turn Yes . Rise from sit to stand Yes . Vision Corrective lens No Vision screen pass Hearing Whisper test pass . Urinary incont. no. EKG Not clinically necessary. Office Procedures Flu Questionnaire Does the patient have a severe egg allergy?: No Does the patient have severe life threatening allergies?: No Does the patient have a fever or illness today?: No Has the patient ever had Guillain-[place] Syndrome?: No Has the patient ever had any past reaction to a flu shot?: No Immunizations Fluarix Triv [id number] (PF) 45 mcg (15 mcg x 3)/0.5 mL IM syringe Performing Provider: Rajesh Watts MD Per[facility] Administered by: JULIETA Roman on 02/26/24 12:39 Dose Route Admin Location Dispensed Lot Number Expiration Date [facility] Autom[employer] Radiator 0.5 mL IM Left Deltoid 0.5 mL [id number] 11/08/24 63611-220-60 [employer] VIS Given Date VIS Provided VIS Publication Date 02/26/24 Single Vaccine 20 Eligibility Eligibility Date Funding Source Not [facility] Eligible 02/26/24 Private Assessment & Plan Assessment & Plan (1) Medicare annual wellness visit, subsequent: Code(s): Z00.00 - Encounter for general adult medical examination without abnormal findings Plan: HRA form discussed and completed with patient; form will be scanned into patient's chart (2) Positive colorectal cancer screening using Cologuard test: Comment: History hemorrhoids Code(s): R19.5 - Other fecal abnormalities Plan: He is being scheduled for colonoscopy due to a positive Cologuard test done earlier this year but is waiting for cardiology to clear him for the procedure He is currently scheduled for echocardiogram, stress testing and myocardial perfusion scan next month (3) Paroxysmal atrial flutter: Code(s): I48.92 - Unspecified atrial flutter Plan: S/P DC cardioversion; he is currently still maintained on Amiodarone 100 mg QD Continue Xarelto 20 mg QD for thromboembolism prophylaxis Patient states that he's had no recurrence of symptoms since his cardioversion Follow-up with cardiology as scheduled (4) History of cardiomyopathy: Comment: LVEF of 25% time of presentation with heart failure and atrial flutter, suspected to be tachycardia mediated. Normalized after maintaining sinus rhythm to 55-60% Code(s): Z86.79 - Personal history of other diseases of the circulatory system Plan: Echocardiogram in 09/2020 showed a near normal EF of 55 to 60%; repeat echo done on 12/11/21 revealed (+) normal LV systolic function with mild LVH, moderately dilated left atrium, mild mitral regurgitation, normal RV systolic pressure, mildly dilated ascending aorta at 4 cm and no pericardial effusion noted His most recent echocardiogram in April 2023 revealed that the calculated ejection fraction is 54% by biplane method, with no evidence of regional wall motion abnormalities. There is mildly decreased right ventricular systolic function but no obvious valvular pathology is seen on this study. There is mild dilatation of the sinuses of Valsalva measuring 4.27 cm and mild dilatation of the ascending aorta measuring 3.90 cm He is scheduled to have echocardiogram repeated next month Follow up with cardiology as scheduled Plan As requested, flu vaccine given to patient today Follow-up as scheduled in April 2024 Orders: Orders Influenza [id number] Immunization Today Z23 - Encounter for immunization Coding Level of Care Code Medicare Subsequent (G0439) Est Pt Level 3 (65721) Diagnoses Medicare annual wellness visit, subsequent Z00.00 Positive colorectal cancer screening using Cologuard test R19.5 Paroxysmal atrial flutter I48.92 History of cardiomyopathy Z86.79
== END 2024-02-26 13:25 | disposition home or self-care (01) ==
PROVIDERS: PCP Internal Medicine; Visit Provider Internal Medicine
DX: Z00.00 Encounter for general adult medical examination without abnormal findings (principal); R19.5 Other fecal abnormalities; I48.92 Unspecified atrial flutter; Z86.79 Personal history of other diseases of the circulatory system

== ENCOUNTER → 2024-02-26 11:11 | Outpatient (BNVA) | payer MEDICARE, MEDICAID, SELFPAY | PROVIDERS: PCP Internal Medicine; Visit Provider Internal Medicine | DX: Z00.00 Encounter for general adult medical examination without abnormal findings (principal); R19.5 Other fecal abnormalities; I48.92 Unspecified atrial flutter; Z79.01 Long term (current) use of anticoagulants; Z86.79 Personal history of other diseases of the circulatory system; Z23 Encounter for immunization | CPT/HCPCS: 90471; 90656; 96127 ==

== ENCOUNTER → 2024-04-05 08:36 | Outpatient (REF) | payer MEDICARE, MEDICAID, SELFPAY ==
--- NOTE | ~2024-04-05 | NM_ITS ---
Lexiscan Myocardial perfusion study Indication: Preoperative cardiac evaluation Technique: The patient was brought in for a Lexiscan perfusion study on 04/05/2024 and was injected 0.4 mg of Lexiscan intravenously. Within a minute of this injection 35 mCi of sestamibi was given intravenously. Images were obtained using the SPECT gamma camera interlaced with the gating device. Images were obtained in supine position. Resting perfusion study was performed on 04/07/2024. Patient was administered 35 mCi of sestamibi intravenously at rest. Images were then obtained in supine position. Total DLP 110 mGy-cm. Images were processed with the software and compared side to side in short axis, horizontal long axis and vertical long axis views. Findings: Raw aquisition reviewed. The stress perfusion study showed mildly reduced tracer uptake in the inferior wall. With CT attenuation correction, there is improved tracer uptake suggestive of diaphragmatic attenuation artifact. The gated study shows normal LV systolic function with calculated LVEF of 63%. LV cavity is normal in size. The gated study shows normal wall thickening and contraction of segments. Resting study shows mild increased tracer uptake in the basal part of inferior wall. There is improved uptake with CT attenuation correction suggestive of diaphragmatic attenuation artifact. Gating at rest reveals normal wall motion with ejection fraction at 58%. The findings are consistent with fixed appearing basal inferior defect improving with CT attenuation correction. No reversible defects. NM/NM cardiolite stress test Impression: 1. Myocardial perfusion imaging study shows probably normal myocardial perfusion. 2. Gated LVEF is 63% during stress and 58% during rest. 3. Transient ischemic dilatation not present. EKG component of the test reported separately. Electronically signed by: Luca Jarrett MD 04/10/2024 12:52 PM [facility]
--- NOTE | 2024-04-05 08:40 | CA_ITS ---
Acquisition Time: 2024-04-05 09:48:23 Total Exercise Time: 00:02:00 Test Indications: PRE-OP COLONSCOPY Medications: SEE H Protocol: LEXISCAN Max HR: 082 BPM 52% of Pred: 155 BPM Max BP: 130/068 mmHG Max Work Load: 1.0 METS Pharmacologic Stress Test with Lexiscan with pt kicking his legs and marching in chair, with mild lightheadedness, with no chest discomfort, with isolated PACs, BP dropped to 104/[address] at baseline, non diagnostic EKG post injection. In recovery, pt treated with Aminophylline 75mg IVP to reverse Lexiscan. 100cc IVF infused. Nuclear images pending. BP back to normal. Test reviewed with Dr. Jarrett. Referred By: Nisa Healy Overread By: JENNY BLACK
--- NOTE | 2024-04-05 08:40 | CA_ITS ---
Transthoracic Echocardiogram Patient (Last, First, Middle): Pool Perez F Gender: Male Date of : 1960 Age: 63 Procedure Date: 04/05/2024 Procedure Type: Transthoracic Echocardiogram Location: OP Height: 175.26 cm Weight: 102.06 kg BSA: 2.17 m2 Heart Rate: 63 bpm BP: 110 / 68 mmHg Retail Manager: SB Referring MD: Nisa Healy FREIGHT CAR INSPECTOR Symptoms: Z86.79 - Personal history of other diseases of the circulatory system Study Quality: Adequate ECG Rhythm: Sinus Conclusions: - The left ventricular systolic function is normal. The visually estimated ejection fraction is between 55-60%. - No obvious valvular pathology seen on this study. - There is mild dilatation of the sinuses of Valsalva measuring 4.10 cm and mild dilatation of the ascending aorta measuring 3.80 cm. Findings Left Ventricle Normal left ventricular cavity size. The left ventricular systolic function is normal. The visually estimated ejection fraction is between 55-60%. There is no evidence of regional wall motion abnormalities. Diastolic function is normal for age. There is moderate septal asymmetric hypertrophy. Right Ventricle Normal right ventricular cavity size and systolic function. Atria Both atria are normal in size. Aortic Valve There is a normal trileaflet aortic valve. There is no aortic valve stenosis. There is no aortic valve regurgitation. Mitral Valve The mitral valve appears normal. There is trace mitral valve regurgitation. There is no mitral valve stenosis. Pulmonic Valve The pulmonic valve is likely normal. Tricuspid Valve There is trace tricuspid valve regurgitation. There is no evidence of pulmonary hypertension. Great Vessels There is mild dilatation of the sinuses of Valsalva measuring 4.10 cm and mild dilatation of the ascending aorta measuring 3.80 cm. Venous The inferior vena cava is normal in size and collapses greater than 50% with inspiration. Pericardium/Pleural There is no evidence of pericardial effusion. Prior Study Comparison No significant change compared to prior study dated: 04/21/2023. Recommendations, Care & Conclusions No obvious valvular pathology seen on this study. Measurements 2D Linear Measurements IVSd: 1.32 0.6-0.9/0.6-1.0 cm LVIDd: 4.19 3.9-5.3/4.2-5.9 cm LVIDd Index: 1.93 2.4-3.2/2.2-3.1 cm/m2 LVIDs: 2.66 2.0-3.6 cm LVPWd: 0.86 0.7-1.1 cm LA Diam: 3.70 2.7-3.8/3.0-4.0 cm LAIDs Index: 1.71 1.5-2.3 cm/m2 LV Mass: 192.06 67-162/88-224 g LV Mass Index: 88.51 43-95/49-115 g/m2 LVOT Diam: 2.20 3.0+(-)1.3 cm 2D Systolic Function EF 4C: 61.80 >55% EF 2C: 57.90 >55% EF BiP: 60.00 >55% Mitral Valve MV Pk E: 0.69 MV PK A: 0.56 MV Decel Time: 130.00 E/A: 1.20 E'Lateral: 10.70 E'Medial: 7.83 E/E' Med: 8.90 E/E' Lat: 6.50 PHT: 38.00 MVA PHT: 5.79 Decel Sequoyah: 5.33 Aortic Valve AoV Pk Ganga: 0.79 AoV Pk Grad: 2.00 IMAN: 4.19 LVOT LVOT Pk Ganga: 0.87 LVOT Mn Ganga: 0.57 LVOT VTI: 0.19 LVOT Pk Grad: 3.00 LVOT Mn Grad: 2.00 LVOT Diam: 2.20 LVOT Area: 3.80 Diastolic Function MV Pk E: 0.69 MV Pk A: 0.56 E/A: 1.20 E'Medial: 7.83 E/E' Med: 8.90 E' Laterial: 10.70 E/E' Lat: 6.50 Right Ventricle TAPSE (mm): 19.40 TVS' Ganga: 12.80 Tricuspid Valve TR Pk Ganga: 2.07 TR Pk Grad: 17.00 RA Press: 8.00 RVSP: 25.00 Great Vessels Aorta Sinus of Valsalva: 4.10 2.0-3.5 cm Ao Asc: 3.80 2.1-3.4 cm Pulmonary Valve PV Pk Ganga: 0.89 Peak PV Grad: 3.00 Updated in Other Vendor System with Status of Final Luca Jarrett MD electronically signed on 04/05/2024 9:48:43 AM with status of Final
== END ==
LOC: HO.CARD 08:36
PROVIDERS: PCP Internal Medicine; Visit Provider Nurse Practitioner
DX: Z01.818 Encounter for other preprocedural examination (principal); I48.92 Unspecified atrial flutter; Z86.79 Personal history of other diseases of the circulatory system
CPT/HCPCS: 78452; 93017; 93306; A9500; J0280; J2785

== ENCOUNTER → 2024-04-05 08:40 | Outpatient (BNV) | payer MEDICARE, MEDICAID, SELFPAY | PROVIDERS: PCP Internal Medicine; Visit Provider Internal Medicine | DX: I42.2 Other hypertrophic cardiomyopathy (principal); I49.1 Atrial premature depolarization | CPT/HCPCS: 78452; 93016; 93018; 93320; 93325; 93350 ==

== ENCOUNTER 2024-04-19 13:25 | Outpatient (REF) | payer MEDICARE, MEDICAID, SELFPAY ==
[2024-04-19 13:50] LABS: MANUAL DIFF FLAG NO
[2024-04-19 14:30] LABS: Basophils Percent Auto 0.4 % (0-2); Eosinophils Absolute Auto 0.1 X10*3/uL (0.0-0.4); Eosinophils Percent Auto 1.6 % (0-4); Hematocrit 36.3 % (42.0-52.0); Hemoglobin 12.1 g/dl (14.0-18.0); Imm Gran Abs Auto 0.02 X10*3/uL (0.00-0.03); Imm Gran Pct Auto 0.3 % (0.0-0.4); Lymphocytes Absolute Auto 2.6 X10*3/uL (1.2-4.9); Mean Corpuscular HGB Conc 33.3 g/dl (31.0-36.0); Mean Corpuscular Hemoglobin 31.8 pg (27.0-33.0); Mean Corpuscular Volume 95.5 fL (80.0-98.0); Monocytes Absolute Auto 0.8 X10*3/uL (0.1-1.2); Monocytes Percent Auto 10.7 % (2-11); Neutrophils Absolute Auto 3.8 x10*3/uL (2.0-8.3); Platelet Count 247 X10*3/uL (160-400); Red Cell Distribution Width 13.1 % (11.0-16.0); White Blood Count 7.4 X10*3/uL (4.8-10.8)
[2024-04-19 14:40] LABS: Appearance Urine Clear; Color Urine Yellow; Glucose Urine UA Negative (Negative); Leukocyte Esterase Urine Negative (Negative); Nitrite Urine Negative (Negative); PH 8.5 (5.0-9.0); Specific Gravity - Urine <= 1.005 (1.005-1.025); Urine Blood Negative (Negative); Urine Ketones Negative (Negative); Urine Protein Negative (Neg-Trace)
[2024-04-19 15:03] LABS: B Type Natriuretic Peptide 22 pg/mL (<100)
[2024-04-19 15:16] LABS: Alanine Aminotransferase 7 U/L (0-40); Albumin Level 3.8 g/dL (3.5-5.0); Alkaline Phosphatase 62 U/L (39-117); Anion Gap 11 (12-20); Aspartate Amino Transferase 18 U/L (5-37); Bilirubin Total 0.5 mg/dL (0.0-1.0); Blood Urea Nitrogen 8 mg/dL (9-16); Carbon Dioxide 29 mmol/L (22-29); Chloride 99 mmol/L (96-108); Cholesterol 166 mg/dL (<200); Estimated Glomerular Filt Rate > 60; Glucose Fasting 91 mg/dL (60-99); HDL Cholesterol 47 mg/dL (>40); LDL Cholesterol Calculated 107 mg/dL (<100); Potassium 4.8 mmol/L (3.3-5.1); Sodium 134 mmol/L (135-145); Total Protein 7.7 g/dL (6.5-8.0); Triglycerides 62 mg/dL (<150)
[2024-04-19 15:46] LABS: TSH reflex Free T4 1.96 uIU/mL (0.32-4.0); Vitamin D 25-OH Total 37.1 ng/mL (>30)
== END 2024-04-19 13:26 | disposition home or self-care (01) ==
LOC: HO.LAB 13:25
PROVIDERS: PCP Internal Medicine; Visit Provider Internal Medicine
DX: I50.9 Heart failure, unspecified (principal); D64.9 Anemia, unspecified; E78.00 Pure hypercholesterolemia, unspecified; R30.0 Dysuria; E55.9 Vitamin D deficiency, unspecified
CPT/HCPCS: 36415; 80053; 80061; 81003; 82306; 83880; 84443; 85025

== ENCOUNTER 2024-04-27 15:31 | Outpatient (AMB) | payer MEDICARE, MEDICAID, SELFPAY ==
[2024-04-27 15:32] VITALS: BP 120/84; PULSE 81; O2SAT 96; BMI 34.8
--- NOTE | 2024-04-27 15:32 | A.OFFPC_ITS ---
Vital Signs 04/27/24 15:32 Height 5 ft 9 in Weight 236 lb BMI 34.8 BP 120/84 Blood Pressure Location Lt brachial Position Sitting Pulse 81 Pulse Source Pulse Oximeter Pulse Oximetry (%) 96 Oxygen Delivery Method Room Air Intake Visit Reasons: 3 Months F/U Siphon Operator Required: No Accompanied by: Self / Same As Patient Allergies Penicillins [PENICILLINS] Allergy (Intermediate, Verified 04/27/24 15:53) RASH haloperidol [Haldol] Allergy (Unknown, Verified 04/27/24 15:53) Unknown mirtazapine [Remeron] Allergy (Unknown, Verified 04/27/24 15:53) Unknown trazodone Allergy (Unknown, Verified 04/27/24 15:53) Unknown verapamil [Verelan] Allergy (Unknown, Verified 04/27/24 15:53) Unknown risperidone [From RISPERDAL] Adverse Reaction (Severe, Verified 04/27/24 15:53) SEIZURE lithium [LITHIUM] Adverse Reaction (Intermediate, Verified 04/27/24 15:53) LETHARGY, AKATHISIA, TD Medication List - Last Reconciled 04/27/24 by Rajesh Watts MD acetaminophen 500 mg PO Q8H PRN amiodarone 100 mg PO DAILY ascorbic acid (vitamin C) 500 mg PO DAILY benztropine 0.5 mg PO BID bisacodyl (Dulcolax (bisacodyl)) 20 mg (4 x 5 mg) PO ONCE PRN 1 day cholecalciferol (vitamin D3) 25 mcg PO DAILY divalproex ER (Depakote ER) 1,500 mg PO BEDTIME docusate sodium 100 mg PO BID PRN ergocalciferol (vitamin D2) 1,250 mcg PO QWEEK 3 months fluphenazine decanoate 37.5 mg IM Q2W fluticasone propionate 50 mcg/actuation 1 spray intranasal DAILY PRN 30 days furosemide 40 mg PO QAM [HOSPITAL BED As directed] hydrocortisone 2.5% (Proctosol HC) 1 appl ME BEDTIME PRN loratadine (Allergy Relief (loratadine)) 10 mg PO DAILY PRN 90 days lorazepam 0.5 mg PO BID PRN melatonin 5 mg PO .QHS PRN 30 days metoprolol succinate ER 25 mg PO DAILY 90 days miscellaneous medical supply 1 ea miscellaneous DAILY olanzapine (Zyprexa) 5 mg PO BEDTIME olanzapine (Zyprexa) 20 mg PO BEDTIME omeprazole 20 mg PO DAILY polyethylene glycol 3350 (Miralax) 238 grams PO ONCE PRN 1 day rivaroxaban (Xarelto) 20 mg PO QPM 90 days tamsulosin 0.4 mg PO DAILY Ventolin HFA 90 mcg/actuation (albuterol sulfate) 2 puffs PO QID PRN NS walker (Ultra-Light Rollator misc) As directed Tobacco use date assessed: 04/27/24 Fall risk assessment: No Falls in past year Last assessed Fall Risk: 04/27/24 Dental Screening Dental Screen Date: 04/27/24 Did you have a dental visit in the last 12 months?: Yes Did you have a dental problem in the last 6 months where you did not have access to dental care?: No Was dental information given to patient?: Patient has dentist HPI 3 Months F/U HPI Details Patient comes in today for his follow-up visit States that he currently feels okay Relates that he had a bout of severe headache recently which he describes as similar to a migraine headache and thinks that it was triggered by an unrecalled antibiotic that he was recently prescribed for respiratory tract infection States that his symptoms have all cleared up completely with treatment and he currently has no symptoms of fever, sore throat, cough or congestion States that his headaches have also resolved and have not recurred recently He also reports experiencing some diarrhea a few weeks ago from excessive drinking of green tea, which was doing to detox himself from nicotine - diarrhea has also resolved with cessation of green tea intake and he continues to use his Nicotine patches to help keep him from going back to smoking He denies any nausea or vomiting, no abdominal pain States that he still has urinary frequency often despite his Flomax Rx, which he takes everyday and plans to discuss this with urology at his next appointment with them; he denies any dysuria He also reports experiencing some recurrent pain in his left arm that feels worse with exertion or when he uses his arm for any strenuous activity - states that he lifts weights at times when he works out and thinks that he may have strained his arm while working out recently He relates also (+) weight gain and his ongoing struggle with his weight - states that he has a tendency to binge-eat when he is feeling depressed or anxious He is taking all of his psychiatric meds as prescribed and states that there have been no changes to these since his last visit He also relates using finger tapping (ERT) to help manage his stress and mood swings Dermatologically, he notes (+) recurrent sores on his scalp after he showers - states that he often uses some exfoliating soap when he showers and has been advised that this may be too harsh on his skin, especially with everyday use He is now finally scheduled for colonoscopy on 06/22/2024 - he needs to have a colonoscopy done as he tested positive on his Cologuard test earlier this year He had his follow-up labs done last week - to discuss his results [facility] Medical History Hyperkalemia Screening for malignant neoplasm of colon performed Encounter for screening colonoscopy Screening for tuberculosis Substance abuse in remission Smoker Anal irritation Allergic rhinitis Cardiomyopathy Obesity (BMI 30-39.9) Schizoaffective disorder, bipolar type Insomnia Lumbar degenerative disc disease Osteoarthritis of hips, bilateral Hyperkalemia Pure hypercholesterolemia Benign essential hypertension History of acute heart failure History of atrial flutter History of congestive heart failure History of cardiomyopathy HTN (hypertension) Paroxysmal atrial flutter Surgical History History of total hip replacement Family History Father Hypertension CVD (cardiovascular disease) Mother Hypertension Diabetes Brother Mental health disorder Social History Household Members: None Housing: Apartment Alcohol intake: former Patient Tobacco Use Status: Current everyday Tobacco user Tobacco use type: Cigarette Cigarettes Per Day: 6 e-Cigarette/Vaping Use: Never Used Second Hand Smoke Exposure: Yes Substance Use Type: Former Substance User service: No Current occupational status: retired Cognitive needs: Yes (cane) Hearing needs: No Vision needs: Yes Questionnaire PHQ-9 Over the last 2 weeks, how often have you been bothered by any of the following problems? 1. Little interest or pleasure in doing things: not at all 2. Feeling down, depressed, or hopeless: not at all 4. Feeling tired or having little energy: not at all 5. Poor appetite or overeating: several days 6. Feeling bad about yourself - or that you are a failure or have let yourself or your family down: several days 7. Trouble concentrating on things, such as reading the newspaper or watching television: not at all 8. Moving or speaking so slowly that other people could have noticed. Or the opposite - being so fidgety or restless that you have been moving around a lot more than usual: not at all 9. Thoughts that you would be better off or of hurting yourself in some way: not at all Depression Screening Interpretation: Positive Depression Screening Follow-up: Existing condition and In treatment Depression Screening Done: Yes 60967 - PHQ-9 Billing: Yes Source: Developed by Drs. Bimal Barrow, Melvi Padilla, Alexys Walls and colleagues, with an educational lynda from [employer]. Thrive Questionnaire Date Thrive assessed: 04/27/24 I am a: Patient What is your living situation today?: I have a steady place to live Within the past 12 months, did the food you bought not last and you didn't have the money to get more?: Never true Within the past 12 months, did you worry whether your food would run out before you got money to buy more?: Never true Do you have trouble paying for medicines?: No Do you have trouble getting transportation to medical appointments?: No Do you have trouble paying your heating and electricity bill?: No Do you have trouble taking care of your child, family member or friend?: No Do you have trouble with day-to-day activities such as bathing, preparing meals, shopping, managing finances, etc.?: No Are you currently unemployed and looking for a job?: I choose not to answer this question Are you interested in more education?: No Please select the resources that you would like help with: None Currently or been in a relationship where the following occur: No concerns repor demetris THRIVE Score: 0 AUDIT C Alcohol Use Questionnaire (AUDIT-C) 1. How often do you have a drink containing alcohol?: Never 3. How often do you have six or more drinks on one occasion?: Never Total Score: 0 Score Reviewed/Action Taken: Yes IMELDA-7 AMB Questionnaire IMELDA-7 Date IMELDA - 7 assessed: 04/27/24 Feeling nervous, anxious, or on edge: 0 = Not at all Not being able to stop or control worryin = Not at all Worrying too much about different things: 0 = Not at all Trouble relaxin = Not at all Being so restless that it is hard to sit still: 0 = Not at all Becoming easily annoyed or irritable: 0 = Not at all Feeling afraid as if something awful might happen: 0 = Not at all Total IMELDA-7 score (0-4 normal; 5-9 mild; 10-14 moderate; 15-21 severe): 0 Source: Developed by Drs. Bimal Barrow, Melvi Padilla, Alexys Walls and colleagues, with an educational lynda from [employer]. Review of Systems Const Denies chills, Denies fatigue, Denies fever(s), Denies headache(s) and Reports weight gain ENT Denies dysphagia, Denies dizziness, Denies otalgia, Denies headache(s), Denies neck pain, Denies odynophagia and Denies sore throat Card Denies chest pain, Denies palpitations and Denies dyspnea Resp Denies chest congestion, Denies cough and Denies dyspnea GI Denies abdominal pain, Denies constipation, Denies dysphagia, Denies heartburn, Denies diarrhea, Denies nausea, Denies odynophagia and Denies vomiting Denies dysuria, Reports nocturia and Reports urinary frequency Musc Details: (+) pain in left arm recently, worse with exertional or strenuous activities Reports back pain (over the lower back), Reports arthralgias (right hip) and Denies neck pain Skin/Breast Denies rash Neuro Denies dizziness and Denies headache(s) Psych Reports anxiety and Reports depression Endo Denies fatigue and Denies palpitations Physical exam (Primary Care) Vital Signs: Last Vital Signs Pulse 81 04/27/24 15:32 BP 120/84 04/27/24 15:32 Pulse Ox 96 04/27/24 15:32 Oxygen Delivery Method Room Air 04/27/24 15:32 BMI result Body Mass Index 34.8 Tobacco/Smoking Status: Tobacco use Status Tobacco use date assessed 04/27/24 04/27/24 15:41 Patient Tobacco Use Status Current everyday Tobacco 04/27/24 15:41 Tobacco use type Cigarette 04/27/24 15:41 e-Cigarette/Vaping Use Never Used 04/27/24 15:41 Depression Screening Interpretation: Positive Depression Screening Follow-up: Existing condition and In treatment Thrive Assessment: Date of Thrive Assessment Date Thrive assessed 04/27/24 04/27/24 15:41 Currently or been in a relationship where the following occur: No concerns reported Const General: no acute distress and alert HENMT Ears: TM's normal bilaterally and EAC's normal Throat: Yes posterior oropharynx normal and Yes tonsils normal (no TP congestion noted) Neck Neck: Yes supple and No lymphadenopathy Thyroid: Thyroid normal Resp Auscultation: clear to auscultation bilaterally, no rales and no wheezes Cardio Rate: regular rate Rhythm: regular rhythm Heart sounds: no murmurs GI Palpation (GI): Soft to palpation and nontender Auscultation: normal bowel sounds General: Yes no CVA tenderness Back/Spine/Pelvis Back: no CVA tenderness Thoracic/Lumbar Spine: lumbar spinal tenderness Extrem General: Yes no clubbing, cyanosis or edema Left upper extremity: elbow/forearm Details: tenderness Location: of the proximal forearm Right lower extremity: hip/thigh Details: tenderness Location: of the hip Results Reviewed Results Reviewed: Laboratory Tests 09/23/23 11/18/23 04/19/24 15:43 15:42 13:41 WBC Hgb Hct Plt Count Sodium 136 Potassium 4.7 Creatinine 1.11 Estimated GFR > 60 Random Glucose 91 Fasting Glucose Calcium 9.1 AST 15 ALT 7 Triglycerides Cholesterol LDL Cholesterol, Calc HDL Cholesterol 25-OH Vitamin D Total TSH Ur Specific Grant <= 1.005 Urine Protein Negative Urine Glucose (UA) Negative Urine Blood Negative Urine Nitrite Negative Ur Leukocyte Esterase Negative 04/19/24 13:49 WBC 7.4 Hgb 12.1 L Hct 36.3 L Plt Count 247 Sodium 134 L Potassium 4.8 Creatinine 0.77 Estimated GFR > 60 Random Glucose Fasting Glucose 91 Calcium 9.0 AST 18 ALT 7 Triglycerides 62 Cholesterol 166 LDL Cholesterol, Calc 107 H HDL Cholesterol 47 25-OH Vitamin D Total 37.1 TSH 1.96 Ur Specific Grant Urine Protein Urine Glucose (UA) Urine Blood Urine Nitrite Ur Leukocyte Esterase Coding Level of Care Code Est Pt Level 4 (68397) Diagnoses Paroxysmal atrial flutter I48.92 History of cardiomyopathy Z86.79 Pure hypercholesterolemia E78.00 Benign essential hypertension I10 Primary osteoarthritis of both hips M16.0 Osteoarthritis type: primary Degeneration of intervertebral disc of lumbar region with discogenic back pain M51.360 Disc-related pain type: discogenic back pain only Hyperkalemia E87.5 Positive colorectal cancer screening using Cologuard test R19.5 Insomnia, unspecified type G47.00 Insomnia type: unspecified Schizoaffective disorder, bipolar type F25.0 Obesity (BMI 30-39.9) E66.9 Additional Codes PHQ-9 - 08370 - PHQ-9 Billing: Yes ([id number]) Assessment & Plan Assessment & Plan (1) Paroxysmal atrial flutter: Code(s): I48.92 - Unspecified atrial flutter Category: Medical Plan: S/P DC cardioversion; he is currently still maintained on Amiodarone 100 mg QD Continue Xarelto 20 mg QD for thromboembolism prophylaxis Patient states that he's had no recurrence of symptoms since his cardioversion Follow-up with cardiology as scheduled (2) History of cardiomyopathy: Comment: LVEF of 25% time of presentation with heart failure and atrial flutter, suspected to be tachycardia mediated. Normalized after maintaining sinus rhythm to 55-60% Code(s): Z86.79 - Personal history of other diseases of the circulatory system Category: Medical Plan: Echocardiogram in 09/2020 showed a near normal EF of 55 to 60%; repeat echo done on 12/11/21 revealed (+) normal LV systolic function with mild LVH, moderately dilated left atrium, mild mitral regurgitation, normal RV systolic pressure, mildly dilated ascending aorta at 4 cm and no pericardial effusion noted His most recent echocardiogram in April 2023 revealed that the calculated ejection fraction is 54% by biplane method, with no evidence of regional wall motion abnormalities. There is mildly decreased right ventricular systolic funct ion but no obvious valvular pathology is seen on this study. There is mild dilatation of the sinuses of Valsalva measuring 4.27 cm and mild dilatation of the ascending aorta measuring 3.90 cm Repeat echocardiogram last month (March 2024) revealed no changes from his previous echo - the left ventricular systolic function is normal. The visually estimated ejection fraction is between 55-60%. There are no obvious valvular pathology seen on this study. There is mild dilatation of the sinuses of Valsalva measuring 4.10 cm and mild dilatation of the ascending aorta measuring 3.80 cm Follow up with cardiology as scheduled (3) Pure hypercholesterolemia: Code(s): E78.00 - Pure hypercholesterolemia, unspecified Category: Medical Plan: Results of his labs done last week reviewed and discussed with patient Reinforced low-cholesterol diet Will recheck his labs and fasting lipids in 3 months for follow-up (4) Benign essential hypertension: Code(s): I10 - Essential (primary) hypertension Category: Medical Plan: Reinforced low sodium diet - goal is systolic BP of at least 120 to 130 mm or le ss Continue Metoprolol ER 25 mg QD (5) Osteoarthritis of hips, bilateral: Comment: S/P total left hip arthroplasty in 2016 Code(s): M16.0 - Bilateral primary osteoarthritis of hip Category: Medical Qualifiers: Osteoarthritis type: primary Qualified Code(s): M16.0 - Bilateral primary osteoarthritis of hip Plan: S/P total left hip arthroplasty in 2016 with (+) significant improvement of his hip pain States that his right hip pain has been progressively getting worse lately and he is now considering having a right hip arthroplasty done soon S/P physical therapy with some relief of his symptoms Follow-up with Orthopedics (Dr. Banda) as scheduled Continue Acetaminophen 500 mg every 8 hours as needed for pain (6) Lumbar degenerative disc disease: Code(s): M51.36 - Other intervertebral disc degeneration, lumbar region Category: Medical Qualifiers: Disc-related pain type: discogenic back pain only Qualified Code(s): M51.360 - Other intervertebral disc degeneration, lumbar region with discogenic back pain only Plan: Reinforced activity and weight lifting restrictions to help minimize the risks of aggravating his back symptoms (7) Hyperkalemia: Code(s): E87.5 - Hyperkalemia Category: Medical Plan: His potassium level is normal at 4.7 on his recent labs Reinforced again to avoid foods high in potassium content Will continue to monitor his serum potassium level regularly (8) Positive colorectal cancer screening using Cologuard test: Comment: History hemorrhoids Code(s): R19.5 - Other fecal abnormalities Category: Medical Plan: He is being scheduled for colonoscopy due to a positive Cologuard test done earlier this year but is waiting for cardiology to clear him for the procedure He is currently scheduled for echocardiogram, stress testing and myocardial perfusion scan next month (9) Insomnia: Code(s): G47.00 - Insomnia, unspecified Category: Medical Qualifiers: Insomnia type: unspecified Qualified Code(s): G47.00 - Insomnia, unspecified Plan: Sleep hygiene reinforced Continue OTC Melatonin 5 mg once a day at bedtime as needed (10) Schizoaffective disorder, bipolar type: Code(s): F25.0 - Schizoaffective disorder, bipolar type Category: Medical Plan: Continue Depakote ER 500 mg 3 tablets once a day at bedtime (mood stabilizer), ? Fluphenazine Decanoate solution (Prolixin) 25 milligram/mL? 1.5 mL (37.5 mg) IM injection every 2 weeks (thought disorder), ? Olanzapine tablet (Zyprexa) 10 mg 2.5 tablets (25 mg) once a day at bedtime (thought disorder), ? Benztropine Mesylate? (Cogentin) 0.5 mg? 1 tablet twice a day, and ? Lorazepam 0.5 mg 1 tablet twice a day as needed Follow up with psychiatry as scheduled (11) Obesity (BMI 30-39.9): Code(s): E66.9 - Obesity, unspecified Category: Medical Plan: Reinforced diet/exercise as tolerated/lose weight Plan Follow up in 3 months Orders: Orders Complete Blood Count Auto Diff 3 Months D64.9 - Anemia, unspecified TSH reflex Free T4 3 Months E78.00 - Pure hypercholesterolemia, unspecified Vitamin D 25-OH Total 3 Months E55.9 - Vitamin D deficiency, unspecified Lipid Panel 3 Months E78.00 - Pure hypercholesterolemia, unspecified Comprehensive [place]. Panel Fast 3 Months E78.00 - Pure hypercholesterolemia, unspecified UA CC w/rflx Micro + Cult 3 Months R30.0 - Dysuria
--- OUTSIDE RECORDS SUMMARY | 2024-04-27 15:34 | XMS_ITS | Clinical Summary ---
Author Organization Unknown Care Team Providers Care Manager Ct Name Role Phone ALAN COBIAN, BEVERLY Unavailable Unavailable BALWINDER FLANAGAN, SIMI Unavailable Unavailable SHERI FLANAGAN, SANJANA Unavailable Unavailable Payers Payer Name Policy Type Policy Number Effective Date Expira tion Date [place] [id number] ON DEMAND MEDICARE - [facility] BILLING - ABN [id number] Problems Condition Name Condition Details Condition Category [...] 10-04 00:00: 00 03-27 23:59 :00 No [id number] 200 mg DAILY 200 mg DAILY (route: oral) Alternate Route: By mouth. Med Classific ation: Cardiovas cular Therapy Agents benztropine 0.5 mg tablet 06-27 00:00: 00 Yes [id number] 0.5 mg TWICE A DAY 0.5 mg TWICE A DAY (route: oral) Alternate Route: BY MOUTH. Med Classific ation: Central Nervous System Agents Colace 100 mg capsule 08-13 00:00: 00 Yes [id number] 100 mg 2 TIMES DAILY 100 mg 2 TIMES DAILY (route: oral) Med Classific ation: Gastroint estinal Therapy Agents divalproex ER 500 mg tablet,exte nded release 24 hr 06-27 00:00: 00 Yes [id number] 500 mg AT BEDTIME 500 mg A T BEDTIME (route: oral) Med Classific ation: Central Nervous System Agents fluphenazin e decanoate 25 mg/mL injection solution 06-18 00:00: 00 Yes [id number] 25 mg 375 MG (15 ML) INTRAMUSCU LARLY ONCE EVERY 25 mg 375 MG (15 ML) INTRAMUSCU LARLY ONCE EVERY (route: injection) Med Classific ation: Central Nervous System Agents furosemide 40 mg tablet 08-13 00:00: 00 12-27 23:59 :00 No [id number] 40 mg DAILY 40 mg DAILY (route: oral) Med Classific ation: Cardiovas cular Therapy Agents loratadine 10 mg capsule 06-30 00:00: 00 Yes [id number] 10 mg ONCE A DAY 10 mg ON CE A DAY (route: oral) Alternate Route: BY MOUTH. Med Classific ation: Respirato ry Therapy Agents lorazepam 0.5 mg tablet 06-23 00:00: 00 Yes [id number] 0.5 mg TWICE A DAY EVERY DAY NEEDED NEEDED 0.5 mg TWICE A DAY EVERY DAY NEEDED NEEDED (route: oral) Alternate Route: BY MOUTH. Med Classific ation: Central Nervous System Agents melatonin 5 mg tablet 06-30 00:00: 00 Yes [id number] FOR INSOMNIA 5 mg AT BEDTIME WITH FOOD NEEDED 5 mg AT BEDTIME WITH FOOD NEEDED (route: oral) Alternate Route: BY MOUTH. Med Classific ation: Central Nervous System Agents metoprolol tartrate 25 mg tablet 08-13 00:00: 00 Yes [id number] 25 mg DAILY 25 mg DAILY (route: oral) Med Classific ation: Cardiovas cular Therapy Agents nicotine 7 mg/24 hr daily transdermal patch 06-30 00:00: 00 02-20 23:59 :00 No [id number] 7 mg EVERY DAY DIRECTED 7 mg EVERY DAY DIRECTED (route: transderma l) Med Classific ation: Chemical Dependenc y, Agents to Treat olanzapine 20 mg tablet 2-09 00:00: 00 Yes [id number] 20 mg EVERYDAY AT BEDTIME 20 mg EVERYDAY AT BEDTIME (route: oral) Alternate Route: BY MOUTH. Med Classific ation: Central Nervous System Agents olanzapine 5 mg tablet 7-31 00:00: 00 Yes [id number] 5 mg BEDTIME 5 mg BEDTIME (route: oral) Med Classific ation: Central Nervous System Agents omeprazole 20 mg capsule,del ayed release 207 00:00: 00 Yes [id number] 20 capsule EVERY DAY 20 capsule EVERY DAY (route: oral) Alternate Route: BY MOUTH. Med Classific ation: Gastroint estinal Therapy Agents tamsulosin 0.4 mg capsule 08-13 00:00: 00 Yes [id number] 0.4 capsule DAILY 0.4 capsule DAILY (route: oral) Med Classific ation: Genitouri nary Therapy ergocalcife rol (vitamin D2) 1,250 mcg (50,000 unit) capsule 205 00:00: 00 Yes [id number] 1250 mcg ONCE A WEEK 1250 mcg ONCE A WEEK (route: oral) Alternate Route: BY MOUTH. Med Classific ation: Electroly te Balance-N utritiona l Products Xarelto 15 mg tablet 08-13 00:00: 11-14 10:17 :57.2 27 No [id number] 15 mg DAILY 15 mg DAILY (route: oral) Med Classific ation: Hematolog ical Agents sulfamethox azole 400 mg-trimetho prim 80 mg tablet 8-16 00:00: 00 02-20 23:59 :00 No [id number] 400 mg 2 TIMES DAILY 400 mg 2 TIMES DAILY (route: oral) Med Classific ation: Anti-Infe ctive Agents amiodarone 100 mg tablet 2019-05 1-22 00:00: 00 05-15 23:59 :00 No [id number] 100 mg DAILY 100 mg DAILY (route: oral) Med Classific ation: Cardiovas cular Therapy Agents Xarelto 20 mg tablet 7-06 00:00: 00 Yes [id number] 20 mg DAILY 20 mg DAILY (route: oral) Med Classific ation: Hematolog ical Agents Lasix 40 mg tablet 8- 00:00: 00 Yes [id number] 40 mg DAILY 40 mg DAILY (route: oral) Med Classific ation: Cardiovas cular Therapy Agents Immunizations Ordered Immunization Name Filled Immunization Name Date Status Comments Refusal Reason INFLUENZA, TIV (INACTIVATED) 2018-08-13 00:00:00 INFLUENZA, TIV (INACTIVATED) 2018-01-28 00:00:00 Vital Signs Vital Name Observation Time Observation Value Commen ts Temperature 2024-04-22 12:02:00.000 97.8 [degF] Temperature 2024-04-10 08:38:00.000 97.7 [degF] Temperature 2024-04-01 11:55:00.000 97.5 [degF] Temperature 2024-03-25 09:47:00.000 97.3 [degF] Temperature 2024-03-18 10:09:00.000 97.6 [degF] Pulse 2024-04-22 12:02:00.000 76 /min Pulse 2024-04-10 08:38:00.000 81 /min Pulse 2024-04-01 11:55:00.000 83 /min Pulse 2024-03-25 09:47:00.000 83 /min Pulse 2024-03-18 10:09:00.000 76 /min Respirations 2024-04-22 12:02:00.000 16 /min Respirations 2024-04-10 08:38:00.000 16 /min Respirations 2024-04-01 11:55:00.000 16 /min Respirations 2024-03-25 09:47:00.000 16 /min Respirations 2024-03-18 10:09:00.000 16 /min Systolic Blood Pressure 2024-04-22 12:02:00.000 127 mm [Hg] Systolic Blood Pressure 2024-04-10 08:38:00.000 119 mm [Hg] Systolic Blood Pressure 2024-04-01 11:55:00.000 106 mm [Hg] Systolic Blood Pressure 2024-03-25 09:47:00.000 127 mm [Hg] Systolic Blood Pressure 2024-03-18 10:09:00.000 116 mm [Hg] Diastolic Blood Pressure 2024-04-22 12:02:00.000 81 mm [Hg] Diastolic Blood Pressure 2024-04-10 08:38:00.000 [...] AWARENESS FOR SAFETY AND WILL NOTIFY CLINICAL GROCERY WORKER AND PHYSICIAN/PROVIDER WITH ANY CHANGE IN CONDITION. [code = SKILLED NURSE WILL MAINTAIN SITUATIONAL AWARENESS FOR SAFETY AND WILL NOTIFY CLINICAL GROCERY WORKER AND PHYSICIAN/PROVIDER WITH ANY CHANGE IN CONDITION.] [...] HELP Goal 2019-02-04 Patient Goal - P ATIENTS COALITION TRANSITION FROM HIS [employer] TO A [employer] [facility] Goal 2019-04-06 Patient Goal - WORKING [...] CARE WILL BE ESTABLISHED THAT MEETS PATIENT'S LONG-TERM NEEDS AND INCLUDES PATIENT GOAL FOR HOME [...] End Date/Time Encounter Type Admission Type Attending Clinicians Care Facility Care Department Encounter ID Discharge Date Discharge Status Discharge Condition Discharge Reason Percent Goals Met 2016-02-23 00:00:00 2024-05-10 00:00:00 Outpatient RECERTIFIC ATION SANJANA WADE [facility] [id number] 32.35
--- OUTSIDE RECORDS SUMMARY | 2024-04-27 15:34 | XMS_ITS ---
Author Organization [facility] Address [address] [place] [address] Care Team Providers Care Oxidation Operator Name Role Phone Mac COBIAN, Center Line Primary Care Provider Maggie Deleon Unavailable [phone] David Maciel Unavailable [phone] Allergies No Known Allergies REASON FOR VISIT Painful nail(s) aggrevated by shoes and causing difficulty standing/walking., Heel pain Medications Medication SIG (Take, Route, Frequency, Duration) Notes Start Date End Date Status OLANZapine 10 MG as directed Intramuscular Active Metoprolol Succinate 25 MG 1 capsule Orally Once a day Active MiraLax Active Nicotine 7 MG/24HR 1 patch to skin Transdermal Once a day Not-Takin g PriLOSEC 20 MG Orally once daily Active Depakote ER Active Flomax Active Flonase Active Lasix Active Melatonin 5 MG 1 tablet at bedtime as needed Orally Active Claritin 10 MG Orally Once a day Active Colace Adult Active Ativan Active Amiodarone HCl 200 MG 1 tablet Orally On ce a day for 30 day(s) Active Ciclopirox Olamine 0.77 % 1 application to affected area Externally Twice a day to effected areas on feet for 30 days 02/09/2020 Active Compression Stockings 20-30mm Hg as directed Active Voltaren 1 % as directed Externally Active Ammonium Lactate 12 % 1 application to affected area Externally Twice a day to dry areas of skin on feet for 30 days Active Adderall Active Orthopedic Extra Depth Shoes With Custom Heat Molded Multidensity Innersoles 1 Pair shoes with 3 Pair custom heat molded innersoles Wear Daily for 365 days 10/01/2023 Active Tylenol Active Ventolin HFA 2 puffs as needed Active Vitamin C 500 MG Orally Once a day Active Vitamin D 50 MCG (2000 UT) Orally Once a week Active ZyPREXA Active Social History Tobacco Use: Social History Observation Description Date Details (start date - stop date) Current Smoker NA - NA Tobacco Use/Smoking Question Answer Notes Are you a: current smoker How often do you smoke cigarettes? every day How many cigarettes a day do you smoke? 6-10 Alcohol Screen Question Answer Notes Did you have a drink containing alcohol in the p ast year? No Points 0 Interpretation Negative Tobacco use other than smoking: Question Answer Notes Are you an other tobacco user? No Vital Signs Height 5ft 11in in 02/02/2024 Weight 225 lbs 02/02/2024 BMI 31.38 kg/m2 02/02/2024 Encounters Encounter Location Date Provider Diagnosis [facility] [address] [place] [address] 02/02/2024 David Maciel Tinea unguium B35.1 ; Pain in left foot M79.672 ; Pain in right foot M79.671 ; Localized edema R60.0 ; Tinea pedis B35.3 ; Pain in right toe(s) M79.674 ; Pain in left toe(s) M79.675 ; Xerosis cutis L85.3 and Plantar fascial fibromatosis M72.2 Assessments Encounter Date Diagnosis (ICD Code) Assessment Notes Treatment Notes Treatment Clinical Notes Section Notes 02/02/2024 Tinea unguium (ICD-10 - B35.1) 02/02/2024 Pain in left foot (ICD-10 - M79.672) 02/02/2024 Pain in right foot (ICD-10 - M79.671) 02/02/2024 Localized edema (ICD-10 - R60.0) 02/02/2024 Tinea pedis (ICD-10 - B35.3) 02/02/2024 Pain in right toe(s) (ICD-10 - M79.674) 02/02/2024 Pain in left toe(s) (ICD-10 - M79.675) 02/02/2024 Xerosis cutis (ICD-10 - L85.3) 02/02/2024 Plantar fascial fibromatosis (ICD-10 - M72.2) Plan Of Treatment Medication Medication Name Sig Start Date Stop Date Notes Compression Stockings 20-30mm Hg as directed Voltaren 1 % as directed Externally Next Appt Details Follow Up: 4 Months, Reason: Provider Name:Maggie putnam, 06/03/2024 10:15:00 AM, [address] [place], [address], Procedure Notes * Category Sub-Category Detail Notes Debride Nail 6-10 Nail debridement Nail debridem ent performed extensively to reduce/remove overall nail length and girth, subungual debris, and necrotic tissue, by manual and electrical means with use of a nail nipper and/or dremel, to more viable healthy nail plate or bed tissue 6-10. Silver nitrate used for any petechial bleeding as necessary. Patient chooses, no pharmaceutical tx (13401) Progress Notes * JEAN MARIE Pool [birth year]OB:[birth year] (63 yo M)Acc No.[id number]:02/02/2024 Progress Note Patient:?Pool Perez Provider:?David Maciel DPM :1960???Age:63 Y???Sex:Male Allen e:02/02/2024 Address:[address] [place], [place] [id number] Pcp:Rajesh Watts MD Subjective: * Chief Complaints: * ??? Painful nail(s) aggrevat ed by shoes and causing difficulty standing/walking.Heel pain * HPI: ???Skin problems:?Nature:?dryness, discolored, scaling.?Location:?B/L , Forefoot, Heel/Rearfoot.?Duration:?several months.?Foot Pain:?Nature:?swelling, tenderness.?Location?B/L legs.?Duration:?several years.?Onset/Cause:?unknown.?Course:?unchanged.?Aggrevated:?shoes.?Painful Nails:?Pt States Last PCP Visit:?Date:?01/28/2024 ???Heel pain:?Nature:?tenderness , aching--feels like its broken.?Location:?plantar , Arch , LEFT.?Aggravated:?walking first thing in the morning/after rest.?Treatments:?rest/alter normal daily activity.? * ROS:?General/Constitutional:?Nausea?denies.?Vomiting?denies.?Hunger Thirst?denies.?Loss appetite?denies.?Chills?denies.?Fatigue?denies.?Fever?denies.?Night Sweats?denies.?Unexplained weight loss?denies.?Unexplained weight gain?denies.?HEENTM:?Dentures?denies.?Dizziness?denies.?Glasses/contacts?admits.?Retinopathy?de nies.?Blurred/double vision?denies.?TMJ?denies.?Discharge/drainage?denies.?Implants?denies.?Sore throat?denies.?Dental implants?denies.?Hard of hearing ?denies.?Difficulty chewing/swallowing/speaking?denies.?Nose bleeds?denies.?Sore mouth?denies.?Respiratory:?On Oxygen?denies.?Pneumonia/pleurisy?denies.?Bronchitis?denies.?Emphysema?denies.?C oughing?denies.?Cough blood?denies.?Shortness of breath?denies.?Wheezing?denies.?Cardiovascular:?Pacemaker?denies.?MVP?denies.?WPW?denies.?CHF?denies.?Heart attack?denies.?Septal defect?denies.?Rapid beat?denies.?Chest pain ?denies.?Atrial Fib.?admits.?Murmur/Palpitations?denies.?Gastrointestinal:?Hemorrhoids?denies.?Stomach/Abdominal pain?denies.?Dark blood stool?denies.?Irritable bowel ?denies.?Constipation?denies.?Diarrhea?denies.?Hematology:?Swelling?admits.?Clots?denies.?Varicose Veins?denies.?Bruising?denies.?Bleeding problem?denies.?Genitourinary:?Blood urine?denies.?Frequent/Painfu/urination/bladder control?denies.?Kidney stones?denies.?Infection (UTI)?denies.?Nephropathy?denies.?sex trans dis (STD)?denies.?Prostate?admits.?Musculoskeletal:?Hammertoes?admits.?Bunions?denies.?Back Pain?denies.?Muscle Cramps/ Resting?denies.?Muscle cramps / walking?denies.?Generalized aches and pains?admits.?Weakness?denies.?Integ.:?[place]?denies.?Scars?denies.?Corns/calluses?denies.?Ingrown nails?denies.?Painful nails?denies.?Open Sores?denies.?Rashes?denies.?Neurologic:?Difficulty sleeping?admits.?Brain disorder?denies.?Numbness?denies.?Balance trouble?denies.?Confusion?denies.?Fainting/blackouts?denies.?Tingling?denies.?Tr emors?denies.? * Medical History:? * Surgical History:?hip replac ement 2019 * Hospitalization/Major Diagno stic Procedure:?Paitent fee- no injury * Family History:?Mother: dece ased, diagnosed with Family history of arthritis, Diabetic - NIDDM, Unspecified essential hypertension, Other specified conditions influencing health status.?Father: .? Niece- Stroke. * Social History:?Tobacco Use:?Tobacco Use/Smoking?Are you a:?current smoker ?How often do you smoke cigarettes??every day ?How many cigarettes a day do you smoke??6-10 ?Tobacco use other than smoking?Are you an other tobacco user??No ???Drugs/Alcohol:?Drugs?Have you used drugs other than those for medical reasons in the past 12 months??No ?Alcohol Screen?Did you have a drink containing alcohol in the past year??No ?Points?0 ?Interpretation?Negative ???Miscellaneous:?Caffeine: yes, frequency:, 2 cups per day. ?no Children. ?Exercise: yes, art,piano., gabbie chi , reading, walking. ?Marital status: single. 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 * Medications:?TakingAmmonium Lactate 12 % Cream 1 application to affected area Externally Twice a day to dry areas of skin on feetAdderall Ativan Amiodarone HCl 200 MG Tablet 1 tablet Orally Once a dayCiclopirox Olamine 0.77 % Cream 1 application to affected area Externally Twice a day to effected areas on feetClaritin 10 MG Tablet Orally Once a dayColace Adult Depakote ER Flomax Flonase Lasix Melatonin 5 MG Tablet 1 tablet at bedtime as needed Orally Metoprolol Succinate 25 MG Capsule ER 24 Hour Sprinkle 1 capsule Orally Once a dayMiraLax PriLOSEC 20 MG Packet Orally once dailyOLANZapine 10 MG Solution Reconstituted as directed Intramuscular Tylenol Ventolin HFA 2 puffs as needed Vitamin C 500 MG Tablet Orally Once a dayVitamin D 50 MCG (2000 UT) Capsule Orally Once a weekZyPREXA Compression Stockings 20-30mm Hg closed toe- knee high as directed Voltaren 1 % Gel as directed Externally Orthopedic Extra Depth Shoes With Custom Heat Molded Multidensity Innersoles 1 Pair shoes with 3 Pair custom heat molded innersoles Wear DailyTaking Ammonium Lactate 12 % Cream 1 application to affected area Externally Twice a day to dry areas of skin on feetTaking Adderall Taking Ativan Taking Amiodarone HCl 200 MG Tablet 1 tablet Orally Once a dayTaking Ciclopirox Olamine 0.77 % Cream 1 application to affected area Externally Twice a day to effected areas on feetTaking Claritin 10 MG Tablet Orally Once a dayTaking Colace Adult Taking Depakote ER Taking Flomax Taking Flonase Taking Lasix Taking Melatonin 5 MG Tablet 1 tablet at bedtime as needed Orally Taking Metoprolol Succinate 25 MG Capsule ER 24 Hour Sprinkle 1 capsule Orally Once a dayTaking MiraLax Taking PriLOSEC 20 MG Packet Orally once dailyTaking OLANZapine 10 MG Solution Reconstituted as directed Intramuscular Taking Tylenol Taking Ventolin HFA 2 puffs as needed Taking Vitamin C 500 MG Tablet Orally Once a dayTaking Vitamin D 50 MCG (1999 UT) Capsule Orally Once a weekTaking ZyPREXA Taking Compression Stockings 20-30mm Hg closed toe- knee high as directed Taking Voltaren 1 % Gel as directed Externally Taking Orthopedic Extra Depth Shoes With Custom Heat Molded Multidensity Innersoles 1 Pair shoes with 3 Pair custom heat molded innersoles Wear DailyNot-Taking/PRNNicotine 7 MG/24HR Patch 24 Hour 1 patch to skin Transdermal Once a dayMedication List reviewed and reconciled with the patientNot-Taking/PRN Nicotine 7 MG/24HR Patch 24 Hour 1 patch to skin Transdermal Once a dayMedication List reviewed and reconciled with the patient * Allergies:?N.K.D.A.yes[Aller gies Verified] Objective: * Vitals:?Ht: 5ft 11in, Wt:225 , BMI:31.38, Shoe size: 13-15, BS: not taken, Ht-cm: 180.34 cm, Wt-k.06 kg. * Examination: ???General Examination: ?GENERAL APPEARANCE:?pleasant, alert, well nourished, well developed, well hydrated, with good attention to hygene/body habitus, and in no acute distress.?ORIENTED:?person,place, and time.?Neurological: ?SENSORY:?Neurological exam is normal, pain sensation normal, vibration sensation intact, pinprick sensation is normal in the lower extremities, denies, tingling, burning, anesthesia, paresthesia, hyperesthesia, B/L.?TINEL'S COMPRESSION:?Negative tarsal tunnel, ambreen pedis, and medial calcaneal nerves B/L.?BABINSKI REFLEX:?absent.?Neuroma Pain: ?PALPATION:?No interspace pain noted on palpation.?Vascular: ?DP PULSES(B):? /, B/L.?PT PULSES(B):? 05/15, B/L.?CAPILLARY FILL TIME:?3 secs. per digit, B/L.?TEMPERTURE GRADIENT(C):?warm to cool, proximal to distal, B/L.?EDEMA(C):? /4, B/L, Leg(s), Ankle(s).?Dermatologic: ?SKIN FINDINGS:? Skin exam reveals Keratotic lesion(s) located at, Plantar, Heel(s), Skin shows sign(s) of, dryness, scaling, in a stocking fashion, no fissure(s) present, B/L.?Orthopedic: ?MUSCLE STRENGTH:?5/5 all groups in a symmetrical fashion , B/L.?GAIT ABNORMALITY:?pronated, abducted, B/L.?Nails: ?NAILS are:? Elongated, overgrown, dystrophic, lytic, greater than 3mm thick, discolored and friable with crumbly malodorous subungual debris, with pain on palpation, 1-5 Left foot, T5, T7, T9.?Ophthalmology Referral: ?DIABETES EYE EXAM? Assessment: * Assessment: 1.?Tinea unguium - B35.1 (Pr imary)?2.?Pain in left foot - M79.672?3.?Pain in right foot - M79.671?4.?Localized edema - R60.0?5.?Tinea pedis - B35.3?6.?Pain in right toe(s) - M79.674?7.?Pain in left toe(s) - M79.675?8.?Xerosis cutis - L85.3?9.?Plantar fascial fibromatosis - M72.2? Plan: * Treatment: 2.?Localized edema? Start Compression Stockings closed toe- knee high, 20-30mm Hg, as directed, 1 pair.?? * Procedures:?Debride Nail 6-10:?Nail debridement?Nail debridement performed extensively to reduce/remove overall nail length and girth, subungual debris, and necrotic tissue, by manual and electrical means with use of a nail nipper and/or dremel, to more viable healthy nail plate or bed tissue 6-10. Silver nitrate used for any petechial bleeding as necessary. Patient chooses, no pharmaceutical tx (26375).? * Procedure Codes:?30070 DEBRI DE NAIL, 6 OR MORE, Modifiers: XS * Follow Up:?4 Months * Images: * Sign off status: Completed true * Provider:?David Maciel DPM Date:? 024 Generated for Sedrick krause/Asia/Suman on:?04/27/2024 03:33 PM EST History and Physical Notes * HPI (History of Present Illness) Category Sub-Category Detail Notes Category Not es Heel pain Nature: tenderness , aching--feels l jazzmine its broken Location: plantar , Arch , LEF T Aggravated: walking first thing in the morning/after rest Treatments: rest/alter normal da tomás activity Painful Nails Pt States Last PCP Visit: Date:: 01/28/2024 Skin problems Nature: dryness, discolored, scalin g Location: B/L , Forefoot, Heel /Rearfoot Duration: several months Foot Pain Aggrevated: shoes Onset/Cause: unknown Course: unchanged Duration: several years Nature: swelling, tenderness Location B/L legs Examination Category Sub-Category Detail Notes Category Not es Neuroma Pain PALPATION: No interspace pain noted on palpation Neurological SENSORY: Neurological exa m is normal, pain sensation normal, vibration sensation intact, pinprick sensation is normal in the lower extremities, denies, tingling, burning, anesthesia, paresthesia, hyperesthesia, B/L BABINSKI REFLEX: absent TINEL'S COMPRESSION: Negative tarsal elvis kayla, ambreen pedis, and medial calcaneal nerves B/L Dermatologic SKIN FINDINGS: Skin exam reveal s Keratotic lesion(s) located at, Plantar, Heel(s), Skin shows sign(s) of, dryness, scaling, in a stocking fashion, no fissure(s) present, B/L Orthopedic GAIT ABNORMALITY: pronated, abducted, B/L MUSCLE STRENGTH: 5/5 all groups in a symmetrical fashion , B/L General Examination GENERAL APPEARANCE: pleasant , alert, well nourished, well developed, well hydrated, with good attention to hygene/body habitus, and in no acute distress ORIENTED: person,place, and ti me Ophthalmology Referral DIABETES EYE EXAM Diabetic Retinopa thy Screening:: No Findings of Diabetic Eye Exam:: no retin opathy Vascular DP PULSES(B): 1/4, B/L PT PULSES(B): 1/4, B/L CAPILLARY FILL TIME: 3 secs. per digit, B/L TEMPERTURE GRADIENT(C): warm to cool, pr oximal to distal, B/L EDEMA(C): 3/4, B/L, Leg(s), An kle(s) Nails NAILS are: Elongated, overg rown, dystrophic, lytic, greater than 3mm thick, discolored and friable with crumbly malodorous subungual debris, with pain on palpation, 1-5 Left foot, T5, T7, T9
--- OUTSIDE RECORDS SUMMARY | 2024-04-27 15:34 | XMS_ITS ---
Author Organization [facility] Address [address] [place] [address] Care Team Providers Care Diaper Folder Name Role Phone Mac COBIAN, Rajesh Primary Care Provider Unava Maggie Khan Unavailable [phone] David Maciel [phone] Nguyen Encounters Encounter Location Date Provider Diagnosis [address] [address] 09/18/2023 David Maciel Plan Of Treatment Next Appt Details Provider Name:Maggiesonja putnam, 06/03/2024 10:15:00 AM, [address] [place] [address], [phone], Progress Notes * JEAN MARIE Pool FDOB:[birth year] (63 yo M)Acc No.[id number]:09/18/2023 Progress Note Patient:?Jeovany AJio Domingo Provider:?David Maciel DPM :1960???Age:63 Y???Sex:Male Allen e:09/18/2023 Address:[address] [place] [address] [address], [place] Pcp:Rajesh Watts MD Subjective: * Chief Complaints: * ???1. Dr Nguyen. * Medical History:? Objective: * Vitals:? Assessment: Plan: * Treatment: * Images: * The named appointment provid er may or may not be the originator of this progress note, and it is not deemed complete until electronically signed by the appointment provider. Sign off status: Pending * Provider:Sylvia Maciel DPM Date:? 024 Generated for Sedrick krause/Asia/Suman on:?04/27/2024 03:33 PM EST
--- OUTSIDE RECORDS SUMMARY | 2024-04-27 15:34 | XMS_ITS ---
Author Organization [facility] Address [address] [place] [address] Care Team Providers Care Chemical Weigher Name Role Phone Mac COBIAN, Farson Primary Care Provider UnaMaggie Marr Unavailable [phone] David Maciel Unavailable [phone] Allergies No Known Allergies REASON FOR VISIT Painful nail(s) aggrevated by shoes and causing difficulty standing/walking., Heel pain Medications Medication SIG (Take, Route, Frequency, Duration) Notes Start Date End Date Status Tylenol Active Vitamin C 500 MG Orally Once a day Active Ventolin HFA 2 puffs as needed Active ZyPREXA Active Vitamin D 50 MCG (1999) Orally Once a week Active Nicotine 7 MG/24HR 1 patch to skin Transdermal Once a day Active MiraLax Active PriLOSEC 20 MG Orally once daily Active Orthopedic Extra Depth Shoes With Custom Heat Molded Multidensity Innersoles 1 Pair shoes with 3 Pair custom heat molded innersoles Wear Daily for 365 days 10/01/2023 Active OLANZapine 10 MG as directed Intramuscular Active Metoprolol Succinate 25 MG 1 capsule Ora lly Once a day Active Melatonin 5 MG 1 tablet at bedtime as needed Orally Active Flomax Active Lasix Active Flonase Active Ciclopirox Olamine 0.77 % 1 application to affected area Externally Twice a day to effected areas on feet for 30 days 02/09/2020 Active Colace Adult Active Claritin 10 MG Orally Once a day Active Voltaren 1 % as directed Externally Active Depakote ER Active Adderall Active Ammonium Lactate 12 % 1 application to a ffected area Externally Twice a day to dry areas of skin on feet for 30 days Active Amiodarone HCl 200 MG 1 tablet Orally On ce a day for 30 day(s) Active Ativan Active Compression Stockings 20-30mm Hg as directed Active Social History Tobacco Use: Social History [...] No Vital Signs Height 5ft 11in in 10/01/2023 Weight 225 lbs 10/01/2023 BMI 31.38 kg/m2 10/01/2023 Encounters Encounter Location Date Provider Diagnosis [facility] [address] [place] [address] 10/01/2023 David Maciel Tinea unguium B35.1 ; Pain in left foot M79.672 ; Pain in right foot M79.671 ; Localized edema R60.0 ; Tinea pedis B35.3 ; Pain in right toe(s) M79.674 ; Pain in left toe(s) M79.675 ; Xerosis cutis L85.3 and Plantar fascial fibromatosis M72.2 Assessments Encounter Date Diagnosis (ICD Code) Assessment Notes Treatment Notes Treatment Clinical Notes Section Notes 10/01/2023 Tinea unguium (ICD-10 - B35.1) 10/01/2023 Pain in left foot (ICD-10 - M79.672) 10/01/2023 Pain in right foot (ICD-10 - M79.671) 10/01/2023 Localized edema (ICD-10 - R60.0) 10/01/2023 Tinea pedis (ICD-10 - B35.3) 10/01/2023 Pain in right toe(s) (ICD-10 - M79.674) 10/01/2023 Pain in left toe(s) (ICD-10 - M79.675) 10/01/2023 Xerosis cutis (ICD-10 - L85.3) 10/01/2023 Plantar fascial fibromatosis (ICD-10 - M72.2) Plan Of Treatment Medication Medication Name Sig Start Date Stop Date Notes Orthopedic Extra Depth Shoes With Custom Heat Molded Multidensity Innersoles 1 Pair shoes with 3 Pair custom heat molded innersoles Wear Daily for 365 days 10/01/2023 Voltaren 1 % as directed Externally Compression Stockings 20-30m m Hg as directed Next Appt Details Follow Up: 4 Months, Reason: Provider Name:Maggie Venegas indy, 06/03/2024 10:15:00 AM, [address] [place], [address], Procedure Notes * Category Sub-Category Detail Notes [...] as necessary. Patient chooses, no pharmaceutical tx (97149) Progress Notes * Pool AJ FDOB:[birth year] (63 yo M)Acc No.[id number]:10/01/2023 Progress Note Patient:?Pool Aj Provider:?David Maciel DPM :1960???Age:63 Y???Sex:Male Allen e:10/01/2023 Address:[address] [place], [place] [id number] Pcp:Rajesh Watts MD Subjective: * Chief Complaints: * ??? Painful nail(s) aggrevat ed by shoes and causing difficulty standing/walking.Heel pain * HPI: ???Skin problems:?Nature:?dryness, discolored, scaling.?Location:?B/L , Forefoot, Heel/Rearfoot.?Duration:?several months.?Treatments:?nc with cream.?Foot Pain:?Nature:?swelling, tenderness.?Location?B/L legs.?Duration:?several years.?Onset/Cause:?unknown.?Course:?unchanged.?Aggrevated:?shoes.?Painful Nails:?Pt States Last PCP Visit:?Date:?09/23/2023 ???Heel pain:?Nature:?tenderness , aching--feels like its broken.?Location:?plantar , Arch , LEFT.?Onset/Cause:?dancing in Dec at function.?Course:?improved.?Aggrevated:?walking first thing in the morning/after rest.?Treatments:?rest/alter normal daily activity.? * ROS:?General/Constitutional:?Nausea?denies, denies, denies.?Vomiting?denies, denies, denies.?Hunger Thirst?denies, denies, denies.?Loss appetite?denies, denies, denies.?Chills?denies, denies, denies.?Fatigue?denies, denies, denies.?Fever?denies, denies, denies.?Night Sweats?denies, denies, denies.?Unexplained weight loss?denies, denies, denies.?Unexplained weight gain?denies.?Ophthalmologic:?Blurred vision?denies, denies.?Red eye?denies, denies.?HEENTM:?Dentures?denies, denies, denies.?Dizziness?denies, denies, denies.?Glasses/contacts?admits, denies, denies.?Retinopathy?denies, denies, denies.?Blurred/double vision?denies, denies, denies.?TMJ?denies, denies, denies.?Discharge/drainage?denies, denies, denies.?Implants?denies, denies, denies.?Sore throat?denies.?Dental implants?denies.?Hard of hearing ?denies, denies, denies.?Difficulty chewing/swallowing/speaking?denies, denies, denies.?Nose bleeds?denies, denies, denies.?Sore mouth?denies, denies, denies.?Swollen glands?denies, denies.?Respiratory:?On Oxygen?denies, denies, denies.?Pneumonia/pleurisy?denies, denies, denies.?Bronchitis?denies, denies, denies.?Emphysema?denies, denies, denies.?Coughing?denies, denies, denies.?Cough blood?denies, denies, denies.?Shortness of breath?admits, denies, denies.?Wheezing?denies, denies, denies.?Cardiovascular:?Pacemaker?denies, denies, denies.?MVP?denies, denies, denies.?WPW?denies, denies, denies.?CHF?denies, denies, denies.?Heart attack?denies, denies, denies.?Septal defect?denies, denies, denies.?Rapid beat denies, denies, denies.?Chest pain ?denies, denies, denies.?Atrial Fib.?admits, denies.?Murmur/Palpitations?denies, denies, denies.?Gastrointestinal:?Hemorrhoids?denies, denies, denies.?Stomach/Abdominal pain?denies, denies, denies.?Dark blood stool?denies, denies, denies.?Irritable bowel ?denies, denies, denies.?Constipation?denies, denies, denies.?Diarrhea denies, denies, denies.?Vomiting?denies, denies.?Hematology:?Swelling?admits, denies, denies.?Clots?denies.?Varicose Veins?denies.?Bruising?denies, denies, denies.?Bleeding problem?denies, denies, denies.?Genitourinary:?Blood urine?denies, denies, denies.?Frequent/Painfu/urination/bladder control?denies, denies, denies.?Kidney stones?denies, denies, denies.?Infection (UTI)?denies, denies, denies.?Nephropathy?denies, denies, denies. sex trans dis (STD)?denies.?Prostate?admits.?Musculoskeletal:?Hammertoes?admits, denies, denies.?Bunions?denies, denies, denies.?Scoliosis/kyphosis?denies, denies.?Back Pain?admits.?Muscle Cramps/ Resting?denies.?Muscle cramps / walking?denies, denies, denies.?Generalized aches and pains?admits, denies, denies.?Weakness?denies, denies, denies.?Integ.:?[place]?denies, denies, denies.?Scars?denies, denies, denies.?Corns/calluses?denies, denies, denies.?Ingrown nails?denies, denies, denies.?Painful nails?admits, denies, denies.?Open Sores?denies.?Rashes?denies, denies, denies.?Neurologic:?Difficulty sleeping?admits, denies, denies.?Bipolar?denies, denies.?Brain disorder?denies, denies, denies.?Numbness?denies.?Balance trouble?denies, denies, denies.?Confusion?denies, denies, denies.?Fainting/blackouts?denies, denies, denies.?Headache?denies, denies.?Tingling?denies.?Tremors?denies, denies, denies.? * Medical History:? * Surgical History:?hip replac [...] ???Miscellaneous:?Caffeine: yes, frequency:, 2 cups per day. ?Exercise: yes, art,piano., gabbie chi , reading. ?Marital status: single. 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 * Medications:?TakingCompressi on Stockings 20-30mm Hg closed toe- knee high as directed Ammonium Lactate 12 % Cream 1 application [...] Sprinkle 1 capsule Orally Once a dayMiraLax Nicotine 7 MG/24HR Patch 24 Hour 1 patch to skin Transdermal Once a dayPriLOSEC 20 MG Packet Orally once dailyOLANZapine 10 MG Solution Reconstituted as directed Intramuscular Tylenol Ventolin HFA 2 puffs as needed Vitamin C 500 MG Tablet Orally Once a dayVitamin D 50 MCG (1999 [place]) Capsule Orally Once a weekZyPREXA Voltaren 1 % Gel as directed Externally Medication List reviewed and reconciled with the patientTaking Compression Stockings 20-30mm Hg closed toe- knee high as directed Taking Ammonium Lactate 12 % Cream 1 application [...] capsule Orally Once a dayTaking MiraLax Taking Nicotine 7 MG/24HR Patch 24 Hour 1 patch to skin Transdermal Once a dayTaking PriLOSEC 20 MG Packet Orally once dailyTaking OLANZapine 10 MG Solution Reconstituted as directed Intramuscular Taking Tylenol Taking Ventolin HFA 2 puffs as needed Taking Vitamin C 500 MG Tablet Orally Once a dayTaking Vitamin D 50 MCG (1999 [place]) Capsule Orally Once a weekTaking ZyPREXA Taking Voltaren 1 % Gel as directed Externally Medication List reviewed and reconciled with the patient * Allergies:?N.K.D.A.yes[Aller gies Verified] Objective: * Vitals:?Ht: 5ft 11in, Wt:225 , BMI:31.38, Shoe size: 11, Ht-cm: 180.34 cm, Wt-k.06 kg. * Examination: [...] ?PALPATION:?No interspace pain noted on palpation.?Vascular: ?DP PULSES:? 05/15, B/L.?PT PULSES:? 05/15, B/L.?CAPILLARY FILL TIME:?3 secs. per digit, B/L.?SKIN TEMPERTURE GRADIENT OF THE LOWER EXTERMITIES:?warm to cool, proximal to distal, B/L.?EDEMA:? /4, B/L, Leg(s), Ankle(s).?Dermatologic: ?SKIN FINDINGS:? Skin [...] high, 20-30mm Hg, as directed, 1 pair.?? 3.?Plantar fascial fibromato sis? Start Orthopedic Extra Depth Shoes, With Custom Heat Molded Multidensity Innersoles, 1 Pair shoes with 3 Pair custom heat molded innersoles, Wear, Daily, 365 days, 2, Refills 0.?? * Procedures:?Debride Nail 6-10:?Nail debridement?Nail debridement performed extensively to reduce/remove overall nail length and girth, subungual debris, and necrotic tissue, by manual and electrical means with use of a nail nipper and/or dremel, to more viable healthy nail plate or bed tissue 6-10. Silver nitrate used for any petechial bleeding as necessary. Patient chooses, no pharmaceutical tx (08291).? * Procedure Codes:?90768 DEBRI DE NAIL, 6 OR MORE, Modifiers: XS * Preventive Medicine:? ??Counseling:?Discussion:?-14: Office or other outpatient visit for the evaluation and management of an established patient, which required a medically appropriate history and/or examination and MODERATE level of DECISION MAKING for: 1 OR MORE CHRONIC PROBLEM(S) THATS WORSENING, 2 STABLE CHRONIC PROBLEMS, A NEWLY DIAGNOSED PROBLEM WITH UNCERTAIN PROGNOSIS, AN ACUTE COMPLICATED INJURY WITH MULTIPLE TREATMENT OPTIONS, OR AN ACUTE PROBLEM WITH ACCOMPANYING SYSTEMIC SYMPTOMS, THAT POSE(S) A MODERATE RISK OF MORBIDITY. THIS CONDITION MAY ALSO INCLUDE RX DRUG MANAGEMENT, OR A DECISON FOR MINOR SURGERY. The visit on the day of the encounter encompassed interpreting the data and educating the patient as to the nature of their condition, treatment options available according to their individual PMH, meds, allergies, and overall health/living conditions, as well as any potential risks or complications that may occur from a failure to adhere to, and participate in, the recommended course of therapy. The discussion included a complete verbal, and/or written explanation of the examination results, any x-rays taken, the proposed diagnosis, and outline of the treatment plan. A schedule for future care needs was also explained. The patient verbalized an understanding of the instructions at this time and agreed to be an active participant in their treatment. If the patient should think of any questions or concerns after the visit, I have encouraged the patient to call the office.?Heel pain:?FASCIITIS: I explained to the patient the possible etiologies of Plantar Fasciitis including foot type/shoegear/activity level/exercise routine and the risks/benefits of all the different treatment options for heel pain including: No treatment at all, Rest, Ice, NSAIDs(only if well tolerated after meals), New/supportive Shoegear, Strappings and Tapings, Stretching exercises, Deep Tissue Massage, Heel cups/cushions, Arch support/shoe inserts, Custom orthoses, Topical analgesics including Aspercream/Voltaren gel, Night splint AFO for am stiffness, Cortisone injection therapy, Cast boot with crutches/cane/or walker for assisted ambulation, Physical Therapy, EPAT/ESWT, Interfil injection therapy, as well as surgical [place]/Endoscopic Fasciitomy surgical procedures if needed. Recommendations were made to limit barefoot walking, eliminate wearing nonsupportive shoegear (i.e. flip-flops or sandals, or a shoe with an easily bendable, foldable, or twistable sole) and wear shoegear with a good solid sole, a supportive arch, and plenty of room for an insert/orthotic if necessary. If wearing sandals was required by the patient, we recommended orthopedic sandals such as Orthoheel or Birkenstock even while in the home. If the patient wore heels in the past, we recommended they continue, but eliminate the use of flats. The advantages and disadvantages of each option were discussed and the patients questions re: types of shoegear, custom vs prefabricated inserts, activity level, PO vs Topical medications (and their respective potential complications/drug interactions/side effects), and consistency in home treatment regimens for optimal success were answered to their satisfaction. Literature detailing plantar fasciitis and the various treatment options were dispensed and reviewed.?P.R.I.C.E.:?The patient was counseled on the use of P.R.I.C.E. and NSAIDS (if well tolerated) to aid in the recovery from their painful condition.?Shoe Gear Counseling:?The patient and I reviewed the types of shoes they should be wearing. My recommendation included obtaining a well-fitted shoe with a good supportive, non-foldable nor twistable sole, plenty of toe/room for the forefoot, and proper arch support. Based on todays examination, I recommended the patient look for new shoes, by having their feet professionally measured. We discussed that generally the best time of the day for a shoe fitting is the afternoon. Different shoes types and brands to best match the patients occupation and vocation were discussed. Specific brand selection will be up to the patient, their individual foot condition/deformities, and fit. The patient and I reviewed the standard new shoe break in period by wearing them for a few hours a day while checking for redness or sores as wear time is increased. The patient verbally confirmed to understanding the information discussed--pt to get better quality shoes--rec dr. medrano-firm sole shoes with soft arch support.? * Follow Up:?4 Months * Images: * Sign off status: Completed true * Provider:?David Maciel DPM Date:? 024 Generated for Sedrick krause/Asia/Suman on:?04/27/2024 03:33 PM EST History and Physical Notes * HPI (History of Present Illness) Category Sub-Category Detail Notes Category Not es Heel pain Nature: tenderness , aching--feels l jazzmine its broken Location: plantar , Arch , LEF T Onset/Cause: dancing in Dec at fu nction Aggravated: walking first thing in the morning/after rest Course: improved Treatments: rest/alter normal da tomás activity Painful Nails Pt States Last PCP Visit: Date:: 09/23/2023 Skin problems Nature: dryness, discolored, scalin g Location: B/L , Forefoot, Heel /Rearfoot Duration: several months Treatments: nc with cream Foot Pain Aggrevated: shoes Onset/Cause: unknown Course: [...] EYE EXAM Diabetic Retinopa thy Screening:: No Vascular DP PULSES(B): 1/4, B/L PT PULSES(B): [...]
--- OUTSIDE RECORDS SUMMARY | 2024-04-27 15:34 | XMS_ITS | Patient Health Record ---
Author Organization [facility] Address [address] [place] [address] Care Team Providers Care Janitorial Cleaner Name Role Phone Mac COBIAN, Carmichael Primary Care Provider Maggie Deleon Unavailable [phone] David Maciel Unavailable [phone] Allergies No Known Allergies Reason For Referral No Information Medications Medication SIG (Take, Route, Frequency, Duration) Notes Start Date End Date Status OLANZapine 10 MG as directed Intramuscular Active Tylenol Active Ventolin HFA 2 puffs as needed Active Flonase Active Lasix Active Melatonin 5 MG 1 tablet at bedtime as needed Orally Active Metoprolol Succinate 25 MG 1 capsule Orally Once a day Active MiraLax Active Nicotine 7 MG/24HR 1 patch to skin Transdermal Once a day Not-Takallen g PriLOSEC 20 MG Orally once daily Active Compression Stockings 20-30mm Hg as directed Active Voltaren 1 % as directed Externally Active Claritin 10 MG Orally Once a day Active Colace Adult Active Depakote ER Active Flomax Active Vitamin C 500 MG Orally Once a day Active Vitamin D 50 MCG (1999 UT) Orally Once a week Active ZyPREXA Active Ammonium Lactate 12 % 1 application to affected area Externally Twice a day to dry areas of skin on feet for 30 days Active Adderall Active Ativan Active Orthopedic Extra Depth Shoes With Custom Heat Molded Multidensity Innersoles 1 Pair shoes with 3 Pair custom heat molded innersoles Wear Daily for 365 days 10/01/2023 Active Amiodarone HCl 200 MG 1 tablet Orally On ce a day for 30 day(s) Active Ciclopirox Olamine 0.77 % 1 application to affected area Externally Twice a day to effected areas on feet for 30 days 02/09/2020 Active Social History Tobacco Use: Social History [...] 02/02/2024 Encounters Encounter Location Date Provider Diagnosis [address] [address] 05/22/2023 David Maciel Tinea unguium B35.1 ; Pain in left foot M79.672 ; Pain in right foot M79.671 ; Localized edema R60.0 ; Tinea pedis B35.3 ; Pain in right toe(s) M79.674 ; Pain in left toe(s) M79.675 ; Xerosis cutis L85.3 ; Plantar fascial fibromatosis M72.2 and Sprain of left foot, initial encounter S93.602A [address] [address] 10/01/2023 David Maciel Tinea unguium B35.1 ; Pain in left foot M79.672 ; Pain in right foot M79.671 ; Localized edema R60.0 ; Tinea pedis B35.3 ; Pain in right toe(s) M79.674 ; Pain in left toe(s) M79.675 ; Xerosis cutis L85.3 and Plantar fascial fibromatosis M72.[address] [address] 02/02/2024 David Maciel Tinea unguium B35.1 ; Pain in left foot M79.672 ; Pain in right foot M79.671 ; Localized edema R60.0 ; Tinea pedis B35.3 ; Pain in right toe(s) M79.674 ; Pain in left toe(s) M79.675 ; Xerosis cutis L85.3 and Plantar fascial fibromatosis M72.2 Assessments Encounter Date Diagnosis (ICD Code) Assessment Notes Treatment Notes Treatment Clinical Notes Section Notes 05/22/2023 Tinea unguium (ICD-10 - B35.1) 05/22/2023 Pain in left foot (ICD-10 - M79.672) 10/01/2023 Tinea unguium (ICD-10 - B35.1) 10/01/2023 Pain in left foot (ICD-10 - M79.672) 02/02/2024 Tinea unguium (ICD-10 - B35.1) 02/02/2024 Pain in left foot (ICD-10 - M79.672) 10/01/2023 Pain in right foot (ICD-10 - M79.671) 02/02/2024 Pain in right foot (ICD-10 - M79.671) 05/22/2023 Pain in right foot (ICD-10 - M79.671) 05/22/2023 Localized edema (ICD-10 - R60.0) 10/01/2023 Localized edema (ICD-10 - R60.0) 02/02/2024 Localized edema (ICD-10 - R60.0) 10/01/2023 Tinea pedis (ICD-10 - B35.3) 02/02/2024 Tinea pedis (ICD-10 - B35.3) 05/22/2023 Tinea pedis (ICD-10 - B35.3) 05/22/2023 Pain in right toe(s) (ICD-10 - M79.674) 02/02/2024 Pain in right toe(s) (ICD-10 - M79.674) 10/01/2023 Pain in right toe(s) (ICD-10 - M79.674) 10/01/2023 Pain in left toe(s) (ICD-10 - M79.675) 02/02/2024 Pain in left toe(s) (ICD-10 - M79.675) 05/22/2023 Pain in left toe(s) (ICD-10 - M79.675) 05/22/2023 Xerosis cutis (ICD-10 - L85.3) 02/02/2024 Xerosis cutis (ICD-10 - L85.3) 10/01/2023 Xerosis cutis (ICD-10 - L85.3) 02/02/2024 Plantar fascial fibromatosis (ICD-10 - M72.2) 05/22/2023 Plantar fascial fibromatosis (ICD-10 - M72.2) Patient Educated with: HEEL CORD STRETCHES.pdf (HEEL CORD STRETCHES.pdf) Patient Educated with: RICE THERAPY.pdf (RICE THERAPY.pdf) 10/01/2023 Plantar fascial fibromatosis (ICD-10 - M72.2) 05/22/2023 Sprain of left foot, initial encounter (ICD-10 - S93.602A) Plan Of Treatment Pending Test Test Name Order Date X ray : Foot, left 3V 05/22/2023 Next Appt Details Provider Name:Maggie Venegas indy, 06/03/2024 10:15:00 AM, [address] [place] [address], [phone], Insurance Providers Payer Name Payer Address Payer Phone Subscriber Number Group Number Insured Name Patient Relationship to Insured Coverage Start Date Coverage End Date Medicare [employer] [address] [place] [address] [id number] Pool Perez Self - patient is the insured Medical (General) History Medical History History ICD Code Anxiety Back,Hip,and Knee pain Broken bones Cholesterol Depression pre Diabetic type ll Heart disease High blood pressure Osteoporosis Psoriasis/eczema Psychiatric disorder Mumps Bone implants/screws edemia cardio A fib Surgical History Surgery Date(Month/Year) hip replacement 2019 Hospitalization History Reason Date(Month/Year) Paitent fee- no injury
== END 2024-04-27 16:11 | disposition home or self-care (01) ==
PROVIDERS: PCP Internal Medicine; Visit Provider Internal Medicine
DX: I48.92 Unspecified atrial flutter (principal); F25.0 Schizoaffective disorder, bipolar type; Z68.34 Body mass index [BMI] 34.0-34.9, adult; E66.9 Obesity, unspecified; Z86.79 Personal history of other diseases of the circulatory system; E78.00 Pure hypercholesterolemia, unspecified; I10 Essential (primary) hypertension; M16.0 Bilateral primary osteoarthritis of hip; R19.5 Other fecal abnormalities; M51.360 Other intervertebral disc degeneration, lumbar region with discogenic back pain only; E87.5 Hyperkalemia; G47.00 Insomnia, unspecified

== ENCOUNTER → 2024-04-27 15:31 | Outpatient (BNVA) | payer MEDICARE, MEDICAID, SELFPAY | PROVIDERS: PCP Internal Medicine; Visit Provider Internal Medicine | DX: I48.92 Unspecified atrial flutter (principal); E78.00 Pure hypercholesterolemia, unspecified; I10 Essential (primary) hypertension; M16.0 Bilateral primary osteoarthritis of hip; M51.360 Other intervertebral disc degeneration, lumbar region with discogenic back pain only; E87.5 Hyperkalemia; R19.5 Other fecal abnormalities; G47.00 Insomnia, unspecified; F25.0 Schizoaffective disorder, bipolar type; E66.9 Obesity, unspecified; Z86.79 Personal history of other diseases of the circulatory system | CPT/HCPCS: 96127; 99212 ==

== ENCOUNTER → 2024-06-22 09:10 | Outpatient (BNV) | payer MEDICARE, MEDICAID, SELFPAY | PROVIDERS: PCP Internal Medicine; Visit Provider Internal Medicine Gastroenterology | DX: Z12.11 Encounter for screening for malignant neoplasm of colon (principal); D12.3 Benign neoplasm of transverse colon; D12.2 Benign neoplasm of ascending colon; K57.30 Diverticulosis of large intestine without perforation or abscess without bleeding | CPT/HCPCS: 45381; 45385 ==

== ENCOUNTER → 2024-06-22 12:35 | Outpatient (BNV) | payer MEDICARE, MEDICAID, SELFPAY | PROVIDERS: Admitting Provider Internal Medicine; PCP Internal Medicine; Visit Provider Internal Medicine Cardiovascular Disease | DX: I48.91 Unspecified atrial fibrillation (principal) | CPT/HCPCS: 93010 ==

== ENCOUNTER 2024-06-22 14:14 | Inpatient (IN) | payer MEDICARE, MEDICAID, SELFPAY ==
--- OUTSIDE RECORDS SUMMARY | 2024-04-22 14:16 | XMS_ITS | Clinical Summary ---
Author Organization Unknown Care Team Providers Care Business Analyst Ecommerce Name Role Phone ALAN COBIAN, BEVERLY Unavailable Unavailable BALWINDER FLANAGAN, SIMI Unavailable Unavailable SHERI FLANAGAN, SANJANA Unavailable Unavailable Payers Payer Name Policy Type Policy Number Effective Date Expira tion Date [place] [id number] ON DEMAND MEDICARE - [facility] BILLING - ABN [id number] Problems Condition Name Condition Details Condition Category Status Onset Date Resolution Date Last Treatment Date Treating Clinician Comments BIPOLAR DISORDER, UNSPECIFIED Active 12-08 00:00: 00 ESSENTIAL (PRIMARY) HYPERTENSION Active 05-12 00:00: 00 Allergies, Adverse Reactions, Alerts Allergy Name Allergy Type Status Severity Reaction(s) Onset Date Inactive Date Treating Clinician Comments AMOXICILLIN Propensity to adverse reactions Active 08-13 09:44: 48 RISPERDAL Propensity to adverse reactions Active 08-13 09:44: 56 SEROQUEL Propensity to adverse reactions Active 08-13 09:44: 31 LITHIUM Propensity to adverse reactions Active 08-13 09:44: 39 PENICILLIN Propensity to adverse reactions Active 08-13 09:44: 22 Medications Ordered Medication Name Filled Medication Name Start Date Stop Date Current Medication? Ordering Clinician Indication Dosage Frequency Signature (SIG) Comments Components amiodarone 200 mg tablet 10-04 00:00: 00 03-27 23:59 :00 No [id number] 200 mg DAILY 200 mg DAILY (route: oral) Alternate Route: By mouth. Med Classific ation: Cardiovas cular Therapy Agents benztropine 0.5 mg tablet 06-27 00:00: 00 Yes [id number] 0.5 mg TWICE A DAY 0.5 mg TWICE A DAY (route: oral) Alternate Route: BY MOUTH. Med Classific ation: Central Nervous System Agents Colace 100 mg capsule 08-13 00:00: 00 Yes [id number] 100 mg 2 TIMES DAILY 100 mg 2 TIMES DAILY (route: oral) Med Classific ation: Gastroint estinal Therapy Agents divalproex ER 500 mg tablet,exte nded release 24 hr 06-27 00:00: 00 Yes [id number] 500 mg AT BEDTIME 500 mg A T BEDTIME (route: oral) Med Classific ation: Central Nervous System Agents fluphenazin e decanoate 25 mg/mL injection solution 06-18 00:00: 00 Yes [id number] 25 mg 375 MG (15 ML) INTRAMUSCU LARLY ONCE EVERY 25 mg 375 MG (15 ML) INTRAMUSCU LARLY ONCE EVERY (route: injection) Med Classific ation: Central Nervous System Agents furosemide 40 mg tablet 08-13 00:00: 00 12-27 23:59 :00 No [id number] 40 mg DAILY 40 mg DAILY (route: oral) Med Classific ation: Cardiovas cular Therapy Agents loratadine 10 mg capsule 06-30 00:00: 00 Yes [id number] 10 mg ONCE A DAY 10 mg ON CE A DAY (route: oral) Alternate Route: BY MOUTH. Med Classific ation: Respirato ry Therapy Agents lorazepam 0.5 mg tablet 06-23 00:00: 00 Yes [id number] 0.5 mg TWICE A DAY EVERY DAY NEEDED NEEDED 0.5 mg TWICE A DAY EVERY DAY NEEDED NEEDED (route: oral) Alternate Route: BY MOUTH. Med Classific ation: Central Nervous System Agents melatonin 5 mg tablet 06-30 00:00: 00 Yes [id number] FOR INSOMNIA 5 mg AT BEDTIME WITH FOOD NEEDED 5 mg AT BEDTIME WITH FOOD NEEDED (route: oral) Alternate Route: BY MOUTH. Med Classific ation: Central Nervous System Agents metoprolol tartrate 25 mg tablet 08-13 00:00: 00 Yes [id number] 25 mg DAILY 25 mg DAILY (route: oral) Med Classific ation: Cardiovas cular Therapy Agents nicotine 7 mg/24 hr daily transdermal patch 06-30 00:00: 00 02-20 23:59 :00 No [id number] 7 mg EVERY DAY DIRECTED 7 mg EVERY DAY DIRECTED (route: transderma l) Med Classific ation: Chemical Dependenc y, Agents to Treat olanzapine 20 mg tablet 2-09 00:00: 00 Yes [id number] 20 mg EVERYDAY AT BEDTIME 20 mg EVERYDAY AT BEDTIME (route: oral) Alternate Route: BY MOUTH. Med Classific ation: Central Nervous System Agents olanzapine 5 mg tablet 7-31 00:00: 00 Yes [id number] 5 mg BEDTIME 5 mg BEDTIME (route: oral) Med Classific ation: Central Nervous System Agents omeprazole 20 mg capsule,del ayed release 207 00:00: 00 Yes [id number] 20 capsule EVERY DAY 20 capsule EVERY DAY (route: oral) Alternate Route: BY MOUTH. Med Classific ation: Gastroint estinal Therapy Agents tamsulosin 0.4 mg capsule 08-13 00:00: 00 Yes [id number] 0.4 capsule DAILY 0.4 capsule DAILY (route: oral) Med Classific ation: Genitouri nary Therapy ergocalcife rol (vitamin D2) 1,250 mcg (50,000 unit) capsule 205 00:00: 00 Yes [id number] 1250 mcg ONCE A WEEK 1250 mcg ONCE A WEEK (route: oral) Alternate Route: BY MOUTH. Med Classific ation: Electroly te Balance-N utritiona l Products Xarelto 15 mg tablet 08-13 00:00: 11-14 10:17 :57.2 27 No [id number] 15 mg DAILY 15 mg DAILY (route: oral) Med Classific ation: Hematolog ical Agents sulfamethox azole 400 mg-trimetho prim 80 mg tablet 8-16 00:00: 00 02-20 23:59 :00 No [id number] 400 mg 2 TIMES DAILY 400 mg 2 TIMES DAILY (route: oral) Med Classific ation: Anti-Infe ctive Agents amiodarone 100 mg tablet 2019-05 1-22 00:00: 00 05-15 23:59 :00 No [id number] 100 mg DAILY 100 mg DAILY (route: oral) Med Classific ation: Cardiovas cular Therapy Agents Xarelto 20 mg tablet 7-06 00:00: 00 Yes [id number] 20 mg DAILY 20 mg DAILY (route: oral) Med Classific ation: Hematolog ical Agents Lasix 40 mg tablet 8- 00:00: 00 Yes [id number] 40 mg DAILY 40 mg DAILY (route: oral) Med Classific ation: Cardiovas cular Therapy Agents Immunizations Ordered Immunization Name Filled Immunization Name Date Status Comments Refusal Reason INFLUENZA, TIV (INACTIVATED) 2018-08-13 00:00:00 INFLUENZA, TIV (INACTIVATED) 2018-01-28 00:00:00 Vital Signs Vital Name Observation Time Observation Value Commen ts Temperature 2024-04-10 08:38:00.000 97.7 [degF] Temperature 2024-04-01 11:55:00.000 97.5 [degF] Temperature 2024-03-25 09:47:00.000 97.3 [degF] Temperature 2024-03-18 10:09:00.000 97.6 [degF] Pulse 2024-04-10 08:38:00.000 81 /min Pulse 2024-04-01 11:55:00.000 83 /min Pulse 2024-03-25 09:47:00.000 83 /min Pulse 2024-03-18 10:09:00.000 76 /min Respirations 2024-04-10 08:38:00.000 16 /min Respirations 2024-04-01 11:55:00.000 16 /min Respirations 2024-03-25 09:47:00.000 16 /min Respirations 2024-03-18 10:09:00.000 16 /min Systolic Blood Pressure 2024-04-10 08:38:00.000 119 mm [Hg] Systolic Blood Pressure 2024-04-01 11:55:00.000 106 mm [Hg] Systolic Blood Pressure 2024-03-25 09:47:00.000 127 mm [Hg] Systolic Blood Pressure 2024-03-18 10:09:00.000 116 mm [Hg] Diastolic Blood Pressure 2024-04-10 08:38:00.000 74 mm [Hg] Diastolic Blood Pressure 2024-04-01 11:55:00.000 76 mm [Hg] Diastolic Blood Pressure 2024-03-25 09:47:00.000 84 mm [Hg] Diastolic Blood Pressure 2024-03-18 10:09:00.000 79 mm [Hg] Plan of Treatment Planned Activity Planned Date Details Comments Future Scheduled Test SKILLED NU RSE TO EVALUATE PATIENT, IDENTIFY PRIMARY AND CO-MORBID CONDITIONS CODED PER CODING GUIDELINES, AND DEVELOP PATIENT SPECIFIC PLAN OF CARE THAT INCLUDES PATIENT GOAL FOR HOME HEALTH. [code = SKILLED NURSE TO EVALUATE PATIENT, IDENTIFY PRIMARY AND CO-MORBID CONDITIONS CODED PER CODING GUIDELINES, AND DEVELOP PATIENT SPECIFIC PLAN OF CARE THAT INCLUDES PATIENT GOAL FOR HOME HEALTH.] Future Scheduled Test SKILLED NU RSE TO PERFORM HOME SAFETY AND FALL ASSESSMENT AND PROVIDE INSTRUCTION TO IMPLEMENT HOME SAFETY AND FALL PREVENTION STRATEGIES. [code = SKILLED NURSE TO PERFORM HOME SAFETY AND FALL ASSESSMENT AND PROVIDE INSTRUCTION TO IMPLEMENT HOME SAFETY AND FALL PREVENTION STRATEGIES.] Future Scheduled Test SKILLED NU RSE TO O/A OF PATIENTS MENTAL/BEHAVIORAL STATUS, ASSESS VITAL SIGNS WEEKLY ALLOW 2 PRNS FOR MEDICATION MANAGEMENT. [code = SKILLED NURSE TO O/A OF PATIENTS MENTAL/BEHAVIORAL STATUS, ASSESS VITAL SIGNS WEEKLY ALLOW 2 PRNS FOR MEDICATION MANAGEMENT.] Future Scheduled Test SKILLED NU RSE WILL MAINTAIN SITUATIONAL AWARENESS FOR SAFETY AND WILL NOTIFY CLINICAL WIRE BRUSHER AND PHYSICIAN/PROVIDER WITH ANY CHANGE IN CONDITION. [code = SKILLED NURSE WILL MAINTAIN SITUATIONAL AWARENESS FOR SAFETY AND WILL NOTIFY CLINICAL WIRE BRUSHER AND PHYSICIAN/PROVIDER WITH ANY CHANGE IN CONDITION.] Future Scheduled Test SKILLED NU RSE FOR O/A OF GENERAL HEALTH STATUS OF PAIN, CARDIAC, RESPIRATORY, GASTROINTESTINAL, GENITOURINARY, SKIN, NEUROLOGIC, ENDOCRINE SYSTEMS TO IDENTIFY CHANGES ASSOCIATED WITH EXACERBATION FOR EARLY INTERVENTION OF COMPLICATIONS WEEKLY [code = SKILLED NURSE FOR O/A OF GENERAL HEALTH STATUS OF PAIN, CARDIAC, RESPIRATORY, GASTROINTESTINAL, GENITOURINARY, SKIN, NEUROLOGIC, ENDOCRINE SYSTEMS TO IDENTIFY CHANGES ASSOCIATED WITH EXACERBATION FOR EARLY INTERVENTION OF COMPLICATIONS WEEKLY ] Future Scheduled Test SKILLED NU RSE TO REVIEW PATIENT MEDICATIONS. INSTRUCT PATIENT/CAREGIVER ON MONITORING OF EFFECTIVENESS, ADVERSE DRUG REACTIONS, SIDE EFFECTS OF ALL MEDICATIONS (PRESCRIPTION/-OTC), AND HOW AND WHEN TO REPORT PROBLEMS. [code = SKILLED NURSE TO REVIEW PATIENT MEDICATIONS. INSTRUCT PATIENT/CAREGIVER ON MONITORING OF EFFECTIVENESS, ADVERSE DRUG REACTIONS, SIDE EFFECTS OF ALL MEDICATIONS (PRESCRIPTION/-OTC), AND HOW AND WHEN TO REPORT PROBLEMS.] Future Scheduled Test SKILLED NU RSE TO PRE-POUR MEDICATION PER MEDICATION LIST WEEKLY. [code = SKILLED NURSE TO PRE-POUR MEDICATION PER MEDICATION LIST WEEKLY.] Future Scheduled Test SKILLED NU RSE FOR ADMINISTRATION AND TEACHING OF PRESCRIBED INJECTION THERAPY FLUPHENAZINE DECANOATE [code = SKILLED NURSE FOR ADMINISTRATION AND TEACHING OF PRESCRIBED INJECTION THERAPY FLUPHENAZINE DECANOATE ] Future Scheduled Test SKILLED NU RSE FOR O/A AND SKILLED TEACHING RELATED TO MANAGEMENT OF DEPRESSIVE SYMPTOMS AND/OR DEPRESSION. SN TO REPORT SIGNIFICANT CHANGE IN DEPRESSIVE SYMPTOMS TO CLINICAL PROVIDER FOR EARLY INTERVENTION. [code = SKILLED NURSE FOR O/A AND SKILLED TEACHING RELATED TO MANAGEMENT OF DEPRESSIVE SYMPTOMS AND/OR DEPRESSION. SN TO REPORT SIGNIFICANT CHANGE IN DEPRESSIVE SYMPTOMS TO CLINICAL PROVIDER FOR EARLY INTERVENTION.] Future Scheduled Test SKILLED NU RSE FOR O/A AND SKILLED TEACHING OF COPING SKILLS TO MANAGE ANXIETY AND MAINTAIN SAFETY. [code = SKILLED NURSE FOR O/A AND SKILLED TEACHING OF COPING SKILLS TO MANAGE ANXIETY AND MAINTAIN SAFETY.] Future Scheduled Test SKILLED NU RSE FOR O/A OF ALTERED MOOD [code = SKILLED NURSE FOR O/A OF ALTERED MOOD] Future Scheduled Test SKILLED NU RSE TO ASSESS PATIENTS PSYCHOSOCIAL STATUS TO IDENTIFY POTENTIAL ISSUES THAT MAY COMPLICATE THE PROVISION OF THE PLAN OF CARE INCLUDING THE PATIENTS ABILITY TO ACCESS COMMUNITY RESOURCES AND PSYCHOSOCIAL SUPPORT SERVICES. [code = SKILLED NURSE TO ASSESS PATIENTS PSYCHOSOCIAL STATUS TO IDENTIFY POTENTIAL ISSUES THAT MAY COMPLICATE THE PROVISION OF THE PLAN OF CARE INCLUDING THE PATIENTS ABILITY TO ACCESS COMMUNITY RESOURCES AND PSYCHOSOCIAL SUPPORT SERVICES.] Future Scheduled Test SKILLED NU RSE FOR O/A OF CLIENT'S SOCIAL ISOLATION AND PROVIDE ASSISTANCE TO CLIENT IN DEVELOPMENT OF PLANNED ACTIVITIES [code = SKILLED NURSE FOR O/A OF CLIENT'S SOCIAL ISOLATION AND PROVIDE ASSISTANCE TO CLIENT IN DEVELOPMENT OF PLANNED ACTIVITIES] Future Scheduled Test MEDICATION S WILL BE HELD AND STORED IN LOCKBOX [code = MEDICATIONS WILL BE HELD AND STORED IN LOCKBOX] Future Scheduled Test MEDICATION S WILL BE HELD AND STORED IN MEDICATION SAFE. [code = MEDICATIONS WILL BE HELD AND STORED IN MEDICATION SAFE.] Future Scheduled Test SKILLED NU RSE TO PROVIDE TEACHING ON SIGNS AND SYMPTOMS AND MANAGEMENT OF HYPERTENSION. [code = SKILLED NURSE TO PROVIDE TEACHING ON SIGNS AND SYMPTOMS AND MANAGEMENT OF HYPERTENSION.] Goal 2018-12-08 Patient Goal - P ATIENCE GOAL IS TO GO OUT WITH HIS MEN'S GROUP MORE FREQUENTLY AND TO GRADUATE FROM THE GROUP. Goal 2018-10-08 Patient Goal - T AKING MY MEDS WITH NO HELP Goal 2019-02-04 Patient Goal - [facility]ANS[facility] FROM HIS [employer] [facility] TO A [place] [facility] Goal 2019-04-06 Patient Goal - WORKING [place] R WITH OTHERS Goal 2019-06-03 Patient Goal - TAKING MEDS Goal 2019-08-03 Patient Goal - TAKING MEDS Goal 2019-09-30 Patient Goal - TAKING MEDS Goal 2019-11-30 Patient Goal - TAKING MEDS Goal 2020-02-01 Patient Goal - TAKING MEDS Goal 2020-03-28 Patient Goal - TAKING MEDS Goal 2020-05-30 Patient Goal - TAKING MEDS Goal 2020-07-27 Patient Goal - TAKING MEDS Goal 2020-09-26 Patient Goal - TAKING MEDS Goal 2020-11-23 Patient Goal - TAKING MEDS Goal 2021-01-23 Patient Goal - TAKING MEDS Goal 2021-03-23 Patient Goal - TAKING MEDS Goal 2021-05-22 Patient Goal - TAKING MEDS Goal 2021-07-24 Patient Goal - TAKING MEDS Goal 2021-09-20 Patient Goal - TAKING MEDS Goal 2021-11-22 Patient Goal - TAKING MEDS Goal 2022-01-17 Patient Goal - TAKING MEDS Goal 2022-03-21 Patient Goal - TAKING MEDS Goal 2022-05-18 Patient Goal - TAKING MEDS Goal 2022-07-18 Patient Goal - TAKING MEDS Goal 2022-09-14 Patient Goal - TAKING MEDS Goal 2022-11-14 Patient Goal - TAKING MEDS Goal 2023-01-16 Patient Goal - TAKING MEDS Goal 2023-03-13 Patient Goal - TAKING MEDS Goal 2023-05-15 Patient Goal - TAKING MEDS Goal 2023-07-11 Patient Goal - TAKING MEDS Goal 2023-09-11 Patient Goal - TAKING MEDS Goal 2023-11-12 Patient Goal - TAKING MEDS Goal 2024-01-08 Patient Goal - TAKING MEDS Goal 2024-03-11 Patient Goal - TAKING MEDS Goal Patient Goal - TAKING MEDS Goal Provider Goal - A PLAN OF CARE WILL BE ESTABLISHED THAT MEETS PATIENT'S RESIDENTIAL NEEDS AND INCLUDES PATIENT GOAL FOR HOME HEALTH. Goal Provider Goal - PATIENT/CAREGIVER WILL VERBALIZE/DEMONSTRATE EFFECTIVE HOME SAFETY AND FALL PREVENTION STRATEGIES THROUGHOUT CERTIFICATION PERIOD. Goal Provider Goal - ALTERED MENTAL/BEHAVIORAL STATUS WILL BE IDENTIFIED PROMPTLY AND INTERVENTION INITIATED QUICKLY TO MINIMIZE ASSOCIATED RISKS THROUGHOUT CERTIFICATION PERIOD. Goal Provider Goal - PATIENT WILL REMAIN SAFE IN THE COMMUNITY AND WILL BE FREE OF DANGER TO SELF AND OTHERS THROUGHOUT THE CERTIFICATION PERIOD. Goal Provider Goal - CHANGE IN GENERAL HEALTH STATUS WILL BE IDENTIFIED AND REPORTED TO PHYSICIAN FOR PROMPT INTERVENTION TO MINIMIZE ASSOCIATED RISKS THROUGHOUT CERTIFICATION PERIOD. Goal Provider Goal - PATIENT/CAREGIVER WILL VERBALIZE UNDERSTANDING OF EDUCATION PROVIDED ON MEDICATIONS BY THE END OF THE CERTIFICATION PERIOD. Goal Provider Goal - PATIENT WILL COMPLY WITH MEDICATION WHEN SKILLED NURSE PRE-POURS MEDICATION THROUGHOUT CERTIFICATION PERIOD. Goal Provider Goal - PATIENT WILL RECEIVE FLUPHENAZINE DECANOATE ORDERED. PATIENT/CAREGIVER WILL VERBALIZE/DEMONSTRATE KNOWLEDGE OF INJECTION THERAPY BY THE END OF THE CERTIFICATION PERIOD. Goal Provider Goal - PATIENT WILL REMAIN SAFE WITHOUT DECOMPENSATION IN DEPRESSIVE CONDITION, WHILE MAINTAINING OPTIMAL LEVEL OF MENTAL HEALTH AND WELL BEING THROUGHOUT CERTIFICATION PERIOD. Goal Provider Goal - PATIENT WILL BE ABLE TO PERFORM DAILY FUNCTIONS AND HAVE OPTIMAL IMPROVEMENT IN LEVEL OF ANXIETY THROUGHOUT CERTIFICATION PERIOD. Goal Provider Goal - PATIENT WILL BE ABLE TO PERFORM DAILY FUNCTIONS AND HAVE OPTIMAL IMPROVEMENT IN MOOD STABILITY THROUGHOUT CERTIFICATION PERIOD. Goal Provider Goal - PSYCHOSOCIAL NEEDS WILL BE IDENTIFIED AND PLAN IMPLEMENTED TO MINIMIZE RISK THROUGHOUT CERTIFICATION PERIOD. Goal Provider Goal - PATIENT WILL DEMONSTRATE AN INCREASED INTEREST IN SOCIALIZATION AND ACTIVITIES BY THE END OF THE CERTIFICATION PERIOD. Goal Provider Goal - MEDICATION WILL BE STORED IN LOCKBOX FOR SAFETY. Goal Provider Goal - MEDICATIONS WILL BE STORED IN MEDICATION SAFE FOR SAFETY. Goal Provider Goal - PATIENT/CAREGIVER WILL VERBALIZE SIGNS AND SYMPTOMS OF HYPERTENSION AND WILL BE ABLE TO DEMONSTRATE ABILITY TO MANAGE EXACERBATION BY END OF THE EPISODE. Encounters Start Date/Time End Date/Time Encounter Type Admission Type Attending [facility] Care Department Encounter ID Discharge Date Discharge Status Discharge Condition Discharge Reason Percent Goals Met 2016-02-23 00:00:00 2024-05-10 00:00:00 Outpatient RECERTIFIC ATION SANJANA WADE [facility] [id number] 32.35
--- OUTSIDE RECORDS SUMMARY | 2024-04-22 14:16 | XMS_ITS | Clinical Summary ---
Author Organization Unknown Care Team Providers Care Traveling Storekeeper Name Role Phone ALAN COBIAN, BEVERLY Unavailable Unavailable BALWINDER FLANAGAN, SIMI Unavailable Unavailable SHERI FLANAGAN, SANJANA Unavailable Unavailable Payers Payer Name Policy Type Policy Number Effective Date Expira tion Date [place] [id number] ON DEMAND MEDICARE - [facility] BILLING - ABN [id number] Problems Condition Name Condition Details Condition Category [...] 10-04 00:00: 00 03-27 23:59 :00 No [id number] 200 mg DAILY 200 mg DAILY (route: oral) Alternate Route: By mouth. Med Classific ation: Cardiovas cular Therapy Agents benztropine 0.5 mg tablet 06-27 00:00: 00 Yes [id number] 0.5 mg TWICE A DAY 0.5 mg TWICE A DAY (route: oral) Alternate Route: BY MOUTH. Med Classific ation: Central Nervous System Agents Colace 100 mg capsule 08-13 00:00: 00 Yes [id number] 100 mg 2 TIMES DAILY 100 mg 2 TIMES DAILY (route: oral) Med Classific ation: Gastroint estinal Therapy Agents divalproex ER 500 mg tablet,exte nded release 24 hr 06-27 00:00: 00 Yes [id number] 500 mg AT BEDTIME 500 mg A T BEDTIME (route: oral) Med Classific ation: Central Nervous System Agents fluphenazin e decanoate 25 mg/mL injection solution 06-18 00:00: 00 Yes [id number] 25 mg 375 MG (15 ML) INTRAMUSCU LARLY ONCE EVERY 25 mg 375 MG (15 ML) INTRAMUSCU LARLY ONCE EVERY (route: injection) Med Classific ation: Central Nervous System Agents furosemide 40 mg tablet 08-13 00:00: 00 12-27 23:59 :00 No [id number] 40 mg DAILY 40 mg DAILY (route: oral) Med Classific ation: Cardiovas cular Therapy Agents loratadine 10 mg capsule 06-30 00:00: 00 Yes [id number] 10 mg ONCE A DAY 10 mg ON CE A DAY (route: oral) Alternate Route: BY MOUTH. Med Classific ation: Respirato ry Therapy Agents lorazepam 0.5 mg tablet 06-23 00:00: 00 Yes [id number] 0.5 mg TWICE A DAY EVERY DAY NEEDED NEEDED 0.5 mg TWICE A DAY EVERY DAY NEEDED NEEDED (route: oral) Alternate Route: BY MOUTH. Med Classific ation: Central Nervous System Agents melatonin 5 mg tablet 06-30 00:00: 00 Yes [id number] FOR INSOMNIA 5 mg AT BEDTIME WITH FOOD NEEDED 5 mg AT BEDTIME WITH FOOD NEEDED (route: oral) Alternate Route: BY MOUTH. Med Classific ation: Central Nervous System Agents metoprolol tartrate 25 mg tablet 08-13 00:00: 00 Yes [id number] 25 mg DAILY 25 mg DAILY (route: oral) Med Classific ation: Cardiovas cular Therapy Agents nicotine 7 mg/24 hr daily transdermal patch 06-30 00:00: 00 02-20 23:59 :00 No [id number] 7 mg EVERY DAY DIRECTED 7 mg EVERY DAY DIRECTED (route: transderma l) Med Classific ation: Chemical Dependenc y, Agents to Treat olanzapine 20 mg tablet 2-09 00:00: 00 Yes [id number] 20 mg EVERYDAY AT BEDTIME 20 mg EVERYDAY AT BEDTIME (route: oral) Alternate Route: BY MOUTH. Med Classific ation: Central Nervous System Agents olanzapine 5 mg tablet 7-31 00:00: 00 Yes [id number] 5 mg BEDTIME 5 mg BEDTIME (route: oral) Med Classific ation: Central Nervous System Agents omeprazole 20 mg capsule,del ayed release 207 00:00: 00 Yes [id number] 20 capsule EVERY DAY 20 capsule EVERY DAY (route: oral) Alternate Route: BY MOUTH. Med Classific ation: Gastroint estinal Therapy Agents tamsulosin 0.4 mg capsule 08-13 00:00: 00 Yes [id number] 0.4 capsule DAILY 0.4 capsule DAILY (route: oral) Med Classific ation: Genitouri nary Therapy ergocalcife rol (vitamin D2) 1,250 mcg (50,000 unit) capsule 205 00:00: 00 Yes [id number] 1250 mcg ONCE A WEEK 1250 mcg ONCE A WEEK (route: oral) Alternate Route: BY MOUTH. Med Classific ation: Electroly te Balance-N utritiona l Products Xarelto 15 mg tablet 08-13 00:00: 11-14 10:17 :57.2 27 No [id number] 15 mg DAILY 15 mg DAILY (route: oral) Med Classific ation: Hematolog ical Agents sulfamethox azole 400 mg-trimetho prim 80 mg tablet 8-16 00:00: 00 02-20 23:59 :00 No [id number] 400 mg 2 TIMES DAILY 400 mg 2 TIMES DAILY (route: oral) Med Classific ation: Anti-Infe ctive Agents amiodarone 100 mg tablet 2019-05 1-22 00:00: 00 05-15 23:59 :00 No [id number] 100 mg DAILY 100 mg DAILY (route: oral) Med Classific ation: Cardiovas cular Therapy Agents Xarelto 20 mg tablet 7-06 00:00: 00 Yes [id number] 20 mg DAILY 20 mg DAILY (route: oral) Med Classific ation: Hematolog ical Agents Lasix 40 mg tablet 8- 00:00: 00 Yes [id number] 40 mg DAILY 40 mg DAILY (route: [...] AWARENESS FOR SAFETY AND WILL NOTIFY CLINICAL TECHNICIAN'S HELPER AND PHYSICIAN/PROVIDER WITH ANY CHANGE IN CONDITION. [code = SKILLED NURSE WILL MAINTAIN SITUATIONAL AWARENESS FOR SAFETY AND WILL NOTIFY CLINICAL TECHNICIAN'S HELPER AND PHYSICIAN/PROVIDER WITH ANY CHANGE IN CONDITION.] [...] HELP Goal 2019-02-04 [facility] - [facility] [employer] [facility] [place] [facility] Goal 2019-04-06 [...] CARE WILL BE ESTABLISHED THAT MEETS PATIENT'S [facility] NEEDS AND INCLUDES PATIENT GOAL FOR HOME [...] End Date/Time Encounter Type Admission Type Attending [facility] Care Department Encounter ID Discharge Date Discharge Status Discharge Condition Discharge Reason Percent Goals Met 2016-02-23 00:00:00 2024-05-10 00:00:00 Outpatient RECERTIFIC ATION SANJANA WADE [facility] [id number] 32.35
--- NOTE | 2024-06-21 09:40 | P.CONAN_ITS ---
Documented by User: Flakita Ricardo NP 06/21/24 09:42 HPI - Anesthesia Eval Consult details Narrative: 63yo M for Colonoscopy Cardiac optimized. Follows [facility] [place], [place] Cardiology for afib (xarelto), CMP (EF nml) PMFSH Active Problems Active Problems: All Active Problems Medicare annual wellness visit, subsequent (Acute) Preoperative clearance (Acute) Hemorrhoids (Acute) Positive colorectal cancer screening using Cologuard test (Acute) Thoracic aortic aneurysm (Acute) Renal function impairment (Acute) Adult general medical exam (Acute) Screening for prostate cancer (Acute) Constipation (Acute) Smoker (Acute) Anal irritation (Acute) Allergic rhinitis (Acute) Obesity (BMI 30-39.9) (Acute) Schizoaffective disorder, bipolar type (Acute) Insomnia (Acute) Lumbar degenerative disc disease (Acute) Osteoarthritis of hips, bilateral (Acute) Hyperkalemia (Acute) Pure hypercholesterolemia (Acute) Benign essential hypertension (Acute) History of acute heart failure (Acute) History of atrial flutter (Acute) Paroxysmal atrial flutter (Acute) History of cardiomyopathy (Acute) HTN (hypertension) (Acute) Past Medical History Medical History Hyperkalemia Screening for malignant neoplasm of colon performed Encounter for screening colonoscopy Screening for tuberculosis Substance abuse in remission Smoker Anal irritation Allergic rhinitis Cardiomyopathy Obesity (BMI 30-39.9) Schizoaffective disorder, bipolar type Insomnia Lumbar degenerative disc disease Osteoarthritis of hips, bilateral Hyperkalemia Pure hypercholesterolemia Benign essential hypertension History of acute heart failure History of atrial flutter History of congestive heart failure History of cardiomyopathy HTN (hypertension) Paroxysmal atrial flutter Family History Family History Father Hypertension CVD (cardiovascular disease) Mother Hypertension Diabetes Brother Mental health disorder Surgical History Surgical History History of total hip replacement Social History Social History Household Members: None Housing: Apartment Are you a primary wound care physician to a significant other at home: No Do you presently have visiting nurse or other home services: No Alcohol intake: former Patient Tobacco Use Status: Former Tobacco user Tobacco use type: Cigarette Cigarettes Per Day: 6 Smoked in Last 30 Days: Yes e-Cigarette/Vaping Use: Never Used Patient Interested in Nicotine Replacement: No Second Hand Smoke Exposure: Yes Substance Use Type: Former Substance User Have you been hit, kicked, punched, or otherwise hurt by someone within the past year? If so, by whom?: No Are you DNR?: No Advance Directives: No Advance Directives Information Provided: Yes Recently lost weight without trying: No Nutrition Risks: No Nutritional Risk service: No Current occupational status: retired Cognitive needs: Yes (cane) Hearing needs: No Vision needs: Yes Meds Allergies Allergy/AdvReac Type Severity Reaction Status Date / Time Penicillins [PENICILLINS] Allergy Intermediate RASH Verified 04/27/24 15:53 haloperidol [Haldol] Allergy Unknown Unknown Verified 04/27/24 15:53 mirtazapine [Remeron] Allergy Unknown Unknown Verified 04/27/24 15:53 trazodone Allergy Unknown Unknown Verified 04/27/24 15:53 verapamil [Verelan] Allergy Unknown Unknown Verified 04/27/24 15:53 risperidone [From RISPERDAL] AdvReac Severe SEIZURE Verified 04/27/24 15:53 lithium [LITHIUM] AdvReac Intermediate LETHARGY, Verified 04/27/24 15:53 AKATHISIA, TD Home Medications ?Medication ?Instructions ?Recorded ?Confirmed ?Last Taken ?Type ascorbic acid (vitamin C) 500 mg 500 mg PO DAILY 03/13/20 04/27/24 Unknown History capsule benztropine 0.5 mg tablet 0.5 mg PO BID 03/13/20 04/27/24 Unknown History divalproex 500 mg tablet,extended 1,500 mg PO BEDTIME 03/13/20 04/27/24 Unknown History release 24 hr (Depakote ER) lorazepam 0.5 mg tablet 0.5 mg PO BID PRN 03/13/20 04/27/24 Unknown History cholecalciferol (vitamin D3) 25 25 mcg PO DAILY 03/16/20 04/27/24 Unknown History mcg (1,000 unit) capsule olanzapine 20 mg tablet (Zyprexa) 20 mg PO BEDTIME 10/21/22 04/27/24 Unknown History olanzapine 5 mg tablet (Zyprexa) 5 mg PO BEDTIME 10/21/22 04/27/24 Unknown History fluphenazine decanoate 25 mg/mL 37.5 mg IM Q2W 06/25/23 04/27/24 Unknown History injection solution Exam Pertinent Lab Results Pertinent Lab Results: Laboratory Tests 04/19/24 13:49 WBC 7.4 Hgb 12.1 L Hct 36.3 L Plt Count 247 Sodium 134 L Potassium 4.8 Chloride 99 Carbon Dioxide 29 BUN 8 L Creatinine 0.77 Narrative Narrative: EKG 11/14/23 EKG Details: EKG today. Normal sinus rhythm with sinus arhtyhmia. Non specific ST and T wave abnormality. Rate 79 ms. QRS 84ms. QTc 415 ms. Echocardiogram was done 04/05/2024 showing EF 55-60%, no valve abnormalities, no regional wall motion abnormalities. Pharmacological nuclear stress test done 04/05/2024 showing normal myocardial perfusion imaging. Assessment and Plan Assessment Anesthesia Assessment: Chart Reviewed Documented by User: Clover You MD 06/22/24 10:32 PMFSH Past Medical History Medical History Hyperkalemia Screening for malignant neoplasm of colon performed Encounter for screening colonoscopy Screening for tuberculosis Substance abuse in remission Smoker Anal irritation Allergic rhinitis Cardiomyopathy Obesity (BMI 30-39.9) Schizoaffective disorder, bipolar type Insomnia Lumbar degenerative disc disease Osteoarthritis of hips, bilateral Hyperkalemia Pure hypercholesterolemia Benign essential hypertension History of acute heart failure History of atrial flutter History of congestive heart failure History of cardiomyopathy HTN (hypertension) Paroxysmal atrial flutter Family History Family History Father Hypertension CVD (cardiovascular disease) Mother Hypertension Diabetes Brother Mental health disorder Surgical History Surgical History History of total hip replacement History of Problems with Anesthesia: No Social History Social History Household Members: None Housing: Apartment Are you a primary wound care physician to a significant other at home: No Do you presently have visiting nurse or other home services: No Alcohol intake: former Patient Tobacco Use Status: Former Tobacco user Tobacco use type: Cigarette Cigarettes Per Day: 6 Smoked in Last 30 Days: Yes e-Cigarette/Vaping Use: Never Used Patient Interested in Nicotine Replacement: No Second Hand Smoke Exposure: Yes Substance Use Type: Former Substance User Have you been hit, kicked, punched, or otherwise hurt by someone within the past year? If so, by whom?: No Are you DNR?: No Advance Directives: No Advance Directives Information Provided: Yes Recently lost weight without trying: No Nutrition Risks: No Nutritional Risk service: No Current occupational status: retired Cognitive needs: Yes (cane) Hearing needs: No Vision needs: Yes Meds Allergies Allergy/AdvReac Type Severity Reaction Status Date / Time Penicillins [PENICILLINS] Allergy Intermediate RASH Verified 04/27/24 15:53 haloperidol [Haldol] Allergy Unknown Unknown Verified 04/27/24 15:53 mirtazapine [Remeron] Allergy Unknown Unknown Verified 04/27/24 15:53 trazodone Allergy Unknown Unknown Verified 04/27/24 15:53 verapamil [Verelan] Allergy Unknown Unknown Verified 04/27/24 15:53 risperidone [From RISPERDAL] AdvReac Severe SEIZURE Verified 04/27/24 15:53 lithium [LITHIUM] AdvReac Intermediate LETHARGY, Verified 04/27/24 15:53 AKATHISIA, TD Home Medications ?Medication ?Instructions ?Recorded ?Confirmed ?Last Taken ?Type ascorbic acid (vitamin C) 500 mg 500 mg PO DAILY 03/13/20 04/27/24 Unknown History capsule benztropine 0.5 mg tablet 0.5 mg PO BID 03/13/20 04/27/24 Unknown History divalproex 500 mg tablet,extended 1,500 mg PO BEDTIME 03/13/20 04/27/24 Unknown History release 24 hr (Depakote ER) lorazepam 0.5 mg tablet 0.5 mg PO BID PRN 03/13/20 04/27/24 Unknown History cholecalciferol (vitamin D3) 25 25 mcg PO DAILY 03/16/20 04/27/24 Unknown History mcg (1,000 unit) capsule olanzapine 20 mg tablet (Zyprexa) 20 mg PO BEDTIME 10/21/22 04/27/24 Unknown History olanzapine 5 mg tablet (Zyprexa) 5 mg PO BEDTIME 10/21/22 04/27/24 Unknown History fluphenazine decanoate 25 mg/mL 37.5 mg IM Q2W 06/25/23 04/27/24 Unknown History injection solution Exam Airway Mallampati Class: III TM Dist: >3cm Neck ROM: Full Denture: Upper Loose/Missing/Broken Teeth: Yes, Upper and Lower Heart: RRR Lungs: CTA Assessment and Plan Assessment Anesthesia Assessment: Anesthesia Plan Discussed Final Anesthetic Review History of Problems with Anesthesia: No NPO: Yes ASA Class: III Final Preanesthetic Review: Meds/Allgs Chart Reviewed, Consent Obtained/Reviewed and Anes Risks/Benef Reviewed Patient Risk: Intermediate Procedure Risk: Low Anesthetic Plan Anesthetic Plan: MAC: Disposition: Standard PACU
[2024-06-22] VITALS (11 sets, daily range): BP systolic 99–160; BP diastolic 65–90; PULSE 67–131; RESP 16–18; TEMP 36.1–37.1; O2SAT 96–100; BMI 35.4; BMI 35.1
--- NOTE | 2024-06-22 | ECG_ITS ---
Test Reason : Onset Afib Blood Pressure : */* mmHG Vent. Rate : 126 BPM Atrial Rate : * BPM P-R Int : * ms QRS Dur : 96 ms QT Int : 328 ms P-R-T Axes : * 56 241 degrees QTcB Int : 475 ms Atrial fibrillation with rapid ventricular response ST & T wave abnormality, consider inferolateral ischemia Abnormal ECG When compared with ECG of 03-Jan-2022 13:44, Atrial fibrillation has replaced Sinus rhythm Vent. rate has increased by 49 bpm T wave inversion now evident in Inferior leads T wave inversion now evident in Anterolateral leads Referred By: Clover You Electronically Signed By: ROSEMARIE CALDWELL MD
--- NOTE | 2024-06-22 09:40 | P.HPSUR_ITS ---
Pre-Procedural Eval Section A - 24 Hr Update-Section A only Date of Service: 06/22/24 Section B - Complete if H&P > 30 days Chief Complaint: Other fecal abnormalities Details of Present Illness: pos cologuard Relevant Family History (Specify if Yes): No Relevant Social History: None Present Medications: see Short Stay Collaborative assessment Medical History: Significant History ( Hyperkalemia Screening for malignant neoplasm of colon performed Encounter for screening colonoscopy Screening for tuberculosis Substance abuse in remission Smoker Anal irritation Allergic rhinitis Cardiomyopathy Obesity (BMI 30-39.9) Schizoaffective disorder, bipolar type Insomnia Lumbar degenerat) History of Previous Operations: Relevant previous surgery/procedure and date(s) ( History of total hip replacement) Allergies: Allergies Allergy/AdvReac Type Severity Reaction Status Date / Time Penicillins [PENICILLINS] Allergy Intermediate RASH Verified 04/27/24 15:53 haloperidol [Haldol] Allergy Unknown Unknown Verified 04/27/24 15:53 mirtazapine [Remeron] Allergy Unknown Unknown Verified 04/27/24 15:53 trazodone Allergy Unknown Unknown Verified 04/27/24 15:53 verapamil [Verelan] Allergy Unknown Unknown Verified 04/27/24 15:53 risperidone [From RISPERDAL] AdvReac Severe SEIZURE Verified 04/27/24 15:53 lithium [LITHIUM] AdvReac Intermediate LETHARGY, Verified 04/27/24 15:53 AKATHISIA, TD Review of Systems Sugical H&P ROS: Negative: Constitution, Cardiovascular, Respiratory, Neurological, Psychiatric, Hem-Onc, Allergic/Immunologic, Gastrointestinal, Genitourinary, Musculoskeletal, Integumentary, Endocrine and E yes/Ears/Nose/Throat Exam Surgical H&P Exam: Normal: HEENT, Normal: Heart, Normal: Lungs, Normal: Extremities, Normal: Abdomen, Normal: Skin and Normal: Neurological Plan Diagnosis/Plan: Unchanged I have reviewed the history and physical and performed a pertinent physical examination on my patient. No changes have occurred unless specified. hx of pos cologuard Time Spent With Patient Time: Total time managing care of this patient today ____ minutes.
[2024-06-22] MEDS: Lactated Ringers 1,000 ML 100 ML IVCONT ×2 (09:50→20:59)
--- OUTSIDE RECORDS SUMMARY | 2024-06-22 10:18 | XMS_ITS | Clinical Summary ---
Author Organization Unknown Care Team Providers Care Profile Mill Operator Tape Control Name Role Phone ALAN COBIAN, BEVERLY Unavailable Unavailable BALWINDER FLANAGAN, SIMI Unavailable Unavailable SHERI FLANAGAN, SANJANA Unavailable Unavailable Payers Payer Name Policy Type Policy Number Effective Date Expira tion Date [place]N [id number] ON DEMAND MEDICARE - [facility] BILLING - ABN [id number] Problems Condition Name Condition Details Condition Category [...] 10-04 00:00: 00 03-27 23:59 :00 No [id number] 200 mg DAILY 200 mg DAILY (route: oral) Alternate Route: By mouth. Med Classific ation: Cardiovas cular Therapy Agents benztropine 0.5 mg tablet 06-27 00:00: 00 Yes [id number] 0.5 mg TWICE A DAY 0.5 mg TWICE A DAY (route: oral) Alternate Route: BY MOUTH. Med Classific ation: Central Nervous System Agents Colace 100 mg capsule 08-13 00:00: 00 Yes [id number] 100 mg 2 TIMES DAILY 100 mg 2 TIMES DAILY (route: oral) Med Classific ation: Gastroint estinal Therapy Agents divalproex ER 500 mg tablet,exte nded release 24 hr 06-27 00:00: 00 Yes [id number] 500 mg AT BEDTIME 500 mg A T BEDTIME (route: oral) Med Classific ation: Central Nervous System Agents fluphenazin e decanoate 25 mg/mL injection solution 06-18 00:00: 00 Yes [id number] 25 mg 375 MG (15 ML) INTRAMUSCU LARLY ONCE EVERY 25 mg 375 MG (15 ML) INTRAMUSCU LARLY ONCE EVERY (route: injection) Med Classific ation: Central Nervous System Agents furosemide 40 mg tablet 08-13 00:00: 00 12-27 23:59 :00 No [id number] 40 mg DAILY 40 mg DAILY (route: oral) Med Classific ation: Cardiovas cular Therapy Agents loratadine 10 mg capsule 06-30 00:00: 00 Yes [id number] 10 mg ONCE A DAY 10 mg ON CE A DAY (route: oral) Alternate Route: BY MOUTH. Med Classific ation: Respirato ry Therapy Agents lorazepam 0.5 mg tablet 06-23 00:00: 00 Yes [id number] 0.5 mg TWICE A DAY EVERY DAY NEEDED NEEDED 0.5 mg TWICE A DAY EVERY DAY NEEDED NEEDED (route: oral) Alternate Route: BY MOUTH. Med Classific ation: Central Nervous System Agents melatonin 5 mg tablet 06-30 00:00: 00 Yes [id number] FOR INSOMNIA 5 mg AT BEDTIME WITH FOOD NEEDED 5 mg AT BEDTIME WITH FOOD NEEDED (route: oral) Alternate Route: BY MOUTH. Med Classific ation: Central Nervous System Agents metoprolol tartrate 25 mg tablet 08-13 00:00: 00 Yes [id number] 25 mg DAILY 25 mg DAILY (route: oral) Med Classific ation: Cardiovas cular Therapy Agents nicotine 7 mg/24 hr daily transdermal patch 06-30 00:00: 00 02-20 23:59 :00 No [id number] 7 mg EVERY DAY DIRECTED 7 mg EVERY DAY DIRECTED (route: transderma l) Med Classific ation: Chemical Dependenc y, Agents to Treat olanzapine 20 mg tablet 2-09 00:00: 00 Yes [id number] 20 mg EVERYDAY AT BEDTIME 20 mg EVERYDAY AT BEDTIME (route: oral) Alternate Route: BY MOUTH. Med Classific ation: Central Nervous System Agents olanzapine 5 mg tablet 7-31 00:00: 00 Yes [id number] 5 mg BEDTIME 5 mg BEDTIME (route: oral) Med Classific ation: Central Nervous System Agents omeprazole 20 mg capsule,del ayed release 207 00:00: 00 Yes [id number] 20 capsule EVERY DAY 20 capsule EVERY DAY (route: oral) Alternate Route: BY MOUTH. Med Classific ation: Gastroint estinal Therapy Agents tamsulosin 0.4 mg capsule 08-13 00:00: 00 Yes [id number] 0.4 capsule DAILY 0.4 capsule DAILY (route: oral) Med Classific ation: Genitouri nary Therapy ergocalcife rol (vitamin D2) 1,250 mcg (50,000 unit) capsule 205 00:00: 00 Yes [id number] 1250 mcg ONCE A WEEK 1250 mcg ONCE A WEEK (route: oral) Alternate Route: BY MOUTH. Med Classific ation: Electroly te Balance-N utritiona l Products Xarelto 15 mg tablet 08-13 00:00: 11-14 10:17 :57.2 27 No [id number] 15 mg DAILY 15 mg DAILY (route: oral) Med Classific ation: Hematolog ical Agents sulfamethox azole 400 mg-trimetho prim 80 mg tablet 8-16 00:00: 00 02-20 23:59 :00 No [id number] 400 mg 2 TIMES DAILY 400 mg 2 TIMES DAILY (route: oral) Med Classific ation: Anti-Infe ctive Agents amiodarone 100 mg tablet 2019-05 1-22 00:00: 00 05-15 23:59 :00 No [id number] 100 mg DAILY 100 mg DAILY (route: oral) Med Classific ation: Cardiovas cular Therapy Agents Xarelto 20 mg tablet 7- 00:00: 00 Yes [id number] 20 mg DAILY 20 mg DAILY (route: oral) Med Classific ation: Hematolog ical Agents Lasix 40 mg tablet 8- 00:00: 00 Yes [id number] 40 mg DAILY 40 mg DAILY (route: oral) Med Classific ation: Cardiovas cular Therapy Agents Immunizations Ordered Immunization Name Filled Immunization Name Date Status Comments Refusal Reason INFLUENZA, TIV (INACTIVATED) 2018-08-13 00:00:00 INFLUENZA, TIV (INACTIVATED) 2018-01-28 00:00:00 Vital Signs Vital Name Observation Time Observation Value Commen ts Temperature 2024-06-17 11:53:00.000 97.8 [degF] Temperature 2024-06-03 12:50:00.000 97.3 [degF] Temperature 2024-05-27 11:09:00.000 97.8 [degF] Temperature 2024-05-20 10:37:00.000 97.8 [degF] Pulse 2024-06-17 11:53:00.000 76 /min Pulse 2024-06-03 12:50:00.000 82 /min Pulse 2024-05-27 11:09:00.000 76 /min Pulse 2024-05-20 10:37:00.000 86 /min Respirations 2024-06-17 11:53:00.000 16 /min Respirations 2024-06-03 12:50:00.000 16 /min Respirations 2024-05-27 11:09:00.000 16 /min Respirations 2024-05-20 10:37:00.000 16 /min Systolic Blood Pressure 2024-06-17 11:53:00.000 121 mm [Hg] Systolic Blood Pressure 2024-06-03 12:50:00.000 131 mm [Hg] Systolic Blood Pressure 2024-05-27 11:09:00.000 134 mm [Hg] Systolic Blood Pressure 2024-05-20 10:37:00.000 126 mm [Hg] Diastolic Blood Pressure 2024-06-17 11:53:00.000 79 mm [Hg] Diastolic Blood Pressure 2024-06-03 12:50:00.000 78 mm [Hg] Diastolic Blood Pressure 2024-05-27 11:09:00.000 81 mm [Hg] Diastolic Blood Pressure 2024-05-20 10:37:00.000 86 mm [Hg] Plan of Treatment Planned Activity [...] STRATEGIES.] Future Scheduled Test SKILLED NU RSE WILL MAINTAIN SITUATIONAL AWARENESS FOR SAFETY AND WILL NOTIFY CLINICAL VOCAL MUSIC INSTRUCTOR AND PHYSICIAN/PROVIDER WITH ANY CHANGE IN CONDITION. [code = SKILLED NURSE WILL MAINTAIN SITUATIONAL AWARENESS FOR SAFETY AND WILL NOTIFY CLINICAL VOCAL MUSIC INSTRUCTOR AND PHYSICIAN/PROVIDER WITH ANY CHANGE IN CONDITION.] Future Scheduled Test SKILLED NU RSE TO O/A OF PATIENTS MENTAL/BEHAVIORAL STATUS, ASSESS VITAL SIGNS WEEKLY, ALLOW 2 PRNS FOR MEDICATION MANAGEMENT. [code = SKILLED NURSE TO O/A OF PATIENTS MENTAL/BEHAVIORAL STATUS, ASSESS VITAL SIGNS WEEKLY, ALLOW 2 PRNS FOR MEDICATION MANAGEMENT.] Future Scheduled Test SKILLED NU RSE FOR [...] PROBLEMS.] Future Scheduled Test SKILLED NU RSE FOR [...] INTERVENTION.] Future Scheduled Test SKILLED NU RSE TO [...] ANXIETY AND MAINTAIN SAFETY.] Future Scheduled Test MEDICATION S WILL BE HELD AND STORED IN LOCKBOX [code = MEDICATIONS WILL BE HELD AND STORED IN LOCKBOX] Future Scheduled Test SKILLED NU RSE TO PRE-POUR MEDICATION PER MEDICATION LIST WEEKLY. [code = SKILLED NURSE TO PRE-POUR MEDICATION PER MEDICATION LIST WEEKLY.] Future Scheduled Test SKILLED NU RSE TO PROVIDE TEACHING ON SIGNS AND SYMPTOMS AND MANAGEMENT OF HYPERTENSION. [code = SKILLED NURSE TO PROVIDE TEACHING ON SIGNS AND SYMPTOMS AND MANAGEMENT OF HYPERTENSION.] Goal 2018-12-08 [facility] WITH HIS MEN'S GROUP MORE FREQUENTLY AND TO GRADUATE FROM THE GROUP. Goal 2018-10-08 Patient Goal - T AKING MY MEDS WITH NO HELP Goal 2019-02-04 [facility] HIS [employer] GROUP TO A [email or web address] GROUP Goal 2019-04-06 Patient Goal - WORKING [...] 2024-03-11 Patient Goal - TAKING MEDS Goal 2024-05-06 Patient Goal - TAKING MEDS Goal Patient Goal - TAKING MEDS Goal Provider Goal - A PLAN OF CARE WILL BE ESTABLISHED THAT MEETS PATIENT'S SENIOR CARE NEEDS AND INCLUDES PATIENT GOAL FOR HOME HEALTH. Goal Provider Goal - PATIENT/CAREGIVER WILL VERBALIZE/DEMONSTRATE EFFECTIVE HOME SAFETY AND FALL PREVENTION STRATEGIES THROUGHOUT CERTIFICATION PERIOD. Goal Provider Goal - PATIENT WILL REMAIN SAFE IN THE COMMUNITY AND WILL BE FREE OF DANGER TO SELF AND OTHERS THROUGHOUT THE CERTIFICATION PERIOD. Goal Provider Goal - ALTERED MENTAL/BEHAVIORAL STATUS WILL BE IDENTIFIED PROMPTLY AND INTERVENTION INITIATED QUICKLY TO MINIMIZE ASSOCIATED RISKS THROUGHOUT CERTIFICATION PERIOD. Goal Provider Goal - CHANGE [...] THROUGHOUT CERTIFICATION PERIOD. Goal Provider Goal - MEDICATION WILL BE STORED IN LOCKBOX FOR SAFETY. Goal Provider Goal - PATIENT WILL COMPLY WITH MEDICATION WHEN SKILLED NURSE PRE-POURS MEDICATION THROUGHOUT CERTIFICATION PERIOD. Goal Provider Goal - PATIENT/CAREGIVER WILL VERBALIZE SIGNS AND SYMPTOMS OF HYPERTENSION AND WILL BE ABLE TO DEMONSTRATE ABILITY TO MANAGE EXACERBATION BY END OF THE EPISODE. Encounters Start Date/Time End Date/Time Encounter Type Admission Type Attending [facility] Facility Care Department Encounter ID Discharge Date Discharge Status Discharge Condition Discharge Reason Percent Goals Met 2016-02-23 00:00:00 2024-07-09 00:00:00 Outpatient RECERTIFIC ATSANJANA PAREDES [facility] [id number] 36.00
--- OUTSIDE RECORDS SUMMARY | 2024-06-22 10:18 | XMS_ITS | Clinical Summary ---
Author Organization [facility] Facility Address [address] [place] [id number] Care Team Providers Care Gear Coding Machine Operator Name Role Phone Rajesh Watts MD Primary Care Provider [phone] Allergies Active Allergy Reactions Criticality Noted Date Comments Amoxicillin Other (see comments) 12/18/2022 Haloperidol Other (see comments) 12/18/2022 Mirtazapine Other (see comments) 12/18/2022 Penicillins Other (see comments) 12/18/2022 Verapamil Rash Low 12/18/2022 Medications acetaminophen (TYLENOL) 500 MG tablet Take 500 mg by mouth every 8 (eight) hours if needed for mild pain Active Albuterol Sulfate 108 (90 Base) MCG/ACT aerosol powder Inhale Activ e amiodarone (PACERONE) 100 MG tablet Take 100 mg by mouth 1 (one) time each day Active ascorbic acid (VITAMIN C) 500 MG tablet Take 500 mg by mouth 1 (one) time each day Active benztropine (COGENTIN) 0.5 MG tablet Take 0.5 mg by mouth in the morning and 0.5 mg in the evening. Active cholecalciferol (VITAMIN D-3) 25 MCG (1000 UT) capsule Take 1,000 Units by mouth 1 (one) time each day Active divalproex (DEPAKOTE) 500 MG 24 hr tablet Take 1,500 mg by mouth 1 (one) time each day Do not crush, chew, or split. Active docusate sodium (COLACE) 100 MG capsule Take 100 mg by mouth in the morning and 100 mg in the evening. Active fluPHENAZine decanoate (PROLIXIN) 25 MG/ML injection Inject 37.5 mg into the shoulder, thigh, or buttocks every 14 (fourteen) days Active fluticasone (FLONASE) 50 MCG/ACT nasal spray Administer 1 spray into each nostril 1 (one) time each day Active furosemide (LASIX) 40 MG tablet Take 40 mg by mouth 1 (one) time each day in the morning Active loratadine (CLARITIN) 10 MG tablet Take 10 mg by mouth 1 (one) time each day Active LORazepam (ATIVAN) 0.5 MG tablet Take 0.5 mg by mouth in the morning and 0.5 mg in the evening. Active Melatonin 5 MG tablet Take 4 mg by mouth at bed time Active metoprolol succinate XL (TOPROL XL) 25 MG 24 hr tablet Take 25 mg by mouth 1 (one) time each day Do not crush or chew. Active OLANZapine (ZyPREXA) 20 MG tablet Take 20 mg by mouth every night Active OLANZapine (ZyPREXA) 5 MG tablet Take 5 mg by mouth every night Active omeprazole (PriLOSEC) [address] capsule Take 20 mg by mouth 1 (one) time each day Do not crush or chew. Active rivaroxaban (XARELTO) 20 MG tablet Take 20 mg by mouth 1 (one) time each day with dinner Active tamsulosin (FLOMAX) 0.4 MG 24 hr capsule Take 0.4 mg by mouth 1 (one) time each day Active Active Problems Problem Noted Date Diagnosed Date Chronic kidney disease, stage 2 (mild) 3 Edema 02/20/2023 Hypo-osmolality and hyponatremia 02/20/2023 Essential hypertension 12/18/2022 3 Hyperkalemia 12/18/2022 12/18/2022 Hypertensive renal disease 12/18/202212/18 Disorder of kidney and/or ureter 12/18/2022 Family History Medical History Relation Comments Heart disease Father Hypertension Father Diabetes Mother Hypertension Mother Relation Status Comments Father Mother Social History Tobacco Use Types Packs/Day Years Used Date Smoking Tobacco: Every Day Cigarettes Smokeless Tobacco: Never Tobacco Cessation:Counseling Given: No Alcohol Use Standard Drinks/Week Comments Never 0 (1 standard drink = 0.6 oz pur e alcohol) Sex and Gender Information Value Date Recorded Sex Assigned at Not on file Legal Sex Male 5:13 PM EST Gender Identity Not on file Sexual Orientation Not on file Last Filed Vital Signs Vital Sign Reading Time Taken Comments Blood Pressure 142/64 02/20/2023 2:05 PM EDT Pulse 102 02/20/2023 2:05 PM EDT Temperature - - Respiratory Rate - - Oxygen Saturation - - Inhaled Oxygen Concentration - - Weight 110 kg (242 lb) 02/20/2023 2:05 PM EDT Height 180.3 cm (5' 11 ) 02/04/2019 12:00 PM EDT Body Mass Index 33.75 02/04/2019 12:00 PM EDT Plan of Treatment Health Maintenance Due Date Last Done Comments Pneumococcal Vaccine: 65+ Ye ars (1 of 2 - PCV) 1966 Pneumococcal Vaccine: Pediat rics (0 to 5 Years) and At-Risk Patients (6 to 64 Years) (1 of 2 - PCV) 1966 Colorectal Cancer Screening: Annual FOBT 08/11/2007 Colorectal Cancer Screening: Colonoscopy 08/11/2007 Colorectal Cancer Screening: Sigmoidoscopy 08/11/2007 Influenza Vaccine (#1) 2024 Hepatitis B Vaccine Aged Out No longe r eligible based on patient's age to complete this topic Insurance MEDICARE [place]ICAID [place] [address] [place] [address] [place]ICARE [place] Care Teams Gear Coding Machine Operator Relationship Specialty Start Date End Date Rajesh Watts MD [address] [place] [address] PCP - General 05/22/20
--- OUTSIDE RECORDS SUMMARY | 2024-06-22 10:18 | XMS_ITS | Clinical Summary ---
Author Organization Unknown Care Team Providers Care Rehabilitation Therapist Name Role Phone ALAN COBIAN, BEVERLY Unavailable Unavailable BALWINDER FLANAGAN, SIMI Unavailable Unavailable SHERI FLANAGAN, SANJANA Unavailable Unavailable Payers Payer Name Policy Type Policy Number Effective Date Expira tion Date [place] - ABN [id number] ON DEMAND MEDICARE - [facility] BILLING - ABN [id number] Problems Condition Name Condition Details Condition Category [...] 10-04 00:00: 00 03-27 23:59 :00 No [id number] 200 mg DAILY 200 mg DAILY (route: oral) Alternate Route: By mouth. Med Classific ation: Cardiovas cular Therapy Agents benztropine 0.5 mg tablet 06-27 00:00: 00 Yes [id number] 0.5 mg TWICE A DAY 0.5 mg TWICE A DAY (route: oral) Alternate Route: BY MOUTH. Med Classific ation: Central Nervous System Agents Colace 100 mg capsule 08-13 00:00: 00 Yes [id number] 100 mg 2 TIMES DAILY 100 mg 2 TIMES DAILY (route: oral) Med Classific ation: Gastroint estinal Therapy Agents divalproex ER 500 mg tablet,exte nded release 24 hr 06-27 00:00: 00 Yes [id number] 500 mg AT BEDTIME 500 mg A T BEDTIME (route: oral) Med Classific ation: Central Nervous System Agents fluphenazin e decanoate 25 mg/mL injection solution 06-18 00:00: 00 Yes [id number] 25 mg 375 MG (15 ML) INTRAMUSCU LARLY ONCE EVERY 25 mg 375 MG (15 ML) INTRAMUSCU LARLY ONCE EVERY (route: injection) Med Classific ation: Central Nervous System Agents furosemide 40 mg tablet 08-13 00:00: 00 12-27 23:59 :00 No [id number] 40 mg DAILY 40 mg DAILY (route: oral) Med Classific ation: Cardiovas cular Therapy Agents loratadine 10 mg capsule 06-30 00:00: 00 Yes [id number] 10 mg ONCE A DAY 10 mg ON CE A DAY (route: oral) Alternate Route: BY MOUTH. Med Classific ation: Respirato ry Therapy Agents lorazepam 0.5 mg tablet 06-23 00:00: 00 Yes [id number] 0.5 mg TWICE A DAY EVERY DAY NEEDED NEEDED 0.5 mg TWICE A DAY EVERY DAY NEEDED NEEDED (route: oral) Alternate Route: BY MOUTH. Med Classific ation: Central Nervous System Agents melatonin 5 mg tablet 06-30 00:00: 00 Yes [id number] FOR INSOMNIA 5 mg AT BEDTIME WITH FOOD NEEDED 5 mg AT BEDTIME WITH FOOD NEEDED (route: oral) Alternate Route: BY MOUTH. Med Classific ation: Central Nervous System Agents metoprolol tartrate 25 mg tablet 08-13 00:00: 00 Yes [id number] 25 mg DAILY 25 mg DAILY (route: oral) Med Classific ation: Cardiovas cular Therapy Agents nicotine 7 mg/24 hr daily transdermal patch 06-30 00:00: 00 02-20 23:59 :00 No [id number] 7 mg EVERY DAY DIRECTED 7 mg EVERY DAY DIRECTED (route: transderma l) Med Classific ation: Chemical Dependenc y, Agents to Treat olanzapine 20 mg tablet 2-09 00:00: 00 Yes [id number] 20 mg EVERYDAY AT BEDTIME 20 mg EVERYDAY AT BEDTIME (route: oral) Alternate Route: BY MOUTH. Med Classific ation: Central Nervous System Agents olanzapine 5 mg tablet 7-31 00:00: 00 Yes [id number] 5 mg BEDTIME 5 mg BEDTIME (route: oral) Med Classific ation: Central Nervous System Agents omeprazole 20 mg capsule,del ayed release 207 00:00: 00 Yes [id number] 20 capsule EVERY DAY 20 capsule EVERY DAY (route: oral) Alternate Route: BY MOUTH. Med Classific ation: Gastroint estinal Therapy Agents tamsulosin 0.4 mg capsule 08-13 00:00: 00 Yes [id number] 0.4 capsule DAILY 0.4 capsule DAILY (route: oral) Med Classific ation: Genitouri nary Therapy ergocalcife rol (vitamin D2) 1,250 mcg (50,000 unit) capsule 205 00:00: 00 Yes [id number] 1250 mcg ONCE A WEEK 1250 mcg ONCE A WEEK (route: oral) Alternate Route: BY MOUTH. Med Classific ation: Electroly te Balance-N utritiona l Products Xarelto 15 mg tablet 08-13 00:00: 11-14 10:17 :57.2 27 No [id number] 15 mg DAILY 15 mg DAILY (route: oral) Med Classific ation: Hematolog ical Agents sulfamethox azole 400 mg-trimetho prim 80 mg tablet 8-16 00:00: 00 02-20 23:59 :00 No [id number] 400 mg 2 TIMES DAILY 400 mg 2 TIMES DAILY (route: oral) Med Classific ation: Anti-Infe ctive Agents amiodarone 100 mg tablet 2019-05 1-22 00:00: 00 05-15 23:59 :00 No [id number] 100 mg DAILY 100 mg DAILY (route: oral) Med Classific ation: Cardiovas cular Therapy Agents Xarelto 20 mg tablet 7- 00:00: 00 Yes [id number] 20 mg DAILY 20 mg DAILY (route: oral) Med Classific ation: Hematolog ical Agents Lasix 40 mg tablet 8- 00:00: 00 Yes [id number] 40 mg DAILY 40 mg DAILY (route: [...] AWARENESS FOR SAFETY AND WILL NOTIFY CLINICAL ELECTRONIC INTELLIGENCE OFFICER AND PHYSICIAN/PROVIDER WITH ANY CHANGE IN CONDITION. [code = SKILLED NURSE WILL MAINTAIN SITUATIONAL AWARENESS FOR SAFETY AND WILL NOTIFY CLINICAL ELECTRONIC INTELLIGENCE OFFICER AND PHYSICIAN/PROVIDER WITH ANY CHANGE IN CONDITION.] [...] HYPERTENSION.] Goal 2018-12-08 [facility] TO GO OUT WITH HIS MEN'S GROUP MORE FREQUENTLY AND TO GRADUATE FROM THE GROUP. Goal 2018-10-08 Patient Goal - T AKING MY MEDS WITH NO HELP Goal 2019-02-04 [facility] HIS [employer] [facility] TO A [employer] [facility] Goal 2019-04-06 Patient Goal - WORKING [...] End Date/Time Encounter Type Admission Type Attending [facility] [place] Facility Care Department Encounter ID Discharge Date Discharge Status Discharge Condition Discharge Reason Percent Goals Met 2016-02-23 00:00:00 2024-07-09 00:00:00 [facility] [id number] 36.00
--- NOTE | 2024-06-22 12:19 | HO.OPN-COLON ---
Colonoscopy Operative Note Operative Note Date of Service: 06/22/24 Narrative: Operative Information Procedure Description: Colonoscopy Indication: screening Anesthesia: MAC COLONOSCOPY Instrument: Olympus variable stiffness adult scope 190L Colonoscopy Monitoring: Vital signs and clinical assessment, continuous EKG monitoring, Pulse oximetry, Carbon Dioxide monitoring and blood pressure monitoring were done throughout the procedure. Colon withdrawal time was 18 minutes. Procedure: The patient was placed in the left lateral decubitis position and pre-procedure medications were administered. After a digital rectal examination of the ano-rectum, the video colonoscope was inserted into the rectum and advanced through the colon to the cecum/TI. The colonoscope was slowly withdrawn in a retrograde panoramic fashion and the colon mucosa was carefully examined including a retroflexed view of the rectum. Findings and interventions are described below. Procedure Difficulty: moderate, pressure applied Findings: Terminal Ileum-normal Cecum:normal Ascending Colon: distal AC, sessile polyp measuring 14-16 mm, injected with 1-2 cc of epinephrine then generous lift with eleview and removed with hot snare with x 2 clips applied to close defect Transverse Colon - 6-8 mm sessile polyp removed with cold snare Descending Colon:normal Sigmoid Colon: moderate diverticulosis Rectum: Retroflexion with small internal hemorrhoids seen, grade I Anorectum - normal Intervention: cold snare, hot snare with eleview and epinephrine injection, clips Colon preparation: [place] Bowel Preparation Scale Right colon; 2 Transverse colon: 2 Left colon; 2 (0 = Unprepared colon segment with mucosa not seen due to solid stool that cannot be cleared. 1 = Portion of mucosa of the colon segment seen, but other areas of the colon segment not well seen due to staining, residual stool and/or opaque liquid. 2 = Minor amount of residual staining, small fragments of stool and/or opaque liquid, but mucosa of colon segment seen well. 3 = Entire mucosa of colon segment seen well with no residual staining, small fragments of stool or opaque liquid) Impression and Post Procedure Diagnosis: diverticulosis colon polyps internal hemorrhoids Plan: High fiber diet leaflet Avoid straining at stool, epsom salts and sitz bath, anusol supps or cream Repeat Colonoscopy in 6-12 months or earlier if clinically indicated will give him ABx to prevent post polypectomy syndrome for 1 week Above findings were reviewed with the patient and relevant handouts were provided if indicated.
[2024-06-22] MEDS: Amiodarone/Dextrose 150 MG/100 ML PLAST..BAG 600 MG IV (13:03)
[2024-06-22] MEDS: ceFAZolin Sodium/Dextrose,Iso 2 GM/50 ML PIGGYBACK IV (13:16)
[2024-06-22] MEDS: metroNIDAZOLE/NS 500 MG/100 ML PIGGYBACK 100 MG IV (13:20)
--- NOTE | 2024-06-22 15:36 | P.HPHOSP_ITS ---
History of Present Illness Date of Service: 06/22/24 Chief Complaint: Tachycardia 63/m with history of schizoaffective disorder, bipolar type Insomnia Lumbar degenerative disease, obesity, Substance abuse in remission, cardiomyopathy, AFIB on xarelto and amiodarone, underwent screening colooscopy for tuberoscle rosis. The procedure was uneventful but after the procedure, he was in afib with RVR and was given 150 mg of amiodarone and HR has since slowed down is presently in the 70s and has no othe complaint. Review of Systems Review of Systems: no chest pain, no palpitations. All other negative [facility] Medical History Hyperkalemia Screening for malignant neoplasm of colon performed Encounter for screening colonoscopy Screening for tuberculosis Substance abuse in remission Smoker Anal irritation Allergic rhinitis Cardiomyopathy Obesity (BMI 30-39.9) Schizoaffective disorder, bipolar type Insomnia Lumbar degenerative disc disease Osteoarthritis of hips, bilateral Hyperkalemia Pure hypercholesterolemia Benign essential hypertension History of acute heart failure History of atrial flutter History of congestive heart failure History of cardiomyopathy HTN (hypertension) Paroxysmal atrial flutter Family History Father Hypertension CVD (cardiovascular disease) Mother Hypertension Diabetes Brother Mental health disorder Surgical History History of total hip replacement Social History Household Members: None Housing: Apartment Are you a primary physician assistant primary care to a significant other at home: No Do you presently have visiting nurse or other home services: No Alcohol intake: former Patient Tobacco Use Status: Former Tobacco user Tobacco use type: Cigarette Cigarettes Per Day: 6 Smoked in Last 30 Days: Yes e-Cigarette/Vaping Use: Never Used Patient Interested in Nicotine Replacement: No Second Hand Smoke Exposure: Yes Substance Use Type: Former Substance User Have you been hit, kicked, punched, or otherwise hurt by someone within the past year? If so, by whom?: No Are you DNR?: No Advance Directives: No Advance Directives Information Provided: Yes Recently lost weight without trying: No Nutrition Risks: No Nutritional Risk service: No Current occupational status: retired Cognitive needs: Yes (cane) Hearing needs: No Vision needs: Yes Meds Allergies Allergy/AdvReac Type Severity Reaction Status Date / Time Penicillins [PENICILLINS] Allergy Intermediate RASH Verified 04/27/24 15:53 haloperidol [Haldol] Allergy Unknown Unknown Verified 04/27/24 15:53 mirtazapine [Remeron] Allergy Unknown Unknown Verified 04/27/24 15:53 trazodone Allergy Unknown Unknown Verified 04/27/24 15:53 verapamil [Verelan] Allergy Unknown Unknown Verified 04/27/24 15:53 risperidone [From RISPERDAL] AdvReac Severe SEIZURE Verified 04/27/24 15:53 lithium [LITHIUM] AdvReac Intermediate LETHARGY, Verified 04/27/24 15:53 AKATHISIA, TD Active Medications: Current Medications Acetaminophen (Acetaminophen 325 Mg Tablet) 650 mg PO Q6H PRN PRN Reason: Pain, Mild 1-3,fever,headache Albuterol Sulfate (Albuterol Sulfate (0.083%) 2.5 Mg/3 Ml Vial.Neb) 2.5 mg INHALE ONCE PRN PRN Reason: Shortness of Breath/Wheezing Calcium Carbonate (Calcium Carbonate 750 Mg Tab.Chew) 750 mg PO Q4H PRN PRN Reason: Heartburn Lactated Ringer's (Lr) 1,000 mls @ 100 mls/hr IVCONT .Q10H [facility] Last Admin: 06/22/24 09:50 Dose: 100 mls/hr Magnesium Hydroxide (Milk Of Magnesia 30 Ml Oral.Susp) 30 ml PO DAILY PRN PRN Reason: Constipation Melatonin (Melatonin 3 Mg Tablet) 6 mg PO BEDTIME PRN PRN Reason: Insomnia Naloxone HCl (Naloxone Hcl 0.4 Mg/Ml Vial) 0.04 mg IVPUSH Q5M PRN PRN Reason: Excessive sedation or RR < 8 Sodium Chloride (0.9 % Sodium Chloride Flush 3 Ml Syringe) 3 ml IVFLUSH QSHIFT [facility] Home Medications ?Medication ?Instructions ?Recorded ?Confirmed ?Last Taken ?Type ascorbic acid (vitamin C) 500 mg 500 mg PO DAILY 03/13/20 04/27/24 Unknown History capsule benztropine 0.5 mg tablet 0.5 mg PO BID 03/13/20 04/27/24 Unknown History divalproex 500 mg tablet,extended 1,500 mg PO BEDTIME 03/13/20 04/27/24 Unknown History release 24 hr (Depakote ER) lorazepam 0.5 mg tablet 0.5 mg PO BID PRN Anxiety 03/13/20 04/27/24 Unknown History cholecalciferol (vitamin D3) 25 25 mcg PO DAILY 03/16/20 04/27/24 Unknown History mcg (1,000 unit) capsule olanzapine 20 mg tablet (Zyprexa) 20 mg PO BEDTIME 10/21/22 04/27/24 Unknown History olanzapine 5 mg tablet (Zyprexa) 5 mg PO BEDTIME 10/21/22 04/27/24 Unknown History fluphenazine decanoate 25 mg/mL 37.5 mg IM Q2W 06/25/23 04/27/24 Unknown History injection solution omeprazole 20 mg capsule,delayed 20 mg PO DAILY@0630 06/22/24 Unknown History release Physical Exam Vital Signs and Narrative: Vital Signs: Last Vital Signs Temp 98.8 F 06/22/24 12:30 Pulse 71 06/22/24 15:00 Resp 16 06/22/24 15:00 BP 109/85 06/22/24 15:00 Pulse Ox 100 06/22/24 15:00 O2 Del Method Room Air 06/22/24 15:00 O2 Flow Rate 6 06/22/24 15:00 BMI result Body Mass Index 35.4 Const: Other: General: AO X 3, no acute distress Resp: CTA bilateral CVS: S1,S2, iregular iregular GI: +BS, NT, no distention Skin: No rash Neuro: motor grossly intact Psych: appropriate affect Assessment and Plan (1) Chronic a-fib: Status: Acute Plan 63/m with history of schizoaffective disorder, bipolar type Insomnia Lumbar degenerative disease, obesity, Substance abuse in remission, cardiomyopathy, AFIB on xarelto and amiodarone, underwent screening colooscopy for tuberosclero sis. The procedure was uneventful but after the procedure, he was in afib with RVR and was given 150 mg of amiodarone and HR has since slowed down is presently in the 70s and has no othe complaint. Chronic afib with RVR that has now resolved. -resume home medications, xarelto in 3 days per gi Schizophrenia/mood disorder resume home meds once med rec done, Quality Stroke Does the patient have a stroke diagnosis?: No VTE Prior VTE?: No VTE Risk Level:: Medical - moderate - high VTE Device Contraindication: N/A - Device Ordered VTE Drug Contraindication: Treatment Not Indicated
[2024-06-22] MEDS: 0.9 % Sodium Chloride Flush 3 ML SYRINGE IVFLUSH (18:37)
--- NOTE | 2024-06-22 19:38 | PHA.MEDREC ---
Addendum entered by David Serrano [facility] 06/22/24 19:48: med rec reviewed Original Note: Pharmacy Consult ? Medication Reconciliation Pharmacy has completed the medication reconciliation. Spoke with patient and he seemed a little spacy when talking but was able to have him confirm what he is taking for medications. Patient was confused when I asked him the last time he took his medications; he states he stopped all his medications recently for the procedure but does not know when. He confirmed the Vitmain D2 tab once a week and states he takes it on Mondays but could not recall taking it or not Wednesday 06/21. He states he is still taking the fluphenazine decanoate 25 mg/mL injection solution once every 2 weeks and states he is due for it this . He confirmed the Nicotine 14mg/24hr patches and states he has one on now and has another one on hand when for when he changes it.
[2024-06-22] MEDS: Acetaminophen 325 MG TABLET 650 MG PO (20:58)
[2024-06-22] MEDS: Benztropine Mesylate 0.5 MG TABLET PO (20:59)
[2024-06-22] MEDS: Doxycycline Monohydrate 100 MG CAPSULE PO (20:59)
[2024-06-22] MEDS: OLANZapine 5 MG TABLET PO (20:59)
[2024-06-22] MEDS: OLANZapine 10 MG TABLET 20 MG PO (20:59)
[2024-06-22] MEDS: Divalproex Sodium ER 500 MG TAB.ER.24H 1500 MG PO (20:59)
[2024-06-22] MEDS: LORazepam 0.5 MG TABLET PO (21:02)
[2024-06-22] MEDS: Melatonin 3 MG TABLET 6 MG PO (21:12)
[2024-06-23] VITALS: BP 125/70; PULSE 76; RESP 20; TEMP 36.6; O2SAT 98
[2024-06-23 03:02] VITALS: BP 113/66; PULSE 95; RESP 20; TEMP 36.7; O2SAT 93
[2024-06-23 06:08] LABS: MANUAL DIFF FLAG NO
[2024-06-23 06:11] LABS: Basophils Absolute Auto 0.1 X10*3/uL (0.0-0.2); Basophils Percent Auto 0.6 % (0-2); Eosinophils Absolute Auto 0.1 X10*3/uL (0.0-0.4); Eosinophils Percent Auto 0.6 % (0-4); Hematocrit 33.4 % (42.0-52.0); Hemoglobin 11.3 g/dl (14.0-18.0); Imm Gran Abs Auto 0.05 X10*3/uL (0.00-0.03); Imm Gran Pct Auto 0.4 % (0.0-0.4); Lymphocytes Absolute Auto 2.3 X10*3/uL (1.2-4.9); Lymphocytes Percent Auto 18.9 % (20-40); Mean Corpuscular HGB Conc 33.8 g/dl (31.0-36.0); Mean Corpuscular Hemoglobin 31.8 pg (27.0-33.0); Mean Corpuscular Volume 94.1 fL (80.0-98.0); Mean Platelet Volume 9.6 fL (9.4-12.4); Monocytes Absolute Auto 1.2 X10*3/uL (0.1-1.2); Monocytes Percent Auto 9.4 % (2-11); Neutrophils Absolute Auto 8.5 x10*3/uL (2.0-8.3); Neutrophils Percent Auto 70.1 % (45-73); Platelet Count 209 X10*3/uL (160-400); Red Blood Count 3.55 X10*6/uL (4.60-5.80); Red Cell Distribution Width 13.2 % (11.0-16.0); White Blood Count 12.2 X10*3/uL (4.8-10.8)
[2024-06-23] MEDS: Omeprazole 20 MG CAPSULE.DR PO (06:13)
[2024-06-23] MEDS: Lactated Ringers 1,000 ML 100 ML IVCONT (06:13)
[2024-06-23 06:26] LABS: Alanine Aminotransferase 6 U/L (0-40); Albumin Level 3.1 g/dL (3.5-5.0); Alkaline Phosphatase 48 U/L (39-117); Anion Gap 11 (12-20); Aspartate Amino Transferase 19 U/L (5-37); Bilirubin Total 0.5 mg/dL (0.0-1.0); Blood Urea Nitrogen 11 mg/dL (9-16); Calcium 8.1 mg/dL (8.4-10.2); Carbon Dioxide 25 mmol/L (22-29); Chloride 106 mmol/L (96-108); Creatinine Clr Calc Pharmacy 101.3; Estimated Glomerular Filt Rate > 60; Glucose Random 86 mg/dL (60-115); Potassium 3.9 mmol/L (3.3-5.1); Sodium 138 mmol/L (135-145); Total Protein 6.5 g/dL (6.5-8.0)
[2024-06-23 07:10] VITALS: BP 118/63; PULSE 71; RESP 18; TEMP 36.7; O2SAT 98
--- NOTE | 2024-06-23 08:22 | MHC.CM.PN ---
CM met with Patient at bedside and addressed IMM with him, providing Patient with the original and a copy has been placed on the chart. Patient lives alone in an apartment and he uses a cane to assist with mobility. Patient has a FOOD AND BEVERAGE CONTROLLER 1 hour/day from [facility] and he is active with [facility]. Home/resume said services is Patient's goal and CM has initiated and will follow for dc planning. PCP is Dr. Rajesh Watts and Sister/Aniebel is the HCP. Patient will need assist with transport to home.
--- NOTE | 2024-06-23 08:43 | HO.POSTANES ---
Post Anesthesia Evaluation Post Anesthesia Evaluation Date of Service: 06/23/24 Vital Signs: Vital Signs Temp Pulse Resp BP Pulse Ox O2 Del Method 06/23/24 07:10 98.1 F 71 18 118/63 98 Room Air 06/23/24 03:02 98.1 F 95 20 113/66 93 Room Air 06/23/24 00:00 97.8 F 76 20 125/70 98 Room Air Anesthesia: Monitored Mental Status: Awake Pain Control: Satisfactory Hydration: Adequate Anesthesia-Related Issues: No Anes. Related Issues
[2024-06-23] MEDS: 0.9 % Sodium Chloride Flush 3 ML SYRINGE IVFLUSH (08:59)
[2024-06-23] MEDS: Ascorbic Acid 500 MG TABLET PO (09:00)
[2024-06-23] MEDS: Tamsulosin HCL 0.4 MG CAPSULE PO (09:00)
[2024-06-23] MEDS: Metoprolol Succinate ER 25 MG TAB.ER.24H PO (09:00)
[2024-06-23] MEDS: Benztropine Mesylate 0.5 MG TABLET PO (09:00)
[2024-06-23] MEDS: Cholecalciferol (Vitamin D3) 25 MCG TABLET PO (09:00)
[2024-06-23] MEDS: Doxycycline Monohydrate 100 MG CAPSULE PO (09:00)
[2024-06-23 11:02] VITALS: BP 133/70; PULSE 99; RESP 18; TEMP 36.8; O2SAT 98
[2024-06-23 11:47] VITALS: BP 133/70; PULSE 99; O2SAT 98
--- NOTE | 2024-06-23 11:47 | MHC.CM.PN ---
Per PT/Maxine, PT is recommending home with services; Patient is active with [facility], who has been made aware of today's dc. Patient will dc via [facility] at 1:45 PM today.RN & MD ARE AWARE.
--- NOTE | 2024-06-23 13:32 | PM.DS ---
DS: Providers Provider Date of Service: 06/23/24 Date of admission: 06/22/24 14:14 Date of discharge: 06/23/24 Primary care physician: Rajesh Watts MD DS: Diagnosis Discharge Diagnosis (1) Chronic a-fib: Status: Acute DS: Summary Hospital Course Hospital Course: Chief Complaint: Tachycardia 65/m with history of schizoaffective disorder, bipolar type Insomnia Lumbar degenerative disease, obesity, Substance abuse in remission, cardiomyopathy, AFIB on xarelto and amiodarone, underwent screening colooscopy for tuberosclerosis. The procedure was uneventful but after the procedure, he was in afib with RVR and was given 150 mg of amiodarone and HR has since slowed down is presently in the 70s and has no othe complaint. Hospital course: The patient was observed overnight and had no further incidents. Heart rate has remained controlled, and home medications have been resumed. However, given the size of the polyp removed and the risk of bleeding, the GI doctor recommends holding anticoagulation until June 25. Furthermore, the patient should be on prophylactic antibiotics with Ceftin and Flagyl for 7 days. He is going home with PT Time Attestation Discharge Coordination Time (in mins): 35 Quality: Safe Use of Opioids Does Pt have an Active Cancer Diagnosis on the Problem List?: No Quality: Stroke Does the patient have a stroke diagnosis?: No Physical Exam Vital Signs: Vital Signs: Last Vital Signs Temp 98.3 F 06/23/24 11:02 Pulse 99 06/23/24 11:47 Resp 18 06/23/24 11:02 BP 133/70 06/23/24 11:47 Pulse Ox 98 06/23/24 11:47 O2 Del Method Room Air 06/23/24 11:02 O2 Flow Rate 6 06/22/24 15:00 BMI result Body Mass Index 35.1 Const: Other: General: AO X 3, no acute distress Resp: CTA bilateral CVS: S1,S2, iregular iregular GI: +BS, NT, no distention Skin: No rash Neuro: motor grossly intact Psych: appropriate affect DS: Data Data Completed and Pending Pending studies at discharge: Pending at discharge 06/22/24 11:58 Surgical [PTH] Routine Labs on day of discharge: Laboratory Results - last 24 hr 06/23/24 05:51 WBC 12.2 H RBC 3.55 L Hgb 11.3 L Hct 33.4 L MCV 94.1 MCH 31.8 MCHC 33.8 RDW 13.2 Plt Count 209 MPV 9.6 Immature Gran % (Auto) 0.4 Neut % (Auto) 70.1 Lymph % (Auto) 18.9 L [place] % (Auto) 9.4 Eos % (Auto) 0.6 Baso % (Auto) 0.6 Lymph # (Auto) 2.3 [place] # (Auto) 1.2 Eos # (Auto) 0.1 Baso # (Auto) 0.1 Abs Immat Gran (auto) 0.05 H Absolute Neuts (auto) 8.5 H Absolute Nucleated RBC 0.000 Nucleated RBC % (auto) 0.0 Sodium 138 Potassium 3.9 Chloride 106 Carbon Dioxide 25 Anion Gap 11 L BUN 11 Creatinine 0.88 Estim Creat Clear Calc 101.3 Estimated GFR > 60 Random Glucose 86 Calcium 8.1 L D Total Bilirubin 0.5 AST 19 ALT 6 Alkaline Phosphatase 48 Total Protein 6.5 Albumin 3.1 L Discharge Plan Discharge Anticipated Discharge Date/Time: 06/23/24 13:22 Patient Disposition: Home Health Service Discharge Diagnosis: Afib with rvr Referrals: Jignesh Concepcion [Outside] - 1 Week Rajesh Watts MD [Primary Care Provider] - 1 Week Discharge Medications: New cefuroxime axetil 500 mg tablet 500 mg PO BID 7 Days Qty: 13 0RF metronidazole 500 mg tablet 500 mg PO Q8H Qty: 20 0RF Continued (DME) Ultra-Light Rollator Misc See Rx Instructions .Route Qty: 1 0RF Rx Instructions: As directed docusate sodium 100 mg capsule 100 mg PO BID PRN (Reason: for constipation) Qty: 60 10RF loratadine [Allergy Relief (loratadine)] 10 mg tablet 10 mg PO DAILY PRN (Reason: allergy symptoms) 90 Days Qty: 90 1RF metoprolol succinate 25 mg tablet extended release 24 hr 25 mg PO DAILY 90 Days Qty: 90 1RF tamsulosin 0.4 mg capsule 0.4 mg PO DAILY Qty: 90 0RF acetaminophen 500 mg tablet 500 mg PO Q8H PRN (Reason: for pain) Qty: 90 0RF omeprazole 20 mg capsule,delayed release(DR/EC) 20 mg PO DAILY@0630 ergocalciferol (vitamin D2) 1,250 mcg (50,000 unit) capsule 1,250 mcg PO MO melatonin 5 mg capsule 5 mg PO BEDTIME PRN (Reason: insomnia) lorazepam 0.5 mg tablet 0.5 mg PO BID PRN (Reason: Anxiety) ascorbic acid (vitamin C) 500 mg capsule 500 mg PO DAILY benztropine 0.5 mg tablet 0.5 mg PO BID Rx Instructions: Cogentin divalproex [Depakote ER] 500 mg tablet extended release 24 hr 1,500 mg PO BEDTIME Rx Instructions: mood stabilizer fluphenazine decanoate 25 mg/mL solution 37.5 mg IM Q2W Rx Instructions: (Prolixin) for thought disorder olanzapine [Zyprexa] 5 mg tablet 5 mg PO BEDTIME olanzapine [Zyprexa] 20 mg tablet 20 mg PO BEDTIME (DME) HOSPITAL BED See Rx Instructions .Route .MEDSUPPLY Qty: 1 0RF Rx Instructions: As directed albuterol sulfate [Ventolin HFA] 90 mcg/actuation HFA aerosol inhaler 2 puff PO QID PRN (Reason: shortness of breath or wheezing) Qty: 18 3RF cholecalciferol (vitamin D3) 25 mcg (1,000 unit) capsule 25 mcg PO DAILY Held Xarelto 20 mg tablet 20 mg PO DAILY Hold Instructions: Resume on 06/25/24. Discharge Orders: Discharge Order (Routine); Ordered 06/22/24 Ordered By: Theo Leigh Diet: Advance to usual diet Activity on Discharge: As tolerated Stand Alone Forms: Patient Portal Discharge page Print Language: Syriac Activity Restrictions/Additional Instructions: or so Care Plan Goals: recovery from colonoscopy with poly removal Health Concerns: colon polyp atrial fibrilation with high heart rate Plan of Treatment: restart xarelto on FridayJun 2024 antibiotics (metronidazole and Ceftin) sent for 1 week to prevent infection repeat colonoscopy in about 6 months Assessment: see above Patient Instructions: Diverticulosis (DC), Colorectal Polyps (DC), Diverticulosis Diet (GEN)
--- NOTE | 2024-06-23 13:43 | W.MHC.F2F ---
Service Date Service Date: 06/23/24 Encounter Date of encounter: 06/23/24 Reasons for Services Signs and symptoms assessed: weakness Reason for usp: medication management and teach disease management Reason for physical therapy: home safety and mobility and therapeutic exercises Homebound: Leaving the home is medically contraindicated at this time without the asist of a device and/or another person due th the listed conditions above and below. Reason homebound: unsteady gait / fall risk and weakness related to hospital stay Homebound supporting statement: homebound due to weakness, fall risk and need for help for another individual and therefore needs the assistance of another person Certification: Based on the above findings, I certify that this patient is confined to the home and needs intermittent usp care, physical therapy and/or speech therapy, or continues to need occupational therapy. The patient is under my care, and I have initiated the establishment of the plan of care. The patient will be followed by a physician who will periodically review the plan of care. Time Spent With Patient Time: Total time managing care of this patient today ____ minutes.
== END 2024-06-23 13:30 | disposition home health service (06) | DRG 310 ==
LOC: HO.SSSA 14:32 → HO.IMC 17:12
PROVIDERS: Internal Medicine Gastroenterology; Admitting Provider Internal Medicine; PCP Internal Medicine; Visit Provider Internal Medicine
PROC: 0DJD8ZZ Inspection of Lower Intestinal Tract, Via Natural or Artificial Opening Endoscopic (ICD-10-PCS; CPT 45378; principal; 2024-06-22 10:50)
DX: I48.20 Chronic atrial fibrillation, unspecified (principal); K63.5 Polyp of colon; I42.9 Cardiomyopathy, unspecified; K64.0 First degree hemorrhoids; F25.0 Schizoaffective disorder, bipolar type; K57.30 Diverticulosis of large intestine without perforation or abscess without bleeding; Z79.01 Long term (current) use of anticoagulants; Z79.899 Other long term (current) drug therapy
CPT/HCPCS: 36415; 80053; 85025; 88305; 93005; 97162; J0283; J0690; J1836; J2003; J2704; J7120

== ENCOUNTER → 2024-06-22 14:14 | Outpatient (BNV) | payer MEDICARE, MEDICAID, SELFPAY | PROVIDERS: Admitting Provider Internal Medicine; PCP Internal Medicine; Visit Provider Internal Medicine | DX: I48.20 Chronic atrial fibrillation, unspecified (principal) | CPT/HCPCS: G0180 ==

== ENCOUNTER 2024-07-28 14:29 | Outpatient (AMB) | payer MEDICARE, MEDICAID, SELFPAY ==
[2024-07-28 14:31] VITALS: BP 126/80; PULSE 100; O2SAT 98; BMI 34.5
--- NOTE | 2024-07-28 14:31 | A.OFFPC_ITS ---
Vital Signs 07/28/24 14:31 Height 5 ft 9 in Weight 233 lb 6 oz BMI 34.5 BP 126/80 Blood Pressure Location Lt brachial Position Sitting Pulse 100 Pulse Source Pulse Oximeter Pulse Oximetry (%) 98 Oxygen Delivery Method Room Air Intake Visit Reasons: 3 month Senior Education Specialist Required: No Accompanied by: Self / Same As Patient Allergies Penicillins [PENICILLINS] Allergy (Intermediate, Verified 07/28/24 15:02) RASH haloperidol [Haldol] Allergy (Unknown, Verified 07/28/24 15:02) Unknown mirtazapine [Remeron] Allergy (Unknown, Verified 07/28/24 15:02) Unknown trazodone Allergy (Unknown, Verified 07/28/24 15:02) Unknown verapamil [Verelan] Allergy (Unknown, Verified 07/28/24 15:02) Unknown risperidone [From RISPERDAL] Adverse Reaction (Severe, Verified 07/28/24 15:02) SEIZURE lithium [LITHIUM] Adverse Reaction (Intermediate, Verified 07/28/24 15:02) LETHARGY, AKATHISIA, TD Medication List - Last Reconciled 07/28/24 by Rajesh Watts MD acetaminophen 500 mg PO Q8H PRN ascorbic acid (vitamin C) 500 mg PO DAILY benztropine 0.5 mg PO BID cholecalciferol (vitamin D3) 25 mcg PO DAILY divalproex ER (Depakote ER) 1,500 mg PO BEDTIME docusate sodium 100 mg PO BID PRN ergocalciferol (vitamin D2) 1,250 mcg PO MO fluphenazine decanoate 37.5 mg IM Q2W [HOSPITAL BED As directed] loratadine (Allergy Relief (loratadine)) 10 mg PO DAILY PRN 90 days lorazepam 0.5 mg PO BID PRN melatonin 5 mg PO BEDTIME PRN metoprolol succinate ER 25 mg PO DAILY 90 days metronidazole 500 mg PO Q8H olanzapine (Zyprexa) 5 mg PO BEDTIME olanzapine (Zyprexa) 20 mg PO BEDTIME omeprazole 20 mg PO DAILY@0630 rivaroxaban (Xarelto) 20 mg PO DAILY tamsulosin 0.4 mg PO DAILY Ventolin HFA 90 mcg/actuation (albuterol sulfate) 2 puffs PO QID PRN NS walker (Ultra-Light Rollator misc) As directed Tobacco use date assessed: 07/28/24 Fall risk assessment: No Falls in past year Last assessed Fall Risk: 07/28/24 Dental Screening Dental Screen Date: 07/28/24 Did you have a dental visit in the last 12 months?: Yes Did you have a dental problem in the last 6 months where you did not have access to dental care?: No Was dental information given to patient?: Patient has dentist HPI 3 month HPI Details Patient comes in today for his follow up visit for his chronic medical conditions, including HTN, hyperlipidemia, PAF, cardiomyopathy, OA and lumbar DDD States that he currently feels okay He finally had his screening colonoscopy done last month for a positive Cologuard test that he did about a year ago but he went into atrial fibrillation with RVR following his procedure, requiring hospital admission and cardiology intervention He converted back to sinus rhythm with medical management alone and did not require any other interventional procedure - he reportedly converted back to SR after being given 150 mg of Amiodarone He has been continued on Xarelto 20 mg QD thromboembolism prophylaxis Patient currently denies any headaches or dizziness Denies any chest pains, no increased shortness of breath No nausea/vomiting, no abdominal pain No change in bowel habits noted Needs a couple of his Rx refilled PFSH Medical History Hyperkalemia Screening for malignant neoplasm of colon performed Encounter for screening colonoscopy Screening for tuberculosis Substance abuse in remission Smoker Anal irritation Allergic rhinitis Cardiomyopathy Obesity (BMI 30-39.9) Schizoaffective disorder, bipolar type Insomnia Lumbar degenerative disc disease Osteoarthritis of hips, bilateral Hyperkalemia Pure hypercholesterolemia Benign essential hypertension History of acute heart failure History of atrial flutter History of congestive heart failure History of cardiomyopathy HTN (hypertension) Paroxysmal atrial flutter Surgical History History of total hip replacement Family History Father Hypertension CVD (cardiovascular disease) Mother Hypertension Diabetes Brother Mental health disorder Social History Household Members: Other Housing: Apartment Housing Other:: independent living Are you a primary career technical counselor to a significant other at home: No Do you presently have visiting nurse or other home services: Yes Alcohol intake: former Patient Tobacco Use Status: Former Tobacco user Tobacco use type: Cigarette Cigarettes Per Day: 6 e-Cigarette/Vaping Use: Never Used Second Hand Smoke Exposure: Yes Substance Use Type: Former Substance User service: No Current occupational status: retired Current occupational exposures/hazards: No Cognitive needs: Yes (cane) Hearing needs: No Vision needs: Yes Questionnaire PHQ-9 Over the last 2 weeks, how often have you been bothered by any of the following problems? 1. Little interest or pleasure in doing things: not at all 2. Feeling down, depressed, or hopeless: not at all 3. Trouble falling or staying asleep, or sleeping too much: not at all 4. Feeling tired or having little energy: not at all 5. Poor appetite or overeating: several days 6. Feeling bad about yourself - or that you are a failure or have let yourself or your family down: several days 7. Trouble concentrating on things, such as reading the newspaper or watching television: not at all 8. Moving or speaking so slowly that other people could have noticed. Or the opposite - being so fidgety or restless that you have been moving around a lot more than usual: not at all 9. Thoughts that you would be better off or of hurting yourself in some way: not at all Total score: 2 Depression Screening Interpretation: Positive Depression Screening Follow-up: E xisting condition and In treatment Depression Screening Done: Yes 05121 - PHQ-9 Billing: Yes Source: Developed by Drs. Bimal Barrow, Melvi Padilla, Alexys Walls and colleagues, with an educational lynda from [employer]. Thrive Questionnaire Date Thrive assessed: 07/28/24 I am a: Patient What is your living situation today?: I have a steady place to live Within the past 12 months, did the food you bought not last and you didn't have the money to get more?: Never true Within the past 12 months, did you worry whether your food would run out before you got money to buy more?: Never true Do you have trouble paying for medicines?: No Do you have trouble getting transportation to medical appointments?: No Do you have trouble paying your heating and electricity bill?: No Do you have trouble taking care of your child, family member or friend?: No Do you have trouble with day-to-day activities such as bathing, preparing meals, shopping, managing finances, etc.?: No Are you currently unemployed and looking for a job?: No Are you interested in more education?: No Please select the resources that you would like help with: None Currently or been in a relationship where the following occur: No concerns reported THRIVE Score: 0 AUDIT C Alcohol Use Questionnaire (AUDIT-C) 1. How often do you have a drink containing alcohol?: Never 3. How often do you have six or more drinks on one occasion?: Never Total Score: 0 Score Reviewed/Action Taken: Yes IMELDA-7 AMB Questionnaire IMELDA-7 Date IMELDA - 7 assessed: 07/28/24 Feeling nervous, anxious, or on edge: 0 = Not at all Not being able to stop or control worryin = Not at all Worrying too much about different things: 0 = Not at all Trouble relaxin = Not at all Being so restless that it is hard to sit still: 0 = Not at all Becoming easily annoyed or irritable: 0 = Not at all Feeling afraid as if something awful might happen: 0 = Not at all Total IMELDA-7 score (0-4 normal; 5-9 mild; 10-14 moderate; 15-21 severe): 0 Source: Developed by Drs. Bimal Barrow, Melvi Padilla, Alexys Walls and colleagues, with an educational lynda from [employer]. Review of Systems Const Denies chills, Denies fatigue, Denies fever(s) and Denies headache(s) ENT Denies dysphagia, Denies dizziness, Denies otalgia, Denies headache(s), Denies neck pain, Denies odynophagia and Denies sore throat Card Denies chest pain, Denies palpitations and Denies dyspnea Resp Denies chest congestion, Denies cough and Denies dyspnea GI Denies abdominal pain, Denies constipation, Denies dysphagia, Denies heartburn, Denies diarrhea, Denies nausea, Denies odynophagia and Denies vomiting Denies dysuria, Reports nocturia and Reports urinary frequency Musc Reports back pain (over the lower back), Reports arthralgias (right hip) and Denies neck pain Skin/Breast Denies rash Neuro Denies dizziness and Denies headache(s) Psych Reports anxiety and Reports depression Endo Denies fatigue and Denies palpitations Physical exam (Primary Care) Vital Signs: Last Vital Signs Pulse 100 07/28/24 14:31 BP 126/80 07/28/24 14:31 Pulse Ox 98 07/28/24 14:31 Oxygen Delivery Method Room Air 07/28/24 14:31 BMI result Body Mass Index 34.5 Tobacco/Smoking Status: Tobacco use Status Tobacco use date assessed 07/28/24 07/28/24 14:37 Patient Tobacco Use Status Former Tobacco user 07/28/24 14:37 Tobacco use type Cigarette 07/28/24 14:37 e-Cigarette/Vaping Use Never Used 07/28/24 14:37 PHQ-9: PHQ-9 Score PHQ-9: Total score 2 07/28/24 15:03 Depression Screening Interpretation: Positive Depression Screening Follow-up: Existing condition and In treatment Thrive Assessment: Date of Thrive Assessment Date Thrive assessed 07/28/24 07/28/24 14:37 Currently or been in a relationship where the following occur: No concerns reported Const General: no acute distress and alert HENMT Ears: TM's normal bilaterally and EAC's normal Throat: Yes posterior oropharynx normal and Yes tonsils normal (no TP congestion noted) Neck Neck: Yes supple and No lymphadenopathy Thyroid: Thyroid normal Resp Auscultation: clear to auscultation bilaterally, no rales and no wheezes Cardio Rate: regular rate Rhythm: regular rhythm Heart sounds: no murmurs GI Palpation (GI): Soft to palpation and nontender Auscultation: normal bowel sounds General: Yes no CVA tenderness Back/Spine/Pelvis Back: no CVA tenderness Thoracic/Lumbar Spine: lumbar spinal tenderness (mild) Extrem General: Yes no clubbing, cyanosis or edema Right lower extremity: hip/thigh Details: tenderness Location: of the hip Results Reviewed Results Reviewed: Laboratory Tests 06/23/24 05:51 WBC 12.2 H Hgb 11.3 L Hct 33.4 L Plt Count 209 Sodium 138 Potassium 3.9 Creatinine 0.88 Estimated GFR > 60 Random Glucose 86 Calcium 8.1 L D AST 19 ALT 6 Coding Level of Care Code Est Pt Level 4 (21487) Complex EM visit Add On G2211 Diagnoses Paroxysmal atrial flutter I48.92 History of cardiomyopathy Z86.79 Pure hypercholesterolemia E78.00 Benign essential hypertension I10 Primary osteoarthritis of both hips M16.0 Osteoarthritis type: primary Degeneration of intervertebral disc of lumbar region with discogenic back pain M51.360 Disc-related pain type: discogenic back pain only Hyperkalemia E87.5 Positive colorectal cancer screening using Cologuard test R19.5 Insomnia, unspecified type G47.00 Insomnia type: unspecified Schizoaffective disorder, bipolar type F25.0 Obesity (BMI 30-39.9) E66.9 Additional Codes PHQ-9 - 24898 - PHQ-9 Billing: Yes ([id number]) Assessment & Plan Assessment & Plan (1) Paroxysmal atrial flutter: Code(s): I48.92 - Unspecified atrial flutter Category: Medical Plan: S/P DC cardioversion - he's had no recurrence of symptoms since his cardioversion until last month after his screening colonoscopy He was reportedly given Amiodarone 150 mg, after which he converted back to sinus rhythm He is currently only on Metoprolol ER 25 mg QD Continue Xarelto 20 mg QD for thromboembolism prophylaxis Follow-up with cardiology as scheduled (2) History of cardiomyopathy: Comment: LVEF of 25% time of presentation with heart failure and atrial flutter, suspected to be tachycardia mediated. Normalized after maintaining sinus rhythm to 55-60% Code(s): Z86.79 - Personal history of other diseases of the circulatory system Category: Medical Plan: Echocardiogram in 09/2020 showed a near normal EF of 55 to 60%; repeat echo done on 12/11/21 revealed (+) normal LV systolic function with mild LVH, moderately dilated left atrium, mild mitral regurgitation, normal RV systolic pressure, mildly dilated ascending aorta at 4 cm and no pericardial effusion noted His most recent echocardiogram in April 2023 revealed that the calculated ejection fraction is 54% by biplane method, with no evidence of regional wall motion abnormalities. There is mildly decreased right ventricular systolic function but no obvious valvular pathology is seen on this study. There is mild dilatation of the sinuses of Valsalva measuring 4.27 cm and mild dilatation of the ascending aorta measuring 3.90 cm Repeat echocardiogram last month (March 2024) revealed no changes from his previous echo - the left ventricular systolic function is normal. The visually estimated ejection fraction is between 55-60%. There are no obvious valvular pathology seen on this study. There is mild dilatation of the sinuses of Valsalva measuring 4.10 cm and mild dilatation of the ascending aorta measuring 3.80 cm Follow up with cardiology as scheduled (3) Pure hypercholesterolemia: Code(s): E78.00 - Pure hypercholesterolemia, unspecified Category: Medical Plan: Results of his labs done last month reviewed and discussed with patient but these did not include his fasting lipid profile Reinforced low-cholesterol diet Will recheck his labs and fasting lipids in 3 months for follow-up (4) Benign essential hypertension: Code(s): I10 - Essential (primary) hypertension Category: Medical Plan: Reinforced low sodium diet - goal is systolic BP of at least 120 to 130 mm or less Continue Metoprolol ER 25 mg QD (5) Osteoarthritis of hips, bilateral: Comment: S/P total left hip arthroplasty in 2016 Code(s): M16.0 - Bilateral primary osteoarthritis of hip Category: Medical Qualifiers: Osteoarthritis type: primary Qualified Code(s): M16.0 - Bilateral primary osteoarthritis of hip Plan: S/P total left hip arthroplasty in 2016 with (+) significant improvement of his hip pain States that his right hip pain has been progressively getting worse lately and he is now considering having a right hip arthroplasty done soon S/P physical therapy with some relief of his symptoms Follow-up with Orthopedics (Dr. Banda) as scheduled Continue Acetaminophen 500 mg every 8 hours as needed for pain (6) Lumbar degenerative disc disease: Code(s): M51.36 - Other intervertebral disc degeneration, lumbar region Category: Medical Qualifiers: Disc-related pain type: discogenic back pain only Qualified Code(s): M51.360 - Other intervertebral disc degeneration, lumbar region with discogenic back pain only Plan: Reinforced activity and weight lifting restrictions to help minimize the risks of aggravating his back symptoms (7) Hyperkalemia: Code(s): E87.5 - Hyperkalemia Category: Medical Plan: His potassium level is normal at 3.9 when last checked about a month ago Reinforced again to avoid foods high in potassium content Will continue to monitor his serum potassium level regularly (8) Positive colorectal cancer screening using Cologuard test: Comment: History hemorrhoids Code(s): R19.5 - Other fecal abnormalities Category: Medical Plan: Patient finally had his screening colonoscopy done last month for a positive Cologuard test that he did about a year ago He had 2 polyps that were removed that came out as tubular adenomas on pathology He is scheduled or repeat colonoscopy on 01/12/2025 (9) Insomnia: Code(s): G47.00 - Insomnia, unspecified Category: Medical Qualifiers: Insomnia type: unspecified Qualified Code(s): G47.00 - Insomnia, unspecified Plan: Sleep hygiene reinforced Continue OTC Melatonin 5 mg once a day at bedtime as needed (10) Schizoaffective disorder, bipolar type: Code(s): F25.0 - Schizoaffective disorder, bipolar type Category: Medical Plan: Continue Depakote ER 500 mg 3 tablets once a day at bedtime (mood stabilizer), ? Fluphenazine Decanoate solution (Prolixin) 25 milligram/mL? 1.5 mL (37.5 mg) IM injection every 2 weeks (thought disorder), ? Olanzapine tablet (Zyprexa) 10 mg 2.5 tablets (25 mg) once a day at bedtime (thought disorder), ? Benztropine Mesylate? (Cogentin) 0.5 mg? 1 tablet twice a day, and ? Lorazepam 0.5 mg 1 tablet twice a day as needed Follow up with psychiatry as scheduled (11) Obesity (BMI 30-39.9): Code(s): E66.9 - Obesity, unspecified Category: Medical Plan: Reinforced diet/exercise as tolerated/lose weight Plan Follow up in 3 months Orders: Orders Complete Blood Count Auto Diff 3 Months D64.9 - Anemia, unspecified Vitamin D 25-OH Total 3 Months E55.9 - Vitamin D deficiency, unspecified Lipid Panel 3 Months E78.00 - Pure hypercholesterolemia, unspecified Comprehensive [place]. Panel Fast 3 Months E78.00 - Pure hypercholesterolemia, unspecified TSH reflex Free T4 3 Months E78.00 - Pure hypercholesterolemia, unspecified UA CC w/rflx Micro + Cult 3 Months R30.0 - Dysuria Hemoglobin A1c 3 Months E11.9 - Type 2 diabetes mellitus without complications Microalbumin, Random (w Creat) 3 Months E11.9 - Type 2 diabetes mellitus without complications Medications: New furosemide 40 mg PO QAM 30 tabs 5RF edema nicotine 1 patch transdermal DAILY 28 days 28 ea 0RF F17.200 - Nicotine dependence, unspecified, uncomplicated rivaroxaban (Xarelto) must administer with evening meal 20 mg PO DAILY 90 days 90 tabs 1RF Refilled Ventolin HFA 90 mcg/actuation (albuterol sulfate) 2 puffs PO QID PRN 18 grams 3RF shortness of breath or wheezing NS tamsulosin 0.4 mg PO DAILY 90 caps 1RF Discontinued rivaroxaban (Xarelto) Discontinued Reason: Duplicate 20 mg PO DAILY
== END 2024-07-28 15:23 | disposition home or self-care (01) ==
LOC: HO.HMCH 14:30
PROVIDERS: PCP Internal Medicine; Visit Provider Internal Medicine
DX: I48.92 Unspecified atrial flutter (principal); Z86.79 Personal history of other diseases of the circulatory system; F25.0 Schizoaffective disorder, bipolar type; E78.00 Pure hypercholesterolemia, unspecified; I10 Essential (primary) hypertension; M16.0 Bilateral primary osteoarthritis of hip; M51.360 Other intervertebral disc degeneration, lumbar region with discogenic back pain only; E87.5 Hyperkalemia; R19.5 Other fecal abnormalities; G47.00 Insomnia, unspecified; E66.9 Obesity, unspecified

== ENCOUNTER → 2024-07-28 14:29 | Outpatient (BNVA) | payer MEDICARE, MEDICAID, SELFPAY | PROVIDERS: PCP Internal Medicine; Visit Provider Internal Medicine | DX: I48.92 Unspecified atrial flutter (principal); E78.00 Pure hypercholesterolemia, unspecified; I10 Essential (primary) hypertension; M16.0 Bilateral primary osteoarthritis of hip; M51.360 Other intervertebral disc degeneration, lumbar region with discogenic back pain only; E87.5 Hyperkalemia; G47.00 Insomnia, unspecified; R19.5 Other fecal abnormalities; F25.0 Schizoaffective disorder, bipolar type; E66.9 Obesity, unspecified; Z68.34 Body mass index [BMI] 34.0-34.9, adult; Z86.79 Personal history of other diseases of the circulatory system; Z71.3 Dietary counseling and surveillance | CPT/HCPCS: 96127; 99212 ==

== ENCOUNTER 2024-07-29 09:39 | Outpatient (REF) | payer MEDICARE, MEDICAID, SELFPAY ==
[2024-07-29 10:15] LABS: MANUAL DIFF FLAG NO
[2024-07-29 11:19] LABS: Basophils Percent Auto 0.8 % (0-2); Eosinophils Absolute Auto 0.2 X10*3/uL (0.0-0.4); Eosinophils Percent Auto 3.8 % (0-4); Hematocrit 39.2 % (42.0-52.0); Hemoglobin 13.2 g/dl (14.0-18.0); Imm Gran Abs Auto 0.01 X10*3/uL (0.00-0.03); Imm Gran Pct Auto 0.3 % (0.0-0.4); Lymphocytes Absolute Auto 2.1 X10*3/uL (1.2-4.9); Lymphocytes Percent Auto 53.5 % (20-40); Mean Corpuscular HGB Conc 33.7 g/dl (31.0-36.0); Mean Corpuscular Hemoglobin 31.7 pg (27.0-33.0); Mean Platelet Volume 10.1 fL (9.4-12.4); Monocytes Absolute Auto 0.5 X10*3/uL (0.1-1.2); Monocytes Percent Auto 13.3 % (2-11); Neutrophils Absolute Auto 1.1 x10*3/uL (2.0-8.3); Neutrophils Percent Auto 28.3 % (45-73); Platelet Count 243 X10*3/uL (160-400); Red Blood Count 4.17 X10*6/uL (4.60-5.80); Red Cell Distribution Width 13.5 % (11.0-16.0)
[2024-07-29 12:24] LABS: Alanine Aminotransferase 9 U/L (0-40); Albumin Level 3.8 g/dL (3.5-5.0); Anion Gap 12 (12-20); Aspartate Amino Transferase 18 U/L (5-37); Bilirubin Total 0.6 mg/dL (0.0-1.0); Blood Urea Nitrogen 12 mg/dL (9-16); Calcium 9.2 mg/dL (8.4-10.2); Carbon Dioxide 29 mmol/L (22-29); Chloride 100 mmol/L (96-108); Cholesterol 201 mg/dL (<200); Estimated Glomerular Filt Rate > 60; Glucose Fasting 90 mg/dL (60-99); HDL Cholesterol 54 mg/dL (>40); LDL Cholesterol Calculated 129 mg/dL (<100); Sodium 136 mmol/L (135-145); Triglycerides 90 mg/dL (<150)
[2024-07-29 12:25] LABS: Alkaline Phosphatase 65 U/L (39-117); TSH reflex Free T4 2.26 uIU/mL (0.32-4.0); Vitamin D 25-OH Total 35.7 ng/mL (>30)
[2024-07-29 13:52] LABS: Appearance Urine Clear; Color Urine Yellow; Glucose Urine UA Negative (Negative); Leukocyte Esterase Urine Negative (Negative); Nitrite Urine Negative (Negative); Urine Blood Negative (Negative); Urine Ketones Negative (Negative); Urine Protein Negative (Neg-Trace)
== END 2024-07-29 09:40 | disposition home or self-care (01) ==
LOC: HO.LAB 09:39
PROVIDERS: PCP Internal Medicine; Visit Provider Internal Medicine
DX: D64.9 Anemia, unspecified (principal); E78.00 Pure hypercholesterolemia, unspecified; E55.9 Vitamin D deficiency, unspecified; R30.0 Dysuria
CPT/HCPCS: 36415; 80053; 80061; 81003; 82306; 84443; 85025

== ENCOUNTER 2024-08-03 13:31 | Outpatient (AMB) | payer MEDICARE, MEDICAID, SELFPAY ==
[2024-08-03 13:50] VITALS: BP 124/80; PULSE 79; BMI 35.0
--- NOTE | 2024-08-03 13:50 | MHC.OFFVIS ---
Vital Signs 08/03/24 13:50 Height 5 ft 9 in Weight 236 lb 12.423 oz BMI 35.0 BP 124/80 Blood Pressure Location Rt brachial Position Sitting Pulse 79 Pulse Source Monitor Intake Visit Reasons: f/up after tests/ refill meds Flight Information Expediter Required: No Allergies Penicillins [PENICILLINS] Allergy (Intermediate, Verified 08/03/24 13:56) RASH haloperidol [Haldol] Allergy (Unknown, Verified 08/03/24 13:56) Unknown mirtazapine [Remeron] Allergy (Unknown, Verified 08/03/24 13:56) Unknown trazodone Allergy (Unknown, Verified 08/03/24 13:56) Unknown verapamil [Verelan] Allergy (Unknown, Verified 08/03/24 13:56) Unknown risperidone [From RISPERDAL] Adverse Reaction (Severe, Verified 08/03/24 13:56) SEIZURE lithium [LITHIUM] Adverse Reaction (Intermediate, Verified 08/03/24 13:56) LETHARGY, AKATHISIA, TD Medication List - Last Reconciled 08/03/24 by GRECIA Damon acetaminophen 500 mg PO Q8H PRN amiodarone 100 mg PO DAILY ascorbic acid (vitamin C) 500 mg PO DAILY benztropine 0.5 mg PO BID cholecalciferol (vitamin D3) 25 mcg PO DAILY divalproex ER (Depakote ER) 1,500 mg PO BEDTIME docusate sodium 100 mg PO BID PRN ergocalciferol (vitamin D2) 1,250 mcg PO MO fluphenazine decanoate 37.5 mg IM Q2W furosemide 40 mg PO QAM [HOSPITAL BED As directed] loratadine (Allergy Relief (loratadine)) 10 mg PO DAILY PRN 90 days lorazepam 0.5 mg PO BID PRN melatonin 5 mg PO BEDTIME PRN metoprolol succinate ER 25 mg PO DAILY 90 days metronidazole 500 mg PO Q8H nicotine 1 patch transdermal DAILY 28 days olanzapine (Zyprexa) 5 mg PO BEDTIME olanzapine (Zyprexa) 20 mg PO BEDTIME omeprazole 20 mg PO DAILY@0630 rivaroxaban (Xarelto) 20 mg PO DAILY 90 days tamsulosin 0.4 mg PO DAILY Ventolin HFA 90 mcg/actuation (albuterol sulfate) 2 puffs PO QID PRN NS walker (Ultra-Light Rollator misc) As directed HPI HPI f/up after tests/ refill meds: Details: Pool is a 63-year-old male with past medical history of smoking, hypertension, hyperlipidemia, ascending aorta dilation, heart failure with reduced EF, 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 He was kept overnight and given additional IV amiodarone with improvement in his heart rate. His home meds were unchanged. Today he reports he has been doing well since his hospital discharge last month. He has not had any heart palpitations. He did not feel heart palpitations when he had the atrial fibrillation. He has no chest discomfort at rest or during activity. He denies shortness of breath, PND, orthopnea. No lightheadedness, presyncope, syncope. He ambulates with the use of a cane. He goes to a day program. He gets help with his medications. No bleeding issues reported. [facility] Medical History Hyperkalemia Screening for malignant neoplasm of colon performed Encounter for screening colonoscopy Screening for tuberculosis Substance abuse in remission Smoker Anal irritation Allergic rhinitis Cardiomyopathy Obesity (BMI 30-39.9) Schizoaffective disorder, bipolar type Insomnia Lumbar degenerative disc disease Osteoarthritis of hips, bilateral Hyperkalemia Pure hypercholesterolemia Benign essential hypertension History of acute heart failure History of atrial flutter History of congestive heart failure History of cardiomyopathy HTN (hypertension) Paroxysmal atrial flutter Surgical History History of total hip replacement Family History Father Hypertension CVD (cardiovascular disease) Mother Hypertension Diabetes Brother Mental health disorder Social History Household Members: Other Housing: Apartment Housing Other:: independent living Are you a primary residential care officer to a significant other at home: No Do you presently have visiting nurse or other home services: Yes Alcohol intake: former Patient Tobacco Use Status: Former Tobacco user Tobacco use type: Cigarette Cigarettes Per Day: 6 e-Cigarette/Vaping Use: Never Used Second Hand Smoke Exposure: Yes Substance Use Type: Former Substance User service: No Current occupational status: retired Current occupational exposures/hazards: No Cognitive needs: Yes (cane) Hearing needs: No Vision needs: Yes Review of Systems Const All systems reviewed & are unremarkable except as noted in HPI and below ENT Denies dizziness Card Denies chest pain, Denies chest pain at rest, Denies chest pain with activity, Denies rapid heart rate, Denies pedal edema, Denies edema, Denies leg edema, Denies lightheadedness, Denies palpitations, Denies dyspnea, Denies dyspnea on exertion and Denies orthopnea Resp Denies cough, Denies dyspnea and Denies dyspnea on exertion GI Denies hematochezia and Denies change in stool character Musc Denies abnormal gait, Denies limited range of motion, Denies muscle cramps, Denies muscle weakness, Denies numbness, Denies radiating pain into limb, Denies stiffness and Denies tingling Neuro Denies abnormal gait, Denies dizziness, Denies numbness and Denies tingling Endo Denies palpitations Physical Exam Vital Signs: Last Vital Signs Pulse 79 08/03/24 13:50 BP 124/80 08/03/24 13:50 BMI result Body Mass Index 35.0 Const General: cooperative, healthy appearing, comfortable and no acute distress Orientation/consciousness: patient oriented x3 Neck Neck: Yes normal visual inspection Resp Effort & Inspection: normal respiratory effort Auscultation: clear to auscultation bilaterally, no rales, no rhonchi and no wheezes Cardio Rate: regular rate Rhythm: regular rhythm Heart sounds: S1 normal heart sound present, S2 normal heart sound present, no gallops, no murmurs and no rubs Neuro General: patient oriented x3 Extrem General: Yes normal to inspection, No no pedal edema and No calf tenderness Psych Appearance: grossly normal Mental Status: mental status grossly normal Speech and movement: Normal speech and movement present Office Procedures EKG Details: Today, read by me, sinus rhythm, nonspecific T wave abn, rate 79, Qtc 431ms. [id number], Complete Assessment & Plan Assessment & Plan (1) Paroxysmal atrial flutter: Code(s): I48.92 - Unspecified atrial flutter Category: Medical Plan: History of paroxysmal atrial flutter. He has been on amiodarone 100 mg daily, metoprolol XL 25 mg daily for rhythm and rate control. He is on Xarelto 20 mg daily for anticoagulation. He recently had a colonoscopy had had atrial fibrillation with RVR. He was given additional IV amiodarone with rate control. His home meds were left unchanged. His EKG today shows normal sinus rhythm, nonspecific T-wave abnormality, rate 79, QTC 431 milliseconds. Will check a Holter monitor to see if he is having PAF. If so he may require an increase of his amiodarone up to 200 mg daily. Labs done on 07/29/2024 showed normal LFT and TSH. Last chest x-ray 2021. Will order chest x-ray as part of amiodarone monitoring. I would prefer to keep him on low dose amiodarone or alternate antiarrhythmic. Cardiology office visit 6 months, sooner if needed. (2) History of cardiomyopathy: Comment: LVEF of 25% time of presentation with heart failure and atrial flutter, suspected to be tachycardia mediated. Normalized after maintaining sinus rhythm to 55-60% Code(s): Z86.79 - Personal history of other diseases of the circulatory system Category: Medical Plan: Prior EF as low as 25%. Most recent echo 04/05/2024 showed EF 55-60%, no valve abnormalities, mild dilation of the sinus of Valsalva, 4.1 cm, ascending aorta 3.8 cm. Continue metoprolol XL. (3) History of acute heart failure: Comment: Echocardiogram done on 08/06/2019 showed normal LV size with moderately diminished systolic function that was most likely due to atrial flutter and rapid ventricular rate at the time; previous echo back in 2016 (done at [facility]) was normal with EF of around 55 to 60% Code(s): Z86.79 - Personal history of other diseases of the circulatory system Category: Medical Plan: Condition stable at this time. No recent decompensated heart failure. Continue Lasix 40 mg daily. Labs done 07/29/2024 shows creatinine 1.05 (4) HTN (hypertension): Code(s): I10 - Essential (primary) hypertension Category: Medical Plan: [place] blood pressure goal less than 130/80. Well controlled currently. No med changes made. (5) Smoker: Code(s): F17.200 - Nicotine dependence, unspecified, uncomplicated Category: Social Hx Plan: History of smoking. Currently 6-7 cigarettes per day. He is working on cessation. (6) Thoracic aortic aneurysm: Code(s): I71.20 - Thoracic aortic aneurysm, without rupture, unspecified Category: Medical Plan: Mild dilation as above. (7) Hospital discharge follow-up: Code(s): Z09 - Encounter for follow-up examination after completed treatment for conditions other than malignant neoplasm Category: Medical Plan: [facility] [place] [facility] discharge reviewed (8) On amiodarone therapy: Code(s): Z79.899 - Other group home (current) drug therapy Category: Medical Plan Time spent on chart review, documentation, interview and assessment Orders: Orders ECG 3 day holter monitor 08/03/24 I48.92 - Unspecified atrial flutter XR chest 2V 08/03/24 Z79.899 - Other terminal computer operator (current) drug therapy Coding Level of Care Code Est Pt Level 4 (28249) Complex EM visit Add On G2211 Diagnoses Paroxysmal atrial flutter I48.92 History of cardiomyopathy Z86.79 History of acute heart failure Z86.79 HTN (hypertension) I10 Smoker F17.200 Thoracic aortic aneurysm I71.20 Hospital discharge follow-up Z09 On amiodarone therapy Z79.899 CPT Codes EKG - CPT: 77129-[id number], Complete ([id number])
== END 2024-08-03 14:33 | disposition home or self-care (01) ==
LOC: HO.HCS 13:31
PROVIDERS: PCP Internal Medicine; Visit Provider Nurse Practitioner Family
DX: R94.31 Abnormal electrocardiogram [ECG] [EKG] (principal)
CPT/HCPCS: 93010; 99214; G2211

== ENCOUNTER → 2024-08-03 13:31 | Outpatient (BNVA) | payer MEDICARE, MEDICAID, SELFPAY | PROVIDERS: PCP Internal Medicine; Visit Provider Nurse Practitioner Family | DX: Z09 Encounter for follow-up examination after completed treatment for conditions other than malignant neoplasm (principal); I48.92 Unspecified atrial flutter; I10 Essential (primary) hypertension; I71.20 Thoracic aortic aneurysm, without rupture, unspecified; F17.210 Nicotine dependence, cigarettes, uncomplicated; Z86.79 Personal history of other diseases of the circulatory system; Z79.899 Other long term (current) drug therapy | CPT/HCPCS: 93005; 99212 ==

== ENCOUNTER 2024-10-21 15:21 | Outpatient (AMB) | payer MEDICARE, MEDICAID, SELFPAY ==
--- NOTE | 2024-10-21 15:34 | A.OFFPC_ITS ---
Vital Signs 10/21/24 15:35 Height 5 ft 9 in Weight 234 lb 2.095 oz BMI 34.6 BP 116/62 Blood Pressure Location Lt brachial Position Sitting Pulse 139 H Pulse Source Pulse Oximeter Pulse Oximetry (%) 96 Oxygen Delivery Method Room Air Intake Visit Reasons: pain in both legs Naphthalene Still Operator Required: No Accompanied by: Self / Same As Patient Allergies Penicillins [PENICILLINS] Allergy (Intermediate, Verified 10/21/24 15:58) RASH haloperidol [Haldol] Allergy (Unknown, Verified 10/21/24 15:58) Unknown mirtazapine [Remeron] Allergy (Unknown, Verified 10/21/24 15:58) Unknown trazodone Allergy (Unknown, Verified 10/21/24 15:58) Unknown verapamil [Verelan] Allergy (Unknown, Verified 10/21/24 15:58) Unknown risperidone [From RISPERDAL] Adverse Reaction (Severe, Verified 10/21/24 15:58) SEIZURE lithium [LITHIUM] Adverse Reaction (Intermediate, Verified 10/21/24 15:58) LETHARGY, AKATHISIA, TD Medication List - Last Reconciled 10/21/24 by Luzma Mendes PA-C acetaminophen 500 mg PO Q8H PRN ascorbic acid (vitamin C) 500 mg PO DAILY benztropine 0.5 mg PO BID cholecalciferol (vitamin D3) 25 mcg PO DAILY divalproex ER (Depakote ER) 1,500 mg PO BEDTIME docusate sodium 100 mg PO BID PRN ergocalciferol (vitamin D2) 1,250 mcg PO MO fluphenazine decanoate 37.5 mg IM Q2W furosemide 40 mg PO QAM [HOSPITAL BED As directed] loratadine (Allergy Relief (loratadine)) 10 mg PO DAILY PRN 90 days lorazepam mg PO BID PRN lorazepam 0.5 mg PO ONCE PRN melatonin 5 mg PO BEDTIME PRN metoprolol succinate ER 25 mg PO DAILY 90 days metronidazole 500 mg PO Q8H nicotine 1 patch transdermal DAILY 28 days olanzapine (Zyprexa) 5 mg PO BEDTIME olanzapine (Zyprexa) 20 mg PO BEDTIME omeprazole 20 mg PO DAILY@0630 rivaroxaban (Xarelto) 20 mg PO DAILY 90 days tamsulosin 0.4 mg PO DAILY Ventolin HFA 90 mcg/actuation (albuterol sulfate) 2 puffs PO QID PRN NS walker (Ultra-Light Rollator misc) As directed Tobacco use date assessed: 10/21/24 Fall risk assessment: 2 + Falls in past year Last assessed Fall Risk: 10/21/24 Dental Screening Dental Screen Date: 10/21/24 Did you have a dental visit in the last 12 months?: Yes Did you have a dental problem in the last 6 months where you did not have access to dental care?: No Was dental information given to patient?: Patient has dentist HPI pain in both legs HPI Details The patient is a 64-year-old male presenting with bilateral swelling, dyspnea, and chest pain. He has a history of atrial fibrillation and is currently on Xarelto. The patient also has a history of hypertension, hyperlipidemia, heart failure with reduced ejection fraction, and cardiomyopathy. The bilateral swelling and dyspnea have been present for the past few days. The chest pain started on the right side and has been moving to the left side since this morning. He denies dizziness, changes in vision, nausea, vomiting, nerve tingling, weakness, or abdominal pain. He reports he took all his prescribed medication this morning. An EKG was performed, revealing a rapid heart rate in the 140s with ST depressions in leads II, III, aVF, V4, V5, and V6. The patient was administered 2 liters of nasal cannula oxygen and an ambulance was called for further evaluation at the emergency department. [facility] Medical History (Updated 10/21/24 @ 16:55 by Luzma Mendes PA-C) Congestive heart failure Atrial fibrillation with RVR Chest pain Hyperkalemia Screening for malignant neoplasm of colon performed Encounter for screening colonoscopy Screening for tuberculosis Substance abuse in remission Smoker Anal irritation Allergic rhinitis Cardiomyopathy Obesity (BMI 30-39.9) Schizoaffective disorder, bipolar type Insomnia Lumbar degenerative disc disease Osteoarthritis of hips, bilateral Hyperkalemia Pure hypercholesterolemia Benign essential hypertension History of acute heart failure History of atrial flutter History of congestive heart failure History of cardiomyopathy HTN (hypertension) Paroxysmal atrial flutter Surgical History History of total hip replacement Family History Father Hypertension CVD (cardiovascular disease) Mother Hypertension Diabetes Brother Mental health disorder Social History Household Members: Other Housing: Apartment Housing Other:: independent living Are you a primary reservoir caretaker to a significant other at home: No Do you presently have visiting nurse or other home services: Yes Alcohol intake: former Patient Tobacco Use Status: Former Tobacco user Tobacco use type: Cigarette Cigarettes Per Day: 6 e-Cigarette/Vaping Use: Never Used Second Hand Smoke Exposure: Yes Substance Use Type: Former Substance User service: No Current occupational status: retired Current occupational exposures/hazards: No Cognitive needs: Yes (cane) Hearing needs: No Vision needs: Yes Questionnaire PHQ-9 Over the last 2 weeks, how often have you been bothered by any of the following problems? 1. Little interest or pleasure in doing things: several days 2. Feeling down, depressed, or hopeless: not at all 3. Trouble falling or staying asleep, or sleeping too much: not at all 4. Feeling tired or having little energy: several days 5. Poor appetite or overeating: not at all 6. Feeling bad about yourself - or that you are a failure or have let yourself or your family down: not at all 7. Trouble concentrating on things, such as reading the newspaper or watching television: not at all 8. Moving or speaking so slowly that other people could have noticed. Or the opposite - being so fidgety or restless that you have been moving around a lot more than usual: several days 9. Thoughts that you would be better off or of hurting yourself in some way: not at all Total score: 3 Depression Screening Interpretation: Negative Depression Screening Done: Yes 90619 - PHQ-9 Billing: Yes Source: Developed by Drs. Bimal Barrow, Melvi Padilla, Alexys Walls and colleagues, with an educational lynda from [employer]. Thrive Questionnaire Date Thrive assessed: 10/21/24 I am a: Patient What is your living situation today?: I have a steady place to live Within the past 12 months, did the food you bought not last and you didn't have the money to get more?: Never true Within the past 12 months, did you worry whether your food would run out before you got money to buy more?: Never true Do you have trouble paying for medicines?: No Do you have trouble getting transportation to medical appointments?: No Do you have trouble paying your heating and electricity bill?: No Do you have trouble taking care of your child, family member or friend?: No Do you have trouble with day-to-day activities such as bathing, preparing meals, shopping, managing finances, etc.?: No Are you currently unemployed and looking for a job?: No Are you interested in more education?: No Please select the resources that you would like help with: None Currently or been in a relationship where the following occur: I choose not to answer THRIVE Score: 0 AUDIT C Alcohol Use Questionnaire (AUDIT-C) 1. How often do you have a drink containing alcohol?: Never Total Score: 0 Score Reviewed/Action Taken: No IMELDA-7 AMB Questionnaire IMELDA-7 Date IMELDA - 7 assessed: 10/21/24 Source: Developed by Drs. Bimal Barrow, Melvi Padilla, Alexys Walls and colleagues, with an educational lynda from [employer]. Review of Systems Const Details: - Cardiovascular: Reports bilateral swelling and chest pain. Denies dizziness. - Respiratory: Reports dyspnea. Denies changes in vision, nausea, vomiting, nerve tingling, weakness, or abdominal pain. Physical exam (Primary Care) Vital Signs: Last Vital Signs Pulse 139 H 10/21/24 15:35 BP 116/62 10/21/24 15:35 Pulse Ox 96 10/21/24 15:35 Oxygen Delivery Method Room Air 10/21/24 15:35 Care Plan Goal for BP management: <140/90 BMI result Body Mass Index 34.6 BMI Assessment/Plan discussion: High BMI High, discussed plan: lifestyle, weight reduction, dietary, physical activity, alcohol moderation and other Tobacco/Smoking Status: Tobacco use Status Tobacco use date assessed 10/21/24 10/21/24 15:56 Patient Tobacco Use Status Former Tobacco user 10/21/24 15:56 Tobacco use type Cigarette 10/21/24 15:56 e-Cigarette/Vaping Use Never Used 10/21/24 15:56 PHQ-9: PHQ-9 Score PHQ-9: Total score 3 10/21/24 15:56 Depression Screening Interpretation: Negative Thrive Assessment: Date of Thrive Assessment Date Thrive assessed 10/21/24 10/21/24 15:56 Currently or been in a relationship where the following occur: I choose not to answer Const Other: Appearance: Alert. Oriented X3. No acute distress. Head: Normal external exam. Normocephalic. Atraumatic. Eyes: Pupils are equal, round, and reactive to light. Extraocular movements intact. Conjunctiva and sclera normal. Eyelids normal. Ears: External auditory canal normal. Tympanic membranes normal. Throat: Pharynx normal. Uvula midline. Moist mucous membranes. Neck: Normal inspection. Neck supple. Full range of motion. No adenopathy. Thyroid Normal. No meningeal signs. No neck mass noted. Cardiovascular: Rapid heart rate with a rate of 140s. Heart sound normal. No murmurs noted. Pulses normal throughout. Respiratory: Shortness of breath present. Right-sided chest pain moving to the left side. No wheezes/rales/rhonchi noted. Chest nontender. No accessory muscle usage noted or decreased air movement noted. Abdomen: Soft and nontender. Bowel sounds normal in all 4 quadrants. No distention noted. No organomegaly noted. No visible injury noted. Back: No costovertebral angle tenderness. Full range of motion noted. Skin: Skin warm and dry. Normal skin color. Normal skin turgor. No rashes/l esions/lacerations noted. Extremities: Bilateral swelling present. Extremities exhibit normal range of motion. Extremities nontender. Neuro: Oriented X 3. No motor deficit. No sensory deficit. Reflexes normal. Office Procedures EKG Details: EKG rapid AFib with RVR with a ventricular rate of [address] depressions in leads 2 3, V3 V4 V5 V6. Concerned for ischemia. Reviewed by Dr. Ashford who agreed patient will go to the emergency department via ambulance. [id number], Complete Results Reviewed Results Reviewed: - EKG: Rapid heart rate in the 140s with ST depressions in leads II, III, aVF, V3, V4, V5, and V6. Coding Level of Care Code Est Pt Level 4 (38615) Complex EM visit Add On G2211 Diagnoses Atrial fibrillation with RVR I48.91 Congestive heart failure I50.9 Chest pain R07.9 HTN (hypertension) I10 CPT Codes EKG - CPT: 16506-[id number], Complete ([id number]) Additional Codes PHQ-9 - 46985 - PHQ-9 Billing: Yes ([id number]) Assessment & Plan Assessment & Plan (1) Atrial fibrillation with RVR: Code(s): I48.91 - Unspecified atrial fibrillation Category: Medical Plan: The patient is currently on Xarelto for atrial fibrillation management. An EKG showed a rapid heart rate, and the patient was administered oxygen and referred to the emergency department for further evaluation. (2) Congestive heart failure: Code(s): I50.9 - Heart failure, unspecified Category: Medical Plan: The patient's history of heart failure with reduced ejection fraction is significant in the context of his current symptoms of dyspnea and bilateral swelling. (3) Chest pain: Code(s): R07.9 - Chest pain, unspecified Category: Medical Plan: The patient reports chest pain that started on the right side and moved to the left, prompting further evaluation in the emergency department. (4) HTN (hypertension): Code(s): I10 - Essential (primary) hypertension Category: Medical Plan: The patient's hypertension is part of his medical history and contributes to his current cardiovascular status. Condition is chronic and stable continue to monitor. Plan Plan Patient was informed and verbally consented to the use of an ambient scribe for clinic note documentation during this visit. 1. Atrial Fibrillation The patient is currently on Xarelto for atrial fibrillation management. An EKG showed a rapid heart rate, and the patient was administered oxygen and referred to the emergency department for further evaluation. 2. Hypertension The patient's hypertension is part of his medical history and contributes to his current cardiovascular status. 3. Heart Failure With Reduced Ejection Fraction The patient's history of heart failure with reduced ejection fraction is significant in the context of his current symptoms of dyspnea and bilateral swelling. 4. Chest Pain The patient reports chest pain that started on the right side and moved to the left, prompting further evaluation in the emergency department. I discussed the patient's case with Shade Manzano from the emergency department at [facility], and it was decided that the patient should be transported to the emergency department for further evaluation and management. Orders: Orders AMB EKG-In Office Today R07.9 - Chest pain, unspecified Patient Instructions: Patient will go directly to emergency department via ambulance. 2 L of nasal cannula oxygen provided. No aspirin given due to none in the office. Report given to Shade ragsdale from emergency department at [facility].
[2024-10-21 15:35] VITALS: BP 116/62; PULSE 139; O2SAT 96; BMI 34.6
--- OUTSIDE RECORDS SUMMARY | 2024-10-21 17:55 | XMS_ITS | Clinical Summary ---
Author Organization Unknown Care Team Providers Care Commander Internal Affairs Name Role Phone ALAN COBIAN, BEVERLY Unavailable Unavailable BALWINDER RN, SIMI Unavailable Unavailable BEAU FLANAGAN, CLINICAL NAVIGATOR, DANTE Mancia ble Unavailable SHERI RN, SANJANA Unavailable Unavailable CARLOS FLANAGNA, ANABEL Unavailable Paulette Payers Payer Name Policy Type Policy Number Effective Date Expira tion Date [place] AB[place] [id number] ON DEMAND MEDICARE - [facility] BILLING - ABN [id number] Problems Condition Name Condition Details Condition Category [...] 10-04 00:00: 00 03-27 23:59 :00 No [id number] 200 mg DAILY 200 mg DAILY (route: oral) Alternate Route: By mouth. Med Classific ation: Cardiovas cular Therapy Agents benztropine 0.5 mg tablet 06-27 00:00: 00 Yes [id number] 0.5 mg TWICE A DAY 0.5 mg TWICE A DAY (route: oral) Alternate Route: BY MOUTH. Med Classific ation: Central Nervous System Agents Colace 100 mg capsule 08-13 00:00: 00 Yes [id number] 100 mg 2 TIMES DAILY 100 mg 2 TIMES DAILY (route: oral) Med Classific ation: Gastroint estinal Therapy Agents divalproex ER 500 mg tablet,exte nded release 24 hr 16 00:00: 00 Yes [id number] 500 mg AT BEDTIME 500 mg A T BEDTIME (route: oral) Med Classific ation: Central Nervous System Agents fluphenazin e decanoate 25 mg/mL injection solution 06-18 00:00: 00 Yes [id number] 25 mg 375 MG (15 ML) INTRAMUSCU LARLY ONCE EVERY 25 mg 375 MG (15 ML) INTRAMUSCU LARLY ONCE EVERY (route: injection) Med Classific ation: Central Nervous System Agents furosemide 40 mg tablet 08-13 00:00: 00 12-27 23:59 :00 No [id number] 40 mg DAILY 40 mg DAILY (route: oral) Med Classific ation: Cardiovas cular Therapy Agents loratadine 10 mg capsule 06-30 00:00: 00 Yes [id number] 10 mg ONCE A DAY 10 mg ON CE A DAY (route: oral) Alternate Route: BY MOUTH. Med Classific ation: Respirato ry Therapy Agents lorazepam 0.5 mg tablet 06-23 00:00: 00 08-13 23:59 :00 No [id number] 0.5 mg TWICE A DAY EVERY DAY NEEDED NEEDED 0.5 mg TWICE A DAY EVERY DAY NEEDED NEEDED (route: oral) Alternate Route: BY MOUTH. Med Classific ation: Central Nervous System Agents melatonin 5 mg tablet 06-30 00:00: 00 Yes [id number] FOR INSOMNIA 5 mg AT BEDTIME WITH FOOD NEEDED 5 mg AT BEDTIME WITH FOOD NEEDED (route: oral) Alternate Route: BY MOUTH. Med Classific ation: Central Nervous System Agents metoprolol tartrate 25 mg tablet 08-13 00:00: 00 Yes [id number] 25 mg DAILY 25 mg DAILY (route: oral) Med Classific ation: Cardiovas cular Therapy Agents nicotine 7 mg/24 hr daily transdermal patch 2-19 00:00: 02-20 23:59 :00 No [id number] 7 mg EVERY DAY DIRECTED 7 mg EVERY DAY DIRECTED (route: transderma l) Med Classific ation: Chemical Dependenc y, Agents to Treat olanzapine 20 mg tablet 2-09 00:00: 00 Yes [id number] 20 mg EVERYDAY AT BEDTIME 20 mg EVERYDAY AT BEDTIME (route: oral) Alternate Route: BY MOUTH. Med Classific ation: Central Nervous System Agents olanzapine 5 mg tablet 731 00:00: 00 Yes [id number] 5 mg BEDTIME 5 mg BEDTIME (route: oral) Med Classific ation: Central Nervous System Agents omeprazole 20 mg capsule,del ayed release 07 00:00: 00 Yes [id number] 20 capsule EVERY DAY 20 capsule EVERY DAY (route: oral) Alternate Route: BY MOUTH. Med Classific ation: Gastroint estinal Therapy Agents tamsulosin 0.4 mg capsule 08-13 00:00: 00 Yes [id number] 0.4 capsule DAILY 0.4 capsule DAILY (route: oral) Med Classific ation: Genitouri nary Therapy ergocalcife rol (vitamin D2) 1,250 mcg (50,000 unit) capsule 2-05 00:00: 00 Yes [id number] 1250 mcg ONCE A WEEK 1250 mcg ONCE A WEEK (route: oral) Alternate Route: BY MOUTH. Med Classific ation: Electroly te Balance-N utritiona l Products Xarelto 15 mg tablet 4-04 00:00: 00 11-14 10:17 :57.2 27 No [id number] 15 mg DAILY 15 mg DAILY (route: oral) Med Classific ation: Hematolog ical Agents sulfamethox azole 400 mg-trimetho prim 80 mg tablet 8-16 00:00: 00 02-20 23:59 :00 No [id number] 400 mg 2 TIMES DAILY 400 mg 2 TIMES DAILY (route: oral) Med Classific ation: Anti-Infe ctive Agents amiodarone 100 mg tablet 2019-05 1-22 00:00: 00 05-15 23:59 :00 No [id number] 100 mg DAILY 100 mg DAILY (route: oral) Med Classific ation: Cardiovas cular Therapy Agents Xarelto 20 mg tablet 06 00:00: 00 Yes [id number] 20 mg DAILY 20 mg DAILY (route: oral) Med Classific ation: Hematolog ical Agents Lasix 40 mg tablet 8-27 00:00: 00 Yes [id number] 40 mg DAILY 40 mg DAILY (route: oral) Med Classific ation: Cardiovas cular Therapy Agents Depakote 250 mg tablet,carole yed release 08-13 00:00: 00 Yes 1 tablet BEDTIME 1 tablet BEDTIME (route: oral) Med Classific ation: Central Nervous System Agents lorazepam 0.5 mg tablet 08-13 00:00: 00 Yes ANXIETY/BRIAN TATION 1 tablet NOON 1 tablet NOON (route: oral) Med Classific ation: Central Nervous System Agents lorazepam 1 mg tablet 08-13 00:00: 00 Yes 1 tablet 2 TIMES DAILY 1 tablet 2 TIMES DAILY (route: oral) Med Classific ation: Central Nervous System Agents Immunizations Ordered Immunization Name Filled Immunization Name Date Status Comments Refusal Reason INFLUENZA, TIV (INACTIVATED) 2018-08-13 00:00:00 INFLUENZA, TIV (INACTIVATED) 2018-01-28 00:00:00 Vital Signs Vital Name Observation Time Observation Value Commen ts Temperature 2024-10-19 16:17:00.000 97.3 [degF] Temperature 2024-10-15 11:30:00.000 97.2 [degF] Temperature 2024-10-14 11:54:00.000 97.3 [degF] Temperature 2024-10-11 09:14:00.000 98.8 [degF] Temperature 2024-10-07 08:42:00.000 97.9 [degF] Temperature 2024-09-27 08:41:00.000 98 [degF] Temperature 2024-09-13 08:51:00.000 98 [degF] Temperature 2024-09-10 09:08:00.000 98 [degF] Pulse 2024-10-19 16:17:00.000 76 /min Pulse 2024-10-15 11:30:00.000 84 /min Pulse 2024-10-14 11:54:00.000 69 /min Pulse 2024-10-11 09:14:00.000 70 /min Pulse 2024-10-07 08:42:00.000 87 /min Pulse 2024-09-27 08:41:00.000 84 /min Pulse 2024-09-13 08:51:00.000 107 /min Pulse 2024-09-10 09:08:00.000 76 /min Respirations 2024-10-19 16:17:00.000 16 /min Respirations 2024-10-15 11:30:00.000 16 /min Respirations 2024-10-14 11:54:00.000 16 /min Respirations 2024-10-11 09:14:00.000 14 /min Respirations 2024-10-07 08:42:00.000 18 /min Respirations 2024-09-27 08:41:00.000 16 /min Respirations 2024-09-13 08:51:00.000 16 /min Respirations 2024-09-10 09:08:00.000 16 /min Systolic Blood Pressure 2024-10-19 16:17:00.000 110 mm [Hg] Systolic Blood Pressure 2024-10-15 11:30:00.000 136 mm [Hg] Systolic Blood Pressure 2024-10-14 11:54:00.000 125 mm [Hg] Systolic Blood Pressure 2024-10-11 09:14:00.000 127 mm [Hg] Systolic Blood Pressure 2024-10-07 08:42:00.000 137 mm [Hg] Systolic Blood Pressure 2024-09-27 08:41:00.000 134 mm [Hg] Systolic Blood Pressure 2024-09-13 08:51:00.000 137 mm [Hg] Systolic Blood Pressure 2024-09-10 09:08:00.000 127 mm [Hg] Diastolic Blood Pressure 2024-10-19 16:17:00.000 78 mm [Hg] Diastolic Blood Pressure 2024-10-15 11:30:00.000 80 mm [Hg] Diastolic Blood Pressure 2024-10-14 11:54:00.000 78 mm [Hg] Diastolic Blood Pressure 2024-10-11 09:14:00.000 87 mm [Hg] Diastolic Blood Pressure 2024-10-07 08:42:00.000 89 mm [Hg] Diastolic Blood Pressure 2024-09-27 08:41:00.000 87 mm [Hg] Diastolic Blood Pressure 2024-09-13 08:51:00.000 94 mm [Hg] Diastolic Blood Pressure 2024-09-10 09:08:00.000 83 mm [Hg] Plan of Treatment Planned Activity [...] AND FALL PREVENTION STRATEGIES.] Future Scheduled Test PATIENT BEST S A RISK OF HOSPITALIZATION AND ED USE. SKILLED NURSE TO ESTABLISH SUPPORT MEASURES TO MINIMIZE RISK OF HOSPITALIZATION AND ED USE, AND INSTRUCT PATIENT/CAREGIVER ON METHODS TO REDUCE AVOIDABLE HOSPITALIZATION AND ED USE. [code = PATIENT HAS A RISK OF HOSPITALIZATION AND ED USE. SKILLED NURSE TO ESTABLISH SUPPORT MEASURES TO MINIMIZE RISK OF HOSPITALIZATION AND ED USE, AND INSTRUCT PATIENT/CAREGIVER ON METHODS TO REDUCE AVOIDABLE HOSPITALIZATION AND ED USE.] Future Scheduled Test SKILLED NU RSE TO PROVIDE INSTRUCTION TO PATIENT/CAREGIVER RELATED TO DISCHARGE PLANNING. [code = SKILLED NURSE TO PROVIDE INSTRUCTION TO PATIENT/CAREGIVER RELATED TO DISCHARGE PLANNING.] Future Scheduled Test SKILLED NU RSE WILL MAINTAIN SITUATIONAL AWARENESS FOR SAFETY AND WILL NOTIFY CLINICAL RESEARCH STAFF MEMBER AND PHYSICIAN/PROVIDER WITH ANY CHANGE IN CONDITION. [code = SKILLED NURSE WILL MAINTAIN SITUATIONAL AWARENESS FOR SAFETY AND WILL NOTIFY CLINICAL RESEARCH STAFF MEMBER AND PHYSICIAN/PROVIDER WITH ANY CHANGE IN CONDITION.] [...] RSE TO PRE-POUR MEDICATION PER MEDICATION LIST WEEKLY [code = SKILLED NURSE TO PRE-POUR MEDICATION PER MEDICATION LIST WEEKLY ] Future Scheduled Test SKILLED NU [...] SAFETY.] Future Scheduled Test SKILLED NU RSE TO [...] DEVELOPMENT OF PLANNED ACTIVITIES] Future Scheduled Test SKILLED NU RSE FOR O/A OF ALTERED MOOD [code = SKILLED NURSE FOR O/A OF ALTERED MOOD] Future Scheduled Test SKILLED NU RSE FOR ADMINISTRATION AND TEACHING OF PRESCRIBED INJECTION THERAPY FOR FLUPHENAZINE DECANOATE [code = SKILLED NURSE FOR ADMINISTRATION AND TEACHING OF PRESCRIBED INJECTION THERAPY FOR FLUPHENAZINE DECANOATE ] Future Scheduled Test MEDICATION S WILL BE HELD AND STORED IN LOCKBOX [code = MEDICATIONS WILL BE HELD AND STORED IN LOCKBOX] Future Scheduled Test SKILLED NU RSE MAY PICKUP AND TRANSPORT MEDICATIONS [code = SKILLED NURSE MAY PICKUP AND TRANSPORT MEDICATIONS] Future Scheduled Test SKILLED NU RSE FOR O/A OF RESPIRATORY SYSTEM TO IDENTIFY CHANGES ASSOCIATED WITH EXACERBATION AND TO PROVIDE SKILLED TEACHING ON MANAGEMENT OF ASTHMA DISORDER RESPIRATORY DISEASE PROCESS. [code = SKILLED NURSE FOR O/A OF RESPIRATORY SYSTEM TO IDENTIFY CHANGES ASSOCIATED WITH EXACERBATION AND TO PROVIDE SKILLED TEACHING ON MANAGEMENT OF ASTHMA DISORDER RESPIRATORY DISEASE PROCESS.] Goal 2019-11-30 Patient Goal - TAKING MEDS [...] 2022-03-21 Patient Goal - TAKING MEDS Goal 2022-07-18 [...] 2024-05-06 Patient Goal - TAKING MEDS Goal 2024-07-08 Patient Goal - TAKING MEDS Goal 2024-09-03 Patient Goal - TAKING MEDS Goal Patient Goal - TAKING MEDS Goal 2019-09-30 Patient Goal - TAKING MEDS Goal 2019-08-03 Patient Goal - TAKING MEDS Goal 2019-06-03 Patient Goal - TAKING MEDS Goal 2022-05-18 Patient Goal - TAKING MEDS Goal 2018-12-08 Patient Goal - P ATIENCE GOAL IS TO GO OUT WITH HIS MEN'S GROUP MORE FREQUENTLY AND TO GRADUATE FROM THE GROUP. Goal 2018-10-08 Patient Goal - T AKING MY MEDS WITH NO HELP Goal 2019-02-04 Patient Goal - P JEREMIAH HUGHES TRANSITION FROM HIS [place] GROUP TO A [place] GROUP Goal 2019-04-06 Patient Goal - WORKING [place] R WITH OTHERS Goal Provider Goal - A PLAN OF CARE WILL BE ESTABLISHED THAT MEETS PATIENT'S SENIOR LIVING NEEDS AND INCLUDES PATIENT GOAL FOR HOME HEALTH. Goal Provider Goal - PATIENT/CAREGIVER WILL VERBALIZE/DEMONSTRATE EFFECTIVE HOME SAFETY AND FALL PREVENTION STRATEGIES THROUGHOUT CERTIFICATION PERIOD. Goal Provider Goal - PATIENT WILL HAVE SUPPORT MEASURES ESTABLISHED TO PREVENT HOSPITALIZATION AND ED USE AND PATIENT/CAREGIVER WILL VERBALIZE/DEMONSTRATE METHODS TO REDUCE AVOIDABLE HOSPITALIZATION AND ED USE BY END OF EPISODE. Goal Provider Goal - PATIENT/CAREGIVER WILL VERBALIZE UNDERSTANDING OF DISCHARGE PLANNING INSTRUCTIONS BY DATE OF DISCHARGE. Goal Provider Goal - PATIENT WILL REMAIN [...] LOCKBOX FOR SAFETY. Goal Provider Goal - SKILLED NURSE PICKED UP AND TRANSPORTED MEDICATIONS FOR SAFETY. Goal Provider Goal - PATIENT/CAREGIVER WILL VERBALIZE/DEMONSTRATE MANAGEMENT OF ASTHMA RESPIRATORY DISEASE PROCESS. CHANGES IN RESPIRATORY STATUS WILL BE IDENTIFIED AND REPORTED TO PHYSICIAN FOR PROMPT INTERVENTION THROUGHOUT THE CERTIFICATION PERIOD. Progress Notes Progress Notes <paragraph>[Visit Date: 2024 by ANABEL GONZALEZ RN]:</paragraph><paragraph>SN[facility] 10/19/24: PATIENT SEEN TODAY ALERT AND COOPERATIVE WITH CARE. PHYSICAL AND MENTAL STATUS ASSESSMENT COMPLETED. DENIES PAIN OR ANY FALLS. PATIENT NOTED HYPERVERBAL AND EASILY DISTRACTED. REVIEWED IMPORTANCE OF AVOIDING SEDENTARY LIFESTYLE AND WORKING ON INCREASING PHYSICAL ACTIVITY.</paragraph> Encounters Start Date/Time End Date/Time Encounter Type Admission Type Attending [facility] Care Department Encounter ID Discharge Date Discharge Status Discharge Condition Discharge Reason Percent Goals Met 2024-09-08 00:00:00 2024-11-06 00:00:00 Outpatient RECERTIFIC ATION ANABEL GONZALEZ FORMERLY [facility] [id number] 40.00
== END 2024-10-21 16:46 | disposition home or self-care (01) ==
LOC: HO.HMCH 15:22
PROVIDERS: PCP Internal Medicine; Visit Provider Physician Assistant Medical
DX: I48.91 Unspecified atrial fibrillation (principal); I50.9 Heart failure, unspecified; R07.9 Chest pain, unspecified; I10 Essential (primary) hypertension

== ENCOUNTER → 2024-10-21 15:21 | Outpatient (BNVA) | payer MEDICARE, MEDICAID, SELFPAY | PROVIDERS: PCP Internal Medicine; Visit Provider Physician Assistant Medical | DX: I48.91 Unspecified atrial fibrillation (principal); R07.9 Chest pain, unspecified; I11.0 Hypertensive heart disease with heart failure; I50.9 Heart failure, unspecified | CPT/HCPCS: 93005; 96127; 99212 ==

== ENCOUNTER 2024-11-09 09:04 | Outpatient (REF) | payer MEDICARE, MEDICAID, SELFPAY ==
[2024-11-09 09:30] LABS: MANUAL DIFF FLAG NO
--- OUTSIDE RECORDS SUMMARY | 2024-11-09 09:34 | XMS_ITS | Clinical Summary ---
Author Organization [facility] Address [address] [place] [address] [address] [place] [phone] Phone Care Team Providers Care Cash Control Specialist Name Role Phone Rajesh Watts MD Primary Care Provider [phone]- [phone] Allergies Active Allergy Reactions Criticality Noted Date [...] 12/18/202212/18 Disorder of kidney and/or ureter 12/18/2022 Encounters Date Type Department Care Team Description 09/30/2024 2:30 PM EDT Office Visit [facility] [address] [place] [address] Aakash Palomino MD Chronic kidney disease, stage 2 (mild) (Primary Dx); Localized edema; Hypertension from Last 3 Months Family History Medical History Relation Comments Heart [...] Sign Reading Time Taken Comments Blood Pressure 120/66 09/30/2024 2:17 PM EDT Pulse 79 09/30/2024 2:17 PM EDT Temperature - - Respiratory Rate - - Oxygen Saturation 96% 09/30/2024 2:17 PM EDT Inhaled Oxygen Concentration - - Weight 108 kg (238 lb) 09/30/2024 2:17 PM EDT Height 180.3 cm (5' 11 ) 02/04/2019 12:00 PM EDT Body Mass Index 33.19 02/04/2019 12:00 PM EDT Plan of Treatment Upcoming Encounters Date Type Department Care Team (Late st Contact Info) Description 03/31/2025 1:00 PM EST Office Visit [facility] [address] [place] [address] Aakash Palomino MD [address] [facility] [address] [place] [address] Health Maintenance Due Date Last Done Comments Pneumococcal Vaccine: 50+ Ye ars (1 of 2 - PCV) 1977 Colorectal Cancer Screening: Annual FOBT 08/11/2007 Colorectal Cancer Screening: Colonoscopy 08/11/2007 Colorectal Cancer Screening: Sigmoidoscopy 08/11/2007 Influenza Vaccine (Season Ended) 2025 Hepatitis B Vaccine Aged Out No longe r eligible based on patient's age to complete this topic Insurance [address] [place] [id number] [place] Care Teams Cash Control Specialist Relationship Specialty Start Date End Date Rajesh Watts MD [address] [place] [address] PCP - General 05/22/20
[2024-11-09 09:40] LABS: Hematocrit 34.2 % (42.0-52.0); Hemoglobin 11.5 g/dl (14.0-18.0); Imm Gran Abs Auto 0.01 X10*3/uL (0.00-0.03); Imm Gran Pct Auto 0.2 % (0.0-0.4); Lymphocytes Absolute Auto 1.6 X10*3/uL (1.2-4.9); Mean Corpuscular HGB Conc 33.6 g/dl (31.0-36.0); Mean Corpuscular Hemoglobin 31.7 pg (27.0-33.0); Mean Corpuscular Volume 94.2 fL (80.0-98.0); NRBC Abs Auto 0.000 X10*3/uL (0.0-0.012); NRBC Pct Auto 0.0 /100WBC (0.0-0.2); Platelet Count 306 X10*3/uL (160-400); Red Blood Count 3.63 X10*6/uL (4.60-5.80); White Blood Count 4.2 X10*3/uL (4.8-10.8)
[2024-11-09 09:46] LABS: Hemoglobin A1C 112.1958 umol/L; Total Hemoglobin (HGBA1C) 3026.0266 umol/L
[2024-11-09 10:13] LABS: B Type Natriuretic Peptide 20 pg/mL (<100)
[2024-11-09 10:15] LABS: Digoxin 0.9 ng/mL (0.8-2.0)
[2024-11-09 10:21] LABS: Alanine Aminotransferase 12 U/L (0-40); Albumin Level 4.0 g/dL (3.5-5.0); Alkaline Phosphatase 59 U/L (39-117); Anion Gap 11 (12-20); Aspartate Amino Transferase 15 U/L (5-37); Blood Urea Nitrogen 9 mg/dL (9-16); Calcium 8.9 mg/dL (8.4-10.2); Carbon Dioxide 28 mmol/L (22-29); Chloride 103 mmol/L (96-108); Cholesterol 178 mg/dL (<200); Estimated Glomerular Filt Rate > 60; HDL Cholesterol 51 mg/dL (>40); Potassium 4.2 mmol/L (3.3-5.1); Sodium 138 mmol/L (135-145); Total Protein 7.3 g/dL (6.5-8.0); Triglycerides 98 mg/dL (<150)
[2024-11-09 10:44] LABS: Appearance Urine Clear; Glucose Urine UA Negative (Negative); PH 8.0 (5.0-9.0); Specific Gravity - Urine <= 1.005 (1.005-1.025)
== END 2024-11-09 09:05 | disposition home or self-care (01) ==
LOC: HO.LAB 09:04
PROVIDERS: PCP Internal Medicine; Visit Provider Internal Medicine
DX: E11.9 Type 2 diabetes mellitus without complications (principal); D64.9 Anemia, unspecified; E55.9 Vitamin D deficiency, unspecified; E78.00 Pure hypercholesterolemia, unspecified; I50.20 Unspecified systolic (congestive) heart failure; R30.0 Dysuria; I50.9 Heart failure, unspecified
CPT/HCPCS: 36415; 80053; 80061; 80162; 81003; 82043; 82306; 82570; 83036; 83880; 84443; 85025

== ENCOUNTER 2024-11-19 13:58 | Outpatient (AMB) | payer MEDICARE, MEDICAID, SELFPAY ==
[2024-11-19 14:03] VITALS: BP 116/84; PULSE 135; TEMP 36.2; O2SAT 95; BMI 34.9
--- NOTE | 2024-11-19 14:03 | MHC.PC.OV ---
Vital Signs 11/19/24 14:03 Height 5 ft 9 in Weight 236 lb 6 oz BMI 34.9 BP 116/84 Blood Pressure Location Lt brachial Position Sitting Pulse 135 H Pulse Source Pulse Oximeter Temp 97.1 F Temp Source Temporal Artery Scan Pulse Oximetry (%) 95 Oxygen Delivery Method Room Air Intake Visit Reasons: [facility] 10/28 Allergies Penicillins (PENICILLINS) Allergy (Intermediate, Verified 11/19/24 14:03) RASH haloperidol (Haldol) Allergy (Unknown, Verified 11/19/24 14:03) Unknown mirtazapine (Remeron) Allergy (Unknown, Verified 11/19/24 14:03) Unknown trazodone Allergy (Unknown, Verified 11/19/24 14:03) Unknown verapamil (Verelan) Allergy (Unknown, Verified 11/19/24 14:03) Unknown risperidone (From RISPERDAL) Adverse Reaction (Severe, Verified 11/19/24 14:03) SEIZURE lithium (LITHIUM) Adverse Reaction (Intermediate, Verified 11/19/24 14:03) LETHARGY, AKATHISIA, TD Medication List - Last Reconciled 11/19/24 by Ema Garner NP acetaminophen 500 mg PO Q8H PRN apixaban (Eliquis) 5 mg PO BID ascorbic acid (vitamin C) 500 mg PO DAILY benztropine 0.5 mg PO BID cholecalciferol (vitamin D3) 25 mcg PO DAILY digoxin 250 mcg PO DAILY divalproex ER (Depakote ER) 1,500 mg PO BEDTIME docusate sodium 100 mg PO BID PRN ergocalciferol (vitamin D2) 1,250 mcg PO MO fluphenazine decanoate 37.5 mg IM Q2W furosemide 40 mg PO QAM [HOSPITAL BED As directed] loratadine (Allergy Relief (loratadine)) 10 mg PO DAILY PRN 90 days lorazepam mg PO BID PRN lorazepam 0.5 mg PO ONCE PRN melatonin 5 mg PO BEDTIME PRN metoprolol tartrate 100 mg PO BID nicotine 1 patch transdermal DAILY 28 days olanzapine (Zyprexa) 5 mg PO BEDTIME olanzapine (Zyprexa) 20 mg PO BEDTIME omeprazole 20 mg PO DAILY@0630 rivaroxaban (Xarelto) 20 mg PO DAILY 90 days tamsulosin 0.4 mg PO DAILY Ventolin HFA 90 mcg/actuation (albuterol sulfate) 2 puffs PO QID PRN NS walker (Ultra-Light Rollator misc) As directed Tobacco use date assessed: 10/21/24 Fall risk assessment: 2 + Falls in past year Last assessed Fall Risk: 10/21/24 Dental Screening Dental Screen Date: 10/21/24 Did you have a dental visit in the last 12 months?: Yes Did you have a dental problem in the last 6 months where you did not have access to dental care?: No Was dental information given to patient?: Patient has dentist HPI HPI Comments History of Present Illness Details 64 y/o Male patient who presents to the clinic today for HDF. He was admitted at [facility] [place] [place] on 10/21 - 10/28 for an evaluation and treatment of B/L Subsegmental Pulmonary Emboli and A-Fib. He was started on Eliquis upon discharge from Hospital. [facility] Medical History (Updated 11/19/24 @ 14:32 by Ema Garner NP) Pulmonary emboli Congestive heart failure Atrial fibrillation with RVR Chest pain Hyperkalemia Screening for malignant neoplasm of colon performed Encounter for screening colonoscopy Screening for tuberculosis Substance abuse in remission Smoker Anal irritation Allergic rhinitis Cardiomyopathy Obesity (BMI 30-39.9) Schizoaffective disorder, bipolar type Insomnia Lumbar degenerative disc disease Osteoarthritis of hips, bilateral Hyperkalemia Pure hypercholesterolemia Benign essential hypertension History of acute heart failure History of atrial flutter History of congestive heart failure History of cardiomyopathy HTN (hypertension) Paroxysmal atrial flutter Surgical History History of total hip replacement Family History Father Hypertension CVD (cardiovascular disease) Mother Hypertension Diabetes Brother Mental health disorder Social History Household Members: Other Housing: Apartment Housing Other:: independent living Are you a primary nurse wound care to a significant other at home: No Do you presently have visiting nurse or other home services: Yes Alcohol intake: former Patient Tobacco Use Status: Former Tobacco user Tobacco use type: Cigarette Cigarettes Per Day: 6 e-Cigarette/Vaping Use: Never Used Second Hand Smoke Exposure: Yes Substance Use Type: Former Substance User service: No Current occupational status: retired Current occupational exposures/hazards: No Cognitive needs: Yes (cane) Hearing needs: No Vision needs: Yes Questionnaire PHQ-9 Over the last 2 weeks, how often have you been bothered by any of the following problems? 1. Little interest or pleasure in doing things: several days 2. Feeling down, depressed, or hopeless: not at all 3. Trouble falling or staying asleep, or sleeping too much: not at all 4. Feeling tired or having little energy: several days 5. Poor appetite or overeating: not at all 6. Feeling bad about yourself - or that you are a failure or have let yourself or your family down: not at all 7. Trouble concentrating on things, such as reading the newspaper or watching television: not at all 8. Moving or speaking so slowly that other people could have noticed. Or the opposite - being so fidgety or restless that you have been moving around a lot more than usual: several days 9. Thoughts that you would be better off or of hurting yourself in some way: not at all Total score: 3 Depression Screening Interpretation: Negative Depression Screening Done: Yes Source: Developed by Drs. Bimal Barrow, Melvi Padilla, Alexys Walls and colleagues, with an educational lynda from [employer]. Thrive Questionnaire Date Thrive assessed: 10/21/24 I am a: Patient What is your living situation today?: I have a steady place to live Within the past 12 months, did the food you bought not last and you didn't have the money to get more?: Never true Within the past 12 months, did you worry whether your food would run out before you got money to buy more?: Never true Do you have trouble paying for medicines?: No Do you have trouble getting transportation to medical appointments?: No Do you have trouble paying your heating and electricity bill?: No Do you have trouble taking care of your child, family member or friend?: No Do you have trouble with day-to-day activities such as bathing, preparing meals, shopping, managing finances, etc.?: No Are you currently unemployed and looking for a job?: No Are you interested in more education?: No Please select the resources that you would like help with: None Currently or been in a relationship where the following occur: I choose not to answer THRIVE Score: 0 AUDIT C Alcohol Use Questionnaire (AUDIT-C) 1. How often do you have a drink containing alcohol?: Never 3. How often do you have six or more drinks on one occasion?: Never Total Score: 0 IMELDA-7 AMB Questionnaire IMELDA-7 Date IMELDA - 7 assessed: 10/21/24 Feeling nervous, anxious, or on edge: 0 = Not at all Not being able to stop or control worryin = Not at all Worrying too much about different things: 0 = Not at all Trouble relaxin = Not at all Being so restless that it is hard to sit still: 0 = Not at all Becoming easily annoyed or irritable: 0 = Not at all Feeling afraid as if something awful might happen: 0 = Not at all Total IMELDA-7 score (0-4 normal; 5-9 mild; 10-14 moderate; 15-21 severe): 0 Source: Developed by Drs. Bimal Barrow, Melvi Padilla, Alexys Walls and colleagues, with an educational lynda from [employer]. Review of Systems Const All systems reviewed & are unremarkable except as noted in HPI and below Physical exam (Primary Care) Vital Signs: Last Vital Signs Temp 97.1 F 11/19/24 14:03 Pulse 135 H 11/19/24 14:03 BP 116/84 11/19/24 14:03 Pulse Ox 95 11/19/24 14:03 Oxygen Delivery Method Room Air 11/19/24 14:03 BMI result Body Mass Index 34.9 Tobacco/Smoking Status: Tobacco use Status Tobacco use date assessed 10/21/24 11/19/24 14:14 Patient Tobacco Use Status Former Tobacco user 11/19/24 14:14 Tobacco use type Cigarette 11/19/24 14:14 e-Cigarette/Vaping Use Never Used 11/19/24 14:14 PHQ-9: PHQ-9 Score PHQ-9: Total score 3 11/19/24 14:19 Depression Screening Interpretation: Negative Thrive Assessment: Date of Thrive Assessment Date Thrive assessed 10/21/24 11/19/24 14:14 Currently or been in a relationship where the following occur: I choose not to answer Const General: no acute distress Nutritional Appearance: obese Orientation/consciousness: patient oriented x3 Resp Effort & Inspection: normal respiratory effort Auscultation: clear to auscultation bilaterally Cardio Heart sounds: S1 normal heart sound present and S2 normal heart sound present Neuro General: patient oriented x3 and moves all extremities Gait exam (Neuro): Assisted gait required Gait assisted method: other (Cane) Coding Level of Care Code Est Pt Level 4 (72380) Diagnoses Paroxysmal atrial flutter I48.92 Other acute pulmonary embolism, unspecified whether acute cor pulmonale present I26.99 Pulmonary embolism type: other Chronicity: acute Acute cor pulmonale presence: unspecified Time Spent (min) 20 Assessment & Plan Assessment & Plan (1) Paroxysmal atrial flutter: Code(s): I48.92 - Unspecified atrial flutter Category: Medical Plan: Managed by Cardiology. Currently on Eliquis (2) Pulmonary emboli: Code(s): I26.99 - Other pulmonary embolism without acute cor pulmonale Category: Medical Qualifiers: Pulmonary embolism type: other Chronicity: acute Acute cor pulmonale presence: unspecified Qualified Code(s): I26.99 - Other pulmonary embolism without acute cor pulmonale Plan: Managed by Cardiology On Eliquis
--- OUTSIDE RECORDS SUMMARY | 2024-11-19 14:03 | XMS_ITS | Clinical Summary ---
Author Organization [facility] Address [address] [place] [address] [address] [place] [phone] Phone Care Team Providers Care Coatings Inspector Name Role Phone Rajesh Watts MD Primary Care Provider +1- [phone] Allergies Active Allergy Reactions Criticality Noted Date [...] Visit [facility] [address] [place] [address] Aakash Palomino [...] Visit [facility] [address] [place] [address] Aakash Palomino MD [address] [facility] [address] [place] [address] Health Maintenance Due Date Last Done Comments Pneumococcal Vaccine: 50+ Ye ars (1 of 2 - PCV) 1977 Colorectal Cancer Screening: Annual FOBT 08/11/2007 Colorectal Cancer Screening: Colonoscopy 08/11/2007 Colorectal Cancer Screening: Sigmoidoscopy 08/11/2007 Influenza Vaccine (#1) 2025 Hepatitis B Vaccine Aged Out No longe r eligible based on patient's age to complete this topic Insurance [address] [place] [id number] [place] Care Teams Coatings Inspector Relationship Specialty Start Date End Date Rajesh Watts MD [address] [place] [address] PCP - General 05/22/20
== END 2024-11-19 14:31 | disposition home or self-care (01) ==
LOC: HO.HMCH 13:58
PROVIDERS: PCP Internal Medicine; Visit Provider Nurse Practitioner Family
DX: I48.92 Unspecified atrial flutter (principal); I26.99 Other pulmonary embolism without acute cor pulmonale

== ENCOUNTER → 2024-11-19 13:58 | Outpatient (BNVA) | payer MEDICARE, MEDICAID, SELFPAY | PROVIDERS: PCP Internal Medicine; Visit Provider Nurse Practitioner Family | DX: I48.92 Unspecified atrial flutter (principal); I26.99 Other pulmonary embolism without acute cor pulmonale | CPT/HCPCS: 99212 ==

== ENCOUNTER 2024-12-27 14:52 | Outpatient (AMB) | payer MEDICARE, MEDICAID, SELFPAY ==
[2024-12-27 14:58] VITALS: BP 108/76; PULSE 133; O2SAT 98; BMI 34.8
--- NOTE | 2024-12-27 14:59 | A.OFFVIS_ITS ---
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 Asset Required: No Accompanied by: Self / Same As Patient Allergies Penicillins (PENICILLINS) Allergy (Intermediate, Verified 01/28/25 14:30) RASH haloperidol (Haldol) Allergy (Unknown, Verified 01/28/25 14:30) Unknown mirtazapine (Remeron) Allergy (Unknown, Verified 01/28/25 14:30) Unknown trazodone Allergy (Unknown, Verified 01/28/25 14:30) Unknown verapamil (Verelan) Allergy (Unknown, Verified 01/28/25 14:30) Unknown risperidone (From RISPERDAL) Adverse Reaction (Severe, Verified 01/28/25 14:30) SEIZURE lithium (LITHIUM) Adverse Reaction (Intermediate, Verified 01/28/25 14:30) LETHARGY, AKATHISIA, TD Medication List - Last Reconciled 12/27/24 by Rajesh Watts MD acetaminophen 500 mg PO Q8H PRN apixaban (Eliquis) 5 mg PO BID ascorbic acid (vitamin C) 500 mg PO DAILY benztropine 0.5 mg PO BID cholecalciferol (vitamin D3) 25 mcg PO DAILY digoxin 250 mcg PO DAILY divalproex ER (Depakote ER) 1,500 mg PO BEDTIME docusate sodium 100 mg PO BID PRN ergocalciferol (vitamin D2) 1,250 mcg PO MO fluphenazine decanoate 37.5 mg IM Q2W furosemide 40 mg PO QAM [HOSPITAL BED As directed] loratadine (Allergy Relief (loratadine)) 10 mg PO DAILY PRN 90 days lorazepam mg PO BID PRN lorazepam 0.5 mg PO ONCE PRN melatonin 5 mg PO BEDTIME PRN metoprolol tartrate 100 mg PO BID nicotine 1 patch transdermal DAILY 28 days olanzapine (Zyprexa) 5 mg PO BEDTIME olanzapine (Zyprexa) 20 mg PO BEDTIME omeprazole 20 mg PO DAILY@0630 rivaroxaban (Xarelto) 20 mg PO DAILY 90 days tamsulosin 0.4 mg PO DAILY Ventolin HFA 90 mcg/actuation (albuterol sulfate) 2 puffs PO QID PRN NS walker (Ultra-Light Rollator misc) As directed Do you need a note to return to daycare/school/sports/work: No HPI AWV HPI Details Patient comes in today for his Annual Medicare Wellness Exam States that he currently has a lot of issues going on after which he went into a long-winding narrative about all of his current issues Patient states that he feels okay overall except for his arthritis pains He denies headaches or dizziness Denies any chest pains, no increased shortness of breath No nausea/vomiting, no abdominal pain No change in bowel habits noted He had his follow up labs done early last month - to discuss his results [place] of care was reviewed and updated today Patient has a healthcare proxy in place and on file IPPE/AWV: c/o of Annual Wellness Visit, subsequent visit. Medical / Social History Reviewed Past Medical History Yes . [place] of Care / Care Team list updated Yes . Surgical/Hospitalization History Yes . Current Medications (including OTC and supplements) Yes . Family History Yes . Tobacco Control form Yes . AUDIT-C (Alcohol use) form Yes . Illicit drug use in Social History Yes . Current diagnosis of depression? No Appropriate PHQ2/PHQ9 completed Yes . Data entered by Store Specialist and reviewed by provider Home Safety Throw rugs? No Grab bars? No Raised toilet seats? No Working smoke detectors? Yes Working carbon monoxide detectors? Yes Data entered by Store Specialist and reviewed by provider Activities of Daily Living (ADLs) Difficulty bathing or showering? No Difficulty dressing? No Difficulty using the toilet? No Difficulty getting in and out of bed? No Difficulty walking? No Receives help from another person with any of the above tasks? No Instrumental Activities of Daily Living (IADLs) Uses the telephone without help Gets to places out of walking distance without help Goes shopping for groceries without help Prepares own meals without help Does own minor home maintenance without help Does own laundry without help Does own housework without help Manages own money without help Currently takes medications? Yes Takes medication without help End-of-Life Planning Discussed advance directive Yes Advance directive on file Discussed wishes expressed in advance directive agreed to following patient's wishes Fall Risk: Fall History Have you had any falls with injury in the past year? No . Have you had two or more falls in the past year? No . Fall Risk Assessment: No falls in the past year . HRA filled out by the patient, reviewed by Provider and scanned. [facility] Medical History Pulmonary emboli Congestive heart failure Atrial fibrillation with RVR Chest pain Hyperkalemia Screening for malignant neoplasm of colon performed Encounter for screening colonoscopy Screening for tuberculosis Substance abuse in remission Smoker Anal irritation Allergic rhinitis Cardiomyopathy Obesity (BMI 30-39.9) Schizoaffective disorder, bipolar type Insomnia Lumbar degenerative disc disease Osteoarthritis of hips, bilateral Hyperkalemia Pure hypercholesterolemia Benign essential hypertension History of acute heart failure History of atrial flutter History of congestive heart failure History of cardiomyopathy HTN (hypertension) Paroxysmal atrial flutter Surgical History History of total hip replacement Family History Father Hypertension CVD (cardiovascular disease) Mother Hypertension Diabetes Brother Mental health disorder Social History Household Members: Other Household Members Other:: independent living Housing: Assisted Living Facility Housing Other:: independent living Are you a primary home care assistant to a significant other at home: No Do you presently have visiting nurse or other home services: No Alcohol intake: former Patient Tobacco Use Status: Former Tobacco user Tobacco use type: Cigarette Cigarettes Per Day: 6 e-Cigarette/Vaping Use: Never Used Second Hand Smoke Exposure: Yes Substance Use Type: Former Substance User Advance Directives Date on File: 07/22/22 service: No Current occupational status: retired Current occupational exposures/hazards: No Cognitive needs: Yes (cane) Hearing needs: No Vision needs: Yes Questionnaire Medicare Wellness Checkup [age] What gender do you identify with?: male During the past 4 weeks, how much have you been bothered by emotional problems such as feeling anxious, depressed, irritable, sad or downhearted, and blue?: slightly During the past 4 weeks, has your physical & emotional health limited your social activities with family, friends, neighbors, or groups?: not at all During the past 4 weeks, how much bodily pain have you generally had?: very mild pain During the past 4 weeks, was someone available to help you if you needed & wanted help?: yes, as much as I wanted During the past 4 weeks, what was the hardest physical activity you could do for at least 2 minutes?: moderate Can you get to places out of walking distance without help? (For eg., can you travel alone on buses, taxis or drive your car?): No Can you go shopping for groceries or clothes without someone's help?: No Can you prepare your own meals?: Yes Can you do your housework without help?: Yes Because of any health problems, do you need the help of another person with your personal care needs such as eating, bathing, dressing or getting around the house?: No Can you handle your own money without help?: Yes During the past 4 weeks, how would you rate your health in general?: good During the past 4 weeks how have things been going for you?: good & bad parts about equal Are you having difficulties driving your car?: not applicable, I don't use a car Do you always fasten your seat belt when you are in a car?: yes, usually During past 4 weeks, have you been bothered by the following: never: Sexual problems?, Problems using the telephone? and Tiredness or fatigue? and seldom: Falling or dizzy when standing up, Trouble eating well? and Teeth or denture problems? Have you fallen 2 or more times in the past year?: No Are you afraid of falling?: No Are you a smoker?: no During the past 4 weeks, how many drinks of wine, beer, or other alcoholic beverages did you have?: no alcohol at all Do you exercise for about 20 minutes 3 or more times a week?: yes, most of the time Have you been given information to help with the following?: yes: Hazards in your house that might hurt you? and yes: Keeping track of your medications? How often do you have trouble taking medicines the way you have been told to take them?: I always take medicine as prescribed How confident are you that you can control & manage most of your health problems?: very confident What is your race?: or origin or descent Mini Mental State Exam (MMSE) Orientation What is the (year) (season) (date) (day) (month)?: year, season, date, day and month Where are we (state) (county) (town or city) (hospital) (floor)?: state, county, town or city, hospital/clinic and floor Score Score: 10 Activity of Daily Living Bathing - sponge bath, tub bath or shower: receives no assistance (gets in/out by self, if usual bathing means Dressing - getting clothes from closets & drawers, including inner/outer garments & fasteners.: gets clothes & gets completely dressed without help Toileting - going to the 'toilet room' for urine/bowel elimination & cleaning self/arranging clothes: goes to toilet room, cleans self, arranges clothes without help Transfer: moves in & out of bed and chair without help (may use support object) Continence: controls urination/bowel movements completely by self Feeding: feeds self without help Total Score: 0 Information obtained from: patient Using telephone: independent Traveling: dependent Shopping: needs assistance Preparing meals: needs assistance Housework: needs assistance Taking medicine: needs assistance Managing money: dependent PHQ-9 Over the last 2 weeks, how often have you been bothered by any of the following problems? 1. Little interest or pleasure in doing things: not at all 2. Feeling down, depressed, or hopeless: not at all 3. Trouble falling or staying asleep, or sleeping too much: not at all 4. Feeling tired or having little energy: several days 5. Poor appetite or overeating: not at all 6. Feeling bad about yourself - or that you are a failure or have let yourself or your family down: not at all 7. Trouble concentrating on things, such as reading the newspaper or watching television: not at all 8. Moving or speaking so slowly that other people could have noticed. Or the opposite - being so fidgety or restless that you have been moving around a lot more than usual: several days 9. Thoughts that you would be better off or of hurting yourself in some way: not at all Total score: 2 Depression Screening Interpretation: Negative Depression Screening Done: Yes 31235 - PHQ-9 Billing: Yes Source: Developed by Drs. Bimal Barrow, Melvi Padilla, Alexys Walls and colleagues, with an educational lynda from [employer]. PHQ-2/PHQ-9 PHQ-2 Over the last 2 weeks, how often have you been bothered by any of the following problems? 1. Little interest or pleasure in doing things: not at all 2. Feeling down, depressed, or hopeless: not at all Total score: 0 If score is 3 or greater, continue 3. Trouble falling or staying asleep, or sleeping too much: not at all 4. Feeling tired or having little energy: several days 5. Poor appetite or overeating: not at all 6. Feeling bad about yourself - or that you are a failure or have let yourself or your family down: not at all 7. Trouble concentrating on things, such as reading the newspaper or watching television: not at all 8. Moving or speaking so slowly that other people could have noticed. Or the opposite - being so fidgety or restless that you have been moving around a lot more than usual: several days 9. Thoughts that you would be better off or of hurting yourself in some way: not at all Total score: 2 0-4 None-Minimal, 5-9 Mild, 10-14 Moderate, 15-19 Moderately Severe, 20-27 Severe Source: Developed by Drs. Bimal Barrow, eMlvi Padilla, Alexys Walls and colleagues, with an educational lynda from [employer]. Thrive Questionnaire Date Thrive assessed: 12/27/24 I am a: Patient What is your living situation today?: I have a steady place to live Within the past 12 months, did the food you bought not last and you didn't have the money to get more?: Never true Within the past 12 months, did you worry whether your food would run out before you got money to buy more?: Never true Do you have trouble paying for medicines?: No Do you have trouble getting transportation to medical appointments?: No Do you have trouble paying your heating and electricity bill?: No Do you have trouble taking care of your child, family member or friend?: No Do you have trouble with day-to-day activities such as bathing, preparing meals, shopping, managing finances, etc.?: No Are you currently unemployed and looking for a job?: No Are you interested in more education?: No Please select the resources that you would like help with: None Currently or been in a relationship where the following occur: I choose not to answer THRIVE Score: 0 IMELDA-7 AMB Questionnaire IMELDA-7 Date IMELDA - 7 assessed: 11/10/24 Feeling nervous, anxious, or on edge: 0 = Not at all Not being able to stop or control worryin = Not at all Worrying too much about different things: 0 = Not at all Trouble relaxin = Not at all Being so restless that it is hard to sit still: 0 = Not at all Becoming easily annoyed or irritable: 0 = Not at all Feeling afraid as if something awful might happen: 0 = Not at all Total IMELDA-7 score (0-4 normal; 5-9 mild; 10-14 moderate; 15-21 severe): 0 Source: Developed by Drs. Bimal Barrow, Melvi Padilla, Alexys Walls and colleagues, with an educational lynda from [employer]. Review of Systems Const Denies chills, Denies fatigue, Denies fever(s) and Denies headache(s) ENT Denies dysphagia, Denies dizziness, Denies otalgia, Denies headache(s), Denies neck pain, Denies odynophagia and Denies sore throat Card Denies chest pain, Denies palpitations and Denies dyspnea Resp Denies chest congestion, Denies cough and Denies dyspnea GI Denies abdominal pain, Denies constipation, Denies dysphagia, Denies heartburn, Denies diarrhea, Denies nausea, Denies odynophagia and Denies vomiting Denies dysuria, Reports nocturia and Reports urinary frequency Musc Reports back pain (over the lower back), Reports arthralgias (right hip) and Denies neck pain Skin/Breast Denies rash Neuro Denies dizziness and Denies headache(s) Psych Reports anxiety and Reports depression Endo Denies fatigue and Denies palpitations Physical Exam Vital Signs: Last Vital Signs Pulse 133 H 12/27/24 14:58 BP 108/76 12/27/24 14:58 Pulse Ox 98 12/27/24 14:58 Oxygen Delivery Method Room Air 12/27/24 14:58 BMI result Body Mass Index 34.8 IPPE/AWV: Balance Romberg No . Tandem walk No . Walk and Turn No . Rise from sit to stand No . Vision Corrective lens No Vision screen pass Hearing Whisper test pass . Urinary incont. no. EKG Not clinically necessary. Const General: no acute distress and alert Orientation/consciousness: patient oriented x3 HEENT Ears: TM's normal bilaterally and EAC's normal Throat: Yes posterior oropharynx normal and Yes tonsils normal (no TP congestion) Neck Neck: Yes supple and No lymphadenopathy Thyroid: Thyroid normal Resp Auscultation: clear to auscultation bilaterally, no rales and no wheezes Cardio Rate: regular rate Rhythm: regular rhythm Heart sounds: no murmurs GI Palpation (GI): Soft to palpation and nontender Auscultation: normal bowel sounds General: Yes no CVA tenderness Back/Spine/Pelvis Back: no CVA tenderness Thoracic/Lumbar Spine: lumbar spinal tenderness Skin Rashes: no rashes Neuro General: patient oriented x3 Cranial nerves: Yes CN's II-XII intact bilaterally Cognition (Neuro): normal cognition Extrem General: Yes no clubbing, cyanosis or edema Right lower extremity: hip/thigh Details: tenderness Location: of the hip Left lower extremity: hip/thigh Details: tenderness Location: of the hip Results Reviewed Results Reviewed: Laboratory Tests 11/09/24 11/09/24 09:26 09:28 WBC 4.2 L Hgb 11.5 L Hct 34.2 L Plt Count 306 D Sodium 138 Potassium 4.2 Creatinine 1.03 Estimated GFR > 60 Fasting Glucose 98 Hemoglobin A1c % 5.5 Calcium 8.9 AST 15 ALT 12 B-Natriuretic Peptide 20 Triglycerides 98 Cholesterol 178 LDL Cholesterol, Calc 108 H HDL Cholesterol 51 25-OH Vitamin D Total 31.5 TSH 1.73 Ur Specific [place] <= 1.005 Urine Protein Negative Urine Glucose (UA) Negative Urine Blood Negative Urine Nitrite Negative Ur Leukocyte Esterase Negative Assessment & Plan Assessment & Plan (1) Medicare annual wellness visit, subsequent: Code(s): Z00.00 - Encounter for general adult medical examination without abnormal findings Plan: SUSAN updated HRA form discussed and completed with patient; form will be scanned into patient's chart (2) Positive colorectal cancer screening using Cologuard test: Comment: History hemorrhoids Code(s): R19.5 - Other fecal abnormalities Plan: He is being scheduled for colonoscopy due to a positive Cologuard test done earlier this year but is waiting for cardiology to clear him for the procedure He underwent stress testing and myocardial perfusion scan a year ago in February 2024 and tests came out normal Patient however developed AF and had pulmonary emboli a few months ago, so any surgical procedure is not possible at this time (3) Paroxysmal atrial flutter: Code(s): I48.92 - Unspecified atrial flutter Plan: S/P DC cardioversion; he is currently still maintained on Amiodarone 100 mg QD Continue Xarelto 20 mg QD for thromboembolism prophylaxis Patient states that he's had no recurrence of symptoms since his cardioversion Follow-up with cardiology as scheduled (4) History of cardiomyopathy: Comment: LVEF of 25% time of presentation with heart failure and atrial flutter, suspected to be tachycardia mediated. Normalized after maintaining sinus rhythm to 55-60% Code(s): Z86.79 - Personal history of other diseases of the circulatory system Plan: Echocardiogram in 09/2020 showed a near normal EF of 55 to 60%; repeat echo done on 12/11/21 revealed (+) normal LV systolic function with mild LVH, moderately dilated left atrium, mild mitral regurgitation, normal RV systolic pressure, mildly dilated ascending aorta at 4 cm and no pericardial effusion noted Repeat echocardiogram in April 2023 revealed that the calculated ejection fraction is 54% by biplane method, with no evidence of regional wall motion abnormalities. There is mildly decreased right ventricular systolic function but no obvious valvular pathology is seen on this study. There is mild dilatation of the sinuses of Valsalva measuring 4.27 cm and mild dilatation of the ascending aorta measuring 3.90 cm His most recent echocardiogram done in February 2024 revealed normal left ventricular systolic function, with the visually estimated ejection fraction between 55-60%. No obvious valvular pathology was seen on this study. There is mild dilatation of the sinuses of Valsalva measuring 4.10 cm and mild dilatation of the ascending aorta measuring 3.80 cm He is scheduled again for repeat echocardiogram in a couple of months Follow up with cardiology as scheduled (5) Pure hypercholesterolemia: Code(s): E78.00 - Pure hypercholesterolemia, unspecified Plan: Results of his labs done last month reviewed and discussed with patient Reinforced low-cholesterol diet Will recheck his labs and fasting lipids in 3 months for follow-up (6) Benign essential hypertension: Code(s): I10 - Essential (primary) hypertension Plan: Reinforced low sodium diet - goal is systolic BP of at least 120 to 130 mm or less Continue Metoprolol 50 mg BID and Furosemide 40 mg QD (7) Osteoarthritis of hips, bilateral: Comment: S/P total left hip arthroplasty in 2016 Code(s): M16.0 - Bilateral primary osteoarthritis of hip Qualifiers: Osteoarthritis type: primary Qualified Code(s): M16.0 - Bilateral primary osteoarthritis of hip Plan: S/P total left hip arthroplasty in 2016 with (+) significant improvement of his hip pain States that his right hip pain has been progressively getting worse lately and he was going to have a right hip arthroplasty done but with his recent cardiac issues, surgery is now on hold S/P physical therapy with some relief of his symptoms Continue Acetaminophen 500 mg every 8 hours as needed for pain Follow-up with Orthopedics (Dr. Banda) as scheduled (8) Lumbar degenerative disc disease: Code(s): M51.36 - Other intervertebral disc degeneration, lumbar region Qualifiers: Disc-related pain type: discogenic back pain only Qualified Code(s): M51.360 - Other intervertebral disc degeneration, lumbar region with discogenic back pain only Plan: Reinforced activity and weight lifting restrictions to help minimize the risks of aggravating his back symptoms (9) Hyperkalemia: Code(s): E87.5 - Hyperkalemia Plan: His potassium level was normal at 4.2 when checked last month Reinforced again that he should avoid foods high in potassium content Will continue to monitor his serum potassium level regularly (10) Insomnia: Code(s): G47.00 - Insomnia, unspecified Qualifiers: Insomnia type: unspecified Qualified Code(s): G47.00 - Insomnia, unspecified Plan: Sleep hygiene reinforced Continue OTC Melatonin 5 mg once a day at bedtime as needed (11) Schizoaffective disorder, bipolar type: Code(s): F25.0 - Schizoaffective disorder, bipolar type Plan: Continue Depakote ER 500 mg 3 tablets once a day at bedtime (mood stabilizer), ? Fluphenazine Decanoate solution (Prolixin) 25 milligram/mL? 1.5 mL (37.5 mg) IM injection every 2 weeks ? Olanzapine tablet (Zyprexa) 10 mg 2 tablets (20 mg) once a day at bedtime (thought disorder), ? Benztropine Mesylate? (Cogentin) 0.5 mg? 1 tablet once a day at bedtime, and ? Lorazepam 1 mg once a day as needed Follow up with psychiatry as scheduled (12) Obesity (BMI 30-39.9): Code(s): E66.9 - Obesity, unspecified Plan: Reinforced diet; exercise and weight are not realistic given patient's physical issues and comorbidities Plan Follow up in 3 months Orders: Orders Lipid Panel 3 Months E78.00 - Pure hypercholesterolemia, unspecified TSH reflex Free T4 3 Months E78.00 - Pure hypercholesterolemia, unspecified UA CC w/rflx Micro + Cult 3 Months R30.0 - Dysuria Complete Blood Count Auto Diff 3 Months D64.9 - Anemia, unspecified Comprehensive Mobile. Panel Fast 3 Months E78.00 - Pure hypercholesterolemia, unspecified Vitamin D 25-OH Total 3 Months E55.9 - Vitamin D deficiency, unspecified Vitamin B12 and Folate 3 Months E53.8 - Deficiency of other specified B group vitamins Quality Reporting (2020) Depression/Bipolar (159/160/161/177) PHQ-9: Total score: 2 Coding Level of Care Code Medicare Subsequent (G0439) Est Pt Level 4 (49163) Diagnoses Medicare annual wellness visit, subsequent Z00.00 Positive colorectal cancer screening using Cologuard test R19.5 Paroxysmal atrial flutter I48.92 History of cardiomyopathy Z86.79 Pure hypercholesterolemia E78.00 Benign essential hypertension I10 Primary osteoarthritis of both hips M16.0 Osteoarthritis type: primary Degeneration of intervertebral disc of lumbar region with discogenic back pain M51.360 Disc-related pain type: discogenic back pain only Hyperkalemia E87.5 Insomnia, unspecified type G47.00 Insomnia type: unspecified Schizoaffective disorder, bipolar type F25.0 Obesity (BMI 30-39.9) E66.9 CPT Codes Advance Care Planning - Advance Care Planning discussion: On file, no changes ([id number]) Additional Codes PHQ-9 - 16568 - PHQ-9 Billing: Yes ([id number]) Advance Care Planning Advance Care Planning discussion: On file, no changes
--- OUTSIDE RECORDS SUMMARY | 2024-12-27 15:34 | XMS_ITS | Clinical Summary ---
Author Organization [facility] Address [address] [place] [address] DR MEMBRENO GREG MATTHEW [phone] Phone Care Team Providers Care Clinic Assistant Name Role Phone Rajesh Watts MD Primary Care Provider +1- [phone] Allergies Active Allergy Reactions Criticality Noted Date [...] Visit [facility] [address] [place] [address] Aakash Palomino [...] Visit [facility] [address] [place] [address] Aakash Palomino MD [address] [facility] [address] [place] [address] Health Maintenance Due Date Last Done Comments Pneumococcal Vaccine: 50+ Ye ars (1 of 2 - PCV) 1979 Colorectal Cancer Screening: Annual FOBT 08/11/2007 Colorectal Cancer Screening: Colonoscopy 08/11/2007 Colorectal Cancer Screening: Sigmoidoscopy 08/11/2007 Influenza Vaccine (#1) 2025 Hepatitis B Vaccine Aged Out No longe r eligible based on patient's age to complete this topic Insurance [address] [place] [id number] Medicare Medicaid [place] Care Teams Clinic Assistant Relationship Specialty Start Date End Date Rajesh Watts MD [address] [place] [address] PCP - General 05/22/20
== END 2024-12-27 15:46 | disposition home or self-care (01) ==
LOC: HO.HMCH 14:53
PROVIDERS: PCP Internal Medicine; Visit Provider Internal Medicine
DX: Z00.00 Encounter for general adult medical examination without abnormal findings (principal); I48.92 Unspecified atrial flutter; F25.0 Schizoaffective disorder, bipolar type; R19.5 Other fecal abnormalities; Z86.79 Personal history of other diseases of the circulatory system; E78.00 Pure hypercholesterolemia, unspecified; I10 Essential (primary) hypertension; M16.0 Bilateral primary osteoarthritis of hip; M51.360 Other intervertebral disc degeneration, lumbar region with discogenic back pain only; E87.5 Hyperkalemia; G47.00 Insomnia, unspecified; E66.9 Obesity, unspecified

== ENCOUNTER → 2024-12-27 14:52 | Outpatient (BNVA) | payer MEDICARE, MEDICAID, SELFPAY | PROVIDERS: PCP Internal Medicine; Visit Provider Internal Medicine | DX: Z13.31 Encounter for screening for depression (principal) | CPT/HCPCS: 96127 ==

== ENCOUNTER → 2025-01-11 23:59 | Outpatient (BNV) | payer MEDICARE, MEDICAID, SELFPAY | PROVIDERS: PCP Internal Medicine; Visit Provider Internal Medicine | DX: F31.9 Bipolar disorder, unspecified (principal); I10 Essential (primary) hypertension | CPT/HCPCS: G0179 ==

== ENCOUNTER 2025-01-20 14:53 | Outpatient (AMB) | payer MEDICARE, MEDICAID, SELFPAY ==
--- NOTE | 2025-01-20 15:14 | MHC.OFFVIS ---
Vital Signs 01/20/25 15:15 Height 5 ft 9 in Weight 233 lb 11.04 oz BMI 34.5 BP 90/64 Blood Pressure Location Lt brachial Position Sitting Pulse 136 H Pulse Source Monitor Intake Visit Reasons: f/u [facility] dc Per NS Casting Assistant Required: No Administrative Support Associate: Administrative Support Associate Present Allergies Penicillins (PENICILLINS) Allergy (Intermediate, Verified 01/20/25 15:19) RASH haloperidol (Haldol) Allergy (Unknown, Verified 01/20/25 15:19) Unknown mirtazapine (Remeron) Allergy (Unknown, Verified 01/20/25 15:19) Unknown trazodone Allergy (Unknown, Verified 01/20/25 15:19) Unknown verapamil (Verelan) Allergy (Unknown, Verified 01/20/25 15:19) Unknown risperidone (From RISPERDAL) Adverse Reaction (Severe, Verified 01/20/25 15:19) SEIZURE lithium (LITHIUM) Adverse Reaction (Intermediate, Verified 01/20/25 15:19) LETHARGY, AKATHISIA, TD Medication List - Last Reconciled 01/20/25 by GRECIA Damon acetaminophen 500 mg PO Q8H PRN apixaban (Eliquis) 5 mg PO BID ascorbic acid (vitamin C) 500 mg PO DAILY benztropine 0.5 mg PO BID cholecalciferol (vitamin D3) 25 mcg PO DAILY digoxin 125 mcg PO DAILY divalproex ER (Depakote ER) 1,500 mg PO BEDTIME docusate sodium 100 mg PO BID PRN ergocalciferol (vitamin D2) 1,250 mcg PO MO fluphenazine decanoate 37.5 mg IM Q2W furosemide 40 mg PO QAM [HOSPITAL BED As directed] loratadine (Allergy Relief (loratadine)) 10 mg PO DAILY PRN 90 days lorazepam mg PO BID PRN lorazepam 0.5 mg PO ONCE PRN melatonin 5 mg PO BEDTIME PRN metoprolol tartrate 100 mg PO BID nicotine 1 patch transdermal DAILY 28 days olanzapine (Zyprexa) 5 mg PO BEDTIME olanzapine (Zyprexa) 20 mg PO BEDTIME omeprazole 20 mg PO DAILY@0630 tamsulosin 0.4 mg PO DAILY Ventolin HFA 90 mcg/actuation (albuterol sulfate) 2 puffs PO QID PRN NS walker (Ultra-Light Rollator misc) As directed HPI HPI f/u [facility] dc Per NS: Details: Pool is a 64-year-old male with past medical history of smoking, hypertension, hyperlipidemia, ascending aorta dilation, heart failure with reduced EF, 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 He was treated with heart rate control and had [facility] admission 01/06/2025 for heart palpitations and again treated for atrial flutter. He was reloaded with digoxin and discharged with 0.125 mg daily. Dig level 1.5. He now presents for follow-up. Today he reports he has been doing generally well since his hospital discharge on 01/08/2025. He does feel heart palpitations and has some shortness of breath with walking which is not new. No chest discomfort at rest or during activity. He denies shortness of breath at rest, PND, orthopnea. He does have soft pitting bilateral leg edema. No lightheadedness, presyncope, syncope. He ambulates with the use of a cane. He goes to a day program. He gets help with his medications. No bleeding issues reported. SUTURE GAUGER present. Patient tells me he believes he was taken off amiodarone due to recurrent atrial flutter around time of October admission. [facility] Medical History Pulmonary emboli Congestive heart failure Atrial fibrillation with RVR Chest pain Hyperkalemia Screening for malignant neoplasm of colon performed Encounter for screening colonoscopy Screening for tuberculosis Substance abuse in remission Smoker Anal irritation Allergic rhinitis Cardiomyopathy Obesity (BMI 30-39.9) Schizoaffective disorder, bipolar type Insomnia Lumbar degenerative disc disease Osteoarthritis of hips, bilateral Hyperkalemia Pure hypercholesterolemia Benign essential hypertension History of acute heart failure History of atrial flutter History of congestive heart failure History of cardiomyopathy HTN (hypertension) Paroxysmal atrial flutter Surgical History History of total hip replacement Family History Father Hypertension CVD (cardiovascular disease) Mother Hypertension Diabetes Brother Mental health disorder Social History Household Members: Other Housing: Apartment Housing Other:: independent living Are you a primary health care specialist to a significant other at home: No Do you presently have visiting nurse or other home services: Yes Alcohol intake: former Patient Tobacco Use Status: Former Tobacco user Tobacco use type: Cigarette Cigarettes Per Day: 6 e-Cigarette/Vaping Use: Never Used Second Hand Smoke Exposure: Yes Substance Use Type: Former Substance User service: No Current occupational status: retired Current occupational exposures/hazards: No Cognitive needs: Yes (cane) Hearing needs: No Vision needs: Yes Review of Systems Const All systems reviewed & are unremarkable except as noted in HPI and below ENT Denies dizziness Card Denies chest pain, Denies chest pain at rest, Denies chest pain with activity, Reports rapid heart rate, Denies pedal edema, Denies edema, Denies leg edema, Denies lightheadedness, Reports palpitations, Denies dyspnea, Reports dyspnea on exertion (with exertion) and Denies orthopnea Resp Denies cough, Denies dyspnea and Reports dyspnea on exertion (with exertion) GI Denies hematochezia and Denies change in stool character Musc Reports abnormal gait (uses cane), Denies limited range of motion, Denies muscle cramps, Denies muscle weakness, Denies numbness, Denies radiating pain into limb, Denies stiffness and Denies tingling Neuro Reports abnormal gait (uses cane), Denies dizziness, Denies numbness and Denies tingling Endo Reports palpitations Physical Exam Vital Signs: Last Vital Signs Pulse 136 H 01/20/25 15:15 BP 90/64 01/20/25 15:15 BMI result Body Mass Index 34.5 Const General: cooperative, healthy appearing, comfortable and no acute distress Orientation/consciousness: patient oriented x3 Neck Neck: Yes normal visual inspection Resp Effort & Inspection: normal respiratory effort Auscultation: clear to auscultation bilaterally, no rales, no rhonchi and no wheezes Cardio Rate: tachycardic Rhythm: regular rhythm Heart sounds: S1 normal heart sound present, S2 normal heart sound present, no gallops, no murmurs and no rubs Neuro General: patient oriented x3 Extrem Other: soft pitting ankle and lower leg edema General: No calf tenderness Psych Appearance: grossly normal Mental Status: mental status grossly normal Speech and movement: Normal speech and movement present Office Procedures EKG Details: Today, read by me, atrial flutter with two-to-one conduction, ST and T-wave abnormality V3 through V6, rate 136, QTC 391 millisecond [id number], Complete Assessment & Plan Assessment & Plan (1) Paroxysmal atrial flutter: Code(s): I48.92 - Unspecified atrial flutter Category: Medical Plan: History of paroxysmal atrial flutter/flutter that has been treated with rhythm control however in the last few months seems to be treated with rate control based on [facility] notes. He is currently on digoxin 0.125 mg daily, metoprolol tartrate 100 mg b.i.d.. EKG today showing atrial flutter with two-to-one AV conduction, ST and T-wave abnormality noted V3 through V6. Last echo in 12/04/2023 showed EF 55-60%, no valve abnormalities. It is unclear how long he is currently had AFib RVR. He has soft pitting leg edema but otherwise does not appear fluid overloaded. BP low, asymptomatic. Unable to further titrate meds as outpatient. Case reviewed with Dr. Bautista. Will have him go to the emergency room for admission. Stop digoxin. Start amiodarone drip and if he does not convert then we will plan for inpatient cardioversion tomorrow. He has been on Eliquis without interruption for at least 1 month. NPO after midnight. Report given to ER provider. Patient transported to the emergency room via wheelchair, copy of EKG given. (2) History of cardiomyopathy: Comment: LVEF of 25% time of presentation with heart failure and atrial flutter, suspected to be tachycardia mediated. Normalized after maintaining sinus rhythm to 55-60% Code(s): Z86.79 - Personal history of other diseases of the circulatory system Category: Medical Plan: Prior EF as low as 25%. Most recent echo 04/05/2024 showed EF 55-60%, no valve abnormalities, mild dilation of the sinus of Valsalva, 4.1 cm, ascending aorta 3.8 cm. (3) History of acute heart failure: Comment: Echocardiogram done on 08/06/2019 showed normal LV size with moderately diminished systolic function that was most likely due to atrial flutter and rapid ventricular rate at the time; previous echo back in 2016 (done at [facility]) was normal with EF of around 55 to 60% Code(s): Z86.79 - Personal history of other diseases of the circulatory system Category: Medical Plan: ER evaluation as above. (4) HTN (hypertension): Code(s): I10 - Essential (primary) hypertension Category: Medical Plan: [place] blood pressure goal less than 130/80. Blood pressure on low side today, currently asymptomatic. (5) Thoracic aortic aneurysm: Code(s): I71.20 - Thoracic aortic aneurysm, without rupture, unspecified Category: Medical Plan: Mild dilation as above. (6) Hospital discharge follow-up: Code(s): Z09 - Encounter for follow-up examination after completed treatment for conditions other than malignant neoplasm Category: Medical Plan: [facility] discharge reviewed (7) Pulmonary emboli: Comment: [facility] admission 10/21/2024, CTA shows acute bilateral subsegmental pulmonary emboli. Code(s): I26.99 - Other pulmonary embolism without acute cor pulmonale Category: Medical Qualifiers: Pulmonary embolism type: other Chronicity: acute Acute cor pulmonale presence: unspecified Qualified Code(s): I26.99 - Other pulmonary embolism without acute cor pulmonale Plan: Recent acute bilateral subsegmental pulmonary emboli. He had been on Xarelto for anticoagulation -which he may have ran out of prior to his admission. Per notes Eliquis was started at that time. No bleeding issues or concerns for recurrent PE. Plan Time spent on chart review, documentation, interview and assessment Coding Level of Care Code Est Pt Level 5 (79884) Complex EM visit Add On G2211 Diagnoses Paroxysmal atrial flutter I48.92 History of cardiomyopathy Z86.79 History of acute heart failure Z86.79 HTN (hypertension) I10 Thoracic aortic aneurysm I71.20 Hospital discharge follow-up Z09 Other acute pulmonary embolism, unspecified whether acute cor pulmonale present I26.99 Pulmonary embolism type: other Chronicity: acute Acute cor pulmonale presence: unspecified CPT Codes EKG - CPT: 43295-[id number], Complete ([id number]) Time Spent (min) 45
[2025-01-20 15:15] VITALS: BP 90/64; PULSE 136; BMI 34.5
--- OUTSIDE RECORDS SUMMARY | 2025-01-20 18:22 | XMS_ITS | Clinical Summary ---
Author Organization [facility] Address [address] [place] [address] [address] MEMBRENO GREG MATTHEW [phone] Phone Care Team Providers Care Manager Strategy Name Role Phone Rajesh Watts MD Primary Care Provider [phone]- [phone] Allergies Active Allergy Reactions Criticality Noted Date [...] Visit [facility] [address] [place] [address] Aakash Palomino MD [address] [facility] [address] [place] [address] Health Maintenance Due Date Last Done Comments Pneumococcal Vaccine: 50+ Ye ars (1 of 2 - PCV) 1979 Colorectal Cancer Screening: Annual FOBT 08/11/2007 Colorectal Cancer Screening: Colonoscopy 08/11/2007 Colorectal Cancer Screening: Sigmoidoscopy 08/11/2007 Influenza Vaccine (#1) 2025 Hepatitis B Vaccine Aged Out No longe r eligible based on patient's age to complete this topic Insurance [address] [place] [id number] Medicare Medicaid [place] Medicare Medicaid [place] Care Teams Manager Strategy Relationship Specialty Start Date End Date Rajesh Watts MD [address] [place] [address] PCP - General 05/22/20
== END 2025-01-20 16:16 | disposition home or self-care (01) ==
LOC: HO.HCS 14:53
PROVIDERS: PCP Internal Medicine; Visit Provider Nurse Practitioner Family
DX: I48.91 Unspecified atrial fibrillation (principal); I48.92 Unspecified atrial flutter; I44.0 Atrioventricular block, first degree
CPT/HCPCS: 93010; 99215; G2211

== ENCOUNTER → 2025-01-20 14:53 | Outpatient (BNVA) | payer MEDICARE, MEDICAID, SELFPAY | PROVIDERS: PCP Internal Medicine; Visit Provider Nurse Practitioner Family | DX: I10 Essential (primary) hypertension (principal); I48.92 Unspecified atrial flutter; I71.20 Thoracic aortic aneurysm, without rupture, unspecified; I26.99 Other pulmonary embolism without acute cor pulmonale; Z86.79 Personal history of other diseases of the circulatory system | CPT/HCPCS: 93005; 99212 ==

== ENCOUNTER 2025-01-20 16:22 | Inpatient (IN) | payer MEDICARE, MEDICAID, SELFPAY ==
--- NOTE | 2025-01-20 | ECG_ITS ---
Test Reason : CP Blood Pressure : */* mmHG Vent. Rate : 67 BPM Atrial Rate : 258 BPM P-R Int : * ms QRS Dur : 104 ms QT Int : 396 ms P-R-T Axes : -89 60 -57 degrees QTcB Int : 418 ms Atrial flutter with variable A-V block Nonspecific ST and T wave abnormality Abnormal ECG When compared with ECG of 20-Jan-2025 16:51, No significant change was found Referred By: Jean Claude Castanon Electronically Signed By: ROSEMARIE CALDWELL MD
--- NOTE | ~2025-01-20 | XR_ITS ---
CLINICAL HISTORY: History of CHF 1 view chest x-ray Comparison: None provided Findings: No consolidation or effusion. Normal size heart. No acute fracture. IMPRESSION: 1. No acute findings. This document has been electronically signed by: Iman Hector MD on 01/20/2025 20:53:19
--- NOTE | 2025-01-20 16:24 | ECG_ITS ---
Test Reason : ARRYTHMIA Blood Pressure : */* mmHG Vent. Rate : 94 BPM Atrial Rate : 277 BPM P-R Int : * ms QRS Dur : 90 ms QT Int : 346 ms P-R-T Axes : 268 38 -35 degrees QTcB Int : 432 ms Atrial flutter with variable A-V block Minimal voltage criteria for LVH, may be normal variant ( Sokolow-Wells ) Nonspecific ST and T wave abnormality Abnormal ECG When compared with ECG of 22-Jun-2024 12:35, Vent. rate has decreased Referred By: Generic ED Physician Electronically Signed By: ROSEMARIE CALDWELL MD
[2025-01-20 16:53] VITALS: BP 114/87; PULSE 122; RESP 17; O2SAT 99; BMI 35.4
[2025-01-20 17:16] LABS: MANUAL DIFF FLAG NO
[2025-01-20 17:19] LABS: Hematocrit 33.7 % (42.0-52.0); Hemoglobin 11.5 g/dl (14.0-18.0); Imm Gran Abs Auto 0.00 X10*3/uL (0.00-0.03); Imm Gran Pct Auto 0.0 % (0.0-0.4); Lymphocytes Absolute Auto 2.0 X10*3/uL (1.2-4.9); Mean Corpuscular HGB Conc 34.1 g/dl (31.0-36.0); Mean Corpuscular Hemoglobin 31.3 pg (27.0-33.0); Mean Corpuscular Volume 91.8 fL (80.0-98.0); NRBC Abs Auto 0.000 X10*3/uL (0.0-0.012); NRBC Pct Auto 0.0 /100WBC (0.0-0.2); Platelet Count 270 X10*3/uL (160-400); Red Blood Count 3.67 X10*6/uL (4.60-5.80); White Blood Count 4.2 X10*3/uL (4.8-10.8)
[2025-01-20 17:34] LABS: Alanine Aminotransferase 9 U/L (0-40); Albumin Level 4.1 g/dL (3.5-5.0); Alkaline Phosphatase 74 U/L (39-117); Anion Gap 14 (12-20); Aspartate Amino Transferase 16 U/L (5-37); Blood Urea Nitrogen 12 mg/dL (9-16); Calcium 9.0 mg/dL (8.4-10.2); Carbon Dioxide 29 mmol/L (22-29); Chloride 104 mmol/L (96-108); Creatinine Clr Calc Pharmacy 69.0; Estimated Glomerular Filt Rate 58; Potassium 4.5 mmol/L (3.3-5.1); Sodium 142 mmol/L (135-145); Total Protein 7.3 g/dL (6.5-8.0)
[2025-01-20 17:42] LABS: Troponin-I High Sensitivity 4.1 ng/L (<3.5-35.0)
--- NOTE | 2025-01-20 18:55 | ED.ARRPALP ---
HPI - Arrhythmia/Palpitations General Chief Complaint: Arrhythmia/Palpitations Stated Complaint: elevated heart rate (sent by [employer]OT[employer] Ramila) Time Seen by Provider: 01/20/25 18:55 Source: patient and old records reviewed Mode of arrival: EMS Limitations: other (poor historian ) History of Present Illness ED Provider: lottie lara HPI narrative: 64-year-old male here today poor historian states he came in from his cardiology office sent in for a fast heart rate. Patient states he has a history of AFib PEs and heart failure he is on blood thinners. Patient is denying any chest pain or respiratory distress. 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 Denies any abdominal pain nauseousness or vomiting. MD complaint: rapid heart beat and irregular heart beat Related Data Home Medications ?Medication ?Instructions ?Recorded ?Confirmed ascorbic acid (vitamin C) 500 mg 500 mg PO DAILY 03/13/20 01/20/25 capsule benztropine 0.5 mg tablet 0.5 mg PO BID 03/13/20 01/20/25 cholecalciferol (vitamin D3) 25 25 mcg PO DAILY 03/16/20 01/20/25 mcg (1,000 unit) capsule olanzapine 20 mg tablet (Zyprexa) 20 mg PO BEDTIME 10/21/22 01/20/25 olanzapine 5 mg tablet (Zyprexa) 5 mg PO BEDTIME 10/21/22 01/20/25 fluphenazine decanoate 25 mg/mL 37.5 mg IM Q2W 06/25/23 01/20/25 injection solution ergocalciferol (vitamin D2) 1,250 1,250 mcg PO MO 06/22/24 01/20/25 mcg (50,000 unit) capsule melatonin 5 mg capsule 5 mg PO BEDTIME PRN insomnia 06/22/24 01/20/25 lorazepam 0.5 mg tablet 0.5 mg PO ONCE PRN Anxiety 10/21/24 01/20/25 lorazepam 1 mg tablet mg PO BID PRN 10/21/24 01/20/25 digoxin 250 mcg (0.25 mg) tablet 250 mcg PO DAILY 01/20/25 01/20/25 divalproex 250 mg tablet,extended 250 mg PO DAILY 01/20/25 release 24 hr Previous Rx's ?Medication ?Instructions ?Recorded walker (Ultra-Light Rollator misc) #1 ea 12/03/21 HOSPITAL BED #1 ea 07/16/22 docusate sodium 100 mg capsule 100 mg PO BID PRN for constipation 11/16/23 #60 caps acetaminophen 500 mg tablet 500 mg PO Q8H PRN for pain #90 tabs 07/16/24 Ventolin HFA 90 mcg/actuation 2 puff PO QID PRN shortness of 07/28/24 aerosol inhaler (albuterol sulfate) breath or wheezing #18 grams nicotine 14 mg/24 hr daily 1 patch transdermal DAILY 28 days 07/28/24 transdermal patch #28 ea tamsulosin 0.4 mg capsule 0.4 mg PO DAILY #90 caps 07/28/24 furosemide 40 mg tablet 40 mg PO QAM edema #90 tabs 09/02/24 loratadine 10 mg tablet (Allergy 10 mg PO DAILY PRN allergy 09/27/24 Relief (loratadine)) symptoms 90 days #90 tabs apixaban 5 mg tablet (Eliquis) 5 mg PO BID #60 tabs 01/12/25 metoprolol tartrate 100 mg tablet 100 mg PO BID #60 tabs 01/12/25 omeprazole 20 mg capsule,delayed 20 mg PO DAILY@0630 #30 caps 01/15/25 release Allergies Allergy/AdvReac Type Severity Reaction Status Date / Time Penicillins (PENICILLINS) Allergy Intermediate RASH Verified 01/20/25 16:54 haloperidol (Haldol) Allergy Unknown Unknown Verified 01/20/25 16:54 mirtazapine (Remeron) Allergy Unknown Unknown Verified 01/20/25 16:54 trazodone Allergy Unknown Unknown Verified 01/20/25 16:54 verapamil (Verelan) Allergy Unknown Unknown Verified 01/20/25 16:54 risperidone (From RISPERDAL) AdvReac Severe SEIZURE Verified 01/20/25 16:54 lithium (LITHIUM) AdvReac Intermediate LETHARGY, Verified 01/20/25 16:54 AKATHISIA, TD Review of Systems Review of Systems: Constitutional : No Fever, No Chills ENT/Mouth : No sore throat, No Rhinorrhea Eyes: No Eye Pain, No Swelling, No Redness Cardiovascular : No Chest Pain, No SOB Respiratory : No Cough, No Sputum Gastrointestinal : No Nausea, No Vomiting, No Diarrhea, No abdominal Pain Genitourinary : No Dysuria, No Hematuria Musculoskeletal : No joint pain, No Myalgias, No Joint Swelling Skin : No Skin Lesions, positive skin rash Neuro : No Weakness, No Numbness, No Headache All other systems reviewed and are negative [facility] Past Medical History Medical History Pulmonary emboli Congestive heart failure Atrial fibrillation with RVR Chest pain Hyperkalemia Screening for malignant neoplasm of colon performed Encounter for screening colonoscopy Screening for tuberculosis Substance abuse in remission Smoker Anal irritation Allergic rhinitis Cardiomyopathy Obesity (BMI 30-39.9) Schizoaffective disorder, bipolar type Insomnia Lumbar degenerative disc disease Osteoarthritis of hips, bilateral Hyperkalemia Pure hypercholesterolemia Benign essential hypertension History of acute heart failure History of atrial flutter History of congestive heart failure History of cardiomyopathy HTN (hypertension) Paroxysmal atrial flutter Surgical History History of total hip replacement Family History Family History Father Hypertension CVD (cardiovascular disease) Mother Hypertension Diabetes Brother Mental health disorder Social History Social History Household Members: Other Housing: Apartment Housing Other:: independent living Are you a primary care transport nurse to a significant other at home: No Do you presently have visiting nurse or other home services: Yes Alcohol intake: former Patient Tobacco Use Status: Former Tobacco user Tobacco use type: Cigarette Cigarettes Per Day: 6 Smoked in Last 30 Days: No e-Cigarette/Vaping Use: Never Used Second Hand Smoke Exposure: Yes Use of substances other than those prescribed or required for medical reasons: No Substance Use Type: Former Substance User Advance Directives: Yes Advance Directives on File: Yes Advance Directives Date on File: 07/22/22 Do you have a plan to hurt others: No Plan service: No Current occupational status: retired Current occupational exposures/hazards: No Cognitive needs: Yes (cane) Hearing needs: No Vision needs: Yes Physical Exam Exam: Exam: Appearance: Alert. Oriented X3. No acute distress. Eyes: Pupils equal, round and reactive to light. ENT: Pharynx normal. Neck: Normal inspection. Neck supple. CVS: AFib tachycardia Pulses normal. Respiratory: No respiratory distress. Breath sounds normal. Abdomen: Soft and nontender. non distender normal BS Skin: Skin warm and dry. Normal skin color. Extremities: 2+ pitting lower extremity edema. No calf ttp FROM of extemities Neuro: Oriented X 3. Vital Signs: Vital Signs: Last Vital Signs Temp 97.9 F 01/20/25 18:56 Pulse 83 01/20/25 18:56 Resp 13 01/20/25 18:56 BP 120/89 01/20/25 18:56 Pulse Ox 97 01/20/25 18:56 O2 Del Method Room Air 01/20/25 18:56 BMI result Body Mass Index 35.4 Medications Administered Generic Name Dose Route Start Last Admin Trade Name Freq PRN Reason Stop Dose Admin Amiodarone HCl 900 mg/ Sodium 518 mls @ 34.533 mls/hr 01/20/25 19:30 01/20/25 20:10 Chloride IVCONT 1 mg/min .Q15H1M GAURI 34.53 mls/hr Protocol Administration 1 MG/MIN Lactated Ringer's 1,000 mls @ 100 mls/hr 01/20/25 20:00 01/20/25 20:10 Lr IVCONT 100 mls/hr .Q10H GAURI Administration Discontinued Medications Generic Name Dose Route Start Last Admin Trade Name Freq PRN Reason Stop Dose Admin Amiodarone HCl 150 mg in 100 mls @ 600 mls/hr 01/20/25 19:28 01/20/25 20:14 Nexterone IV 01/20/25 19:37 Infused ONCE ONE Infusion Medical Decision Making Medical Decision Making [facility] Narrative: 64-year-old male here today sent in for tachycardia. History of AFib on blood thinners denies any chest pain or respiratory distress. Patient is sent in by Cardiology. I consulted with Cardiology Dr. mccormick, continuation ENT coagulate the DC digoxin will start patient on amiodarone drip patient to be admitted to the hospital NPO after midnight potential procedure tomorrow with Cardiology. Differential Diagnosis AFib Tachycardia A flutter Consult Healthcare Provider Management of the patient was discussed with: Hospitalist Lab Data 01/20/25 17:09 01/20/25 17:09 Labs: Lab Results 09/11/25 09/11/25 Range/Units 17:09 19:29 WBC 4.2 L (4.8-10.8) X10*3/uL RBC 3.67 L (4.60-5.80) X10*6/uL Hgb 11.5 L (14.0-18.0) g/dl Hct 33.7 L (42.0-52.0) % MCV 91.8 (80.0-98.0) fL MCH 31.3 (27.0-33.0) pg MCHC 34.1 (31.0-36.0) g/dl RDW 13.2 (11.0-16.0) % Plt Count 270 (160-400) X10*3/uL MPV 9.0 L (9.4-12.4) fL Immature Gran % (Auto) 0.0 (0.0-0.4) % Neut % (Auto) 35.0 L (45-73) % Lymph % (Auto) 48.6 H (20-40) % [place]iscoe % (Auto) 11.2 H (2-11) % Eos % (Auto) 4.0 (0-4) % Baso % (Auto) 1.2 (0-2) % Lymph # (Auto) 2.0 (1.2-4.9) X10*3/uL [place]e # (Auto) 0.5 (0.1-1.2) X10*3/uL Eos # (Auto) 0.2 (0.0-0.4) X10*3/uL Baso # (Auto) 0.1 (0.0-0.2) X10*3/uL Abs Immat Gran (auto) 0.00 (0.00-0.03) X10*3/uL Absolute Neuts (auto) 1.5 L (2.0-8.3) x10*3/uL Absolute Nucleated RBC 0.000 (0.0-0.012) X10*3/uL Nucleated RBC % (auto) 0.0 (0.0-0.2) /100WBC Sodium 142 (135-145) mmol/L Potassium 4.5 (3.3-5.1) mmol/L Chloride 104 (96-108) mmol/L Carbon Dioxide 29 (22-29) mmol/L Anion Gap 14 (12-20) BUN 12 (9-16) mg/dL Creatinine 1.24 (0.5-1.4) mg/dL Estim Creat Clear Calc 69.0 Estimated GFR 58 Random Glucose 94 (60-115) mg/dL Calcium 9.0 (8.4-10.2) mg/dL Total Bilirubin 0.4 (0.0-1.0) mg/dL AST 16 (5-37) U/L ALT 9 (0-40) U/L Alkaline Phosphatase 74 (39-117) U/L Troponin I High Sens 4.1 (<3.5-35.0) ng/L B-Natriuretic Peptide 35 (<100) pg/mL Total Protein 7.3 (6.5-8.0) g/dL Albumin 4.1 (3.5-5.0) g/dL Discharge Plan Discharge Clinical Impression: Tachycardia Atrial flutter Qualifiers: Atrial flutter type: unspecified Qualified Code(s): I48.92 - Unspecified atrial flutter Patient Disposition: Admitted As Inpatient
[2025-01-20 18:56] VITALS: BP 120/89; PULSE 83; RESP 13; TEMP 36.6; O2SAT 97
--- NOTE | 2025-01-20 19:52 | PM.IMHP ---
History of Present Illness Date of Service: 01/20/25 Chief Complaint: aflutter 64-year-old male with a past medical history of HTN, HLD, AFib, CHF, thoracic aortic aneurysm, degenerative spine disease, schizoaffective disorder, osteoarthritis, history of pulmonary embolism anticoagulation, mood disorder presented to the hospital today with a chief complaint of tachycardia. Patient went to his printing machine mechanic for routine follow-up visit and noted to have a flutter with RVR with heart rate in 130s. Subsequently patient was sent to the hospital for further evaluation by his printing machine mechanic 0. Patient denies any chest pain palpitations and some dizziness. Denies nausea vomiting. Denies any GI or symptoms. Review of all other systems is negative except mentioned above ER course: Per ER team, patient heart rate was in 120s on presentation. Worship Pastor Dr. Bautista recommended to discontinue digoxin and keep the patient on amiodarone drip. Also suggested to keep the patient NPO after midnight for possible cardioversion in the morning. [facility] Medical History Pulmonary emboli Congestive heart failure Atrial fibrillation with RVR Chest pain Hyperkalemia Screening for malignant neoplasm of colon performed Encounter for screening colonoscopy Screening for tuberculosis Substance abuse in remission Smoker Anal irritation Allergic rhinitis Cardiomyopathy Obesity (BMI 30-39.9) Schizoaffective disorder, bipolar type Insomnia Lumbar degenerative disc disease Osteoarthritis of hips, bilateral Hyperkalemia Pure hypercholesterolemia Benign essential hypertension History of acute heart failure History of atrial flutter History of congestive heart failure History of cardiomyopathy HTN (hypertension) Paroxysmal atrial flutter Family History Father Hypertension CVD (cardiovascular disease) Mother Hypertension Diabetes Brother Mental health disorder Surgical History History of total hip replacement Social History Household Members: Other Housing: Apartment Housing Other:: independent living Are you a primary senior care manager to a significant other at home: No Do you presently have visiting nurse or other home services: Yes Alcohol intake: former Patient Tobacco Use Status: Former Tobacco user Tobacco use type: Cigarette Cigarettes Per Day: 6 Smoked in Last 30 Days: No e-Cigarette/Vaping Use: Never Used Second Hand Smoke Exposure: Yes Use of substances other than those prescribed or required for medical reasons: No Substance Use Type: Former Substance User Advance Directives: Yes Advance Directives on File: Yes Advance Directives Date on File: 07/22/22 Do you have a plan to hurt others: No Plan service: No Current occupational status: retired Current occupational exposures/hazards: No Cognitive needs: Yes (cane) Hearing needs: No Vision needs: Yes Meds Allergies Allergy/AdvReac Type Severity Reaction Status Date / Time Penicillins (PENICILLINS) Allergy Intermediate RASH Verified 01/20/25 16:54 haloperidol (Haldol) Allergy Unknown Unknown Verified 01/20/25 16:54 mirtazapine (Remeron) Allergy Unknown Unknown Verified 01/20/25 16:54 trazodone Allergy Unknown Unknown Verified 01/20/25 16:54 verapamil (Verelan) Allergy Unknown Unknown Verified 01/20/25 16:54 risperidone (From RISPERDAL) AdvReac Severe SEIZURE Verified 01/20/25 16:54 lithium (LITHIUM) AdvReac Intermediate LETHARGY, Verified 01/20/25 16:54 AKATHISIA, TD Active Medications: Current Medications Amiodarone HCl 900 mg/ Sodium (Chloride) 518 mls @ 34.533 mls/hr IVCONT .Q15H1M [facility]; Protocol Home Medications ?Medication ?Instructions ?Recorded ?Confirmed ?Last Taken ?Type ascorbic acid (vitamin C) 500 mg 500 mg PO DAILY 03/13/20 01/20/25 Unknown History capsule benztropine 0.5 mg tablet 0.5 mg PO BID 03/13/20 01/20/25 Unknown History divalproex 500 mg tablet,extended 1,500 mg PO BEDTIME 03/13/20 01/20/25 Unknown History release 24 hr (Depakote ER) cholecalciferol (vitamin D3) 25 25 mcg PO DAILY 03/16/20 01/20/25 Unknown History mcg (1,000 unit) capsule olanzapine 20 mg tablet (Zyprexa) 20 mg PO BEDTIME 10/21/22 01/20/25 Unknown History olanzapine 5 mg tablet (Zyprexa) 5 mg PO BEDTIME 10/21/22 01/20/25 Unknown History fluphenazine decanoate 25 mg/mL 37.5 mg IM Q2W 06/25/23 01/20/25 12 Days Ago History injection solution ~06/10/24 ergocalciferol (vitamin D2) 1,250 1,250 mcg PO MO 06/22/24 01/20/25 Unknown History mcg (50,000 unit) capsule melatonin 5 mg capsule 5 mg PO BEDTIME PRN insomnia 06/22/24 01/20/25 Unknown History lorazepam 0.5 mg tablet 0.5 mg PO ONCE PRN Anxiety 10/21/24 01/20/25 Unknown History lorazepam 1 mg tablet mg PO BID PRN 10/21/24 01/20/25 Unknown History Physical Exam Vital Signs and Narrative: Vital Signs: Last Vital Signs Temp 97.9 F 01/20/25 18:56 Pulse 83 01/20/25 18:56 Resp 13 01/20/25 18:56 BP 120/89 01/20/25 18:56 Pulse Ox 97 01/20/25 18:56 O2 Del Method Room Air 01/20/25 18:56 BMI result Body Mass Index 35.4 Gen: Appears be in no acute distress HEENT: NCAT, Moist mucosa. Pulmonary: Vesicular breath sounds, fair air entry CVS: Normal S1-S2 Abdomen: BS+, Soft, Nontender Extremities: Warm well perfused Neuro: Alert and awake. Results Labs 01/20/25 17:09 01/20/25 17:09 Labs: Laboratory Results - last 24 hr 01/20/25 17:09 MCV 91.8 MCH 31.3 MCHC 34.1 RDW 13.2 Plt Count 270 MPV 9.0 L Immature Gran % (Auto) 0.0 Neut % (Auto) 35.0 L Lymph % (Auto) 48.6 H [place] % (Auto) 11.2 H Eos % (Auto) 4.0 Baso % (Auto) 1.2 Lymph # (Auto) 2.0 [place] # (Auto) 0.5 Eos # (Auto) 0.2 Baso # (Auto) 0.1 Abs Immat Gran (auto) 0.00 Absolute Neuts (auto) 1.5 L Absolute Nucleated RBC 0.000 Nucleated RBC % (auto) 0.0 Anion Gap 14 Estim Creat Clear Calc 69.0 Estimated GFR 58 Random Glucose 94 Calcium 9.0 Total Bilirubin 0.4 AST 16 ALT 9 Alkaline Phosphatase 74 Total Protein 7.3 Albumin 4.1 Assessment and Plan (1) Atrial flutter: Qualifiers: Atrial flutter type: unspecified Qualified Code(s): I48.92 - Unspecified atrial flutter Status: Acute Plan 64-year-old male with a past medical history of HTN, HLD, AFib, CHF, thoracic aortic aneurysm, degenerative spine disease, schizoaffective disorder, osteoarthritis, history of pulmonary embolism anticoagulation, mood disorder presented to the hospital today with a chief complaint of tachycardia. Noted to be in a flutter with RVR. A flutter with RVR: Patient was sent to the hospital by his printing machine mechanic Dr. Bautista-recommended to discontinue digoxin, started amiodarone drip, continue Eliquis. Ordered. Telemetry NPO after midnight Continue home metoprolol CHF: Stable. Schizophrenia/mood disorder: Continue home benztropine, divalproex, lorazepam, olanzapine-pending med rec COPD: Stable Thoracic aortic aneurysm: Denies chest pain. Blood pressure under goal. DVT prophylaxis: Patient on Eliquis Code status: Full code Quality Stroke Does the patient have a stroke diagnosis?: No VTE Prior VTE?: No VTE Risk Level:: Medical - moderate - high VTE Device Contraindication: Treatment Not Indicated VTE Drug Contraindication: N/A - Med Ordered
[2025-01-20] MEDS: Amiodarone/Dextrose 150 MG/100 ML PLAST..BAG 600 MG IV (19:53)
[2025-01-20 19:55] LABS: B Type Natriuretic Peptide 35 pg/mL (<100)
[2025-01-20] MEDS: Lactated Ringers 1,000 ML 100 ML IVCONT (20:10)
--- NOTE | 2025-01-20 20:10 | PC.NURSE ---
assumed care of pt, started IV line x2 (B/L AC), pt denies pain, resting comfortably, HR fluctuating between 120 and 75.
--- NOTE | 2025-01-20 20:50 | PC.NURSE ---
pt medicated per JUL. Radiology at bedside for chest xray.
--- NOTE | 2025-01-20 21:28 | PHA.MEDREC ---
Addendum entered by Sam Phelan PharmD 01/20/25 21:36: reviewed Original Note: Pharmacy Consult ? Medication Reconciliation Pharmacy has completed the medication reconciliation. patient was able to confirm his medications Patient confirmed Lorazepam 1 mg bid prn, Divalproex is now 250 mg daily, Olanzapine is now 20 mg at bedtime, Vitamin D3 is every Friday, Fluphenazine dec 25 mg/ml [id number] last dose was 01/08 or 01/09/25. Patient had all his morning medications today
[2025-01-20 21:36] VITALS: BP 122/77; PULSE 66; RESP 12; TEMP 36.6; O2SAT 98
--- NOTE | 2025-01-20 23:24 | PC.NURSE ---
urinal emptied, fluids and medication running per order. Pt denies nuno, light dimmed, pt attemtping to sleep.
--- NOTE | 2025-01-20 23:37 | PC.NURSE ---
pt complaining of chest pain, HR at 67, provider aware, awaiting new orders.
[2025-01-20 23:48] VITALS: BP 112/76; PULSE 69; RESP 14; TEMP 36.4; O2SAT 98
--- NOTE | 2025-01-20 23:58 | MHC.EDTECH ---
This tech took over care of pt at 2300, rounded and vitals completed, EKG taken per hospitalist order ,EKG given to RN SOHAIL, repeat trop drawn and sent to lab, patient is resting quietly,call feliz within reach
[2025-01-21] VITALS (14 sets, daily range): BP systolic 93–127; BP diastolic 60–85; PULSE 51–82; RESP 14–20; TEMP 36–36.8; O2SAT 95–100; BMI 37.0; BMI 38.6
--- NOTE | 2025-01-21 | ECG_ITS ---
Test Reason : aflutter Blood Pressure : */* mmHG Vent. Rate : 63 BPM Atrial Rate : 252 BPM P-R Int : * ms QRS Dur : 108 ms QT Int : 392 ms P-R-T Axes : 270 41 -56 degrees QTcB Int : 401 ms Atrial flutter with variable A-V block Nonspecific ST and T wave abnormality Abnormal ECG When compared with ECG of 20-Jan-2025 23:51, No significant change was found Referred By: John Bautista Electronically Signed By: JOHN BAUTISTA MD
--- NOTE | 2025-01-21 00:10 | MHC.EDTECH ---
Emptied 350MLS of yellow urine from urinal
--- NOTE | 2025-01-21 00:38 | PC.NURSE ---
EKG sent via tiger to admitting provider.
--- NOTE | 2025-01-21 00:46 | PC.NURSE ---
pt medicated per JUL, lights dimmed and call feliz placed on pt lap.
[2025-01-21 00:48] LABS: Troponin-I High Sensitivity < 2.7 ng/L (<3.5-35.0)
[2025-01-21 03:35] LABS: Troponin-I High Sensitivity < 2.7 ng/L (<3.5-35.0)
--- NOTE | 2025-01-21 04:42 | PC.NURSE ---
pt asked for something to help him sleep, pt medicated per MAR
[2025-01-21 05:44] LABS: MANUAL DIFF FLAG NO
[2025-01-21 05:46] LABS: Hematocrit 33.9 % (42.0-52.0); Hemoglobin 11.1 g/dl (14.0-18.0); Imm Gran Abs Auto 0.01 X10*3/uL (0.00-0.03); Imm Gran Pct Auto 0.2 % (0.0-0.4); Lymphocytes Absolute Auto 2.2 X10*3/uL (1.2-4.9); Mean Corpuscular HGB Conc 32.7 g/dl (31.0-36.0); Mean Corpuscular Hemoglobin 30.7 pg (27.0-33.0); Mean Corpuscular Volume 93.6 fL (80.0-98.0); NRBC Abs Auto 0.000 X10*3/uL (0.0-0.012); NRBC Pct Auto 0.0 /100WBC (0.0-0.2); Platelet Count 258 X10*3/uL (160-400); Red Blood Count 3.62 X10*6/uL (4.60-5.80); White Blood Count 4.7 X10*3/uL (4.8-10.8)
--- NOTE | 2025-01-21 05:52 | PC.NURSE ---
LR from 1999 still infusing.
[2025-01-21 06:13] LABS: Anion Gap 14 (12-20); Blood Urea Nitrogen 13 mg/dL (9-16); Calcium 8.5 mg/dL (8.4-10.2); Carbon Dioxide 23 mmol/L (22-29); Chloride 109 mmol/L (96-108); Creatinine Clr Calc Pharmacy 83.1; Estimated Glomerular Filt Rate > 60; Potassium 3.8 mmol/L (3.3-5.1); Sodium 142 mmol/L (135-145)
[2025-01-21] MEDS: Lactated Ringers 1,000 ML 100 ML IVCONT (06:29)
--- NOTE | 2025-01-21 06:38 | PC.NURSE ---
verbal report given to short stay. pt to receive Eliquis at 9 am prior to cardioversion.
--- NOTE | 2025-01-21 09:17 | PC.NURSE ---
Addendum entered by Lucila Bolton 01/21/25 09:21: Pt's HCPOA Original Note: [id number]- Demetria
[2025-01-21] MEDS: Divalproex Sodium ER 250 MG TAB.ER.24H PO (09:46)
--- NOTE | 2025-01-21 09:59 | PM.CNCAR ---
History of Present Illness History of Present Illness Date of Service: 01/21/25 Requesting physician: Jairo Buchanan Chief complaint: Aflutter Narrative: I was consulted to see Pablito in cardiology consultation today for management of atrial flutter. Patient is 64-year-old male with prior history of atrial fibrillation/flutter with history of heart failure with reduced ejection fraction cardiomyopathy which has normalized with maintaining rhythm. He had done well for few years. Was planned to undergo ablation although this never happened. Subsequently earlier this spring he had recurrent atrial flutter on the lower dose of amiodarone at 100 mg and he was admitted to [facility]. Initially planned to do cardioversion as per him but then this was subsequently abandoned and he was treated with rate control with metoprolol and digoxin on a higher dose. This was labeled as amiodarone failure although he was on low-dose amiodarone when this happened. Patient has prior history of schizophrenia, as mentioned atrial flutter/fibrillation, thoracic aortic aneurysm mild, prior history of cardiomyopathy and heart failure, hypotension, hyperlipidemia. He is on chronic oral anticoagulation with Eliquis which he said he has been taking religiously. He is also on digoxin and high dose metoprolol and came to the office yesterday for follow-up for atrial flutter. He was noted to be in rapid atrial flutter at that point time and was felt that he had will be best manage with inpatient hospitalization. On our consultation was started on IV amiodarone drip yesterday with the hopes of getting him back in his sinus rhythm. This has led to better rate control. He has not had any recent heart failure symptoms. He does take daily diuretics. Last echocardiogram done March 2024 showed normal LV ejection fraction with mildly dilated ascending aorta Review of Systems Constitutional: Constitutional: Reports no additional constitutional complaints Cardiovascular: Cardiovascular: Denies chest pain, Reports rapid heart rate, Reports leg edema, Denies lightheadedness, Denies Loss of Consciousness, Denies dyspnea, Denies dyspnea on exertion and Denies orthopnea Respiratory: Respiratory: Reports no additional respiratory complaints, Denies dyspnea and Denies dyspnea on exertion Genitourinary: Genitourinary: Reports no additional male genitourinary complaints Musculoskeletal: Musculoskeletal: Reports no additional musculoskeletal complaints Integumentary/Breasts: Skin/Breast: Reports system reviewed and no additional complaints, except as docu Neurologic: Reports system reviewed and no additional complaints, except as documented Psychiatric: Psychiatric: Reports no additional psychiatric complaints Endocrine: Endocrine: Reports no additional endocrine complaints PMFSH Past Medical History Medical History Pulmonary emboli Congestive heart failure Atrial fibrillation with RVR Chest pain Hyperkalemia Screening for malignant neoplasm of colon performed Encounter for screening colonoscopy Screening for tuberculosis Substance abuse in remission Smoker Anal irritation Allergic rhinitis Cardiomyopathy Obesity (BMI 30-39.9) Schizoaffective disorder, bipolar type Insomnia Lumbar degenerative disc disease Osteoarthritis of hips, bilateral Hyperkalemia Pure hypercholesterolemia Benign essential hypertension History of acute heart failure History of atrial flutter History of congestive heart failure History of cardiomyopathy HTN (hypertension) Paroxysmal atrial flutter Family History Family History Father Hypertension CVD (cardiovascular disease) Mother Hypertension Diabetes Brother Mental health disorder Surgical History Surgical History History of total hip replacement Social History Social History Household Members: Other Household Members Other:: independent living Housing: Assisted Living Facility Housing Other:: independent living Are you a primary customer care coordinator to a significant other at home: No Do you presently have visiting nurse or other home services: No Alcohol intake: former Patient Tobacco Use Status: Former Tobacco user Tobacco use type: Cigarette Cigarettes Per Day: 6 Smoked in Last 30 Days: No e-Cigarette/Vaping Use: Never Used Second Hand Smoke Exposure: Yes Use of substances other than those prescribed or required for medical reasons: No Substance Use Type: Former Substance User Have you been hit, kicked, punched, or otherwise hurt by someone within the past year? If so, by whom?: No Do you feel safe in your current relationship?: No Current Relationship Is there a partner from a previous relationship who is making you feel unsafe now?: No Are you made to feel afraid or neglected: No Advance Directives: Yes Advance Directives on File: Yes Advance Directives Date on File: 07/22/22 Do you have a plan to hurt others: No Plan Recently lost weight without trying: No How much weight loss: 2-13 pounds Eating poorly because of decreased appetite: No Nutrition screen score: 1 Nutrition Risks: No Nutritional Risk Poor oral hygiene: No service: No Current occupational status: retired Current occupational exposures/hazards: No Cognitive needs: Yes (cane) Hearing needs: No Vision needs: Yes Meds Allergies Allergy/AdvReac Type Severity Reaction Status Date / Time Penicillins (PENICILLINS) Allergy Intermediate RASH Verified 01/20/25 16:54 haloperidol (Haldol) Allergy Unknown Unknown Verified 01/20/25 16:54 mirtazapine (Remeron) Allergy Unknown Unknown Verified 01/20/25 16:54 trazodone Allergy Unknown Unknown Verified 01/20/25 16:54 verapamil (Verelan) Allergy Unknown Unknown Verified 01/20/25 16:54 risperidone (From RISPERDAL) AdvReac Severe SEIZURE Verified 01/20/25 16:54 lithium (LITHIUM) AdvReac Intermediate LETHARGY, Verified 01/20/25 16:54 AKATHISIA, TD Active Medications: Current Medications Acetaminophen (Acetaminophen 325 Mg Tablet) 650 mg PO Q6H PRN PRN Reason: Pain, Mild 1-3,fever,headache Apixaban (Apixaban 5 Mg Tablet) 5 mg PO BID [facility] Last Admin: 01/21/25 09:20 Dose: 5 mg Benztropine Mesylate (Benztropine Mesylate 0.5 Mg Tablet) 0.5 mg PO BID [facility] Last Admin: 01/21/25 09:46 Dose: 0.5 mg Calcium Carbonate (Calcium Carbonate 750 Mg Tab.Chew) 750 mg PO Q4H PRN PRN Reason: Heartburn Divalproex Sodium (Divalproex Sodium Er 250 Mg Tab.Er.24h) 250 mg PO DAILY [facility] Last Admin: 01/21/25 09:46 Dose: 250 mg Fluphenazine Decanoate (Fluphenazine Decanoate 25 Mg/Ml 5 Ml Vial) 37.5 mg IM Q14D [facility] Amiodarone HCl 900 mg/ Sodium (Chloride) 518 mls @ 34.533 mls/hr IVCONT .Q15H1M [facility]; Protocol Last Admin: 01/21/25 09:46 Dose: 1 mg/min, 34.53 mls/hr Lactated Ringer's (Lr) 1,000 mls @ 100 mls/hr IVCONT .Q10H [facility] Last Admin: 01/21/25 06:29 Dose: 100 mls/hr Lorazepam (Lorazepam 1 Mg Tablet) 1 mg PO BID PRN PRN Reason: Anxiety Last Admin: 01/21/25 04:35 Dose: 1 mg Magnesium Hydroxide (Milk Of Magnesia 30 Ml Oral.Susp) 30 ml PO DAILY PRN PRN Reason: Constipation Melatonin (Melatonin 3 Mg Tablet) 6 mg PO BEDTIME PRN PRN Reason: Insomnia Metoprolol Tartrate (Metoprolol Tartrate 100 Mg Tablet) 100 mg PO BID [facility]; Protocol Last Admin: 01/21/25 09:26 Dose: 100 mg Nitroglycerin (Nitroglycerin 0.4 Mg Tab.Subl) 0.4 mg SUBLINGUAL Q5MX3 PRN PRN Reason: Chest Pain Olanzapine (Olanzapine 10 Mg Tablet) 20 mg PO BEDTIME [facility] Omeprazole (Omeprazole 20 Mg Capsule.Dr) 20 mg PO DAILY@0630 [facility] Last Admin: 01/21/25 05:57 Dose: 20 mg Sodium Chloride (0.9 % Sodium Chloride Flush 3 Ml Syringe) 3 ml IVFLUSH QSHIFT [facility] Last Admin: 01/21/25 07:41 Dose: Not Given Tamsulosin HCl (Tamsulosin Hcl 0.4 Mg Capsule) 0.4 mg PO DAILY@1730 [facility] Home Medications ?Medication ?Instructions ?Recorded ?Confirmed ?Last Taken ?Type ascorbic acid (vitamin C) 500 mg 500 mg PO DAILY 03/13/20 01/20/25 01/20/25 History capsule benztropine 0.5 mg tablet 0.5 mg PO BID 03/13/20 01/20/25 01/20/25 History olanzapine 20 mg tablet (Zyprexa) 20 mg PO BEDTIME 10/21/22 01/20/25 01/20/25 History fluphenazine decanoate 25 mg/mL 37.5 mg IM Q2W 06/25/23 01/20/25 01/20/25 History injection solution ergocalciferol (vitamin D2) 1,250 1,250 mcg PO MO 06/22/24 01/20/25 01/17/25 History mcg (50,000 unit) capsule melatonin 5 mg capsule 5 mg PO BEDTIME PRN insomnia 06/22/24 01/20/25 Unknown History lorazepam 1 mg tablet 1 mg PO BID PRN Anxiety 10/21/24 01/20/25 01/20/25 History digoxin 250 mcg (0.25 mg) tablet 250 mcg PO DAILY 01/20/25 01/20/25 01/20/25 History divalproex 250 mg tablet,extended 250 mg PO DAILY 01/20/25 01/20/25 01/20/25 History release 24 hr Physical Exam Vital Signs: Vital Signs: Last Vital Signs Temp 98.2 F 01/21/25 06:04 Pulse 82 01/21/25 09:26 Resp 14 01/21/25 07:25 BP 119/66 01/21/25 09:26 Pulse Ox 99 01/21/25 07:25 O2 Del Method Room Air 01/21/25 06:04 BMI result Body Mass Index 37.0 Const: General: cooperative, comfortable, no acute distress, alert and awake Nutritional Appearance: obese Orientation/consciousness: patient oriented x3 HEENT: Head: Yes normocephalic and Yes atraumatic Neck: Neck: Yes trachea midline, Yes supple and Yes no JVD Resp: Effort & Inspection: normal respiratory effort Auscultation: clear to auscultation bilaterally Cardio: Jugular venous distension: no JVD Rhythm: abnormal rhythm irregularly irregular Heart sounds: S1 normal heart sound present, S2 normal heart sound present, no click, no gallops, no murmurs and no rubs GI: Auscultation: normal bowel sounds Skin: General skin exam: no rashes or lesions noted Neuro: General: patient oriented x3 and no focal motor deficits Extrem: General: Yes no clubbing, cyanosis or edema Objective Labs and Meds 01/21/25 04:48 01/21/25 04:48 Lab results: Laboratory Results - last 24 hr 01/20/25 01/20/25 01/21/25 17:09 19:29 00:06 WBC 4.2 L RBC 3.67 L Hgb 11.5 L Hct 33.7 L MCV 91.8 MCH 31.3 MCHC 34.1 RDW 13.2 Plt Count 270 MPV 9.0 L Immature Gran % (Auto) 0.0 Neut % (Auto) 35.0 L Lymph % (Auto) 48.6 H [place] % (Auto) 11.2 H Eos % (Auto) 4.0 Baso % (Auto) 1.2 Lymph # (Auto) 2.0 [place] # (Auto) 0.5 Eos # (Auto) 0.2 Baso # (Auto) 0.1 Abs Immat Gran (auto) 0.00 Absolute Neuts (auto) 1.5 L Absolute Nucleated RBC 0.000 Nucleated RBC % (auto) 0.0 Sodium 142 Potassium 4.5 Chloride 104 Carbon Dioxide 29 Anion Gap 14 BUN 12 Creatinine 1.24 Estim Creat Clear Calc 69.0 Estimated GFR 58 Random Glucose 94 Calcium 9.0 Total Bilirubin 0.4 AST 16 ALT 9 Alkaline Phosphatase 74 Troponin I High Sens 4.1 < 2.7 B-Natriuretic Peptide 35 Total Protein 7.3 Albumin 4.1 01/21/25 01/21/25 03:02 04:48 WBC 4.7 L RBC 3.62 L Hgb 11.1 L Hct 33.9 L MCV 93.6 MCH 30.7 MCHC 32.7 RDW 13.2 Plt Count 258 MPV 9.8 Immature Gran % (Auto) 0.2 Neut % (Auto) 39.5 L Lymph % (Auto) 46.3 H [place] % (Auto) 9.3 Eos % (Auto) 3.4 Baso % (Auto) 1.3 Lymph # (Auto) 2.2 [place] # (Auto) 0.4 Eos # (Auto) 0.2 Baso # (Auto) 0.1 Abs Immat Gran (auto) 0.01 Absolute Neuts (auto) 1.9 L Absolute Nucleated RBC 0.000 Nucleated RBC % (auto) 0.0 Sodium 142 Potassium 3.8 Chloride 109 H Carbon Dioxide 23 Anion Gap 14 BUN 13 Creatinine 1.03 Estim Creat Clear Calc 83.1 Estimated GFR > 60 Random Glucose 79 Calcium 8.5 Total Bilirubin AST ALT Alkaline Phosphatase Troponin I High Sens < 2.7 B-Natriuretic Peptide Total Protein Albumin Assessment and Plan (1) Atrial flutter: Qualifiers: Atrial flutter type: unspecified Qualified Code(s): I48.92 - Unspecified atrial flutter Status: Acute Difficult control atrial flutter with rapid ventricular response despite dual therapy with metoprolol and digoxin. He had done extremely well with rhythm control approach with normalization of his heart function as well as heart failure syndrome. Clinically currently not having any overt heart failure syndrome although he is currently on diuretic regimen. His blood pressure is well optimized. Rates controlled on IV amiodarone drip but remains in atrial flutter. Plan to pursue synchronized cardioversion later today. Please keep him NPO. I discussed with him the process of synchronized cardioversion and he understands it very well and remembers it. We discussed the risks, benefits, alternatives. He is agreeable to pursue the same. Once converted to sinus rhythm will pursue oral loading with amiodarone. Continue full oral anticoagulation with Eliquis. Continue aggressive blood pressure control. Once he is back in sinus rhythm will pursue more structural workup including echocardiogram which can even be done as an outpatient. He will eventually need to be pursued for an ablation so that he can come off the amiodarone therapy in the long run. This was discussed with her. He understands very well. Will follow with you Procedures Date of Service Date of Service: 01/21/25
--- NOTE | 2025-01-21 11:53 | HO.PM.IMPN ---
Subjective Subjective Date of Service: 01/21/25 Interval History: Seen and evaluated in his room where he is resting comfortably in bed No longer feeling palpitations Denies chest pain or pressure No acute complaints Plan is for cardioversion later in the day Review of Systems Review of Systems: Yes all other systems are reviewed and are negative Physical Exam Exam: Exam: General: AOx3, no acute distress Resp: CTA bilaterally CVS: Irregularly irregular rhythm GI: +BS, NT, no distention Skin: Warm, dry Neuro: Cranial nerves II-XII grossly intact bilaterally. Motor grossly intact bilaterally Extremities: Trace bilateral edema Psych: Appropriate affect Vital Signs: Vital Signs: Last Vital Signs Temp 98.2 F 01/21/25 06:04 Pulse 82 01/21/25 09:26 Resp 14 01/21/25 07:25 BP 119/66 01/21/25 09:26 Pulse Ox 99 01/21/25 07:25 O2 Del Method Room Air 01/21/25 06:04 BMI result Body Mass Index 37.0 Objective Data Active Medications Acetaminophen (Acetaminophen 325 Mg Tablet) 650 mg PO Q6H PRN PRN Reason: Pain, Mild 1-3,fever,headache Apixaban (Apixaban 5 Mg Tablet) 5 mg PO BID [facility] Last Admin: 01/21/25 09:20 Dose: 5 mg Documented By: AMALIA Benztropine Mesylate (Benztropine Mesylate 0.5 Mg Tablet) 0.5 mg PO BID [facility] Last Admin: 01/21/25 09:46 Dose: 0.5 mg Documented By: AMALIA Calcium Carbonate (Calcium Carbonate 750 Mg Tab.Chew) 750 mg PO Q4H PRN PRN Reason: Heartburn Divalproex Sodium (Divalproex Sodium Er 250 Mg Tab.Er.24h) 250 mg PO DAILY [facility] Last Admin: 01/21/25 09:46 Dose: 250 mg Documented By: AMALIA Fluphenazine Decanoate (Fluphenazine Decanoate 25 Mg/Ml 5 Ml Vial) 37.5 mg IM Q14D [facility] Amiodarone HCl 900 mg/ Sodium (Chloride) 518 mls @ 34.533 mls/hr IVCONT .Q15H1M [facility]; Protocol Last Admin: 01/21/25 09:46 Dose: 1 mg/min, 34.53 mls/hr Documented By: AMALIA Lactated Ringer's (Lr) 1,000 mls @ 100 mls/hr IVCONT .Q10H [facility] Last Admin: 01/21/25 06:29 Dose: 100 mls/hr Documented By: JAVIER Lorazepam (Lorazepam 1 Mg Tablet) 1 mg PO BID PRN PRN Reason: Anxiety Last Admin: 01/21/25 04:35 Dose: 1 mg Documented By: JAVIER Magnesium Hydroxide (Milk Of Magnesia 30 Ml Oral.Susp) 30 ml PO DAILY PRN PRN Reason: Constipation Melatonin (Melatonin 3 Mg Tablet) 6 mg PO BEDTIME PRN PRN Reason: Insomnia Metoprolol Tartrate (Metoprolol Tartrate 100 Mg Tablet) 100 mg PO BID [facility]; Protocol Last Admin: 01/21/25 09:26 Dose: 100 mg Documented By: AMALIA Nitroglycerin (Nitroglycerin 0.4 Mg Tab.Subl) 0.4 mg SUBLINGUAL Q5MX3 PRN PRN Reason: Chest Pain Olanzapine (Olanzapine 10 Mg Tablet) 20 mg PO BEDTIME [facility] Omeprazole (Omeprazole 20 Mg Capsule.Dr) 20 mg PO DAILY@0630 [facility] Last Admin: 01/21/25 05:57 Dose: 20 mg Documented By: JAVIER Sodium Chloride (0.9 % Sodium Chloride Flush 3 Ml Syringe) 3 ml IVFLUSH QSHIFT [facility] Last Admin: 01/21/25 07:41 Dose: Not Given Documented By: AMALIA Non-Admin Reason: IV Running Tamsulosin HCl (Tamsulosin Hcl 0.4 Mg Capsule) 0.4 mg PO DAILY@1730 [facility] Labs 01/21/25 04:48 01/21/25 04:48 Labs: Laboratory Results - last 24 hr 01/20/25 01/20/25 01/21/25 17:09 19:29 04:48 MCV 91.8 93.6 MCH 31.3 30.7 MCHC 34.1 32.7 RDW 13.2 13.2 Plt Count 270 258 MPV 9.0 L 9.8 Immature Gran % (Auto) 0.0 0.2 Neut % (Auto) 35.0 L 39.5 L Lymph % (Auto) 48.6 H 46.3 H [place] % (Auto) 11.2 H 9.3 Eos % (Auto) 4.0 3.4 Baso % (Auto) 1.2 1.3 Lymph # (Auto) 2.0 2.2 [place] # (Auto) 0.5 0.4 Eos # (Auto) 0.2 0.2 Baso # (Auto) 0.1 0.1 Abs Immat Gran (auto) 0.00 0.01 Absolute Neuts (auto) 1.5 L 1.9 L Absolute Nucleated RBC 0.000 0.000 Nucleated RBC % (auto) 0.0 0.0 Anion Gap 14 14 Estim Creat Clear Calc 69.0 83.1 Estimated GFR 58 > 60 Random Glucose 94 79 Calcium 9.0 8.5 Total Bilirubin 0.4 AST 16 ALT 9 Alkaline Phosphatase 74 B-Natriuretic Peptide 35 Total Protein 7.3 Albumin 4.1 Assessment and Plan (1) Atrial fibrillation with RVR: Status: Acute (2) Atrial flutter: Status: Acute Plan 64-year-old male with a past medical history of HTN, HLD, AFib, CHF, thoracic aortic aneurysm, degenerative spine disease, schizoaffective disorder, osteoarthritis, history of pulmonary embolism anticoagulation, mood disorder presented to the hospital today with a chief complaint of tachycardia. Noted to be in a flutter with RVR. A flutter with RVR: Patient was sent to the hospital by his care aid Dr. Bautista Placed on amiodarone drip, continue Stop digoxin Continue Eliquis Telemetry Continue NPO for cardioversion later in the day Continue home metoprolol CHF: Stable. Schizophrenia/mood disorder: Continue home benztropine, divalproex, lorazepam, olanzapine-pending med rec COPD: Stable Thoracic aortic aneurysm: Denies chest pain. Blood pressure under goal. DVT prophylaxis: Patient on Eliquis Code status: Full code Quality Stroke Does the patient have a stroke diagnosis?: No VTE Prior VTE?: No VTE Risk Level:: Medical - moderate - high VTE Device Contraindication: Treatment Not Indicated VTE Drug Contraindication: N/A - Med Ordered
--- NOTE | 2025-01-21 13:26 | P.CONAN_ITS ---
HPI - Anesthesia Eval Consult details Narrative: [facility] Active Problems Active Problems: All Active Problems Tachycardia (Acute) Atrial flutter (Acute) Pulmonary emboli (Acute) Congestive heart failure (Acute) Atrial fibrillation with RVR (Acute) Chest pain (Acute) On amiodarone therapy (Acute) Hospital discharge follow-up (Acute) Chronic a-fib (Acute) Medicare annual wellness visit, subsequent (Acute) Preoperative clearance (Acute) Hemorrhoids (Acute) Positive colorectal cancer screening using Cologuard test (Acute) Thoracic aortic aneurysm (Acute) Renal function impairment (Acute) Adult general medical exam (Acute) Screening for prostate cancer (Acute) Constipation (Acute) Smoker (Acute) Anal irritation (Acute) Allergic rhinitis (Acute) Obesity (BMI 30-39.9) (Acute) Schizoaffective disorder, bipolar type (Acute) Insomnia (Acute) Lumbar degenerative disc disease (Acute) Osteoarthritis of hips, bilateral (Acute) Hyperkalemia (Acute) Pure hypercholesterolemia (Acute) Benign essential hypertension (Acute) History of acute heart failure (Acute) History of atrial flutter (Acute) Paroxysmal atrial flutter (Acute) History of cardiomyopathy (Acute) HTN (hypertension) (Acute) Past Medical History Medical History Pulmonary emboli Congestive heart failure Atrial fibrillation with RVR Chest pain Hyperkalemia Screening for malignant neoplasm of colon performed Encounter for screening colonoscopy Screening for tuberculosis Substance abuse in remission Smoker Anal irritation Allergic rhinitis Cardiomyopathy Obesity (BMI 30-39.9) Schizoaffective disorder, bipolar type Insomnia Lumbar degenerative disc disease Osteoarthritis of hips, bilateral Hyperkalemia Pure hypercholesterolemia Benign essential hypertension History of acute heart failure History of atrial flutter History of congestive heart failure History of cardiomyopathy HTN (hypertension) Paroxysmal atrial flutter Family History Family History Father Hypertension CVD (cardiovascular disease) Mother Hypertension Diabetes Brother Mental health disorder Family history of problems with anesthesia: No Surgical History Surgical History History of total hip replacement History of Problems with Anesthesia: No Social History Social History Household Members: Other Household Members Other:: independent living Housing: Assisted Living Facility Housing Other:: independent living Are you a primary managed care analyst to a significant other at home: No Do you presently have visiting nurse or other home services: No Alcohol intake: former Patient Tobacco Use Status: Former Tobacco user Tobacco use type: Cigarette Cigarettes Per Day: 6 Smoked in Last 30 Days: No e-Cigarette/Vaping Use: Never Used Second Hand Smoke Exposure: Yes Use of substances other than those prescribed or required for medical reasons: No Substance Use Type: Former Substance User Have you been hit, kicked, punched, or otherwise hurt by someone within the past year? If so, by whom?: No Do you feel safe in your current relationship?: No Current Relationship Is there a partner from a previous relationship who is making you feel unsafe now?: No Are you made to feel afraid or neglected: No Advance Directives: Yes Advance Directives on File: Yes Advance Directives Date on File: 07/22/22 Do you have a plan to hurt others: No Plan Recently lost weight without trying: No How much weight loss: 2-13 pounds Eating poorly because of decreased appetite: No Nutrition screen score: 1 Nutrition Risks: No Nutritional Risk Poor oral hygiene: No service: No Current occupational status: retired Current occupational exposures/hazards: No Cognitive needs: Yes (cane) Hearing needs: No Vision needs: Yes Meds Allergies Allergy/AdvReac Type Severity Reaction Status Date / Time Penicillins (PENICILLINS) Allergy Intermediate RASH Verified 01/20/25 16:54 haloperidol (Haldol) Allergy Unknown Unknown Verified 01/20/25 16:54 mirtazapine (Remeron) Allergy Unknown Unknown Verified 01/20/25 16:54 trazodone Allergy Unknown Unknown Verified 01/20/25 16:54 verapamil (Verelan) Allergy Unknown Unknown Verified 01/20/25 16:54 risperidone (From RISPERDAL) AdvReac Severe SEIZURE Verified 01/20/25 16:54 lithium (LITHIUM) AdvReac Intermediate LETHARGY, Verified 01/20/25 16:54 AKATHISIA, TD Active Medications: Current Medications Acetaminophen (Acetaminophen 325 Mg Tablet) 650 mg PO Q6H PRN PRN Reason: Pain, Mild 1-3,fever,headache Apixaban (Apixaban 5 Mg Tablet) 5 mg PO BID [facility] Last Admin: 01/21/25 09:20 Dose: 5 mg Benztropine Mesylate (Benztropine Mesylate 0.5 Mg Tablet) 0.5 mg PO BID [facility] Last Admin: 01/21/25 09:46 Dose: 0.5 mg Calcium Carbonate (Calcium Carbonate 750 Mg Tab.Chew) 750 mg PO Q4H PRN PRN Reason: Heartburn Divalproex Sodium (Divalproex Sodium Er 250 Mg Tab.Er.24h) 250 mg PO DAILY [facility] Last Admin: 01/21/25 09:46 Dose: 250 mg Fluphenazine Decanoate (Fluphenazine Decanoate 25 Mg/Ml 5 Ml Vial) 37.5 mg IM Q14D [facility] Amiodarone HCl 900 mg/ Sodium (Chloride) 518 mls @ 34.533 mls/hr IVCONT .Q15H1M [facility]; Protocol Last Admin: 01/21/25 09:46 Dose: 1 mg/min, 34.53 mls/hr Lactated Ringer's (Lr) 1,000 mls @ 100 mls/hr IVCONT .Q10H [facility] Last Admin: 01/21/25 06:29 Dose: 100 mls/hr Lorazepam (Lorazepam 1 Mg Tablet) 1 mg PO BID PRN PRN Reason: Anxiety Last Admin: 01/21/25 04:35 Dose: 1 mg Magnesium Hydroxide (Milk Of Magnesia 30 Ml Oral.Susp) 30 ml PO DAILY PRN PRN Reason: Constipation Melatonin (Melatonin 3 Mg Tablet) 6 mg PO BEDTIME PRN PRN Reason: Insomnia Metoprolol Tartrate (Metoprolol Tartrate 100 Mg Tablet) 100 mg PO BID [facility]; Protocol Last Admin: 01/21/25 09:26 Dose: 100 mg Nitroglycerin (Nitroglycerin 0.4 Mg Tab.Subl) 0.4 mg SUBLINGUAL Q5MX3 PRN PRN Reason: Chest Pain Olanzapine (Olanzapine 10 Mg Tablet) 20 mg PO BEDTIME [facility] Omeprazole (Omeprazole 20 Mg Capsule.Dr) 20 mg PO DAILY@0630 [facility] Last Admin: 01/21/25 05:57 Dose: 20 mg Sodium Chloride (0.9 % Sodium Chloride Flush 3 Ml Syringe) 3 ml IVFLUSH QSHIFT [facility] Last Admin: 01/21/25 07:41 Dose: Not Given Tamsulosin HCl (Tamsulosin Hcl 0.4 Mg Capsule) 0.4 mg PO DAILY@1730 [facility] Home Medications ?Medication ?Instructions ?Recorded ?Confirmed ?Last Taken ?Type ascorbic acid (vitamin C) 500 mg 500 mg PO DAILY 03/1301/20/25 01/20/25 History capsule benztropine 0.5 mg tablet 0.5 mg PO BID 03/13/2001/2001/20/25 History olanzapine 20 mg tablet (Zyprexa) 20 mg PO BEDTIME 05/0301/20/25 01/20/25 History fluphenazine decanoate 25 mg/mL 37.5 mg IM Q2W 4 01/20/25 01/20/25 History injection solution ergocalciferol (vitamin D2) 1,250 1,250 mcg PO MO 06/1201/20/25 01/17/25 History mcg (50,000 unit) capsule melatonin 5 mg capsule 5 mg PO BEDTIME PRN insomnia 06/22/24 01/20/25 Unknown History lorazepam 1 mg tablet 1 mg PO BID PRN Anxiety 10/1001/20/25 01/20/25 History digoxin 250 mcg (0.25 mg) tablet 250 mcg PO DAILY 01/1001/20/25 01/20/25 History divalproex 250 mg tablet,extended 250 mg PO DAILY 01/1001/20/25 01/20/25 History release 24 hr Exam Height,Weight and Vital Signs: Height 5 ft 8 in Weight 110.4 kg Last Vital Signs Temp 98.2 F 01/21/25 06:04 Pulse 82 01/21/25 09:26 Resp 14 01/21/25 07:25 BP 119/66 01/21/25 09:26 Pulse Ox 99 01/21/25 07:25 O2 Del Method Room Air 01/21/25 06:04 Pertinent Lab Results Pertinent Lab Results: Laboratory Tests 01/20/25 01/20/25 01/21/25 17:09 19:29 00:06 WBC 4.2 L RBC 3.67 L Hgb 11.5 L Hct 33.7 L MCV 91.8 MCH 31.3 MCHC 34.1 RDW 13.2 Plt Count 270 MPV 9.0 L Immature Gran % (Auto) 0.0 Neut % (Auto) 35.0 L Lymph % (Auto) 48.6 H [place] % (Auto) 11.2 H Eos % (Auto) 4.0 Baso % (Auto) 1.2 Lymph # (Auto) 2.0 [place] # (Auto) 0.5 Eos # (Auto) 0.2 Baso # (Auto) 0.1 Abs Immat Gran (auto) 0.00 Absolute Neuts (auto) 1.5 L Absolute Nucleated RBC 0.000 Nucleated RBC % (auto) 0.0 Sodium 142 Potassium 4.5 Chloride 104 Carbon Dioxide 29 Anion Gap 14 BUN 12 Creatinine 1.24 Estim Creat Clear Calc 69.0 Estimated GFR 58 Random Glucose 94 Calcium 9.0 Total Bilirubin 0.4 AST 16 ALT 9 Alkaline Phosphatase 74 Troponin I High Sens 4.1 < 2.7 B-Natriuretic Peptide 35 Total Protein 7.3 Albumin 4.1 01/21/25 01/21/25 03:02 04:48 WBC 4.7 L RBC 3.62 L Hgb 11.1 L Hct 33.9 L MCV 93.6 MCH 30.7 MCHC 32.7 RDW 13.2 Plt Count 258 MPV 9.8 Immature Gran % (Auto) 0.2 Neut % (Auto) 39.5 L Lymph % (Auto) 46.3 H [place] % (Auto) 9.3 Eos % (Auto) 3.4 Baso % (Auto) 1.3 Lymph # (Auto) 2.2 [place] # (Auto) 0.4 Eos # (Auto) 0.2 Baso # (Auto) 0.1 Abs Immat Gran (auto) 0.01 Absolute Neuts (auto) 1.9 L Absolute Nucleated RBC 0.000 Nucleated RBC % (auto) 0.0 Sodium 142 Potassium 3.8 Chloride 109 H Carbon Dioxide 23 Anion Gap 14 BUN 13 Creatinine 1.03 Estim Creat Clear Calc 83.1 Estimated GFR > 60 Random Glucose 79 Calcium 8.5 Total Bilirubin AST ALT Alkaline Phosphatase Troponin I High Sens < 2.7 B-Natriuretic Peptide Total Protein Albumin Airway Mallampati Class: III TM Dist: <=3cm Neck ROM: Limited Heart: afib Lungs: cta Assessment and Plan Assessment Anesthesia Assessment: Anesthesia Plan Discussed and Chart Reviewed Final Anesthetic Review Family History of Problems with Anesthesia: No History of Problems with Anesthesia: No NPO: Yes ASA Class: III Final Preanesthetic Review: No Changes in Pt Med Stat, Meds/Allgs Chart Reviewed, Consent Obtained/Reviewed and Anes Risks/Benef Reviewed Patient Risk: Intermediate Procedure Risk: Low Anesthetic Plan Anesthetic Plan: MAC: Disposition: Standard PACU
--- NOTE | 2025-01-21 13:56 | MHC.SHP ---
Pre-Procedural Eval Section A - 24 Hr Update-Section A only Date of Service: 01/21/25 The patient is an INPATIENT: Yes Changes since office visit: Yes Changes in Medication and Yes Patient answered all questions; No Cold of Flu in the past 2 weeks and No New Medical Problems The patient has been examined within 24 hours of the surgical procedure. The History & Physical has been completed within 30 days and I have reviewed it.: Yes Section B - Complete if H&P > 30 days Chief Complaint: Aflutter Allergies: Allergies Allergy/AdvReac Type Severity Reaction Status Date / Time Penicillins (PENICILLINS) Allergy Intermediate RASH Verified 01/20/25 16:54 haloperidol (Haldol) Allergy Unknown Unknown Verified 01/20/25 16:54 mirtazapine (Remeron) Allergy Unknown Unknown Verified 01/20/25 16:54 trazodone Allergy Unknown Unknown Verified 01/20/25 16:54 verapamil (Verelan) Allergy Unknown Unknown Verified 01/20/25 16:54 risperidone (From RISPERDAL) AdvReac Severe SEIZURE Verified 01/20/25 16:54 lithium (LITHIUM) AdvReac Intermediate LETHARGY, Verified 01/20/25 16:54 AKATHISIA, TD Plan I have reviewed the history and physical and performed a pertinent physical examination on my patient. No changes have occurred unless specified. Time Spent With Patient Time: Total time managing care of this patient today ____ minutes.
--- NOTE | 2025-01-21 14:09 | MHC.CM.PN ---
ptfrom a chd run apt he is active with cinthya for management of a lock box if pt dcd on the weekemd contact kiran [phone] ..if during the week contact parker abraham [phone]
--- NOTE | 2025-01-21 14:41 | ECG_ITS ---
Test Reason : post cardioversion Blood Pressure : */* mmHG Vent. Rate : 47 BPM Atrial Rate : 47 BPM P-R Int : 146 ms QRS Dur : 92 ms QT Int : 482 ms P-R-T Axes : 57 44 42 degrees QTcB Int : 426 ms Sinus bradycardia Otherwise normal ECG When compared with ECG of 21-Jan-2025 08:40, Sinus rhythm has replaced Atrial flutter ST no longer depressed in Inferior leads Nonspecific T wave abnormality, improved in Inferior leads Referred By: John Bautista Electronically Signed By: JOHN BAUTISTA MD
--- NOTE | 2025-01-21 15:01 | HO.CARDIVERS ---
Cardioversion Procedure Note Cardioversion Date of Procedure: 01/21/2025 Ordering Provider: Ellis Bautista Performing Provider: Ellis Bautista Indication for Procedure: Recurrent persistent atrial flutter with difficult control rate Pre-Op Diagnosis: Same Post-Op Diagnosis: Normal sinus rhythm Performed with Transesophageal Echo: No History: See my consult note Consent: Verbal and Written consent was obtained from the patient before starting and after confirming oral anticoagulation use. The patient was made aware of the risk of synchronized cardioversion including benefits and alternatives Procedure: After consent obtained, cardioversion pads were attached in anteroposterior configuration and the patient was sedated by the anesthesia team. Once adequate sedation achieved, patient was delivered 200 joules of biphasic synchronized energy in anteroposterior configuration Complications: None Impression: Normal sinus rhythm Recommendations: 1. 12 lead EKG 2. Convert to oral amiodarone 400 mg b.i.d. for 2 weeks followed by 200 mg daily 3. Continue full oral anticoagulation
--- NOTE | 2025-01-21 15:51 | PC.NURSE ---
Addendum entered by Pilar Fitch RN 01/21/25 17:45: correction to the note: Amiodorone drip was running 1 mg/ min and was decreased to 0.5 mg / min Original Note: This Rn received message from [facility] at 14:58 that this pt is being admitted from pacu to [facility] , This RN reviewed pt's chart and communicated via tiger text OIL DIPPER Susanna at 15:04 in re: Amiodorone drip dose . Pt still in PACU and this investment underwriter asked pacu nurse why Amio drip is still at 1 mg per hr per documentation on emar. This RN asked rodbuster for clarification , pt was brought to the floor at 15:24 with the pump running at 1 mg per hr , Amiodorone drip Protocol was reviewed by this RN , concrete mixing truck driver Susanna and recharger Yajaira at the bedside , drip was decreased to 0.5 mg per hr . DR Bautista was notified about the drip dose.
--- NOTE | 2025-01-21 16:43 | PC.NURSE ---
Clarified with DR Bautista that LR is not needed ,
[2025-01-21] MEDS: 0.9 % Sodium Chloride Flush 3 ML SYRINGE IVFLUSH (21:56)
[2025-01-22 03:24] VITALS: BP 118/70; PULSE 70; RESP 18; TEMP 36.4; O2SAT 97
[2025-01-22 08:00] VITALS: BP 106/71; PULSE 62; RESP 18; TEMP 36.2; O2SAT 97
[2025-01-22] MEDS: Divalproex Sodium ER 250 MG TAB.ER.24H PO (09:27)
[2025-01-22] MEDS: 0.9 % Sodium Chloride Flush 3 ML SYRINGE IVFLUSH (09:37)
--- NOTE | 2025-01-22 10:58 | PM.PNCARD ---
Subjective Subjective Date of Service: 01/22/25 Principal diagnosis: Atrial flutter Interval history: Patient doing well overall status post cardioversion yesterday. Tolerating well. Heart rate somewhat in the lower side in the 50s. No lightheadedness, syncope. Blood pressure is stable Review of Systems Review of Systems Yes all other systems are reviewed and are negative Physical Exam Vital Signs: Last Vital Signs Temp 97.1 F 01/22/25 08:00 Pulse 62 01/22/25 08:00 Resp 18 01/22/25 08:00 BP 106/71 01/22/25 08:00 Pulse Ox 97 01/22/25 08:00 O2 Del Method Room Air 01/22/25 08:00 O2 Flow Rate 2 01/21/25 14:56 BMI result Body Mass Index 38.6 Const General: cooperative, comfortable, no acute distress, alert and awake Nutritional Appearance: obese Orientation/consciousness: patient oriented x3 HEENT Head: Yes normocephalic and Yes atraumatic Neck Neck: Yes trachea midline, Yes supple and Yes no JVD Resp Effort & Inspection: normal respiratory effort Auscultation: clear to auscultation bilaterally Cardio Jugular venous distension: no JVD Rhythm: abnormal rhythm irregularly irregular Heart sounds: S1 normal heart sound present, S2 normal heart sound present, no click, no gallops, no murmurs and no rubs GI Auscultation: normal bowel sounds Skin General skin exam: no rashes or lesions noted Neuro General: patient oriented x3 and no focal motor deficits Extrem General: Yes no clubbing, cyanosis or edema Objective Labs and Meds 01/21/25 04:48 01/21/25 04:48 Progress Note: A&P Assessment and plan (1) Atrial flutter: Status: Acute Assessment and Plan: Atrial flutter difficult control rate. Has converted to sinus rhythm on amiodarone. Continue amiodarone loading for 2 weeks followed by 200 mg daily. Refer him for outpatient flutter fib ablation to EP. Continue full oral anticoagulation. Reduce metoprolol to 50 mg b.i.d.. Management was discussed with him. Clinically no signs of heart failure. Continue his usual therapy. Will follow up with outpatient echocardiogram. Thank you for allowing me to partake in his care Time Spent With Patient Time: Total time managing care of this patient today ____ minutes. Progress Note: Quality Stroke Does the patient have a stroke diagnosis?: No Procedures Date of Service Date of Service: 01/22/25
[2025-01-22 12:00] VITALS: BP 120/65; PULSE 66; RESP 18; TEMP 36.8; O2SAT 100
--- NOTE | 2025-01-22 13:08 | P.DS_ITS ---
DS: Providers Provider Date of Service: 01/22/25 Date of admission: 01/20/25 19:49 Date of discharge: 01/22/25 Primary care physician: Unknown Physician Consults: 01/20/25 19:49 Consult to Cardiology Routine Consulting Provider: [facility] [place] [facility] Reason for consultation: [place] DS: Diagnosis Discharge Diagnosis (1) Atrial flutter: Status: Acute DS: Summary Hospital Course Hospital Course: From admission HPI: Date of Service: 01/20/25 Chief Complaint: aflutter 64-year-old male with a past medical history of HTN, HLD, AFib, CHF, thoracic aortic aneurysm, degenerative spine disease, schizoaffective disorder, osteoarthritis, history of pulmonary embolism anticoagulation, mood disorder presented to the hospital today with a chief complaint of tachycardia. Patient went to his perinatal breastfeeding assistant for routine follow-up visit and noted to have a flutter with RVR with heart rate in 130s. Subsequently patient was sent to the hospital for further evaluation by his perinatal breastfeeding assistant 0. Patient denies any chest pain palpitations and some dizziness. Denies nausea vomiting. Denies any GI or symptoms. Review of all other systems is negative except mentioned above ER course: Per ER team, patient heart rate was in 120s on presentation. Ophthalmic Photographer Dr. Bautista recommended to discontinue digoxin and keep the patient on amiodarone drip. Also suggested to keep the patient NPO after midnight for possible cardioversion in the morning. Hospital course Pt was admitted to the hospital for atrial flutter with RVR. Was started on amiodarone drip and then successfully cardioverted on 01/21. Amiodarone was subsequently transitioned to p.o.. Pt tolerated the procedure well and overnight cardiac monitoring demonstrated maintaining normal sinus rhythm, though pt was noted to be intermittently mildly bradycardic into the 50s. Pt was followed closely by Cardiology who suggested stopping digoxin, starting amiodarone loading dose of 400 mg p.o. b.i.d. x14 days then maintenance dose of 200 mg daily after that, reducing metoprolol from 100 mg to 50 mg b.i.d. No syncope/presyncope, lightheadedness/dizziness, chest pain/pressure, or signs of heart failure. Pt should follow up with Cardiology 1-2 weeks, and will need to have arrangements made for outpatient ablation and echocardiogram. Pt should continue all of his other home medications. Time Attestation Discharge Coordination Time (in mins): 38 Quality: Safe Use of Opioids Does Pt have an Active Cancer Diagnosis on the Problem List?: No Quality: Stroke Does the patient have a stroke diagnosis?: No Physical Exam Exam: Exam: General: AOx3, no acute distress Resp: CTA bilaterally CVS: S1, S2, RRR GI: +BS, NT, no distention Skin: Warm, dry Neuro: Cranial nerves II-XII grossly intact bilaterally. Motor grossly intact bilaterally Extremities: Non-pitting bilateral edema Psych: Appropriate affect Vital Signs: Vital Signs: Last Vital Signs Temp 98.3 F 01/22/25 12:00 Pulse 66 01/22/25 12:00 Resp 18 01/22/25 12:00 BP 120/65 01/22/25 12:00 Pulse Ox 100 01/22/25 12:00 O2 Del Method Room Air 01/22/25 12:00 O2 Flow Rate 2 01/21/25 14:56 BMI result Body Mass Index 38.6 DS: Data Data Completed and Pending Completed studies during hospitalization [Text1]: Procedures Control Bleeding in Gastrointestinal Tract, Via Natural or Artificial Opening Endoscopic (06/22/24) Excision of Ascending Colon, Via Natural or Artificial Opening Endoscopic, Diagnostic (06/22/24) Excision of Transverse Colon, Via Natural or Artificial Opening Endoscopic, Diagnostic (06/22/24) Introduction of Other Therapeutic Substance into Lower GI, Via Natural or Artificial Opening Endoscopic (06/22/24) Discharge Plan Discharge Anticipated Discharge Date/Time: 01/22/25 12:31 Patient Disposition: Home Health Service Discharge Diagnosis: Atrial flutter with RVR Referrals: Physician,Unknown J [Primary Care Provider, Medical] - 1 Week Discharge Medications: New amiodarone 200 mg tablet 200 mg PO DAILY Qty: 90 0RF Rx Instructions: Take 2 tablets (400 mg) twice a day for 14 days, until 02/04. Starting on 02/05 take one tablet (200mg) daily. metoprolol tartrate 50 mg tablet 50 mg PO BID Qty: 180 0RF Rx Instructions: Take one tablet twice a day Continued (DME) Ultra-Light Rollator Misc See Rx Instructions .Route Qty: 1 0RF Rx Instructions: As directed docusate sodium 100 mg capsule 100 mg PO BID PRN (Reason: for constipation) Qty: 60 10RF acetaminophen 500 mg tablet 500 mg PO Q8H PRN (Reason: for pain) Qty: 90 0RF furosemide 40 mg tablet 40 mg PO QAM Qty: 90 3RF loratadine [Allergy Relief (loratadine)] 10 mg tablet 10 mg PO DAILY PRN (Reason: allergy symptoms) 90 Days Qty: 90 4RF Eliquis 5 mg tablet 5 mg PO BID Qty: 60 0RF omeprazole 20 mg capsule,delayed release(DR/EC) 20 mg PO DAILY@0630 Qty: 30 0RF ergocalciferol (vitamin D2) 1,250 mcg (50,000 unit) capsule 1,250 mcg PO MO melatonin 5 mg capsule 5 mg PO BEDTIME PRN (Reason: insomnia) divalproex 250 mg tablet extended release 24 hr 250 mg PO DAILY ascorbic acid (vitamin C) 500 mg capsule 500 mg PO DAILY benztropine 0.5 mg tablet 0.5 mg PO BID Rx Instructions: Sindyentin fluphenazine decanoate 25 mg/mL solution 37.5 mg IM Q2W Rx Instructions: (Prolixin) for thought disorder olanzapine [Zyprexa] 20 mg tablet 20 mg PO BEDTIME (DME) HOSPITAL BED See Rx Instructions .Route .MEDSUPPLY Qty: 1 0RF Rx Instructions: As directed lorazepam 1 mg tablet 1 mg PO BID PRN (Reason: Anxiety) tamsulosin 0.4 mg capsule 0.4 mg PO DAILY Qty: 90 1RF albuterol sulfate [Ventolin HFA] 90 mcg/actuation HFA aerosol inhaler 2 puff PO QID PRN (Reason: shortness of breath or wheezing) Qty: 18 3RF Discontinued metoprolol tartrate 100 mg tablet 100 mg PO BID Qty: 60 0RF digoxin 250 mcg (0.25 mg) tablet 250 mcg PO DAILY Discharge Orders: Discharge Order (Routine); Ordered 01/22/25 Ordered By: Jairo Buchanan Activity on Discharge: As tolerated Stand Alone Forms: Patient Portal Discharge page Print Language: Japanese Care Plan Goals: See below Health Concerns: Atrial flutter with RVR Syncope, lightheadedness/dizziness SOB Bradycardia CHF Plan of Treatment: You were admitted to the hospital for atrial flutter with rapid ventricular response. You were started on an amiodarone drip and then successfully cardioverted on 01/21. Telemetry monitoring showed that you maintained sinus rhythm overnight, though with some episodes of bradycardia into the 50s. You will be discharged home on amiodarone, a decrease in metoprolol, and with close cardiology follow-up. -- stop taking digoxin -- you will start amiodarone with a loading dose of 400 mg twice a day for 14 days (until 02/04) then 200 mg once daily after that -- metoprolol will be reduced to 50mg twice daily -- continue Eliquis -- follow up with Dr. Bautista in Cardiology in 1-2 weeks -- you will need outpatient ablation and echocardiogram -- continue all of your other home medications Assessment: See discharge summary
--- NOTE | 2025-01-22 13:40 | MHC.CM.PN ---
Addendum entered by Mikaela Ray 01/22/25 13:51: SAMEER RECEIVED A RETURN CALL FROM ISMAEL CONFIRMING A [facility] STAFF MEMBER WOULD PROVIDE PT TRANSPORT, HOWEVER SHE WAS UNABLE TO PROVIDE AN APPROXIMATE TIME. Original Note: PT CLEARED TO DC HOME TODAY WITH RESUMPTION OF SERVICES OMID URENA NOTIFIED OF DC VIA [facility] CM SPOKE TO [facility] WORKER, ISMAEL [phone]
--- OUTSIDE RECORDS SUMMARY | 2025-03-11 20:00 | XMS_ITS | Clinical Summary ---
Author Organization Unknown Care Team Providers Care Unarmed Security Officer Name Role Phone ALAN COBIAN, BEVERLY Unavailable Unavailable CARLOS FLANAGAN, ANABEL Unavailable Unavailable Payers Payer Name Policy Type Policy Number Effective Date Expira tion Date [place] [id number] ON DEMAND MEDICARE - [facility] BILLING - ABN [id number] Problems Condition Name Condition Details Condition Category Status Onset Date Resolution Date Last Treatment Date Treating Clinician Comments SCHIZOPHRENI A, UNSPECIFIED Active 01-10 00:00: 00 BIPOLAR DISORDER, UNSPECIFIED Active 12-08 00:00: 00 ESSENTIAL (PRIMARY) HYPERTENSION Active 05-12 00:00: 00 BENIGN PROSTATIC HYPERPLASIA WITHOUT LOWER URINRY TRACT SYMP Active 01-18 00:00: 00 Allergies, Adverse Reactions, Alerts Allergy Name Allergy Type Status Severity Reaction(s) Onset Date Inactive Date Treating Clinician Comments HALDOL Propensity to adverse reactions Active 01-16 16:09: 38 VERELAN Propensity to adverse reactions Active 01-16 16:10: 22 AMOXICILLIN Propensity to adverse reactions Active 01-16 16:11: 16 LITHIUM Propensity to adverse reactions Active 01-16 16:11: 32 PENICILLIN Propensity to adverse reactions Active 01-16 16:11: 49 RISPERIDONE Propensity to adverse reactions Active 01-16 16:12: 07 TRAZADONE Propensity to adverse reactions Active 01-16 16:12: 26 VERAPAMIL Propensity to adverse reactions Active 01-16 16:12: 43 Medications Ordered Medication Name Filled Medication Name Start Date Stop Date Current Medication? Ordering Clinician Indication Dosage Frequency Signature (SIG) Comments Components amiodarone 200 mg tablet 10-04 00:00: 00 03-27 23:59 :00 No [id number] 200 mg DAILY 200 mg DAILY (route: oral) Alternate Route: By mouth. Med Classific ation: Cardiovas cular Therapy Agents benztropine 0.5 mg tablet 16 00:00: 00 10-29 23:59 :00 No [id number] 0.5 mg TWICE A DAY 0.5 mg TWICE A DAY (route: oral) Alternate Route: BY MOUTH. Med Classific ation: Central Nervous System Agents Colace 100 mg capsule 08-13 00:00: 00 10-29 23:59 :00 No [id number] 100 mg 2 TIMES DAILY 100 mg 2 TIMES DAILY (route: oral) Med Classific ation: Gastroint estinal Therapy Agents divalproex ER 500 mg tablet,exte nded release 24 hr 16 00:00: 00 10-29 23:59 :00 No [id number] 500 mg AT BEDTIME 500 mg AT BEDTIME (route: oral) Med Classific ation: Central Nervous System Agents fluphenazin e decanoate 25 mg/mL injection solution 07 00:00: 00 01-10 23:59 :00 No [id number] 25 mg 375 MG (15 ML) INTRAMUSCU LARLY ONCE EVERY 25 mg 375 MG (15 ML) INTRAMUSCU LARLY ONCE EVERY (route: injection) Med Classific ation: Central Nervous System Agents furosemide 40 mg tablet 08-13 00:00: 00 12-27 23:59 :00 No [id number] 40 mg DAILY 40 mg DAILY (route: oral) Med Classific ation: Cardiovas cular Therapy Agents loratadine 10 mg capsule 19 00:00: 00 10-29 23:59 :00 No [id number] 10 mg ONCE A DAY 10 mg ONCE A DAY (route: oral) Alternate Route: BY MOUTH. Med Classific ation: Respirato ry Therapy Agents lorazepam 0.5 mg tablet 12 00:00: 00 08-13 23:59 :00 No [id number] 0.5 mg TWICE A DAY EVERY DAY NEEDED NEEDED 0.5 mg TWICE A DAY EVERY DAY NEEDED NEEDED (route: oral) Alternate Route: BY MOUTH. Med Classific ation: Central Nervous System Agents melatonin 5 mg tablet 06-30 00:00: 00 01-10 23:59 :00 No [id number] FOR INSOMNIA 5 mg AT BEDTIME WITH FOOD NEEDED 5 mg AT BEDTIME WITH FOOD NEEDED (route: oral) Alternate Route: BY MOUTH. Med Classific ation: Central Nervous System Agents metoprolol tartrate 25 mg tablet 08-13 00:00: 00 10-29 23:59 :00 No [id number] 25 mg DAILY 25 mg DAILY (route: oral) Med Classific ation: Cardiovas cular Therapy Agents nicotine 7 mg/24 hr daily transdermal patch 06-30 00:00: 00 02-20 23:59 :00 No [id number] 7 mg EVERY DAY DIRECTED 7 mg EVERY DAY DIRECTED (route: transderma l) Med Classific ation: Chemical Dependenc y, Agents to Treat olanzapine 20 mg tablet 06-20 00:00: 00 01-10 23:59 :00 No [id number] 20 mg EVERYDAY AT BEDTIME 20 mg EVERYDAY AT BEDTIME (route: oral) Alternate Route: BY MOUTH. Med Classific ation: Central Nervous System Agents olanzapine 5 mg tablet 12-09 00:00: 00 10-29 23:59 :00 No [id number] 5 mg BEDTIME 5 mg BEDTIME (route: oral) Med Classific ation: Central Nervous System Agents omeprazole 20 mg capsule,del ayed release 06-18 00:00: 00 01-10 23:59 :00 No [id number] 20 capsule EVERY DAY 20 capsule EVERY DAY (route: oral) Alternate Route: BY MOUTH. Med Classific ation: Gastroint estinal Therapy Agents tamsulosin 0.4 mg capsule 08-13 00:00: 00 01-10 23:59 :00 No [id number] 0.4 capsule DAILY 0.4 capsule DAILY (route: oral) Med Classific ation: Genitouri nary Therapy ergocalcife rol (vitamin D2) 1,250 mcg (50,000 unit) capsule -05 00:00: 10-29 23:59 :00 No [id number] 1250 mcg ONCE A WEEK 1250 mcg ONCE A WEEK (route: oral) Alternate Route: BY MOUTH. Med Classific ation: Electroly te Balance-N utritiona l Products Xarelto 15 mg tablet 08-13 00:00: 11-14 10:17 :57.2 27 No [id number] 15 mg DAILY 15 mg DAILY (route: oral) Med Classific ation: Hematolog ical Agents sulfamethox azole 400 mg-trimetho prim 80 mg tablet 16 00:00: 00 02-20 23:59 :00 No [id number] 400 mg 2 TIMES DAILY 400 mg 2 TIMES DAILY (route: oral) Med Classific ation: Anti-Infe ctive Agents amiodarone 100 mg tablet 2019-05 00:00: 00 05-15 23:59 :00 No [id number] 100 mg DAILY 100 mg DAILY (route: oral) Med Classific ation: Cardiovas cular Therapy Agents Xarelto 20 mg tablet 11-14 00:00: 00 10-29 23:59 :00 No [id number] 20 mg DAILY 20 mg DAILY (route: oral) Med Classific ation: Hematolog ical Agents Lasix 40 mg tablet 01-05 00:00: 00 01-10 23:59 :00 No [id number] 40 mg DAILY 40 mg DAILY (route: oral) Med Classific ation: Cardiovas cular Therapy Agents Depakote 250 mg tablet,carole yed release 08-13 00:00: 00 10-29 23:59 :00 No [id number] 1 tablet BEDTIME 1 tablet BEDTIME (route: oral) Med Classific ation: Central Nervous System Agents lorazepam 0.5 mg tablet 08-13 00:00: 00 10-29 23:59 :00 No [id number] ANXIETY/BRIAN TATION 1 tablet NOON 1 tablet NOON (route: oral) Med Classific ation: Central Nervous System Agents lorazepam 1 mg tablet 08-13 00:00: 00 10-29 23:59 :00 No [id number] 1 tablet 2 TIMES DAILY 1 tablet 2 TIMES DAILY (route: oral) Med Classific ation: Central Nervous System Agents benztropine 0.5 mg tablet 10-29 00:00: 00 01-10 23:59 :00 No [id number] 0.5 mg BEDTIME 0.5 mg BEDTIME (route: oral) Med Classific ation: Central Nervous System Agents Depakote ER 250 mg tablet,exte nded release 10-29 00:00: 00 01-10 23:59 :00 No [id number] 250 mg DAILY 250 mg DAILY (route: oral) Med Classific ation: Central Nervous System Agents digoxin 250 mcg (0.25 mg) tablet 10-29 00:00: 00 01-10 23:59 :00 No [id number] 250 mcg DAILY 250 mcg DAILY (route: oral) Med Classific ation: Cardiovas cular Therapy Agents Eliquis 5 mg tablet 10-29 00:00: 00 01-10 23:59 :00 No [id number] 5 mg 2 TIMES DAILY 5 mg 2 TIMES DAILY (route: oral) Med Classific ation: Hematolog ical Agents lorazepam 1 mg tablet 10-29 00:00: 00 01-10 23:59 :00 No [id number] 1 mg DAILY 1 mg DAILY (route: oral) Med Classific ation: Central Nervous System Agents metoprolol tartrate 100 mg tablet 10-29 00:00: 00 01-10 23:59 :00 No [id number] 100 mg 2 TIMES DAILY 100 mg 2 TIMES DAILY (route: oral) Med Classific ation: Cardiovas cular Therapy Agents Ventolin HFA 90 mcg/actuati on aerosol inhaler 10-29 00:00: 00 01-10 23:59 :00 No [id number] 1 puff NEEDED 1 puff NEEDED (route: inhalation ) Med Classific ation: Respirato ry Therapy Agents benztropine 0.5 mg tablet 01-12 00:00: 00 Yes [id number] 0.5 mg BEDTIME 0.5 mg BEDTIME (route: oral) Med Classific ation: Central Nervous System Agents Depakote 250 mg tablet,carole yed release 01-12 00:00: 00 Yes [id number] 250 mg DAILY 250 mg DAILY (route: oral) Med Classific ation: Central Nervous System Agents Eliquis 5 mg tablet 01-12 00:00: 00 Yes [id number] 5 mg 2 TIMES DAILY 5 mg 2 TIMES DAILY (route: oral) Med Classific ation: Hematolog ical Agents fluphenazin e decanoate 25 mg/mL injection solution 01-12 00:00: 00 Yes [id number] 37.5 mg EVERY OTHER WEEK 37.5 mg EVERY OTHER WEEK (route: injection) Med Classific ation: Central Nervous System Agents Lasix 40 mg tablet 01-12 00:00: 00 Yes [id number] 40 mg DAILY 40 mg DAILY (route: oral) Med Classific ation: Cardiovas cular Therapy Agents lorazepam 1 mg tablet 01-12 00:00: 00 Yes [id number] 1 mg DAILY 1 mg TALA Y (route: oral) Med Classific ation: Central Nervous System Agents melatonin 5 mg tablet 01-12 00:00: 00 Yes [id number] 5 mg NEEDED 5 mg NEEDED (route: oral) Med Classific ation: Central Nervous System Agents metoprolol tartrate 100 mg tablet 01-12 00:00: 00 Yes [id number] 100 mg 2 TIMES DAILY 100 mg 2 TIMES DAILY (route: oral) Med Classific ation: Cardiovas cular Therapy Agents olanzapine 20 mg tablet 01-12 00:00: 00 Yes [id number] 20 mg BEDTIME 20 mg BEDTIME (route: oral) Med Classific ation: Central Nervous System Agents omeprazole 20 mg capsule,del ayed release 01-12 00:00: 00 Yes [id number] 20 mg DAILY 20 mg DAILY (route: oral) Med Classific ation: Gastroint estinal Therapy Agents tamsulosin 0.4 mg capsule 01-12 00:00: 00 Yes [id number] 0.4 mg BEDTIME 0.4 mg BEDTIME (route: oral) Med Classific ation: Genitouri nary Therapy Ventolin HFA 90 mcg/actuati on aerosol inhaler 01-12 00:00: 00 Yes [id number] Per instruc tions NEEDED Per instructio ns NEEDED (route: inhalation ) Med Classific ation: Respirato ry Therapy Agents Vital Signs Vital Name Observation Time Observation Value Commen ts Temperature 2025-01-18 14:02:00.000 97.2 [degF] Temperature 2025-01-14 16:45:00.000 97.8 [degF] Temperature 2025-01-13 12:10:00.000 96.7 [degF] Temperature 2025-01-12 14:40:00.000 97.7 [degF] BMI (%) 2025-01-12 14:05:23.000 38 kg/m2 Height 2025-01-12 14:05:09.000 68 [in_us] Pulse 2025-01-18 14:02:00.000 92 /min Pulse 2025-01-14 16:45:00.000 100 /min Pulse 2025-01-13 12:10:00.000 72 /min Pulse 2025-01-12 14:40:00.000 68 /min O2 Saturation (%) 2025-01-12 14:40:00.000 92 % Respirations 2025-01-18 14:02:00.000 17 /min Respirations 2025-01-14 16:45:00.000 16 /min Respirations 2025-01-13 12:10:00.000 16 /min Respirations 2025-01-12 14:40:00.000 16 /min Weight (lbs) 2025-01-12 14:05:23.000 250 [lb_av] Systolic Blood Pressure 2025-01-18 14:02:00.000 136 mm [Hg] Systolic Blood Pressure 2025-01-14 16:45:00.000 134 mm [Hg] Systolic Blood Pressure 2025-01-13 12:10:00.000 132 mm [Hg] Systolic Blood Pressure 2025-01-12 14:40:00.000 115 mm [Hg] Diastolic Blood Pressure 2025-01-18 14:02:00.000 80 mm [Hg] Diastolic Blood Pressure 2025-01-14 16:45:00.000 76 mm [Hg] Diastolic Blood Pressure 2025-01-13 12:10:00.000 70 mm [Hg] Diastolic Blood Pressure 2025-01-12 14:40:00.000 82 mm [Hg] Plan of Treatment Planned Activity [...] RSE TO PRE-POUR MEDICATION PER MEDICATION LIST 3 X WEEK. [code = SKILLED NURSE TO PRE-POUR MEDICATION PER MEDICATION LIST 3 X WEEK.] Future Scheduled Test PATIENT MA Y HAVE ONE SET OF EMERGENCY MEDICATION NOT TO BE PRE-POURED ANY SOONER THAN 24 HOURS BEFORE SEVERE INCLEMENT WEATHER OR EMERGENT EVENT AND FOLLOWING SKILLED NURSE EVALUATION OF PATIENT SAFETY. [code = PATIENT MAY HAVE ONE SET OF EMERGENCY MEDICATION NOT TO BE PRE-POURED ANY SOONER THAN 24 HOURS BEFORE SEVERE INCLEMENT WEATHER OR EMERGENT EVENT AND FOLLOWING SKILLED NURSE EVALUATION OF PATIENT SAFETY.] Future Scheduled Test SKILLED NU RSE TO O/A OF PATIENTS MENTAL/BEHAVIORAL STATUS, ASSESS VITAL SIGNS 3 X WEEK, ALLOW 2 PRNS FOR MEDICATION MANAGEMENT. [code = SKILLED NURSE TO O/A OF PATIENTS MENTAL/BEHAVIORAL STATUS, ASSESS VITAL SIGNS 3 X WEEK, ALLOW 2 PRNS FOR MEDICATION MANAGEMENT.] Future Scheduled Test SKILLED NU RSE FOR O/A OF ALTERED MOOD [code = SKILLED NURSE FOR O/A OF ALTERED MOOD] Future Scheduled Test MEDICATION S WILL BE HELD AND STORED IN LOCKBOX [code = MEDICATIONS WILL BE HELD AND STORED IN LOCKBOX] Future Scheduled Test SKILLED NU RSE FOR O/A OF GENERAL HEALTH STATUS OF PAIN, CARDIAC, RESPIRATORY, GASTROINTESTINAL, GENITOURINARY, SKIN, NEUROLOGIC, ENDOCRINE SYSTEMS TO IDENTIFY CHANGES ASSOCIATED WITH EXACERBATION FOR EARLY INTERVENTION OF COMPLICATIONS 3 X WEEK [code = SKILLED NURSE FOR O/A OF GENERAL HEALTH STATUS OF PAIN, CARDIAC, RESPIRATORY, GASTROINTESTINAL, GENITOURINARY, SKIN, NEUROLOGIC, ENDOCRINE SYSTEMS TO IDENTIFY CHANGES ASSOCIATED WITH EXACERBATION FOR EARLY INTERVENTION OF COMPLICATIONS 3 X WEEK] Future Scheduled Test SKILLED NU RSE FOR [...] Future Scheduled Test SKILLED NU RSE FOR O/A, TEACHING, AND MANAGEMENT OF HYPERTENSION [code = SKILLED NURSE FOR O/A, TEACHING, AND MANAGEMENT OF HYPERTENSION] Future Scheduled Test SKILLED NU RSE TO [...] AND TEACHING OF PRESCRIBED INJECTION THERAPY FOR FLUPHENERZINE EVERYOTHER WEEK. [code = SKILLED NURSE FOR ADMINISTRATION AND TEACHING OF PRESCRIBED INJECTION THERAPY FOR FLUPHENERZINE EVERYOTHER WEEK.] Future Scheduled Test SKILLED NU RSE TO ASSESS PATIENT S PSYCHOSOCIAL STATUS TO IDENTIFY POTENTIAL ISSUES THAT MAY COMPLICATE THE PROVISION OF THE PLAN OF CARE INCLUDING THE PATIENT S ABILITY TO ACCESS COMMUNITY RESOURCES AND PSYCHOSOCIAL SUPPORT SERVICES. [code = SKILLED NURSE TO ASSESS PATIENT S PSYCHOSOCIAL STATUS TO IDENTIFY POTENTIAL ISSUES THAT MAY COMPLICATE THE PROVISION OF THE PLAN OF CARE INCLUDING THE PATIENT S ABILITY TO ACCESS COMMUNITY RESOURCES AND PSYCHOSOCIAL SUPPORT SERVICES.] Future Scheduled Test SKILLED NU RSE WILL MAINTAIN SITUATIONAL AWARENESS FOR SAFETY AND WILL NOTIFY CLINICAL COMPRESSED GAS PLANT WORKER AND PHYSICIAN/PROVIDER WITH ANY CHANGE IN CONDITION. [code = SKILLED NURSE WILL MAINTAIN SITUATIONAL AWARENESS FOR SAFETY AND WILL NOTIFY CLINICAL COMPRESSED GAS PLANT WORKER AND PHYSICIAN/PROVIDER WITH ANY CHANGE IN CONDITION.] Goal Patient Goal - T O CONTINUE SMOKING CESSATION AND HAVE MY HIP SURGERY AND STAY HEALTHY Goal Provider Goal - A PLAN OF CARE WILL BE ESTABLISHED THAT MEETS PATIENT'S LONGTERM NEEDS AND INCLUDES PATIENT GOAL FOR HOME HEALTH. Goal Provider Goal - PATIENT WILL COMPLY WITH MEDICATION WHEN SKILLED NURSE PRE-POURS MEDICATION THROUGHOUT CERTIFICATION PERIOD. Goal Provider Goal - MEDICATION WILL BE AVAILABLE DURING INCLEMENT WEATHER OR EMERGENT EVENT THROUGHOUT CERTIFICATION PERIOD. Goal Provider Goal - ALTERED MENTAL/BEHAVIORAL STATUS WILL BE IDENTIFIED PROMPTLY AND INTERVENTION INITIATED QUICKLY TO MINIMIZE ASSOCIATED RISKS THROUGHOUT CERTIFICATION PERIOD. Goal Provider Goal - PATIENT WILL BE ABLE TO PERFORM DAILY FUNCTIONS AND HAVE OPTIMAL IMPROVEMENT IN MOOD STABILITY THROUGHOUT CERTIFICATION PERIOD. Goal Provider Goal - MEDICATION WILL BE STORED IN LOCKBOX FOR SAFETY. Goal Provider Goal - CHANGE IN GENERAL [...] PERIOD. Goal Provider Goal - PATIENT/CAREGIVER WILL VERBALIZE/DEMONSTRATE MANAGEMENT OF CARDIAC DISEASE PROCESS AND EXACERBATIONS WILL BE IDENTIFIED AND PROMPTLY REPORTED THROUGHOUT THE CERTIFICATION PERIOD. Goal Provider Goal - PATIENT/CAREGIVER WILL VERBALIZE UNDERSTANDING OF EDUCATION PROVIDED ON MEDICATIONS BY THE END OF THE CERTIFICATION PERIOD. Goal Provider Goal - PATIENT WILL RECEIVE FLUPHENERZINE ORDERED. PATIENT/CAREGIVER WILL VERBALIZE/DEMONSTRATE KNOWLEDGE OF INJECTION THERAPY BY THE END OF THE CERTIFICATION PERIOD. Goal Provider Goal - PSYCHOSOCIAL NEEDS WILL BE IDENTIFIED AND PLAN IMPLEMENTED TO MINIMIZE RISK THROUGHOUT CERTIFICATION PERIOD. Goal Provider Goal - PATIENT WILL REMAIN SAFE IN THE COMMUNITY AND WILL BE FREE OF DANGER TO SELF AND OTHERS THROUGHOUT THE CERTIFICATION PERIOD. Progress Notes Progress Notes <paragraph>[Visit Date: 2024 by ANABEL GONZALEZ RN]:</paragraph><paragraph>SNV 01/18/25: PATIENT SEEN TODAY ALERT AND COOPERATIVE WITH CARE. PHYSICAL AND MENTAL STATUS ASSESSMENT COMPLETED. NOTED TO BE DESTRUCTED AND HYPERVERBAL. REVIEWED PORCH STOPPING TECHNIQUE IN WAYS TO WORK ON RELAXATION.</paragraph> Encounters Start Date/Time End Date/Time Encounter Type Admission Type Attending [facility] Care Facility Care Department Encounter ID Discharge Date Discharge Status Discharge Condition Discharge Reason Percent Goals Met 2025-01-12 00:00:00 2025-03-12 00:00:00 Outpatient NEW ADMISSION ANABEL GONZALEZ [facility] [id number] 13.33
== END 2025-01-22 16:08 | disposition home health service (06) | DRG 309 ==
LOC: HO.ED 19:36 → HO.EDOVER 20:05 → HO.IMC 01-21 14:58
PROVIDERS: Internal Medicine Cardiovascular Disease; Physician Assistant; Admitting Provider Hospitalist; Emergency Provider Student in an Organized Health Care Education/Training Program; Visit Provider Student in an Organized Health Care Education/Training Program
PROC: 5A2204Z Restoration of Cardiac Rhythm, Single (ICD-10-PCS; principal; 2025-01-21 15:00)
DX: I48.92 Unspecified atrial flutter (principal); I50.22 Chronic systolic (congestive) heart failure; F20.9 Schizophrenia, unspecified; J44.9 Chronic obstructive pulmonary disease, unspecified; I71.20 Thoracic aortic aneurysm, without rupture, unspecified; I11.0 Hypertensive heart disease with heart failure; Z87.891 Personal history of nicotine dependence; Z86.711 Personal history of pulmonary embolism; Z79.01 Long term (current) use of anticoagulants; Z79.899 Other long term (current) drug therapy
CPT/HCPCS: 36415; 71045; 80048; 80053; 83880; 84484; 85025; 92960; 93005; 99285; J0282; J0283; J2003; J2680; J2704; J7120

== ENCOUNTER → 2025-01-20 19:19 | Outpatient (BNV) | payer MEDICARE, MEDICAID, SELFPAY | PROVIDERS: Admitting Provider Hospitalist; Emergency Provider Student in an Organized Health Care Education/Training Program; Visit Provider Radiology Diagnostic Radiology | DX: R00.2 Palpitations (principal) | CPT/HCPCS: 71045 ==

== ENCOUNTER 2025-01-20 19:49 | Outpatient (BNV) | payer MEDICARE, MEDICAID, SELFPAY | END 2025-01-21 08:40 | PROVIDERS: Admitting Provider Hospitalist; Emergency Provider Student in an Organized Health Care Education/Training Program; Visit Provider Internal Medicine Cardiovascular Disease | DX: I48.92 Unspecified atrial flutter (principal); I44.0 Atrioventricular block, first degree | CPT/HCPCS: 93010 ==

== ENCOUNTER → 2025-01-20 19:49 | Outpatient (BNV) | payer MEDICARE, MEDICAID, SELFPAY | PROVIDERS: Admitting Provider Hospitalist; Emergency Provider Student in an Organized Health Care Education/Training Program; Visit Provider Internal Medicine Cardiovascular Disease | DX: I48.92 Unspecified atrial flutter (principal) | CPT/HCPCS: 92960; 99222; 99233 ==

== ENCOUNTER → 2025-01-20 19:49 | Outpatient (BNV) | payer MEDICARE, MEDICAID, SELFPAY | PROVIDERS: Admitting Provider Hospitalist; Emergency Provider Student in an Organized Health Care Education/Training Program; Visit Provider Student in an Organized Health Care Education/Training Program | DX: I48.92 Unspecified atrial flutter (principal) | CPT/HCPCS: 99223; 99233; 99239 ==

== ENCOUNTER 2025-01-28 13:32 | Outpatient (AMB) | payer MEDICARE, MEDICAID, SELFPAY ==
[2025-01-28 13:34] VITALS: BP 118/80; PULSE 61; O2SAT 95; BMI 35.5
--- NOTE | 2025-01-28 13:34 | A.OFFPC_ITS ---
Vital Signs 01/28/25 13:34 Height 5 ft 8 in Weight 233 lb 8 oz BMI 35.5 BP 118/80 Blood Pressure Location Lt brachial Position Sitting Pulse 61 Pulse Source Pulse Oximeter Pulse Oximetry (%) 95 Oxygen Delivery Method Room Air Intake Visit Reasons: [facility] [place] 01/08 Tachycardia/high BP Gas Mask Assembler Required: No Accompanied by: Self / Same As Patient Allergies Penicillins (PENICILLINS) Allergy (Intermediate, Verified 01/28/25 14:30) RASH haloperidol (Haldol) Allergy (Unknown, Verified 01/28/25 14:30) Unknown mirtazapine (Remeron) Allergy (Unknown, Verified 01/28/25 14:30) Unknown trazodone Allergy (Unknown, Verified 01/28/25 14:30) Unknown verapamil (Verelan) Allergy (Unknown, Verified 01/28/25 14:30) Unknown risperidone (From RISPERDAL) Adverse Reaction (Severe, Verified 01/28/25 14:30) SEIZURE lithium (LITHIUM) Adverse Reaction (Intermediate, Verified 01/28/25 14:30) LETHARGY, AKATHISIA, TD Medication List - Last Reconciled 01/28/25 by Rajesh Watts MD acetaminophen 500 mg PO Q8H PRN amiodarone 200 mg PO DAILY apixaban (Eliquis) 5 mg PO BID ascorbic acid (vitamin C) 500 mg PO DAILY benztropine 0.5 mg PO BEDTIME divalproex ER 250 mg PO DAILY docusate sodium 100 mg PO BID PRN ergocalciferol (vitamin D2) 1,250 mcg PO MO fluphenazine decanoate 37.5 mg IM Q2W fluphenazine decanoate 37.5 mg IM Q2W furosemide 40 mg PO QAM [HOSPITAL BED As directed] loratadine (Allergy Relief (loratadine)) 10 mg PO DAILY PRN 90 days lorazepam 1 mg PO .QD PRN melatonin 5 mg PO BEDTIME PRN 90 days metoprolol tartrate 50 mg PO BID olanzapine (Zyprexa) 20 mg PO BEDTIME omeprazole 20 mg PO DAILY@0630 tamsulosin 0.4 mg PO DAILY Ventolin HFA 90 mcg/actuation (albuterol sulfate) 2 puffs PO QID PRN NS walker (Ultra-Light Rollator misc) As directed Tobacco use date assessed: 01/28/25 Fall risk assessment: 2 + Falls in past year Last assessed Fall Risk: 01/28/25 Dental Screening Dental Screen Date: 01/28/25 Did you have a dental visit in the last 12 months?: Yes Did you have a dental problem in the last 6 months where you did not have access to dental care?: No Was dental information given to patient?: Patient has dentist HPI [facility] [place] 01/08 Tachycardia/high BP HPI Details Patient comes in today for his HDF follow up visit He was admitted to [facility] [place] for a couple of days last week after he was 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 Work ups done revealed (+) atrial flutter with RVR, with his heart rate around 130 / minute He was started on Amiodarone drip and he successfully cardioverted the following day He was taken off Digoxin and his Metoprolol dose was reduced to 50 mg BID The rest of his stay was uneventful and he was discharged home on Amiodarone at 400 mg BID x 14 days, then will be lowered to 200 mg QD on 02/04/2025 He is also on Eliquis 5 mg BID for thromboembolism prophylaxis Patient states that he is currently feeling okay and has not had any problems or symptoms of palpitations or heart racing, dizziness or SOB since he was discharged last week He is scheduled to see cardiology for follow up in a couple of weeks on 02/10/2025 and will then be scheduled for repeat echocardiogram and likely outpatient cardiac ablation He denies any headaches or dizziness Denies any chest pains, no increased SOB No nausea/vomiting, no abdominal pain No change in bowel habits noted Needs a couple of his Rx refilled [facility] Medical History Pulmonary emboli Congestive heart failure Atrial fibrillation with RVR Chest pain Hyperkalemia Screening for malignant neoplasm of colon performed Encounter for screening colonoscopy Screening for tuberculosis Substance abuse in remission Smoker Anal irritation Allergic rhinitis Cardiomyopathy Obesity (BMI 30-39.9) Schizoaffective disorder, bipolar type Insomnia Lumbar degenerative disc disease Osteoarthritis of hips, bilateral Hyperkalemia Pure hypercholesterolemia Benign essential hypertension History of acute heart failure History of atrial flutter History of congestive heart failure History of cardiomyopathy HTN (hypertension) Paroxysmal atrial flutter Surgical History History of total hip replacement Family History Father Hypertension CVD (cardiovascular disease) Mother Hypertension Diabetes Brother Mental health disorder Social History Household Members: Other Household Members Other:: independent living Housing: Assisted Living Facility Housing Other:: independent living Are you a primary respite care provider to a significant other at home: No Do you presently have visiting nurse or other home services: No Alcohol intake: former Patient Tobacco Use Status: Former Tobacco user Tobacco use type: Cigarette Cigarettes Per Day: 6 e-Cigarette/Vaping Use: Never Used Second Hand Smoke Exposure: Yes Substance Use Type: Former Substance User Advance Directives Date on File: 07/22/22 service: No Current occupational status: retired Current occupational exposures/hazards: No Cognitive needs: Yes (cane) Hearing needs: No Vision needs: Yes Questionnaire PHQ-9 Over the last 2 weeks, how often have you been bothered by any of the following problems? Depression Screening Interpretation: Positive Depression Screening Follow-up: Existing condition and In treatment Depression Screening Done: Yes Source: Developed by Drs. Bimal Barrow, Melvi Padilla, Alexys Walls and colleagues, with an educational lynda from [employer]. Thrive Questionnaire Date Thrive assessed: 10/21/24 I am a: Patient What is your living situation today?: I have a steady place to live Within the past 12 months, did the food you bought not last and you didn't have the money to get more?: Never true Within the past 12 months, did you worry whether your food would run out before you got money to buy more?: Never true Do you have trouble paying for medicines?: No Do you have trouble getting transportation to medical appointments?: No Do you have trouble paying your heating and electricity bill?: No Do you have trouble taking care of your child, family member or friend?: No Do you have trouble with day-to-day activities such as bathing, preparing meals, shopping, managing finances, etc.?: No Are you currently unemployed and looking for a job?: No Are you interested in more education?: No Please select the resources that you would like help with: None Currently or been in a relationship where the following occur: I choose not to answer THRIVE Score: 0 AUDIT C Alcohol Use Questionnaire (AUDIT-C) 1. How often do you have a drink containing alcohol?: Never 3. How often do you have six or more drinks on one occasion?: Never Total Score: 0 Score Reviewed/Action Taken: Yes IMELDA-7 AMB Questionnaire IMELDA-7 Date IMELDA - 7 assessed: 11/10/24 Source: Developed by Drs. Bimal Barrow, Melvi Padilla, Alexys Walls and colleagues, with an educational lynda from [employer]. Review of Systems Const Denies fatigue, Denies fever(s) and Denies headache(s) ENT Denies dysphagia, Denies dizziness, Denies otalgia, Denies headache(s), Denies neck pain, Denies odynophagia and Denies sore throat Card Denies chest pain, Denies palpitations (not since [facility]) and Denies dyspnea Resp Denies chest congestion, Denies cough and Denies dyspnea GI Denies abdominal pain, Denies constipation, Denies dysphagia, Denies heartburn, Denies diarrhea, Denies nausea, Denies odynophagia and Denies vomiting Denies difficulty urinating, Denies dysuria, Reports nocturia and Reports urinary frequency Musc Reports back pain (over the lower back), Reports arthralgias (right hip) and Denies neck pain Skin/Breast Denies rash Neuro Denies dizziness and Denies headache(s) Psych Reports anxiety and Reports depression Endo Denies fatigue and Denies palpitations (not since his discharge from the hospital last week) Physical exam (Primary Care) Vital Signs: Last Vital Signs Pulse 61 01/28/25 13:34 BP 118/80 01/28/25 13:34 Pulse Ox 95 01/28/25 13:34 Oxygen Delivery Method Room Air 01/28/25 13:34 BMI result Body Mass Index 35.5 Tobacco/Smoking Status: Tobacco use Status Tobacco use date assessed 01/28/25 01/28/25 13:37 Patient Tobacco Use Status Former Tobacco user 01/28/25 13:37 Tobacco use type Cigarette 01/28/25 13:37 e-Cigarette/Vaping Use Never Used 01/28/25 13:37 Depression Screening Interpretation: Positive Depression Screening Follow-up: Existing condition and In treatment Thrive Assessment: Date of Thrive Assessment Date Thrive assessed 10/21/24 01/28/25 13:37 Currently or been in a relationship where the following occur: I choose not to answer Const General: no acute distress and alert HENMT Ears: TM's normal bilaterally and EAC's normal Throat: Yes posterior oropharynx normal and Yes tonsils normal (no TP congestion noted) Neck Neck: Yes supple and No lymphadenopathy Thyroid: Thyroid normal Resp Auscultation: clear to auscultation bilaterally, no rales and no wheezes Cardio Rate: regular rate Rhythm: regular rhythm Heart sounds: no murmurs GI Palpation (GI): Soft to palpation and nontender Auscultation: normal bowel sounds General: Yes no CVA tenderness Back/Spine/Pelvis Back: no CVA tenderness Thoracic/Lumbar Spine: lumbar spinal tenderness (mild) Extrem General: Yes no clubbing, cyanosis or edema Right lower extremity: hip/thigh Details: tenderness Location: of the hip Coding Level of Care Code Est Pt Level 4 (01091) Diagnoses Atrial flutter with rapid ventricular response I48.92 History of cardiomyopathy Z86.79 Positive colorectal cancer screening using Cologuard test R19.5 Pure hypercholesterolemia E78.00 Benign essential hypertension I10 Primary osteoarthritis of both hips M16.0 Osteoarthritis type: primary Degeneration of intervertebral disc of lumbar region with discogenic back pain M51.360 Disc-related pain type: discogenic back pain only Hyperkalemia E87.5 Insomnia, unspecified type G47.00 Insomnia type: unspecified Schizoaffective disorder, bipolar type F25.0 Obesity (BMI 30-39.9) E66.9 Assessment & Plan Assessment & Plan (1) Atrial flutter with rapid ventricular response: Code(s): I48.92 - Unspecified atrial flutter Category: Medical Plan: Patient apparently developed atrial flutter when was 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 last week for follow-up He was sent to the ER for tachycardia and was found to be in atrial flutter with RVR, with his heart rate around 130 / minute He was successfully cardioverted on Amiodarone and is currently still on Amiodarone at 400 mg BID, which will be lowered to 200 mg QD on 02/04/2025 He is also on Eliquis 5 mg BID for thromboembolism prophylaxis He will continue outpatient workup with Cardiology for his atrial flutter, including repeat echocardiogram and he will likely be recommended for cardiac ablation at some point (2) History of cardiomyopathy: Comment: LVEF of 25% time of presentation with heart failure and atrial flutter, suspected to be tachycardia mediated. Normalized after maintaining sinus rhythm to 55-60% Code(s): Z86.79 - Personal history of other diseases of the circulatory system Category: Medical Plan: Echocardiogram in 09/2020 showed a near normal EF of 55 to 60%; repeat echo done on 12/11/21 revealed (+) normal LV systolic function with mild LVH, moderately dilated left atrium, mild mitral regurgitation, normal RV systolic pressure, mildly dilated ascending aorta at 4 cm and no pericardial effusion noted His most recent echocardiogram in April 2023 revealed that the calculated ejection fraction is 54% by biplane method, with no evidence of regional wall motion abnormalities. There is mildly decreased right ventricular systolic function but no obvious valvular pathology is seen on this study. There is mild dilatation of the sinuses of Valsalva measuring 4.27 cm and mild dilatation of the ascending aorta measuring 3.90 cm Repeat echocardiogram in March 2024 revealed no changes from his previous echo - the left ventricular systolic function is normal. The visually estimated ejection fraction is between 55-60%. There are no obvious valvular pathology seen on this study. There is mild dilatation of the sinuses of Valsalva measuring 4.10 cm and mild dilatation of the ascending aorta measuring 3.80 cm He will likely be scheduled for repeat echocardiogram again because of his recent bout with atrial flutter with RVR Follow up with cardiology as scheduled (3) Positive colorectal cancer screening using Cologuard test: Comment: History hemorrhoids Code(s): R19.5 - Other fecal abnormalities Category: Medical Plan: He was being scheduled for colonoscopy due to a positive Cologuard test done earlier this year and was waiting for cardiology to clear him for the procedure He was scheduled to have echocardiogram, stress testing and myocardial perfusion scan done this month but this will likely have to be postponed again due to his recent bout with atrial flutter with RVR (4) Pure hypercholesterolemia: Code(s): E78.00 - Pure hypercholesterolemia, unspecified Category: Medical Plan: Reinforced low-cholesterol diet Will recheck his labs and fasting lipids as scheduled in 3 months for follow-up (5) Benign essential hypertension: Code(s): I10 - Essential (primary) hypertension Category: Medical Plan: Reinforced low sodium diet - goal is systolic BP of at least 120 to 130 mm or less Continue Metoprolol 50 mg BID (6) Osteoarthritis of hips, bilateral: Comment: S/P total left hip arthroplasty in 2016 Code(s): M16.0 - Bilateral primary osteoarthritis of hip Category: Medical Qualifiers: Osteoarthritis type: primary Qualified Code(s): M16.0 - Bilateral primary osteoarthritis of hip Plan: S/P total left hip arthroplasty in 2016 with (+) significant improvement of his hip pain States that his right hip pain has been progressively getting worse lately and he is now considering having a right hip arthroplasty done soon S/P physical therapy with some relief of his symptoms Follow-up with Orthopedics (Dr. Banda) as scheduled Continue Acetaminophen 500 mg every 8 hours as needed for pain - Rx refilled (7) Lumbar degenerative disc disease: Code(s): M51.36 - Other intervertebral disc degeneration, lumbar region Category: Medical Qualifiers: Disc-related pain type: discogenic back pain only Qualified Code(s): M51.360 - Other intervertebral disc degeneration, lumbar region with discogenic back pain only Plan: Reinforced activity and weight lifting restrictions to help minimize the risks of aggravating his back symptoms (8) Hyperkalemia: Code(s): E87.5 - Hyperkalemia Category: Medical Plan: His potassium level was normal at 3.8 when checked last week Reinforced again that he should avoid foods high in potassium content Will continue to monitor his serum potassium level regularly (9) Insomnia: Code(s): G47.00 - Insomnia, unspecified Category: Medical Qualifiers: Insomnia type: unspecified Qualified Code(s): G47.00 - Insomnia, unspecified Plan: Sleep hygiene reinforced Continue OTC Melatonin 5 mg once a day at bedtime as needed - Rx refilled (10) Schizoaffective disorder, bipolar type: Code(s): F25.0 - Schizoaffective disorder, bipolar type Category: Medical Plan: Continue Depakote ER 500 mg 3 tablets once a day at bedtime (mood stabilizer), ? Fluphenazine Decanoate solution (Prolixin) 25 milligram/mL? 1.5 mL (37.5 mg) IM injection every 2 weeks ? Olanzapine tablet (Zyprexa) 10 mg 2 tablets (20 mg) once a day at bedtime (thought disorder), ? Benztropine Mesylate? (Cogentin) 0.5 mg? 1 tablet once a day at bedtime, and ? Lorazepam 1 mg once a day as needed Follow up with psychiatry as scheduled (11) Obesity (BMI 30-39.9): Code(s): E66.9 - Obesity, unspecified Category: Medical Plan: Reinforced diet; exercise and weight are not realistic given patient's physical issues and comorbidities Plan Follow up as scheduled in April 2025 Medications: Changed From melatonin 5 mg PO BEDTIME PRN insomnia To melatonin 5 mg PO BEDTIME PRN 90 caps 1RF insomnia 90 days Refilled acetaminophen 500 mg PO Q8H PRN 90 tabs 0RF for pain
--- OUTSIDE RECORDS SUMMARY | 2025-01-28 13:46 | XMS_ITS | Clinical Summary ---
Author Organization [facility] Address [address] [place] [address] [address] [place] [phone] Phone Care Team Providers Care Slot Machine Floor Person Name Role Phone Rajesh Watts MD Primary Care Provider +1- [phone] Allergies Active Allergy Reactions Criticality Noted Date [...] Visit [facility] [address] [place] [phone] Aakash Palomino MD [address] [facility] [address] [place] [address] Health Maintenance Due Date Last Done Comments Pneumococcal Vaccine: 50+ Ye ars (1 of 2 - PCV) 1977 Colorectal Cancer Screening: Annual FOBT 08/11/2007 Colorectal Cancer Screening: Colonoscopy 08/11/2007 Colorectal Cancer Screening: Sigmoidoscopy 08/11/2007 Influenza Vaccine (#1) 2025 Hepatitis B Vaccine Aged Out No longe r eligible based on patient's age to complete this topic Insurance [address] [place] [id number] Medicare Medicaid [place] Care Teams Slot Machine Floor Person Relationship Specialty Start Date End Date Rajesh Watts MD [address] [place] [address] PCP - General 05/22/20
== END 2025-01-28 14:37 | disposition home or self-care (01) ==
LOC: HO.HMCH 13:33
PROVIDERS: PCP Internal Medicine; Visit Provider Internal Medicine
DX: I48.92 Unspecified atrial flutter (principal); F25.0 Schizoaffective disorder, bipolar type; E66.9 Obesity, unspecified; Z68.35 Body mass index [BMI] 35.0-35.9, adult; Z86.79 Personal history of other diseases of the circulatory system; R19.5 Other fecal abnormalities; E78.00 Pure hypercholesterolemia, unspecified; E87.5 Hyperkalemia; I10 Essential (primary) hypertension; M16.0 Bilateral primary osteoarthritis of hip; M51.360 Other intervertebral disc degeneration, lumbar region with discogenic back pain only; G47.00 Insomnia, unspecified

== ENCOUNTER → 2025-01-28 13:32 | Outpatient (BNVA) | payer MEDICARE, MEDICAID, SELFPAY | PROVIDERS: PCP Internal Medicine; Visit Provider Internal Medicine | DX: I10 Essential (primary) hypertension (principal); I48.92 Unspecified atrial flutter; R19.5 Other fecal abnormalities; E78.00 Pure hypercholesterolemia, unspecified; M16.0 Bilateral primary osteoarthritis of hip; M51.360 Other intervertebral disc degeneration, lumbar region with discogenic back pain only; E78.5 Hyperlipidemia, unspecified; G47.00 Insomnia, unspecified; F25.0 Schizoaffective disorder, bipolar type; E66.9 Obesity, unspecified; Z86.79 Personal history of other diseases of the circulatory system; Z68.35 Body mass index [BMI] 35.0-35.9, adult | CPT/HCPCS: 99212 ==

== ENCOUNTER → 2025-03-02 07:53 | Outpatient (REF) | payer MEDICARE, MEDICAID, SELFPAY ==
--- NOTE | ~2025-03-02 | XR_ITS ---
EXAMINATION: XR CHEST CLINICAL INFORMATION: I50.9 - Heart failure, unspecified COMPARISON: 01/20/2025, 01/03/2022. TECHNIQUE: 4 views of the chest were obtained. FINDINGS: Cardiac monitoring device noted overlying the left upper lung region. The cardiac, hilar, and mediastinal contours are normal. The lungs are clear bilaterally. There is no pneumothorax or pleural effusion. There is no focal osseous or soft tissue abnormality. There are mild degenerative changes in the spine. XR/XR chest 4 views IMPRESSION: No active pulmonary disease. Electronically signed by: Mike Healy MD 03/02/2025 10:03 AM EDT
--- OUTSIDE RECORDS SUMMARY | 2025-03-02 07:55 | XMS_ITS | Clinical Summary ---
Author Organization [facility] Address [address] [place] [address] [address] [place] [phone] Phone Care Team Providers Care Wire Winder Name Role Phone Rajesh Watts MD Primary Care Provider +1- [phone] Allergies Active Allergy Reactions Criticality Noted Date [...] Visit [facility] [address] [place] [address] Aakash Palomino MD [address] [facility] [address] [place] [address] Health Maintenance Due Date Last Done Comments Pneumococcal Vaccine: 50+ Ye ars (1 of 2 - PCV) 1977 Colorectal Cancer Screening: Annual FOBT 08/11/2007 Colorectal Cancer Screening: Colonoscopy 08/11/2007 Colorectal Cancer Screening: Sigmoidoscopy 08/11/2007 Influenza Vaccine (#1) 2025 Hepatitis B Vaccine Aged Out No longe r eligible based on patient's age to complete this topic Insurance [address] [place] [id number] Medicare Medicaid [place] Care Teams Wire Winder Relationship Specialty Start Date End Date Rajesh Watts MD [address] [place] [address] PCP - General 05/22/20
--- NOTE | 2025-03-02 07:56 | CA_ITS ---
Transthoracic Echocardiogram Patient (Last, First, Middle): Pool Perez F Gender: Male Date of : 1960 Age: 64 Procedure Date: 03/02/2025 Procedure Type: Transthoracic Echocardiogram Location: OP Height: 172.72 cm Weight: 105.69 kg BSA: 2.18 m2 Heart Rate: bpm BP: 118 / 80 mmHg Sign Erector: CHEMO Referring MD: John Bautista MD Sanitation Worker Hosing Machinery: John Bautista MD Symptoms: I50.9 - Heart failure, unspecified Study Quality: Adequate ECG Rhythm: Sinus Conclusions: - 1. Normal LV ejection fraction 55-60% with pseudonormal filling pattern 2. Moderate biatrial enlargement 3. Normal cardiac valvular Dopplers 4. Normal RV systolic pressure 5. Mildly dilated ascending aorta at 3.9 cm 6. No gross pericardial effusion Findings Left Ventricle Normal left ventricular size, thickness, and systolic function. The visually estimated ejection fraction is between 55-60%. Spectral Doppler is indicative of a pseudonormal filling pattern. There is mild septal asymmetric hypertrophy. Right Ventricle Mildly increased right ventricular cavity size. There is normal right ventricular systolic function. Atria Moderate biatrial enlargement. There is no evidence of interatrial shunt. Aortic Valve Normal aortic valve structure and function. There is no aortic valve stenosis. There is no aortic valve regurgitation. Mitral Valve There is mild anterior and posterior mitral leaflet thickening. There is mild mitral valve regurgitation. There is no mitral valve stenosis. Pulmonic Valve The pulmonic valve was not well visualized. Tricuspid Valve Normal tricuspid valve structure. There is trace tricuspid valve regurgitation. The right ventricular systolic pressure is normal. The right ventricular systolic pressure is 24 mmHg. Normal right atrial pressure. There is no evidence of pulmonary hypertension. Great Vessels The pulmonary artery was not well visualized. There is mild dilatation of the ascending aorta measuring 3.90 cm. Venous The inferior vena cava is normal in size and collapses greater than 50% with inspiration. Pericardium/Pleural There is no evidence of pericardial effusion. Prior Study Comparison No significant change compared to prior study dated: 04/05/2024. Measurements 2D Linear Measurements IVSd: 1.24 0.6-0.9/0.6-1.0 cm LVIDd: 4.46 3.9-5.3/4.2-5.9 cm LVIDd Index: 2.05 2.4-3.2/2.2-3.1 cm/m2 LVIDs: 3.16 2.0-3.6 cm LVPWd: 0.91 0.7-1.1 cm LA Diam: 3.60 2.7-3.8/3.0-4.0 cm LAIDs Index: 1.65 1.5-2.3 cm/m2 LV Mass: 207.55 67-162/88-224 g LV Mass Index: 95.20 43-95/49-115 g/m2 LVOT Diam: 2.50 3.0+(-)1.3 cm 2D Systolic Function EF 4C: 56.70 >55% EF 2C: 60.80 >55% EF BiP: 59.50 >55% Mitral Valve MV Pk E: 0.67 MV PK A: 0.43 MV Decel Time: 351.00 E/A: 1.60 E'Lateral: 11.50 E'Medial: 7.29 E/E' Med: 9.20 E/E' Lat: 5.80 PHT: 103.00 MVA PHT: 2.14 Decel [place]: 1.91 Aortic Valve AoV Pk Ganga: 1.19 AoV Mn Ganga: 0.79 AoV VTI: 0.32 AoV Pk Grad: 6.00 Aov Mn Grad: 3.00 IMAN Cont.VTI: 3.68 LVOT LVOT Pk Ganga: 0.88 LVOT Mn Ganga: 0.60 LVOT VTI: 0.24 LVOT Pk Grad: 3.00 LVOT Mn Grad: 2.00 LVOT Diam: 2.50 LVOT Area: 4.91 Diastolic Function MV Pk E: 0.67 MV Pk A: 0.43 E/A: 1.60 E'Medial: 7.29 E/E' Med: 9.20 E' Laterial: 11.50 E/E' Lat: 5.80 Right Ventricle TAPSE (mm): 23.30 TVS' Ganga: 11.00 Tricuspid Valve TR Pk Ganga: 2.28 TR Pk Grad: 21.00 RA Press: 3.00 RVSP: 24.00 Great Vessels Aorta Sinus of Valsalva: 4.13 2.0-3.[address] Ridge: 3.36 1.7-3.4 cm Ao Asc: 3.90 2.1-3.4 cm Ao Arch: 3.40 Updated in Other Vendor System with Status of Final John Bautista MD electronically signed on 03/03/2025 12:55:01 PM with status of Final
== END ==
LOC: HO.CARD 07:53
PROVIDERS: PCP Internal Medicine; Visit Provider Internal Medicine Cardiovascular Disease
DX: I11.0 Hypertensive heart disease with heart failure (principal); I50.9 Heart failure, unspecified; I48.91 Unspecified atrial fibrillation; Z86.79 Personal history of other diseases of the circulatory system; Z79.899 Other long term (current) drug therapy
CPT/HCPCS: 71048; 93242; 93306

== ENCOUNTER → 2025-03-02 07:56 | Outpatient (BNV) | payer MEDICARE, MEDICAID, SELFPAY | PROVIDERS: PCP Internal Medicine; Visit Provider Internal Medicine Cardiovascular Disease | DX: I42.2 Other hypertrophic cardiomyopathy (principal); I51.7 Cardiomegaly; I77.810 Thoracic aortic ectasia | CPT/HCPCS: 93306 ==

== ENCOUNTER → 2025-03-02 09:25 | Outpatient (BNV) | payer MEDICARE, MEDICAID, SELFPAY | PROVIDERS: PCP Internal Medicine; Visit Provider Radiology Diagnostic Radiology | DX: I50.9 Heart failure, unspecified (principal) ==

== ENCOUNTER 2025-04-04 09:36 | Outpatient (REF) | payer MEDICARE, MEDICAID, SELFPAY ==
--- OUTSIDE RECORDS SUMMARY | 2025-03-31 13:00 | XMS_ITS | Encounter Summary ---
Author Organization [facility] Address [address] [address] Phone Care Team Providers Care Manufacturing Engineering Technician Name Role Phone Rajesh Watts MD Primary Care Provider [phone]- [phone] Reason for Visit * Reason Comments Chronic kidney disease, stage 2 (mild) Encounter Details Date Type Department Care Team ([facility] st Contact Info) Description 03/31/2025 1:00 PM EST [facility] [address] [address] Aakash Palomino MD [address] [address] Chronic kidney disease, stage 2 (mild) (Primary Dx); Hypertension; Localized edema Social History Tobacco Use Types Packs/Day Years Used Date Smoking Tobacco: Every Day Cigarettes Smokeless Tobacco: Never Alcohol Use Standard Drinks/Week Comments Never 0 (1 standard drink = 0.6 oz pur e alcohol) Sex and Gender Information Value Date Recorded Sex Assigned at Not on file Legal Sex Male 5:13 PM EST Gender Identity Not on file Sexual Orientation Not on file documented as of this encounter Last Filed Vital Signs Vital Sign Reading Time Taken Comments Blood Pressure 110/72 03/31/2025 1:18 PM EST Pulse 80 03/31/2025 1:18 PM EST Temperature - - Respiratory Rate - - Oxygen Saturation 97% 03/31/2025 1:18 PM EST Inhaled Oxygen Concentration - - Weight 114 kg (251 lb 3.2 oz) 03/31/2025 1:18 PM EST Height - - Body Mass Index 35.04 02/04/2019 12:00 PM EDT documented in this encounter Functional Status * BP Answer Date of Assessment Author 110/72 03/31/2025 1:18 PM EST Asif, N ixilu * Pulse Answer Date of Assessment Author 80 03/31/2025 1:18 PM EST Asif, N ixilu * SpO2 Answer Date of Assessment Author 97 03/31/2025 1:18 PM EST Asif, N ixilu * Weight Answer Date of Assessment Author 4019.2 03/31/2025 1:18 PM EST Asif, N ixilu * BP Location Answer Date of Assessment Author Left upper arm 03/31/2025 1:18 PM EST Asif, N ixilu * BP Answer Date of Assessment Author 110/72 03/31/2025 1:18 PM EST Asif, N ixilu * Weight Answer Date of Assessment Author 4019.2 03/31/2025 1:18 PM EST Asif, N ixilu * BP Location Answer Date of Assessment Author Left upper arm 03/31/2025 1:18 PM EST Asif, N ixilu documented as of this encounter Progress Notes * Aakash Palomino MD - 03/31/2025 1:00 PM EST Images from the original note were not included. Patient Name: Pool Perez, Male Date of : 1960, 64 y.o. Date: 03/31/2025 History of Present Illness Pool Perez is a 64 y.o. 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 He continues have leg edema currently is on Lasix 40 mg. Not restricting his fluids Today - Leg swelling, previously worse, currently managed by elevating legs - Hospital admission for atrial fibrillation in January 2024, related to colonoscopy and electrolyte imbalance. - Echocardiogram from March 2024 showed normal heart and kidney function. - Currently taking Lasix for fluid management. - Colonoscopy performed in November 2024, polyps found and removed - Reports weight gain of 21 lbs after quitting smoking - Reports binge eating, increased carbohydrate and sodium intake The following portions of the patient's chart were reviewed in this encounter and updated as appropriate: Allergies Meds Problems Med Hx Surg Hx Fam Hx EMR: [facility]/ Past Medical History: Diagnosis Date Acute heart failure (HCC) Acute injury of kidney Allergic rhinitis Anemia Asthma Cardiomyopathy (HCC) Congestive heart failure (HCC) Degeneration of lumbar intervertebral disc History of atrial flutter Hyperkalemia Hypertension Insomnia Other and unspecified hyperlipidemia Pruritus ani Schizoaffective disorder, bipolar type (HCC) Stage 3 chronic kidney disease Review of Systems Constitutional: Negative for chills and fever. Respiratory: Negative for cough and shortness of breath. Cardiovascular: Negative for chest pain, palpitations and leg swelling. Gastrointestinal: Negative for abdominal pain, nausea and vomiting. Genitourinary: Negative for dysuria, frequency, hematuria and urgency. Medication List Current Outpatient Medications Medication Sig Dispense Refill acetaminophen (TYLENOL) 500 MG tablet Take 500 mg by mouth every 8 (eight) hours if needed for mildpain Albuterol Sulfate 108 (90 Base) MCG/ACT aerosol powder Inhale apixaban (ELIQUIS) 5 MG tablet Take 5 mg by mouth ascorbic acid (VITAMIN C) 500 MG tablet Take 500 mg by mouth 1 (one) time each day benztropine (COGENTIN) 0.5 MG tablet Take 0.5 mg by mouth in the morning and 0.5 mg in the evening. cholecalciferol (VITAMIN D-3) 25 MCG (1000 UT) capsule Take 1,000 Units by mouth 1 (one) time each day divalproex (DEPAKOTE) 500 MG 24 hr tablet Take 1,500 mg by mouth 1 (one) time each day Do not crush, chew, or split. docusate sodium (COLACE) 100 MG capsule Take 100 mg by mouth in the morning and 100 mg in the evening. fluticasone (FLONASE) 50 MCG/ACT nasal spray Administer 1 spray into each nostril 1 (one) time eachday furosemide (LASIX) 40 MG tablet Take 40 mg by mouth 1 (one) time each day in the morning loratadine (CLARITIN) 10 MG tablet Take 10 mg by mouth 1 (one) time each day LORazepam (ATIVAN) 0.5 MG tablet Take 0.5 mg by mouth in the morning and 0.5 mg in the evening. Melatonin 5 MG tablet Take 4 mg by mouth at bed time metoprolol succinate XL (TOPROL XL) 25 MG 24 hr tablet Take 25 mg by mouth 1 (one) time each day Donot crush or chew. OLANZapine (ZyPREXA) 20 MG tablet Take 20 mg by mouth every night omeprazole (PriLOSEC) [address] capsule Take 20 mg by mouth 1 (one) time each day Do not crush or chew. tamsulosin (FLOMAX) 0.4 MG 24 hr capsule Take 0.4 mg by mouth 1 (one) time each day No current facility-administered medications for this visit. Allergy List Allergies Allergen Reactions Amoxicillin Other (see comments) Haloperidol Other (see comments) Mirtazapine Other (see comments) Penicillins Other (see comments) Verapamil Rash Physical Exam BP 110/72 (BP Location: Left upper arm, Patient Position: Sitting, BP Cuff Size: Adult) Pulse 80 Wt 251 lb 3.2 oz (114 kg) SpO2 97% BMI 35.04 kg/m?? Vitals reviewed. Constitutional: He is oriented to person, place, and time. No distress. Cardiovascular: Normal rate, regular rhythm and normal heart sounds. He exhibits no edema (2+). Pulmonary/Chest: Effort normal and breath sounds normal. No respiratory distress. Abdominal: Soft. There is no abdominal tenderness. Musculoskeletal: Normal range of motion. Neurological: He is alert and oriented to person, place, and time. Skin: Skin is warm and dry. Labs Chemistry Lab Units 11/18/23 0000 SODIUM 136* POTASSIUM 4.7 CO2 mmol/L 30 CREATININE mg/dL 1.11 CHLORIDE 100.0 EGFRNAFR 60 Bone Mineral Lab Units 11/18/23 0000 CALCIUM mg/dL 9.1 Assessment & Plan 1. Chronic kidney disease, stage 2 (mild) 2. Hypertension 3. Localized edema CKD 2- Stable Along for hypertension obesity. He probably has hypertension nephrosclerosis. No reason to believe he has any active glomerulonephritis or intestinal disease. Overall the creatinine has been stable. Counselled to quit smoking H/o Mild hyponatremia have encouraged him to limit oral free water intake. 1500 ml/ day Recent labs wnl sodium If serum sodium drops less than 130 mmol I would consider adding urea powder to increase osmotic load. Edema : Low salt diet Fluid restriction 1500 ml/day - Elevate legs with two pillows at night to help reduce swelling. - Wear compression stockings during the day to manage leg swelling. Stockings are not needed at night due to leg elevation. - cont lasix 40mg daily. Take an additional dose of Lasix at 3 PM for one week to help reduce leg swelling. Continue with the morning dose as usual. Discontinue the afternoon dose after one week if swelling decreases. Orders Placed This Encounter Protein, Total, Random Urine w/Creatinine (Protein/Creat Ratio) Uric Acid Hemoglobin A1c CBC and Differential Basic Metabolic Panel Urinalysis with microscopic Urine Albumin / Creatinine Ratio Magnesium Phosphorus Return in about 6 months (around 09/28/2025). Aakash Palomino MD documented in this encounter Plan of Treatment Upcoming Encounters Date Type Department Care Team (Late st Contact Info) Description 09/29/2025 1:00 PM EDT Office Visit [facility] [address] [place] [phone] Aakash Palomino MD [address] [facility] [address] [place] [id number] Scheduled Orders Name Type Priority Associated Diagnoses Orde r Schedule Protein, Total, Random Urine w/Creatinine (Protein/Creat Ratio) Lab Routine Chronic kidney disease, stage 2 (mild) Hypertension Localized edema Expected: 09/28/2025 (Approximate), Expires: 04/30/2026 Uric Acid Lab Routine Chronic kidney disease, stage 2 (mild) Hypertension Localized edema Expected: 09/28/2025 (Approximate), Expires: 04/30/2026 Hemoglobin A1c Lab Routine Chronic kidney disease, stage 2 (mild) Hypertension Localized edema Expected: 09/28/2025 (Approximate), Expires: 04/30/2026 CBC and Differential Lab Routine Chronic kidney disease, stage 2 (mild) Hypertension Localized edema Expected: 09/28/2025 (Approximate), Expires: 04/30/2026 Basic Metabolic Panel Lab Routine Chronic kidney disease, stage 2 (mild) Hypertension Localized edema Expected: 09/28/2025 (Approximate), Expires: 04/30/2026 Urinalysis with microscopic Lab Routine Chronic kidney disease, stage 2 (mild) Hypertension Localized edema Expected: 09/28/2025 (Approximate), Expires: 04/30/2026 Urine Albumin / Creatinine Ratio Lab Routine Chronic kidney disease, stage 2 (mild) Hypertension Localized edema Expected: 09/28/2025 (Approximate), Expires: 04/30/2026 Magnesium Lab Routine Chronic kidney disease, stage 2 (mild) Hypertension Localized edema Expected: 09/28/2025 (Approximate), Expires: 04/30/2026 Phosphorus Lab Routine Chronic kidney disease, stage 2 (mild) Hypertension Localized edema Expected: 09/28/2025 (Approximate), Expires: 04/30/2026 documented as of this encounter Visit Diagnoses Diagnosis Chronic kidney disease, stage 2 (mild)- Primary Hypertension Localized edema documented in this encounter Care Teams Manufacturing Engineering Technician Relationship Specialty Start Date End Date Rajesh Watts MD [address] [place] [address] [address] [place] [address] PCP - General 05/22/20 documented as of this encounter
[2025-04-04 09:54] LABS: MANUAL DIFF FLAG NO
[2025-04-04 10:13] LABS: Hematocrit 36.5 % (42.0-52.0); Hemoglobin 12.1 g/dl (14.0-18.0); Imm Gran Abs Auto 0.00 X10*3/uL (0.00-0.03); Imm Gran Pct Auto 0.0 % (0.0-0.4); Lymphocytes Absolute Auto 2.6 X10*3/uL (1.2-4.9); Mean Corpuscular HGB Conc 33.2 g/dl (31.0-36.0); Mean Corpuscular Hemoglobin 30.4 pg (27.0-33.0); Mean Corpuscular Volume 91.7 fL (80.0-98.0); NRBC Abs Auto 0.000 X10*3/uL (0.0-0.012); NRBC Pct Auto 0.0 /100WBC (0.0-0.2); Platelet Count 271 X10*3/uL (160-400); Red Blood Count 3.98 X10*6/uL (4.60-5.80); White Blood Count 5.8 X10*3/uL (4.8-10.8)
--- OUTSIDE RECORDS SUMMARY | 2025-04-04 11:06 | XMS_ITS | Encounter Summary ---
Author Organization [facility] Address [address] [address] Phone Care Team Providers Care Welding Equipment Sales Representative Name Role Phone Rajesh Watts MD Primary Care Provider [phone]- [phone] Encounter Details Date Type Department Care Team (Late st Contact Info) Description 04/02/2025 Orders Only [facility] [address] [place] [address] Aakash Palomino MD [address] [phone] Chronic kidney disease, stage 2 (mild); Localized edema; Hypertension Social History Tobacco Use Types Packs/Day Years [...] on file documented as of this encounter Plan of Treatment Upcoming Encounters Date Type Department Care Team (Late st Contact Info) Description 09/29/2025 1:00 PM EDT Office Visit [facility] [address] [place] [address] Aakash Palomino MD [address] [phone] documented as of this encounter Visit Diagnoses Diagnosis Chronic kidney disease, stage 2 (mild) Localized edema Hypertension documented in this encounter Care Teams Welding Equipment Sales Representative Relationship Specialty Start Date End Date Rajesh Watts MD [address] [place] [address] PCP - General 05/22/20 documented as of this encounter
--- OUTSIDE RECORDS SUMMARY | 2025-04-04 11:06 | XMS_ITS | Clinical Summary ---
Author Organization [facility] Address [address] [place] [address] [address] [place] [address] Phone Care Team Providers Care Photogrammetric Compilation Specialist Name Role Phone Rajesh Watts MD Primary Care Provider [phone]- [phone] Allergies Active Allergy Reactions Criticality Noted Date [...] Base) MCG/ACT aerosol powder Inhale Activ e ascorbic acid (VITAMIN C) 500 MG tablet Take 500 mg by mouth 1 (one) time each day Active benztropine (COGENTIN) 0.5 MG tablet Take 0.5 mg by mouth in the morning and 0.5 mg in the evening. Active cholecalcifero l (VITAMIN D-3) 25 MCG (1000 UT) capsule Take 1,000 Units by mouth 1 (one) time each day Active divalproex (DEPAKOTE) 500 MG 24 hr tablet Take 1,500 mg by mouth 1 (one) time each day Do not crush, chew, or split. Active docusate sodium (COLACE) 100 MG capsule Take 100 mg by mouth in the morning and 100 mg in the evening. Active fluticasone (FLONASE) 50 MCG/ACT nasal spray [...] 20 mg by mouth every night Active omeprazole (PriLOSEC) [address] capsule Take 20 mg by mouth 1 (one) time each day Do not crush or chew. Active tamsulosin (FLOMAX) 0.4 MG 24 hr capsule Take 0.4 mg by mouth 1 (one) time each day Active apixaban (ELIQUIS) 5 MG tablet Take 5 mg by mouth 01/09/20 25 Active amiodarone (PACERONE) 100 MG tablet Take 100 mg by mouth 1 (one) time each day 025 Discontinued fluPHENAZine decanoate (PROLIXIN) 25 MG/ML injection Inject 37.5 mg into the shoulder, thigh, or buttocks every 14 (fourteen) days 025 Discontinued OLANZapine (ZyPREXA) 5 MG tablet Take 5 mg by mouth every night 025 Discontinued rivaroxaban (XARELTO) 20 MG tablet Take 20 mg by mouth 1 (one) time each day with dinner 025 Discontinued Active Problems Problem Noted Date Diagnosed Date Chronic kidney disease, stage 2 (mild) 3 Edema 02/20/2023 Hypo-osmolality and hyponatremia 02/20/2023 Essential hypertension 12/18/2022 3 Hyperkalemia 12/18/2022 12/18/2022 Hypertensive renal disease 12/18/202212/18 Disorder of kidney and/or ureter 12/18/2022 Encounters Date Type Department Care Team Description 04/02/2025 Orders Only [facility] [address] [place] [address] Aakash Palomino MD Chronic kidney disease, stage 2 (mild); Localized edema; Hypertension 03/31/2025 1:00 PM EST Office Visit [facility] [address] [place] [address] Aakash Palomino MD Chronic kidney disease, stage 2 (mild) (Primary Dx); Hypertension; Localized edema from Last 3 Months Family History Medical [...] 3.2 oz) 03/31/2025 1:18 PM EST Height 180.3 cm (5' 11 ) 02/04/2019 12:00 PM EDT Body Mass Index 35.04 02/04/2019 12:00 PM EDT Plan of Treatment Upcoming Encounters Date Type Department Care Team (Late st Contact Info) Description 09/29/2025 1:00 PM EDT Office Visit [facility] [address] [place] [phone] Aakash Palomino MD [address] [facility] [address] [place] [address] Health Maintenance Due Date Last Done Comments Pneumococcal Vaccine: 50+ Ye ars (1 of 2 - PCV) 1977 Colorectal Cancer Screening: Annual FOBT 08/11/2007 Colorectal Cancer Screening: Colonoscopy 08/11/2007 Colorectal Cancer Screening: Sigmoidoscopy 08/11/2007 Influenza Vaccine (#1) 2025 Hepatitis B Vaccine Aged Out No longe r eligible based on patient's age to complete this topic Insurance Medicare Medicaid [place] Medicare Medicaid [place] Care Teams Photogrammetric Compilation Specialist Relationship Specialty Start Date End Date Rajesh Watts MD [address] [facility] [address] [place] [address] PCP - General 05/22/20
[2025-04-04 11:09] LABS: Appearance Urine Clear; Glucose Urine UA Negative (Negative); PH 7.5 (5.0-9.0); Specific Gravity - Urine <= 1.005 (1.005-1.025)
[2025-04-04 11:36] LABS: Alanine Aminotransferase 9 U/L (0-40); Albumin Level 4.4 g/dL (3.5-5.0); Alkaline Phosphatase 80 U/L (39-117); Anion Gap 13 (12-20); Aspartate Amino Transferase 20 U/L (5-37); Blood Urea Nitrogen 14 mg/dL (9-16); Calcium 9.1 mg/dL (8.4-10.2); Carbon Dioxide 27 mmol/L (22-29); Chloride 101 mmol/L (96-108); Cholesterol 227 mg/dL (<200); Estimated Glomerular Filt Rate 58; HDL Cholesterol 64 mg/dL (>40); Potassium 4.0 mmol/L (3.3-5.1); Sodium 137 mmol/L (135-145); Total Protein 7.9 g/dL (6.5-8.0); Triglycerides 92 mg/dL (<150)
[2025-04-04 11:45] LABS: Folate 9.5 ng/mL (> or = 4.0); Vitamin B12 895 pg/mL (200-900)
[2025-04-04 12:41] LABS: Free T4 (Free Thyroxine) 1.15 ng/dL (0.71-1.85)
== END 2025-04-04 09:37 | disposition home or self-care (01) ==
LOC: HO.LAB 09:36
PROVIDERS: PCP Internal Medicine; Visit Provider Internal Medicine
DX: E53.8 Deficiency of other specified B group vitamins (principal); D64.9 Anemia, unspecified; E78.00 Pure hypercholesterolemia, unspecified; R30.0 Dysuria; E55.9 Vitamin D deficiency, unspecified
CPT/HCPCS: 36415; 80053; 80061; 81003; 82306; 82607; 82746; 84439; 84443; 85025

== ENCOUNTER → 2025-04-13 11:01 | Outpatient (REF) | payer MEDICARE, MEDICAID, SELFPAY ==
--- NOTE | ~2025-04-13 | XR_ITS ---
EXAMINATION: XR CHEST 2 VIEWS HISTORY: Z79.899 - Other watermaster (current) drug therapy COMPARISON: Comparison is made with the prior examination dated 03/02/2025. FINDINGS: PA and lateral views of the chest are submitted. Again seen is a cardiac monitoring device in the left anterior chest wall. The lungs are expanded and clear. There is no pleural effusion, pneumothorax, or pulmonary vascular congestion. The heart is normal in size. There is degenerative disc disease of the spine. XR/XR chest 2V IMPRESSION: No acute cardiopulmonary abnormality. Electronically signed by: Bimal Helm MD 04/13/2025 12:47 PM [facility] [place]
== END ==
LOC: HO.CARD 11:01
PROVIDERS: PCP Internal Medicine; Visit Provider Internal Medicine Cardiovascular Disease
DX: I48.92 Unspecified atrial flutter (principal); Z79.899 Other long term (current) drug therapy
CPT/HCPCS: 71046; 93242

== ENCOUNTER → 2025-04-13 11:03 | Outpatient (BNV) | payer MEDICARE, MEDICAID, SELFPAY | PROVIDERS: PCP Internal Medicine; Visit Provider Internal Medicine Cardiovascular Disease | DX: I48.92 Unspecified atrial flutter (principal); I49.1 Atrial premature depolarization | CPT/HCPCS: 93244 ==

== ENCOUNTER → 2025-04-13 11:18 | Outpatient (BNV) | payer MEDICARE, MEDICAID, SELFPAY | PROVIDERS: PCP Internal Medicine; Visit Provider Radiology Diagnostic Radiology | DX: Z79.899 Other long term (current) drug therapy (principal) | CPT/HCPCS: 71046 ==

== ENCOUNTER 2025-04-14 11:51 | Outpatient (AMB) | payer MEDICARE, MEDICAID, SELFPAY ==
[2025-04-14 12:00] VITALS: BP 110/74; PULSE 60; O2SAT 99; BMI 37.3
--- NOTE | 2025-04-14 12:00 | A.OFFPC_ITS ---
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 Required: No Accompanied by: Self / Same As Patient Allergies Penicillins (PENICILLINS) Allergy (Intermediate, Verified 04/14/25 12:42) RASH haloperidol (Haldol) Allergy (Unknown, Verified 04/14/25 12:42) Unknown mirtazapine (Remeron) Allergy (Unknown, Verified 04/14/25 12:42) Unknown trazodone Allergy (Unknown, Verified 04/14/25 12:42) Unknown verapamil (Verelan) Allergy (Unknown, Verified 04/14/25 12:42) Unknown risperidone (From RISPERDAL) Adverse Reaction (Severe, Verified 04/14/25 12:42) SEIZURE lithium (LITHIUM) Adverse Reaction (Intermediate, Verified 04/14/25 12:42) LETHARGY, AKATHISIA, TD Medication List - Last Reconciled 04/14/25 by Rajesh Watts MD acetaminophen 500 mg PO Q8H PRN amiodarone 200 mg PO DAILY apixaban (Eliquis) 5 mg PO BID ascorbic acid (vitamin C) 500 mg PO DAILY benztropine 0.5 mg PO BEDTIME divalproex ER 250 mg PO DAILY docusate sodium 100 mg PO BID PRN ergocalciferol (vitamin D2) 1,250 mcg PO MO fluphenazine decanoate 37.5 mg IM Q2W fluphenazine decanoate 37.5 mg IM Q2W furosemide 40 mg PO QAM [HOSPITAL BED As directed] loratadine (Allergy Relief (loratadine)) 10 mg PO DAILY PRN 90 days lorazepam 1 mg PO .QD PRN melatonin 5 mg PO BEDTIME PRN 90 days metoprolol tartrate 50 mg PO BID olanzapine (Zyprexa) 20 mg PO BEDTIME omeprazole 20 mg PO DAILY@0630 tamsulosin 0.4 mg PO DAILY Ventolin HFA 90 mcg/actuation (albuterol sulfate) 2 puffs PO QID PRN NS walker (Ultra-Light Rollator misc) As directed Tobacco use date assessed: 04/14/25 Fall risk assessment: No Falls in past year Last assessed Fall Risk: 04/14/25 Dental Screening Dental Screen Date: 04/14/25 Did you have a dental visit in the last 12 months?: Yes Did you have a dental problem in the last 6 months where you did not have access to dental care?: No Was dental information given to patient?: Patient has dentist HPI 3mth f/u HPI Details Patient comes in today for his follow up visit States that he feels okay He denies any headaches or dizziness Denies any chest pains, no increased SOB He denies any palpitations or arrhythmia, but notes that his blood pressure was high over the past weekend No nausea/vomiting, no abdominal pain No change in bowel habits noted He is currently still awaiting cardiology clearance for his colonoscopy, which he needs to have done due to a positive Cologuard test done earlier this year He has a follow up appointment with cardiology in a couple of weeks to discuss the results of his work ups, which patient states that he recently completed He has gained over 10 pounds since his last visit in January 2025 and states that he is now trying to lose weight by making dietary changes, such as cutting out salt from his diet and reducing bread intake as much as he can He had his follow up labs done last week - to discuss his results [facility] Medical History Pulmonary emboli Congestive heart failure Atrial fibrillation with RVR Chest pain Hyperkalemia Screening for malignant neoplasm of colon performed Encounter for screening colonoscopy Screening for tuberculosis Substance abuse in remission Smoker Anal irritation Allergic rhinitis Cardiomyopathy Obesity (BMI 30-39.9) Schizoaffective disorder, bipolar type Insomnia Lumbar degenerative disc disease Osteoarthritis of hips, bilateral Hyperkalemia Pure hypercholesterolemia Benign essential hypertension History of acute heart failure History of atrial flutter History of congestive heart failure History of cardiomyopathy HTN (hypertension) Paroxysmal atrial flutter Surgical History History of total hip replacement Family History Father Hypertension CVD (cardiovascular disease) Mother Hypertension Diabetes Brother Mental health disorder Social History Household Members: Other Household Members Other:: independent living Housing: Assisted Living Facility Housing Other:: independent living Are you a primary patient care technician instructor to a significant other at home: No Do you presently have visiting nurse or other home services: No Alcohol intake: former Patient Tobacco Use Status: Former Tobacco user Tobacco use type: Cigarette Cigarettes Per Day: 6 e-Cigarette/Vaping Use: Never Used Second Hand Smoke Exposure: Yes Substance Use Type: Former Substance User Advance Directives Date on File: 07/22/22 service: No Current occupational status: retired Current occupational exposures/hazards: No Cognitive needs: Yes (cane) Hearing needs: No Vision needs: Yes Questionnaire PHQ-9 Over the last 2 weeks, how often have you been bothered by any of the following problems? 1. Little interest or pleasure in doing things: not at all 2. Feeling down, depressed, or hopeless: not at all 3. Trouble falling or staying asleep, or sleeping too much: not at all 4. Feeling tired or having little energy: not at all 5. Poor appetite or overeating: not at all 6. Feeling bad about yourself - or that you are a failure or have let yourself or your family down: not at all 7. Trouble concentrating on things, such as reading the newspaper or watching television: not at all 8. Moving or speaking so slowly that other people could have noticed. Or the opposite - being so fidgety or restless that you have been moving around a lot more than usual: not at all 9. Thoughts that you would be better off or of hurting yourself in some way: not at all Total score: 0 Depression Screening Interpretation: Negative Depression Screening Done: Yes 31168 - PHQ-9 Billing: Yes Source: Developed by Drs. Bimal Barrow, Melvi Padilla, Alexys Walls and colleagues, with an educational lynda from [employer]. Thrive Questionnaire Date Thrive assessed: 04/14/25 I am a: Patient What is your living situation today?: I have a steady place to live Within the past 12 months, did the food you bought not last and you didn't have the money to get more?: Never true Within the past 12 months, did you worry whether your food would run out before you got money to buy more?: Never true Do you have trouble paying for medicines?: No Do you have trouble getting transportation to medical appointments?: No Do you have trouble paying your heating and electricity bill?: No Do you have trouble taking care of your child, family member or friend?: No Do you have trouble with day-to-day activities such as bathing, preparing meals, shopping, managing finances, etc.?: No Are you currently unemployed and looking for a job?: No Are you interested in more education?: No Please select the resources that you would like help with: None Currently or been in a relationship where the following occur: I choose not to answer THRIVE Score: 0 AUDIT C Alcohol Use Questionnaire (AUDIT-C) 1. How often do you have a drink containing alcohol?: Never 3. How often do you have six or more drinks on one occasion?: Never Total Score: 0 Score Reviewed/Action Taken: Yes IMELDA-7 AMB Questionnaire IMELDA-7 Date IMELDA - 7 assessed: 04/14/25 Feeling nervous, anxious, or on edge: 0 = Not at all Not being able to stop or control worryin = Not at all Worrying too much about different things: 0 = Not at all Trouble relaxin = Not at all Being so restless that it is hard to sit still: 0 = Not at all Becoming easily annoyed or irritable: 0 = Not at all Feeling afraid as if something awful might happen: 0 = Not at all Total IMELDA-7 score (0-4 normal; 5-9 mild; 10-14 moderate; 15-21 severe): 0 Source: Developed by Drs. Bimal Barrow, Melvi Padilla, Alexys Walls and colleagues, with an educational lynda from [employer]. Review of Systems Const Denies chills, Denies fatigue, Denies fever(s) and Denies headache(s) ENT Denies dysphagia, Denies dizziness, Denies otalgia, Denies headache(s), Denies neck pain, Denies odynophagia and Denies sore throat Card Denies chest pain, Denies palpitations (not since his discharge from the hospital last week) and Denies dyspnea Resp Denies chest congestion, Denies cough and Denies dyspnea GI Denies abdominal pain, Denies constipation, Denies dysphagia, Denies heartburn, Denies diarrhea, Denies nausea, Denies odynophagia and Denies vomiting Denies difficulty urinating, Denies dysuria, Reports nocturia and Reports urinary frequency Musc Reports back pain (over the lower back), Reports arthralgias (especially in the right hip) and Denies neck pain Skin/Breast Denies rash Neuro Denies dizziness and Denies headache(s) Psych Reports anxiety and Reports depression Endo Denies fatigue and Denies palpitations (not since his discharge from the hospital last week) Physical exam (Primary Care) Vital Signs: Last Vital Signs Pulse 60 04/14/25 12:00 BP 110/74 04/14/25 12:00 Pulse Ox 99 04/14/25 12:00 Oxygen Delivery Method Room Air 04/14/25 12:00 BMI result Body Mass Index 37.3 Tobacco/Smoking Status: Tobacco use Status Tobacco use date assessed 04/14/25 04/14/25 12:05 Patient Tobacco Use Status Former Tobacco user 04/14/25 12:05 Tobacco use type Cigarette 04/14/25 12:05 e-Cigarette/Vaping Use Never Used 04/14/25 12:05 PHQ-9: PHQ-9 Score PHQ-9: Total score 0 04/14/25 12:45 Depression Screening Interpretation: Negative Thrive Assessment: Date of Thrive Assessment Date Thrive assessed 04/14/25 04/14/25 12:05 Currently or been in a relationship where the following occur: I choose not to answer Const General: no acute distress and alert HENMT Ears: TM's normal bilaterally and EAC's normal Throat: Yes posterior oropharynx normal and Yes tonsils normal (no TP congestion noted) Neck Neck: Yes supple and No lymphadenopathy Thyroid: Thyroid normal Resp Auscultation: clear to auscultation bilaterally, no rales and no wheezes Cardio Rate: regular rate Rhythm: regular rhythm Heart sounds: no murmurs GI Palpation (GI): Soft to palpation and nontender Auscultation: normal bowel sounds General: Yes no CVA tenderness Back/Spine/Pelvis Back: no CVA tenderness Thoracic/Lumbar Spine: lumbar spinal tenderness (mild) Extrem General: Yes no clubbing, cyanosis or edema Right lower extremity: hip/thigh Details: tenderness Location: of the hip Results Reviewed Results Reviewed: Laboratory Tests 11/09/24 04/04/25 04/04/25 09:28 09:46 09:52 WBC 5.8 Hgb 12.1 L Hct 36.5 L Plt Count 271 Sodium 137 Potassium 4.0 Creatinine 1.24 Estimated GFR 58 Fasting Glucose 98 Calcium 9.1 D AST 20 ALT 9 Triglycerides 92 Cholesterol 178 227 H LDL Cholesterol, Calc 108 H 145 H HDL Cholesterol 64 Vitamin B12 895 25-OH Vitamin D Total 22.5 L TSH 7.93 H Free T4 1.15 Ur Specific [place] <= 1.005 Urine Protein Negative Urine Glucose (UA) Negative Urine Blood Negative Urine Nitrite Negative Ur Leukocyte Esterase Negative Coding Level of Care Code Est Pt Level 4 (72714) Diagnoses Atrial flutter with rapid ventricular response I48.92 History of cardiomyopathy Z86.79 Positive colorectal cancer screening using Cologuard test R19.5 Pure hypercholesterolemia E78.00 Benign essential hypertension I10 Primary osteoarthritis of both hips M16.0 Osteoarthritis type: primary Degeneration of intervertebral disc of lumbar region with discogenic back pain M51.360 Disc-related pain type: discogenic back pain only Elevated TSH R79.89 Hyperkalemia E87.5 Insomnia, unspecified type G47.00 Insomnia type: unspecified Schizoaffective disorder, bipolar type F25.0 Obesity (BMI 30-39.9) E66.9 Additional Codes PHQ-9 - 00716 - PHQ-9 Billing: Yes ([id number]) Assessment & Plan Assessment & Plan (1) Atrial flutter with rapid ventricular response: Code(s): I48.92 - Unspecified atrial flutter Category: Medical Plan: Patient apparently developed atrial flutter 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 a few months ago in January 2025 He was sent to the ER for tachycardia and was found to be in atrial flutter with RVR, with his heart rate around 130 / minute He was successfully cardioverted on Amiodarone and is currently still on Amiodarone, now at 200 mg QD when it was lowered on 02/04/2025 He is on Eliquis 5 mg BID for thromboembolism prophylaxis He will continue outpatient workup with Cardiology for his atrial flutter, including repeat echocardiogram - cardiac ablation will likely be needed at some point (2) History of cardiomyopathy: Comment: LVEF of 25% time of presentation with heart failure and atrial flutter, suspected to be tachycardia mediated. Normalized after maintaining sinus rhythm to 55-60% Code(s): Z86.79 - Personal history of other diseases of the circulatory system Category: Medical Plan: Echocardiogram in 09/2020 showed a near normal EF of 55 to 60%; repeat echo done on 12/11/21 revealed (+) normal LV systolic function with mild LVH, moderately dilated left atrium, mild mitral regurgitation, normal RV systolic pressure, mildly dilated ascending aorta at 4 cm and no pericardial effusion noted Repeat echocardiogram in April 2023 revealed that the calculated ejection fraction is 54% by biplane method, with no evidence of regional wall motion abnormalities. There is mildly decreased right ventricular systolic function but no obvious valvular pathology is seen on this study. There is mild dilatation of the sinuses of Valsalva measuring 4.27 cm and mild dilatation of the ascending aorta measuring 3.90 cm Echocardiogram in March 2024 revealed no changes from his previous echo - the left ventricular systolic function is normal. The visually estimated ejection fraction is between 55-60%. There are no obvious valvular pathology seen on this study. There is mild dilatation of the sinuses of Valsalva measuring 4.10 cm and mild dilatation of the ascending aorta measuring 3.80 cm His most recent echocardiogram done in February 2025 revealed normal LV ejection fraction 55-60% with pseudonormal filling pattern, moderate biatrial enlargement, normal cardiac valvular Dopplers, normal RV systolic pressure, mildly dilated ascending aorta at 3.9 cm and no gross pericardial effusion Follow up with cardiology as scheduled (3) Positive colorectal cancer screening using Cologuard test: Comment: History hemorrhoids Code(s): R19.5 - Other fecal abnormalities Category: Medical Plan: He was being scheduled for colonoscopy due to a positive Cologuard test done earlier this year and was waiting for cardiology to clear him for the procedure but this was postponed due to his recent bout with atrial flutter with RVR He recently completed his work ups and will be seeing cardiology in a couple of weeks for follow up He will be scheduled by GI for his colonoscopy once he is cleared by cardiology for the procedure (4) Pure hypercholesterolemia: Code(s): E78.00 - Pure hypercholesterolemia, unspecified Category: Medical Plan: Results of his labs done last week reviewed and discussed with patient Reinforced low-cholesterol diet Will recheck his labs and fasting lipids as scheduled in 3 months for follow-up (5) Benign essential hypertension: Code(s): I10 - Essential (primary) hypertension Category: Medical Plan: Reinforced low sodium diet - goal is systolic BP of at least 120 to 130 mm or less Continue Metoprolol 50 mg BID (6) Osteoarthritis of hips, bilateral: Comment: S/P total left hip arthroplasty in 2016 Code(s): M16.0 - Bilateral primary osteoarthritis of hip Category: Medical Qualifiers: Osteoarthritis type: primary Qualified Code(s): M16.0 - Bilateral primary osteoarthritis of hip Plan: S/P total left hip arthroplasty in 2016 with (+) significant improvement of his hip pain States that his right hip pain has been progressively getting worse lately and he is now considering having a right hip arthroplasty done soon S/P physical therapy with some relief of his symptoms Follow-up with Orthopedics (Dr. Banda) as scheduled Continue Acetaminophen 500 mg every 8 hours as needed for pain (7) Lumbar degenerative disc disease: Code(s): M51.36 - Other intervertebral disc degeneration, lumbar region Category: Medical Qualifiers: Disc-related pain type: discogenic back pain only Qualified Code(s): M51.360 - Other intervertebral disc degeneration, lumbar region with discogenic back pain only Plan: Reinforced activity and weight lifting restrictions to help minimize the risks of aggravating his back symptoms (8) Elevated TSH: Code(s): R79.89 - Other specified abnormal findings of blood chemistry Category: Medical Plan: His TSH was elevated but free T4 was normal on his recent labs Patient is clinically euthyroid Will recheck his TFTs in 3 months for follow up (9) Hyperkalemia: Code(s): E87.5 - Hyperkalemia Category: Medical Plan: His potassium level was normal at 4.0 when checked last week Reinforced again that he should avoid foods high in potassium content Will continue to monitor his serum potassium level regularly (10) Insomnia: Code(s): G47.00 - Insomnia, unspecified Category: Medical Qualifiers: Insomnia type: unspecified Qualified Code(s): G47.00 - Insomnia, unspecified Plan: Sleep hygiene reinforced Continue OTC Melatonin 5 mg once a day at bedtime as needed (11) Schizoaffective disorder, bipolar type: Code(s): F25.0 - Schizoaffective disorder, bipolar type Category: Medical Plan: Continue Depakote ER 500 mg 3 tablets once a day at bedtime (mood stabilizer), ? Fluphenazine Decanoate solution (Prolixin) 25 milligram/mL? 1.5 mL (37.5 mg) IM injection every 2 weeks ? Olanzapine tablet (Zyprexa) 10 mg 2 tablets (20 mg) once a day at bedtime (thought disorder), ? Benztropine Mesylate? (Cogentin) 0.5 mg? 1 tablet once a day at bedtime, and ? Lorazepam 1 mg once a day as needed Follow up with psychiatry as scheduled (12) Obesity (BMI 30-39.9): Code(s): E66.9 - Obesity, unspecified Category: Medical Plan: Reinforced diet; exercise and weight are not realistic given patient's physical issues and comorbidities Plan Follow up in 3 months Orders: Orders Complete Blood Count Auto Diff 3 Months D64.9 - Anemia, unspecified Comprehensive [place]. Panel Fast 3 Months E78.00 - Pure hypercholesterolemia, unspecified Lipid Panel 3 Months E78.00 - Pure hypercholesterolemia, unspecified UA CC w/rflx Micro + Cult 3 Months R30.0 - Dysuria Thyroid Stimulating Hormone 3 Months R79.89 - Other specified abnormal findings of blood chemistry Vitamin D 25-OH Total 3 Months E55.9 - Vitamin D deficiency, unspecified Free T4 (Free Thyroxine) 3 Months R79.89 - Other specified abnormal findings of blood chemistry Medications: New [CANE] As directed 1 ea 0RF M16.0 - Bilateral primary osteoarthritis of hip
== END 2025-04-14 13:00 | disposition home or self-care (01) ==
LOC: HO.HMCH 11:52
PROVIDERS: PCP Internal Medicine; Visit Provider Internal Medicine
DX: I48.92 Unspecified atrial flutter (principal); F25.0 Schizoaffective disorder, bipolar type; Z86.79 Personal history of other diseases of the circulatory system; R19.5 Other fecal abnormalities; E78.00 Pure hypercholesterolemia, unspecified; I10 Essential (primary) hypertension; M16.0 Bilateral primary osteoarthritis of hip; M51.360 Other intervertebral disc degeneration, lumbar region with discogenic back pain only; R79.89 Other specified abnormal findings of blood chemistry; E87.5 Hyperkalemia; G47.00 Insomnia, unspecified; E66.9 Obesity, unspecified

== ENCOUNTER → 2025-04-14 11:51 | Outpatient (BNVA) | payer MEDICARE, MEDICAID, SELFPAY | PROVIDERS: PCP Internal Medicine; Visit Provider Internal Medicine | DX: I48.92 Unspecified atrial flutter (principal); R19.5 Other fecal abnormalities; E78.00 Pure hypercholesterolemia, unspecified; I10 Essential (primary) hypertension; M16.0 Bilateral primary osteoarthritis of hip; M51.360 Other intervertebral disc degeneration, lumbar region with discogenic back pain only; R79.89 Other specified abnormal findings of blood chemistry; E87.5 Hyperkalemia; G47.00 Insomnia, unspecified; F25.0 Schizoaffective disorder, bipolar type; E66.9 Obesity, unspecified; Z68.37 Body mass index [BMI] 37.0-37.9, adult; Z71.3 Dietary counseling and surveillance | CPT/HCPCS: 96127; 99212 ==

== ENCOUNTER 2025-04-26 10:34 | Outpatient (REF) | payer MEDICARE, MEDICAID, SELFPAY ==
[2025-04-26 13:54] LABS: Free T4 (Free Thyroxine) 1.18 ng/dL (0.71-1.85)
--- OUTSIDE RECORDS SUMMARY | 2025-05-10 19:00 | XMS_ITS | Clinical Summary ---
Author Organization Unknown Care Team Providers Care Product Tester [employer]erg[employer] Name Role Phone ALAN COBIAN, BEVERLY Unavailable Unavailable CARLOS FLANAGAN, ANABEL Unavailable Unavailable Payers Payer Name Policy Type Policy Number Effective Date Expira tion Date [place] [id number] ON DEMAND MEDICARE - [facility] BILLING - ABN [id number] Problems Condition Name Condition Details Condition Category [...] Comments AMOXICILLIN Propensity to adverse reactions Active 01-16 16:11: 16 HALDOL Propensity to adverse reactions Active 01-16 16:09: 38 TRAZADONE Propensity to adverse reactions Active 01-16 16:12: 26 VERAPAMIL Propensity to adverse reactions Active 01-16 16:12: 43 LITHIUM Propensity to adverse reactions Active 01-16 16:11: 32 VERELAN Propensity to adverse reactions Active 01-16 16:10: 22 PENICILLIN Propensity to adverse reactions Active 01-16 16:11: 49 RISPERIDONE Propensity to adverse reactions Active 01-16 16:12: 07 Medications Ordered Medication Name Filled Medication Name Start Date Stop Date Current Medication? Ordering Clinician Indication Dosage Frequency Signature (SIG) Comments Components amiodarone 200 mg tablet 10-04 00:00: 00 03-27 23:59 :00 No [id number] 200 mg DAILY 200 mg DAILY (route: oral) Alternate Route: By mouth. Med Classific ation: Cardiovas cular Therapy Agents benztropine 0.5 mg tablet 16 00:00: 00 10-29 23:59 :00 No [id number] 0.5 mg TWICE A DAY 0.5 mg TWICE A DAY (route: oral) Alternate Route: BY MOUTH. Med Classific ation: Central Nervous System Agents Colace 100 mg capsule 08-13 00:00: 00 10-29 23:59 :00 No [id number] 100 mg 2 TIMES DAILY 100 mg 2 TIMES DAILY (route: oral) Med Classific ation: Gastroint estinal Therapy Agents divalproex ER 500 mg tablet,exte nded release 24 hr 16 00:00: 00 10-29 23:59 :00 No [id number] 500 mg AT BEDTIME 500 mg AT BEDTIME (route: oral) Med Classific ation: Central Nervous System Agents fluphenazin e decanoate 25 mg/mL injection solution 07 00:00: 00 01-10 23:59 :00 No [id number] 25 mg 375 MG (15 ML) INTRAMUSCU LARLY ONCE EVERY 25 mg 375 MG (15 ML) INTRAMUSCU LARLY ONCE EVERY (route: injection) Med Classific ation: Central Nervous System Agents furosemide 40 mg tablet 08-13 00:00: 00 12-27 23:59 :00 No [id number] 40 mg DAILY 40 mg DAILY (route: oral) Med Classific ation: Cardiovas cular Therapy Agents loratadine 10 mg capsule 19 00:00: 00 10-29 23:59 :00 No [id number] 10 mg ONCE A DAY 10 mg ONCE A DAY (route: oral) Alternate Route: BY MOUTH. Med Classific ation: Respirato ry Therapy Agents lorazepam 0.5 mg tablet 12 00:00: 00 08-13 23:59 :00 No [id number] 0.5 mg TWICE A DAY EVERY DAY NEEDED NEEDED 0.5 mg TWICE A DAY EVERY DAY NEEDED NEEDED (route: oral) Alternate Route: BY MOUTH. Med Classific ation: Central Nervous System Agents melatonin 5 mg tablet 06-30 00:00: 00 01-10 23:59 :00 No [id number] FOR INSOMNIA 5 mg AT BEDTIME WITH FOOD NEEDED 5 mg AT BEDTIME WITH FOOD NEEDED (route: oral) Alternate Route: BY MOUTH. Med Classific ation: Central Nervous System Agents metoprolol tartrate 25 mg tablet 08-13 00:00: 00 10-29 23:59 :00 No [id number] 25 mg DAILY 25 mg DAILY (route: oral) Med Classific ation: Cardiovas cular Therapy Agents nicotine 7 mg/24 hr daily transdermal patch 06-30 00:00: 00 02-20 23:59 :00 No [id number] 7 mg EVERY DAY DIRECTED 7 mg EVERY DAY DIRECTED (route: transderma l) Med Classific ation: Chemical Dependenc y, Agents to Treat olanzapine 20 mg tablet 06-20 00:00: 00 01-10 23:59 :00 No [id number] 20 mg EVERYDAY AT BEDTIME 20 mg EVERYDAY AT BEDTIME (route: oral) Alternate Route: BY MOUTH. Med Classific ation: Central Nervous System Agents olanzapine 5 mg tablet 12-09 00:00: 00 10-29 23:59 :00 No [id number] 5 mg BEDTIME 5 mg BEDTIME (route: oral) Med Classific ation: Central Nervous System Agents omeprazole 20 mg capsule,del ayed release 06-18 00:00: 00 01-10 23:59 :00 No [id number] 20 capsule EVERY DAY 20 capsule EVERY DAY (route: oral) Alternate Route: BY MOUTH. Med Classific ation: Gastroint estinal Therapy Agents tamsulosin 0.4 mg capsule 08-13 00:00: 00 01-10 23:59 :00 No [id number] 0.4 capsule DAILY 0.4 capsule DAILY (route: oral) Med Classific ation: Genitouri nary Therapy ergocalcife rol (vitamin D2) 1,250 mcg (50,000 unit) capsule -05 00:00: 10-29 23:59 :00 No [id number] 1250 mcg ONCE A WEEK 1250 mcg ONCE A WEEK (route: oral) Alternate Route: BY MOUTH. Med Classific ation: Electroly te Balance-N utritiona l Products Xarelto 15 mg tablet 08-13 00:00: 11-14 10:17 :57.2 27 No [id number] 15 mg DAILY 15 mg DAILY (route: oral) Med Classific ation: Hematolog ical Agents sulfamethox azole 400 mg-trimetho prim 80 mg tablet 16 00:00: 00 02-20 23:59 :00 No [id number] 400 mg 2 TIMES DAILY 400 mg 2 TIMES DAILY (route: oral) Med Classific ation: Anti-Infe ctive Agents amiodarone 100 mg tablet 2019-05 00:00: 00 05-15 23:59 :00 No [id number] 100 mg DAILY 100 mg DAILY (route: oral) Med Classific ation: Cardiovas cular Therapy Agents Xarelto 20 mg tablet 11-14 00:00: 00 10-29 23:59 :00 No [id number] 20 mg DAILY 20 mg DAILY (route: oral) Med Classific ation: Hematolog ical Agents Lasix 40 mg tablet 01-05 00:00: 00 01-10 23:59 :00 No [id number] 40 mg DAILY 40 mg DAILY (route: oral) Med Classific ation: Cardiovas cular Therapy Agents Depakote 250 mg tablet,carole yed release 08-13 00:00: 00 10-29 23:59 :00 No [id number] 1 tablet BEDTIME 1 tablet BEDTIME (route: oral) Med Classific ation: Central Nervous System Agents lorazepam 0.5 mg tablet 08-13 00:00: 00 10-29 23:59 :00 No [id number] ANXIETY/BRIAN TATION 1 tablet NOON 1 tablet NOON (route: oral) Med Classific ation: Central Nervous System Agents lorazepam 1 mg tablet 08-13 00:00: 10-29 23:59 :00 No [id number] 1 tablet 2 TIMES DAILY 1 tablet 2 TIMES DAILY (route: oral) Med Classific ation: Central Nervous System Agents benztropine 0.5 mg tablet 10-29 00:00: 00 01-10 23:59 :00 No [id number] 0.5 mg BEDTIME 0.5 mg BEDTIME (route: oral) Med Classific ation: Central Nervous System Agents Depakote ER 250 mg tablet,exte nded release 10-29 00:00: 00 01-10 23:59 :00 No [id number] 250 mg DAILY 250 mg DAILY (route: oral) Med Classific ation: Central Nervous System Agents digoxin 250 mcg (0.25 mg) tablet 10-29 00:00: 00 01-10 23:59 :00 No [id number] 250 mcg DAILY 250 mcg DAILY (route: oral) Med Classific ation: Cardiovas cular Therapy Agents Eliquis 5 mg tablet 10-29 00:00: 00 01-10 23:59 :00 No [id number] 5 mg 2 TIMES DAILY 5 mg 2 TIMES DAILY (route: oral) Med Classific ation: Hematolog ical Agents lorazepam 1 mg tablet 10-29 00:00: 00 01-10 23:59 :00 No [id number] 1 mg DAILY 1 mg DAILY (route: oral) Med Classific ation: Central Nervous System Agents metoprolol tartrate 100 mg tablet 10-29 00:00: 00 01-10 23:59 :00 No [id number] 100 mg 2 TIMES DAILY 100 mg 2 TIMES DAILY (route: oral) Med Classific ation: Cardiovas cular Therapy Agents Ventolin HFA 90 mcg/actuati on aerosol inhaler 10-29 00:00: 00 01-10 23:59 :00 No [id number] 1 puff NEEDED 1 puff NEEDED (route: inhalation ) Med Classific ation: Respirato ry Therapy Agents benztropine 0.5 mg tablet - 00:00: 00 01-25 23:59 :00 No [id number] 0.5 mg BEDTIME 0.5 mg BEDTIME (route: oral) Med Classific ation: Central Nervous System Agents Depakote 250 mg tablet,carole yed release 01-12 00:00: 00 Yes [id number] 250 mg DAILY 250 mg DAILY (route: oral) Med Classific ation: Central Nervous System Agents Eliquis 5 mg tablet 01-12 00:00: 00 Yes [id number] 5 mg 2 TIMES DAILY 5 mg 2 TIMES DAILY (route: oral) Med Classific ation: Hematolog ical Agents fluphenazin e decanoate 25 mg/mL injection solution 01-12 00:00: 00 03-11 23:59 :00 No [id number] 37.5 mg EVERY OTHER WEEK 37.5 mg EVERY OTHER WEEK (route: injection) Med Classific ation: Central Nervous System Agents Lasix 40 mg tablet 01-12 00:00: 00 03-11 23:59 :00 No [id number] 40 mg DAILY 40 mg DAILY (route: oral) Med Classific ation: Cardiovas cular Therapy Agents lorazepam 1 mg tablet 01-12 00:00: 00 03-12 23:59 :00 No [id number] 1 mg DAILY 1 mg DAILY (route: oral) Med Classific ation: Central Nervous System Agents melatonin 5 mg tablet 01-12 00:00: 00 03-11 23:59 :00 No [id number] 5 mg NEEDED 5 mg NEEDED (route: oral) Med Classific ation: Central Nervous System Agents metoprolol tartrate 100 mg tablet 01-12 00:00: 00 01-25 23:59 :00 No [id number] 100 mg 2 TIMES DAILY 100 mg 2 TIMES DAILY (route: oral) Med Classific ation: Cardiovas cular Therapy Agents olanzapine 20 mg tablet 01-12 00:00: 00 03-12 23:59 :00 No [id number] 20 mg BEDTIME 20 mg BEDTIME (route: oral) Med Classific ation: Central Nervous System Agents omeprazole 20 mg capsule,del ayed release 01-12 00:00: 00 03-12 23:59 :00 No [id number] 20 mg DAILY 20 mg DAILY (route: oral) Med Classific ation: Gastroint estinal Therapy Agents tamsulosin 0.4 mg capsule 01-12 00:00: 00 03-12 23:59 :00 No [id number] 0.4 mg BEDTIME 0.4 mg BEDTIME (route: oral) Med Classific ation: Genitouri nary Therapy Ventolin HFA 90 mcg/actuati on aerosol inhaler 01-12 00:00: 00 03-12 23:59 :00 No [id number] Per instruc tions NEEDED Per instructio ns NEEDED (route: inhalation ) Med Classific ation: Respirato ry Therapy Agents acetaminoph en 500 mg tablet 01-25 00:00: 00 03-11 23:59 :00 No [id number] 500 mg NEEDED 500 mg NEEDED (route: oral) Med Classific ation: Analgesic , Anti-infl ammatory or Antipyret ic amiodarone 200 mg tablet 01-25 00:00: 00 02-04 23:59 :00 No [id number] 200 mg 2 TIMES DAILY 200 mg 2 TIMES DAILY (route: oral) Med Classific ation: Cardiovas cular Therapy Agents amiodarone 200 mg tablet 02-05 00:00: 00 03-11 23:59 :00 No [id number] 200 mg DAILY 200 mg DAILY (route: oral) Med Classific ation: Cardiovas cular Therapy Agents benztropine 0.5 mg tablet 01-25 00:00: 00 03-11 23:59 :00 No [id number] 0.5 mg 2 TIMES DAILY 0.5 mg 2 TIMES DAILY (route: oral) Med Classific ation: Central Nervous System Agents melatonin 5 mg tablet 01-25 00:00: 00 03-12 23:59 :00 No [id number] 5 mg NEEDED 5 mg NEEDED (route: oral) Med Classific ation: Central Nervous System Agents metoprolol tartrate 50 mg tablet -16 00:00: 00 03-12 23:59 :00 No [id number] 50 mg 2 TIMES DAILY 50 mg 2 TIMES DAILY (route: oral) Med Classific ation: Cardiovas cular Therapy Agents acetaminoph en 500 mg tablet 2024-05 00:00: 00 Yes [id number] 500 mg NEEDED 500 mg NEEDED (route: oral) Med Classific ation: Analgesic , Anti-infl ammatory or Antipyret ic amiodarone 200 mg tablet 2024-05 00:00: 00 Yes [id number] 200 mg EVERY AM 200 mg EVERY AM (route: oral) Med Classific ation: Cardiovas cular Therapy Agents benztropine 0.5 mg tablet 2024-05 00:00: 00 Yes [id number] 0.5 mg BEDTIME 0.5 mg BEDTIME (route: oral) Med Classific ation: Central Nervous System Agents Depakote 250 mg tablet,carole yed release 2024-05 00:00: 00 Yes [id number] 250 mg BEDTIME 250 mg BEDTIME (route: oral) Med Classific ation: Central Nervous System Agents Eliquis 5 mg tablet 2024-05 00:00: 00 Yes [id number] 5 mg EVERY AM 5 mg EVER Y AM (route: oral) Med Classific ation: Hematolog ical Agents fluphenazin e decanoate 25 mg/mL injection solution 2024-05 00:00: 00 Yes [id number] 37.5 mg EVERY OTHER WEEK 37.5 mg EVERY OTHER WEEK (route: injection) Med Classific ation: Central Nervous System Agents Lasix 40 mg tablet 2024-05 00:00: 00 Yes [id number] 40 mg EVERY AM 40 mg EVERY AM (route: oral) Med Classific ation: Cardiovas cular Therapy Agents lorazepam 1 mg tablet 2024-05 00:00: 00 Yes [id number] 1 mg EVERY AM 1 mg EVER Y AM (route: oral) Med Classific ation: Central Nervous System Agents melatonin 5 mg tablet 2024-05 00:00: 00 Yes [id number] 5 mg NEEDED 5 mg NEEDED (route: oral) Med Classific ation: Central Nervous System Agents metoprolol tartrate 50 mg tablet 2024-05 00:00: 00 Yes [id number] 50 mg EVERY AM 50 mg EVERY AM (route: oral) Med Classific ation: Cardiovas cular Therapy Agents olanzapine 20 mg tablet 2024-05 00:00: 00 Yes [id number] 20 mg BEDTIME 20 mg BEDTIME (route: oral) Med Classific ation: Central Nervous System Agents omeprazole 20 mg capsule,del ayed release 2024-05 00:00: 00 Yes [id number] 20 mg EVERY AM 20 mg EVERY AM (route: oral) Med Classific ation: Gastroint estinal Therapy Agents tamsulosin 0.4 mg capsule 2024-05 00:00: 00 Yes [id number] 0.4 mg BEDTIME 0.4 mg BEDTIME (route: oral) Med Classific ation: Genitouri nary Therapy Ventolin HFA 90 mcg/actuati on aerosol inhaler 2024-05 00:00: 00 Yes [id number] Per instruc tions NEEDED Per instructio ns NEEDED (route: inhalation ) Med Classific ation: Respirato ry Therapy Agents Vital Signs Vital Name Observation Time Observation Value Commen ts Temperature 2025-04-21 11:06:00.000 97.3 [degF] Temperature 2025-04-15 13:00:00.000 98.2 [degF] Temperature 2025-03-29 12:37:00.000 96.7 [degF] Temperature 2025-03-28 11:14:00.000 97.3 [degF] Temperature 2025-03-25 14:50:00.000 98.2 [degF] Temperature 2025-03-24 11:55:00.000 97.1 [degF] Temperature 2025-03-21 11:14:00.000 97.6 [degF] Temperature 2025-03-18 13:45:00.000 97.8 [degF] Temperature 2025-03-17 12:16:00.000 97.5 [degF] Temperature 2025-03-15 13:08:00.000 97.9 [degF] Pulse 2025-04-22 11:51:00.000 60 /min Pulse 2025-04-21 11:06:00.000 62 /min Pulse 2025-04-19 12:56:00.000 62 /min Pulse 2025-04-15 13:00:00.000 60 /min Pulse 2025-04-14 14:02:00.000 60 /min Pulse 2025-04-11 13:40:00.000 62 /min Pulse 2025-04-06 11:55:00.000 62 /min Pulse 2025-04-05 12:39:00.000 60 /min Pulse 2025-04-04 17:38:00.000 60 /min Pulse 2025-03-31 12:35:00.000 60 /min Pulse 2025-03-29 12:37:00.000 62 /min Pulse 2025-03-28 11:14:00.000 60 /min Pulse 2025-03-25 14:50:00.000 64 /min Pulse 2025-03-24 11:55:00.000 64 /min Pulse 2025-03-21 11:14:00.000 65 /min Pulse 2025-03-18 13:45:00.000 67 /min Pulse 2025-03-17 12:16:00.000 62 /min Pulse 2025-03-15 13:08:00.000 60 /min O2 Saturation (%) 2025-04-22 11:51:00.000 99 % O2 Saturation (%) 2025-04-21 11:06:00.000 97 % O2 Saturation (%) 2025-04-15 13:00:00.000 99 % O2 Saturation (%) 2025-04-14 14:02:00.000 98 % O2 Saturation (%) 2025-04-11 13:40:00.000 98 % O2 Saturation (%) 2025-04-06 11:55:00.000 98 % O2 Saturation (%) 2025-04-05 12:39:00.000 99 % O2 Saturation (%) 2025-04-04 17:38:00.000 97 % O2 Saturation (%) 2025-03-31 12:35:00.000 97 % O2 Saturation (%) 2025-03-29 12:37:00.000 99 % O2 Saturation (%) 2025-03-28 11:14:00.000 98 % O2 Saturation (%) 2025-03-25 14:50:00.000 97 % O2 Saturation (%) 2025-03-24 11:55:00.000 98 % O2 Saturation (%) 2025-03-21 11:14:00.000 98 % O2 Saturation (%) 2025-03-18 13:45:00.000 96 % O2 Saturation (%) 2025-03-17 12:16:00.000 97 % O2 Saturation (%) 2025-03-15 13:08:00.000 98 % Respirations 2025-04-22 11:51:00.000 16 /min Respirations 2025-04-21 11:06:00.000 16 /min Respirations 2025-04-19 12:56:00.000 16 /min Respirations 2025-04-15 13:00:00.000 16 /min Respirations 2025-04-14 14:02:00.000 16 /min Respirations 2025-04-11 13:40:00.000 16 /min Respirations 2025-04-06 11:55:00.000 16 /min Respirations 2025-04-05 12:39:00.000 16 /min Respirations 2025-04-04 17:38:00.000 16 /min Respirations 2025-03-31 12:35:00.000 16 /min Respirations 2025-03-29 12:37:00.000 16 /min Respirations 2025-03-28 11:14:00.000 17 /min Respirations 2025-03-25 14:50:00.000 16 /min Respirations 2025-03-24 11:55:00.000 16 /min Respirations 2025-03-21 11:14:00.000 16 /min Respirations 2025-03-18 13:45:00.000 16 /min Respirations 2025-03-17 12:16:00.000 16 /min Respirations 2025-03-15 13:08:00.000 16 /min Systolic Blood Pressure 2025-04-22 11:51:00.000 136 mm [Hg] Systolic Blood Pressure 2025-04-21 11:06:00.000 138 mm [Hg] Systolic Blood Pressure 2025-04-19 12:56:00.000 130 mm [Hg] Systolic Blood Pressure 2025-04-15 13:00:00.000 138 mm [Hg] Systolic Blood Pressure 2025-04-14 14:02:00.000 114 mm [Hg] Systolic Blood Pressure 2025-04-11 13:40:00.000 127 mm [Hg] Systolic Blood Pressure 2025-04-06 11:55:00.000 119 mm [Hg] Systolic Blood Pressure 2025-04-04 17:38:00.000 138 mm [Hg] Systolic Blood Pressure 2025-03-31 12:35:00.000 144 mm [Hg] Systolic Blood Pressure 2025-03-29 12:37:00.000 147 mm [Hg] Systolic Blood Pressure 2025-03-28 11:14:00.000 138 mm [Hg] Systolic Blood Pressure 2025-03-25 14:50:00.000 125 mm [Hg] Systolic Blood Pressure 2025-03-24 11:55:00.000 133 mm [Hg] Systolic Blood Pressure 2025-03-21 11:14:00.000 145 mm [Hg] Systolic Blood Pressure 2025-03-18 13:45:00.000 130 mm [Hg] Systolic Blood Pressure 2025-03-17 12:16:00.000 130 mm [Hg] Systolic Blood Pressure 2025-03-15 13:08:00.000 156 mm [Hg] Diastolic Blood Pressure 2025-04-22 11:51:00.000 82 mm [Hg] Diastolic Blood Pressure 2025-04-21 11:06:00.000 76 mm [Hg] Diastolic Blood Pressure 2025-04-19 12:56:00.000 82 mm [Hg] Diastolic Blood Pressure 2025-04-15 13:00:00.000 82 mm [Hg] Diastolic Blood Pressure 2025-04-14 14:02:00.000 75 mm [Hg] Diastolic Blood Pressure 2025-04-11 13:40:00.000 77 mm [Hg] Diastolic Blood Pressure 2025-04-06 11:55:00.000 74 mm [Hg] Diastolic Blood Pressure 2025-04-04 17:38:00.000 88 mm [Hg] Diastolic Blood Pressure 2025-03-31 12:35:00.000 78 mm [Hg] Diastolic Blood Pressure 2025-03-29 12:37:00.000 82 mm [Hg] Diastolic Blood Pressure 2025-03-28 11:14:00.000 85 mm [Hg] Diastolic Blood Pressure 2025-03-25 14:50:00.000 86 mm [Hg] Diastolic Blood Pressure 2025-03-24 11:55:00.000 80 mm [Hg] Diastolic Blood Pressure 2025-03-21 11:14:00.000 88 mm [Hg] Diastolic Blood Pressure 2025-03-18 13:45:00.000 76 mm [Hg] Diastolic Blood Pressure 2025-03-17 12:16:00.000 73 mm [Hg] Diastolic Blood Pressure 2025-03-15 13:08:00.000 80 mm [Hg] Plan of Treatment Planned Activity Planned Date Details Comments Future Scheduled Test SKILLED NU RSE TO EVALUATE PATIENT, IDENTIFY PRIMARY AND CO-MORBID CONDITIONS CODED PER CODING GUIDELINES, AND DEVELOP PATIENT SPECIFIC PLAN OF CARE THAT INCLUDES PATIENT GOAL FOR HOME HEALTH. PLAN OF CARE TO INCLUDE 3 PRN VISIT(S) FOR OASIS DATA COLLECTION/COMPREHENSIVE ASSESSMENT AT TIMEPOINTS PER FEDERAL REGULATIONS. THIS INCLUDES VISITS FOR NATE, RECERT, SCIC, AND/OR DC. [code = SKILLED NURSE TO EVALUATE PATIENT, IDENTIFY PRIMARY AND CO-MORBID CONDITIONS CODED PER CODING GUIDELINES, AND DEVELOP PATIENT SPECIFIC PLAN OF CARE THAT INCLUDES PATIENT GOAL FOR HOME HEALTH. PLAN OF CARE TO INCLUDE 3 PRN VISIT(S) FOR OASIS DATA COLLECTION/COMPREHENSIVE ASSESSMENT AT TIMEPOINTS PER FEDERAL REGULATIONS. THIS INCLUDES VISITS FOR NATE, RECERT, SCIC, AND/OR DC.] Future Scheduled Test SKILLED NU RSE WILL MAINTAIN SITUATIONAL AWARENESS FOR SAFETY AND WILL NOTIFY CLINICAL AIRPLANE ELECTRICAL REPAIRER AND PHYSICIAN/PROVIDER WITH ANY CHANGE IN CONDITION. [code = SKILLED NURSE WILL MAINTAIN SITUATIONAL AWARENESS FOR SAFETY AND WILL NOTIFY CLINICAL AIRPLANE ELECTRICAL REPAIRER AND PHYSICIAN/PROVIDER WITH ANY CHANGE IN CONDITION.] [...] SERVICES.] Future Scheduled Test SKILLED NU RSE TO [...] WEEK] Future Scheduled Test SKILLED NU RSE TO [...] LIST 3 X WEEK.] Future Scheduled Test SKILLED NU RSE FOR [...] PROVIDER FOR EARLY INTERVENTION.] Future Scheduled Test MEDICATION S WILL BE HELD AND STORED IN LOCKBOX [code = MEDICATIONS WILL BE HELD AND STORED IN LOCKBOX] Future Scheduled Test SKILLED NU RSE MAY PICKUP AND TRANSPORT MEDICATIONS [code = SKILLED NURSE MAY PICKUP AND TRANSPORT MEDICATIONS] Future Scheduled Test SKILLED NU RSE FOR O/A, TEACHING, AND MANAGEMENT OF AFIB [code = SKILLED NURSE FOR O/A, TEACHING, AND MANAGEMENT OF AFIB] Goal 2025-03-08 Patient Goal - T O CONTINUE SMOKING CESSATION AND HAVE MY HIP SURGERY AND STAY HEALTHY Goal Patient Goal - T O CONTINUE SMOKING CESSATION AND HAVE MY HIP SURGERY AND STAY HEALTHY Goal Provider Goal - A PLAN OF CARE WILL BE ESTABLISHED THAT MEETS PATIENT'S RETIREMENT NEEDS AND INCLUDES PATIENT GOAL FOR HOME HEALTH. Goal Provider Goal - PATIENT WILL REMAIN [...] Goal - PATIENT/CAREGIVER WILL VERBALIZE/DEMONSTRATE MANAGEMENT OF AFIB CARDIAC DISEASE PROCESS AND EXACERBATIONS WILL BE IDENTIFIED AND PROMPTLY REPORTED THROUGHOUT THE CERTIFICATION PERIOD. Encounters Start Date/Time End Date/Time Encounter Type Admission Type Attending Clinicians Care Facility Care Department Encounter ID Discharge Date Discharge Status Discharge Condition Discharge Reason Percent Goals Met 2025-03-13 00:00:00 2025-05-11 00:00:00 Outpatient RECERTIFIC ATION ANA[facility] GON[facility]ALE[facility] [id number]
== END 2025-04-26 10:35 | disposition home or self-care (01) ==
LOC: HO.LAB 10:34
PROVIDERS: PCP Internal Medicine; Visit Provider Nurse Practitioner Family
DX: I48.92 Unspecified atrial flutter (principal); I10 Essential (primary) hypertension; I26.99 Other pulmonary embolism without acute cor pulmonale; I71.20 Thoracic aortic aneurysm, without rupture, unspecified; Z13.29 Encounter for screening for other suspected endocrine disorder; Z86.79 Personal history of other diseases of the circulatory system; Z09 Encounter for follow-up examination after completed treatment for conditions other than malignant neoplasm; Z79.01 Long term (current) use of anticoagulants
CPT/HCPCS: 36415; 84439; 84443

== ENCOUNTER 2025-04-26 10:34 | Outpatient (AMB) | payer MEDICARE, MEDICAID, SELFPAY ==
[2025-04-26 10:37] VITALS: BP 122/72; PULSE 55; BMI 38.0
--- NOTE | 2025-04-26 10:37 | A.OFFVIS_ITS ---
Vital Signs 04/26/25 10:37 Height 5 ft 8 in Weight 250 lb 0.067 oz BMI 38.0 BP 122/72 Blood Pressure Location Lt brachial Position Sitting Pulse 55 Pulse Source Monitor Intake Visit Reasons: Follow up/ Echo,Holter Rest Room Maid Required: No Accompanied by: Other Relationship Allergies Penicillins (PENICILLINS) Allergy (Intermediate, Verified 04/26/25 10:44) RASH haloperidol (Haldol) Allergy (Unknown, Verified 04/26/25 10:44) Unknown mirtazapine (Remeron) Allergy (Unknown, Verified 04/26/25 10:44) Unknown trazodone Allergy (Unknown, Verified 04/26/25 10:44) Unknown verapamil (Verelan) Allergy (Unknown, Verified 04/26/25 10:44) Unknown risperidone (From RISPERDAL) Adverse Reaction (Severe, Verified 04/26/25 10:44) SEIZURE lithium (LITHIUM) Adverse Reaction (Intermediate, Verified 04/26/25 10:44) LETHARGY, AKATHISIA, TD Medication List - Last Reconciled 04/26/25 by ANALILIA DamonC acetaminophen 500 mg PO Q8H PRN amiodarone 200 mg PO DAILY apixaban (Eliquis) 5 mg PO BID ascorbic acid (vitamin C) 500 mg PO DAILY benztropine 0.5 mg PO BEDTIME [CANE As directed] divalproex ER 250 mg PO DAILY docusate sodium 100 mg PO BID PRN ergocalciferol (vitamin D2) 1,250 mcg PO MO fluphenazine decanoate 37.5 mg IM Q2W furosemide 40 mg PO QAM [HOSPITAL BED As directed] loratadine (Allergy Relief (loratadine)) 10 mg PO DAILY PRN 90 days lorazepam 1 mg PO .QD PRN melatonin 5 mg PO BEDTIME PRN 90 days metoprolol tartrate 50 mg PO BID olanzapine (Zyprexa) 20 mg PO BEDTIME omeprazole 20 mg PO DAILY@0630 tamsulosin 0.4 mg PO DAILY Ventolin HFA 90 mcg/actuation (albuterol sulfate) 2 puffs PO QID PRN NS walker (Ultra-Light Rollator misc) As directed HPI HPI Follow up/ Echo,Holter: Details: Pool is a 64-year-old male with past medical history of smoking, hypertension, hyperlipidemia, ascending aorta dilation, heart failure with reduced EF, 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 He was treated with heart rate control and [place] [facility] [place] for heart palpitations and again treated for atrial flutte with rate control. On follow up visit he was in atrial flutter with RVR and sent to the emergency room. He was started on IV amiodarone and the following day underwent successful cardioversion to sinus rhythm. He has continued on amiodarone loading and now on 200 mg daily. He had outpatient echocardiogram and Holter monitor and now presents for follow-up. Today he reports he has been doing generally well since his hospital discharge. He is not having any cardiac symptoms. He denies chest discomfort, shortness of breath, heart palpitations. He is asking to be able to go back to his day program. He is taking all meds as directed. No bleeding issues reported. Nurse from his living facility present. [facility] Medical History Pulmonary emboli Congestive heart failure Atrial fibrillation with RVR Chest pain Hyperkalemia Screening for malignant neoplasm of colon performed Encounter for screening colonoscopy Screening for tuberculosis Substance abuse in remission Smoker Anal irritation Allergic rhinitis Cardiomyopathy Obesity (BMI 30-39.9) Schizoaffective disorder, bipolar type Insomnia Lumbar degenerative disc disease Osteoarthritis of hips, bilateral Hyperkalemia Pure hypercholesterolemia Benign essential hypertension History of acute heart failure History of atrial flutter History of congestive heart failure History of cardiomyopathy HTN (hypertension) Paroxysmal atrial flutter Surgical History History of total hip replacement Family History Father Hypertension CVD (cardiovascular disease) Mother Hypertension Diabetes Brother Mental health disorder Social History Household Members: Other Household Members Other:: independent living Housing: Assisted Living Facility Housing Other:: independent living Are you a primary acute care nursing assistant to a significant other at home: No Do you presently have visiting nurse or other home services: No Alcohol intake: former Patient Tobacco Use Status: Former Tobacco user Tobacco use type: Cigarette Cigarettes Per Day: 6 e-Cigarette/Vaping Use: Never Used Second Hand Smoke Exposure: Yes Substance Use Type: Former Substance User Advance Directives Date on File: 07/22/22 service: No Current occupational status: retired Current occupational exposures/hazards: No Cognitive needs: Yes (cane) Hearing needs: No Vision needs: Yes Review of Systems Const All systems reviewed & are unremarkable except as noted in HPI and below Denies daytime sleepiness, Denies difficulty sleeping, Denies snoring, Denies stops breathing during sleep and Denies weakness Card Denies chest pain, Denies rapid heart rate, Denies irregular heart rhythm, Denies claudication, Denies leg edema, Denies lightheadedness, Reports dyspnea, Denies dyspnea on exertion, Denies orthopnea, Denies paroxysmal nocturnal dyspnea and Denies slow heart rate Resp Denies cough, Reports dyspnea, Denies dyspnea on exertion and Denies snoring GI Reports no additional complaints, Denies hematochezia, Denies change in stool character and Denies dyspepsia Musc Denies abnormal gait, Denies muscle weakness and Denies numbness Neuro Denies abnormal gait, Denies numbness and Denies weakness Physical Exam Vital Signs: BMI result Body Mass Index 38.0 Const General: cooperative, healthy appearing, comfortable and no acute distress Orientation/consciousness: patient oriented x3 Neck Neck: Yes normal visual inspection Resp Effort & Inspection: normal respiratory effort Auscultation: clear to auscultation bilaterally, no rales, no rhonchi and no wheezes Cardio Rate: regular rate Rhythm: regular rhythm Heart sounds: S1 normal heart sound present, S2 normal heart sound present, no gallops, no murmurs and no rubs Neuro General: patient oriented x3 Extrem General: Yes normal to inspection, No no pedal edema and No calf tenderness Psych Appearance: grossly normal Mental Status: mental status grossly normal Speech and movement: Normal speech and movement present Office Procedures EKG Details: Today, read by me, sinus bradycardia, short SD interval, nonspecific ST and T- wave abnormality, QTC 461 milliseconds, rate 55 [id number], Complete Assessment & Plan Assessment & Plan (1) Paroxysmal atrial flutter: Code(s): I48.92 - Unspecified atrial flutter Category: Medical Plan: History of paroxysmal atrial flutter/fibrillation, with recent persistent a flutter with RVR, status post cardioversion back to sinus rhythm. He is on amiodarone 200 mg daily and metoprolol tartrate 50 mg b.i.d.. Holter monitor done 04/13/2025 shows sinus rhythm with average heart rate 57, 71.5% of time heart rate less than 60, rare PACs. Echocardiogram 10 07/01/2024 showed EF 55-6 0%, moderate biatrial enlargement, normal valves, ascending aorta 3.9 cm. EKG today sinus bradycardia with short SD interval, nonspecific ST and T-wave abnormalities, rate 55. Currently asymptomatic. Continue amiodarone and metoprolol. Continue Eliquis for anticoagulation. Will refer to EP for AFib/flutter ablation. Will recheck TSH as recent level elevated at 7.93. Cardiology follow-up 4 months, sooner if needed (2) History of cardiomyopathy: Comment: LVEF of 25% time of presentation with heart failure and atrial flutter, suspected to be tachycardia mediated. Normalized after maintaining sinus rhythm to 55-60% Code(s): Z86.79 - Personal history of other diseases of the circulatory system Category: Medical Plan: Prior EF as low as 25%. Most recent echo showing normal EF. Continue to pursue rhythm control. (3) HTN (hypertension): Code(s): I10 - Essential (primary) hypertension Category: Medical Plan: [place] blood pressure goal less than 130/80. Blood pressure normal today. No med changes made. (4) Thoracic aortic aneurysm: Code(s): I71.20 - Thoracic aortic aneurysm, without rupture, unspecified Category: Medical Plan: Mild dilation as above. (5) Hospital discharge follow-up: Code(s): Z09 - Encounter for follow-up examination after completed treatment for conditions other than malignant neoplasm Category: Medical Plan: [facility] [place] (6) Pulmonary emboli: Comment: [facility] [place], CTA shows acute bilateral subsegmental pulmonary emboli. Code(s): I26.99 - Other pulmonary embolism without acute cor pulmonale Category: Medical Qualifiers: Pulmonary embolism type: other Chronicity: acute Acute cor pulmonale presence: unspecified Qualified Code(s): I26.99 - Other pulmonary embolism without acute cor pulmonale Plan: Recent acute bilateral subsegmental pulmonary emboli. He had been on Xarelto for anticoagulation -which he may have ran out of prior to his October admission. Per notes Eliquis was started at that time. No bleeding issues or concerns for recurrent PE. Plan I discussed with the patient that his heart is currently in a normal, steady rhythm following his cardioversion. We reviewed his current medications, including amiodarone for rhythm control and Eliquis to prevent stroke. I explained that amiodarone is a good short-term medication but is not ideal for long-term use due to potential side effects on the thyroid, liver, and lungs. Therefore, I recommended a referral to an life support technician to consider a cardiac ablation, with the goal of eventually discontinuing amiodarone. We also addressed his elevated thyroid test from March. I explained that amiodarone can cause hypothyroidism and that we would recheck his TSH level today to see if he requires thyroid medication. Regarding his ability to participate in his day program, I informed him that there are no cardiac restrictions at this time and that I would provide a note for his return. We scheduled a follow-up visit in four months. Orders: Orders TSH reflex Free T4 Today I48.92 - Unspecified atrial flutter Referrals Cardiac Electrophysiology Referral I48.92 - Unspecified atrial flutter Patient Instructions: - Continue to take your medications as prescribed, including amiodarone, metoprolol, and Eliquis. - Go to the hospital lab today to get your blood drawn to check your thyroid levels. You do not need to be fasting for this test. - We will make a referral for you to see a heart rhythm specialist in [place] to discuss a procedure called a cardiac ablation. - You can return to your adult day program. We will give you a note for them. - Call us if you experience any return of a fast or irregular heartbeat, chest pain, or trouble breathing. - You have a follow-up appointment in our office in four months. Patient was informed and verbally consented to the use of an ambient scribe for clinic note documentation during this visit. Visit time spent on chart review, interview, assessment, orders, documentation. Coding Level of Care Code Est Pt Level 4 (12692) Add On Problem Visit Only Diagnoses Paroxysmal atrial flutter I48.92 History of cardiomyopathy Z86.79 HTN (hypertension) I10 Thoracic aortic aneurysm I71.20 Hospital discharge follow-up Z09 Other acute pulmonary embolism, unspecified whether acute cor pulmonale present I26.99 Pulmonary embolism type: other Chronicity: acute Acute cor pulmonale presence: unspecified CPT Codes EKG - CPT: 32833-[id number], Complete ([id number]) Time Spent (min) 32
== END 2025-04-26 11:23 | disposition home or self-care (01) ==
LOC: HO.HCS 10:35
PROVIDERS: PCP Internal Medicine; Visit Provider Nurse Practitioner Family
DX: I48.92 Unspecified atrial flutter (principal); Z86.79 Personal history of other diseases of the circulatory system; I10 Essential (primary) hypertension; I71.20 Thoracic aortic aneurysm, without rupture, unspecified; Z09 Encounter for follow-up examination after completed treatment for conditions other than malignant neoplasm; I26.99 Other pulmonary embolism without acute cor pulmonale
CPT/HCPCS: 93010; 99214; G2211